=== PATIENT | female | born 2005 | race Caucasian/White ===

== ENCOUNTER 2024-01-25 00:44 | Emergency (ER) | payer SELFPAY ==
[2024-01-25 00:45] VITALS: BP 106/61; PULSE 71; TEMP 36.4; O2SAT 100; BMI 19.5
--- NOTE | 2024-01-25 01:20 | ED.GENADUL1 ---
HPI HPI - General Adult General Chief complaint: Dizziness Stated complaint: nauseous Time Seen by Provider: 01/25/24 01:01 Source: patient Mode of arrival: ambulance Limitations: no limitations History of Present Illness HPI narrative: This otherwise healthy 18-year-old female is brought to the emergency department by EMS from [facility] where she works for evaluation of an episode of dizziness/lightheadedness and nausea earlier in the evening. The patient states she was doing her routine at work and suddenly felt lightheaded and nauseated. She did not pass out. 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 She states that 2 days ago she had an episode where she had perioral numbness and tingling in her fingers were tingling and cramping. This was during sexual intercourse when she admits that she was breathing heavily. She doubts the possibility of . She denies any chest pain or shortness of breath. She denies any abdominal pain or back pain. She states that she has been working nights for approximately 4 months. She does have trouble sleeping during the day. She states she got approximately 4 hours of sleep yesterday between her night shifts. She did eat earlier in her shift. Upon arrival her symptoms have completely resolved and she has no complaints. Related Data Home Medications ?Medication ?Instructions ?Recorded ?Confirmed No Known Home Medications 01/25/24 01/25/24 Allergies Allergy/AdvReac Type Severity Reaction Status Date / Time No Known Drug Allergies Allergy Verified 01/25/24 00:48 Opioid HPI Opioid Management Most Recent Opioid Data: No Data to Display Review of Systems ROS Status of ROS 10 or more systems reviewed and unremarkable except as noted in history and below PFSH PFSH Social History Little interest or pleasure in doing things: not at all Feeling down, depressed, or hopeless: not at all Exam Narrative Exam Narrative: Vital signs and Nursing Notes reviewed: Patient is afebrile with a normal pulse, normal respiratory rate, normal blood pressure, she is not hypoxic with pulse ox of 100% on room air General: Awake, alert, oriented, thin adult female, no acute distress, lying comfortably on the stretcher HEENT: Normocephalic atraumatic, mucous membranes are moist and pink, eyes are clear, normal conjunctiva, vision is grossly intact, posterior pharynx is normal in appearance. Chest: Lungs are clear to auscultation with good air entry, there is no wheezing rhonchi or rales appreciated no accessory muscle use, patient is speaking in complete sentences-no chest wall tenderness to palpation CVS: Regular rate and rhythm S1-S2, no murmurs rubs or gallops, pulses are brisk and equal bilaterally ABD: Soft, nondistended, nontender, no rebound guarding or rigidity, bowel sounds are normal, no pulsatile masses appreciated Extremities: Moving all extremities, no lower extremity tenderness or swelling noted, negative Homans' sign, pulses are brisk and equal bilaterally Skin: Normal in appearance without rash,pallor, petechiae or purpura Neuro: No focal deficits Constitutional Vital Signs, click to edit/add: Last Vital Signs Temp 97.5 F L 01/25/24 00:45 Pulse 71 01/25/24 00:45 Resp 18 01/25/24 00:45 BP 106/61 01/25/24 00:45 Pulse Ox 100 01/25/24 00:45 O2 Del Method Room Air 01/25/24 00:45 Course Vital Signs Vital signs: Vital Signs Temperature 97.5 F L 01/25/24 00:45 Pulse Rate 71 01/25/24 00:45 Respiratory Rate 18 01/25/24 00:45 Blood Pressure 106/61 01/25/24 00:45 Pulse Oximetry 100 01/25/24 00:45 Oxygen Delivery Method Room Air 01/25/24 00:45 Temperature 97.5 F L 01/25/24 00:45 Pulse Rate 71 01/25/24 00:45 Respiratory Rate 18 01/25/24 00:45 Blood Pressure 106/61 01/25/24 00:45 Pulse Oximetry 100 01/25/24 00:45 Oxygen Delivery Method Room Air 01/25/24 00:45 Medical Decision Making MDM Narrative Medical decision making narrative: This 18-year-old female who is otherwise healthy is brought to the emergency department by EMS from home after she had an episode of dizziness and nausea while at work. Her symptoms had completely resolved prior to arrival. She denies any chest pain shortness of breath. She denied any dizziness. She was not syncopal at the time of her dizziness. She does admit that 2 days ago while having sex she had perioral numbness and spasming of her hands likely related to hyperventilation. She is not having any of those symptoms upon arrival. Her vital signs and physical exam were benign. Routine labs were ordered. She has a normal white count and hemoglobin. She has normal electrolytes. Her urine test is negative but she does have a urinary tract infection with nitrites and 10-20 white blood cells per high-power field. She was given a dose of Keflex in the emergency department pending culture results and discharged home with a prescription for Keflex for the next 5 days. She was encouraged to drink plenty of fluids, rest between her night shifts and eat a well-balanced diet. Lab Data Labs: Lab Results 01/25/24 01/25/24 Range/Units 01:16 01:56 WBC 7.7 (4.0-11.0) 10^3/uL RBC 4.29 (4.20-5.40) 10^6/uL Hgb 12.6 (12.0-16.0) g/dL Hct 39.6 (36.0-48.0) % MCV 92.3 (81.0-99.0) fL MCH 29.4 (26.7-34.0) pg MCHC 31.8 (29.9-35.2) g/dL RDW 12.5 (11.0-15.0) % Plt Count 247 (150-450) 10^3/uL MPV 10.8 (9.5-13.5) fL Neut % (Auto) 58.4 (43.0-75.0) % Lymph % (Auto) 32.6 (20.5-60.0) % Harford % (Auto) 6.8 (1.7-12.0) % Eos % (Auto) 1.3 (0.9-7.0) % Baso % (Auto) 0.5 (0.2-2.0) % Neut # (Auto) 4.5 (1.4-6.5) 10^3/uL Lymph # (Auto) 2.5 (1.2-3.8) 10^3/uL Harford # (Auto) 0.5 (0.3-0.8) 10^3/uL Eos # (Auto) 0.1 (0.0-0.7) 10^3/uL Baso # (Auto) 0.0 (0.0-0.1) 10^3/uL Abs Immat Gran (auto) 0.03 (0.00-0.03) 10^3/uL Imm/Tot Granulo (auto) 0.4 (0.0-0.5) % Sodium 139 (136-145) mmol/L Potassium 3.6 (3.5-5.1) mmol/L Chloride 102 (98-107) mmol/L Carbon Dioxide 27.0 (21.0-32.0) mmol/L Anion Gap 13.6 BUN 12.0 (7.0-18.0) mg/dL Creatinine 0.90 (0.55-1.02) mg/dL Est GFR ( Amer) >60 (>=60 mL/min/1.73m^2) Est GFR (Non-Af Amer) >60 (>=60 mL/min/1.73m^2) BUN/Creatinine Ratio 13.3 Glucose 98 (74-106) mg/dL Calcium 9.0 (8.5-10.1) mg/dL Total Bilirubin 0.5 (0.2-1.0) mg/dL AST 12 L (15-37) U/L ALT 10 L (14-59) U/L Alkaline Phosphatase 66 (46-116) U/L Total Protein 6.9 (6.4-8.2) g/dL Albumin 3.7 (3.4-5.0) g/dL Globulin 3.2 g/dL Albumin/Globulin Ratio 1.2 Urine Color Yellow (YELLOW) Urine Clarity Sl cloudy (CLEAR) Urine pH 6.0 (5.0-9.0) Ur Specific Yarnell >=1.030 A (1.005-1.025) Urine Protein 30 A (NEG/TRACE) mg/dL Urine Glucose (UA) Negative (NEGATIVE) mg/dL Urine Ketones Negative (NEGATIVE) mg/dL Urine Occult Blood Negative (NEGATIVE) Urine Nitrite Positive A (NEGATIVE) Urine Bilirubin Negative (NEGATIVE) Urine Urobilinogen 0.2 (0.2-1.0) EU/dL Ur Leukocyte Esterase Negative (NEGATIVE) Urine RBC 0-2 (0-2) #/HPF Urine WBC 10-20 A (NONE SEEN) #/HPF Ur Squamous Epith Cells Moderate A (NONE/RARE) #/LPF Urine Crystals None seen (None Seen) #/HPF Urine Bacteria Large A (NONE SEEN) #/HPF Urine Casts None seen (NONE SEEN) #/LPF Urine Mucus Large A (NONE SEEN) Ur Culture Indicated? Yes Urine HCG, Qual Negative (NEGATIVE) Discharge Plan Discharge Chief Complaint: Dizziness Clinical Impression: UTI (urinary tract infection) Patient Disposition: Home, Self-Care Time of Disposition Decision: 02:21 Condition: Good Prescriptions / Home Meds: No Action No Known Home Medications Print Language: Maltese Instructions: Urinary Tract Infection in Women (ED) Referrals: Physician,Non-Staff, [Primary Care Provider] - 1 week
[2024-01-25 01:47] LABS: Basophils Percent Auto 0.5 % (0.2-2.0); Eosinophils Absolute Auto 0.1 10^3/uL (0.0-0.7); Eosinophils Percent Auto 1.3 % (0.9-7.0); Hematocrit 39.6 % (36.0-48.0); Hemoglobin 12.6 g/dL (12.0-16.0); Immature Granulocytes Abs Auto 0.03 10^3/uL (0.00-0.03); Immature Granulocytes Pct Auto 0.4 % (0.0-0.5); Lymphocytes Absolute Auto 2.5 10^3/uL (1.2-3.8); Lymphocytes Percent Auto 32.6 % (20.5-60.0); Mean Corpuscular HGB Conc 31.8 g/dL (29.9-35.2); Mean Corpuscular Hemoglobin 29.4 pg (26.7-34.0); Mean Corpuscular Volume 92.3 fL (81.0-99.0); Mean Platelet Volume 10.8 fL (9.5-13.5); Monocytes Absolute Auto 0.5 10^3/uL (0.3-0.8); Monocytes Percent Auto 6.8 % (1.7-12.0); Neutrophils Absolute Auto 4.5 10^3/uL (1.4-6.5); Neutrophils Percent Auto 58.4 % (43.0-75.0); Platelet Count 247 10^3/uL (150-450); Red Blood Count 4.29 10^6/uL (4.20-5.40); Red Cell Distribution Width 12.5 % (11.0-15.0); White Blood Count 7.7 10^3/uL (4.0-11.0)
[2024-01-25 01:50] LABS: Alanine Aminotransferase 10 U/L (14-59); Albumin Globulin Ratio 1.2; Albumin Level 3.7 g/dL (3.4-5.0); Alkaline Phosphatase 66 U/L (46-116); Anion Gap 13.6; Aspartate Amino Transferase 12 U/L (15-37); BUN Creatinine Ratio 13.3; Bilirubin Total 0.5 mg/dL (0.2-1.0); Chloride 102 mmol/L (98-107); Estimated GFR (African America >60 (>=60 mL/min/1.73m^2); Estimated GFR (Non-African Ame >60 (>=60 mL/min/1.73m^2); Globulin 3.2 g/dL; Glucose 98 mg/dL (74-106); Potassium 3.6 mmol/L (3.5-5.1); Sodium 139 mmol/L (136-145); Total Protein 6.9 g/dL (6.4-8.2)
[2024-01-25 02:01] LABS: Bilirubin Urine NEGATIVE (NEGATIVE); Blood Urine NEGATIVE (NEGATIVE); Clarity Urine SL CLOUDY (CLEAR); Color Urine YELLOW (YELLOW); Glucose Urine UA NEGATIVE (NEGATIVE); Ketones Urine NEGATIVE (NEGATIVE); Leukocyte Esterase Urine NEGATIVE (NEGATIVE); Nitrite Urine POSITIVE (NEGATIVE); Protein Urine 30 mg/dL (NEG/TRACE); Specific Gravity Urine >=1.030 (1.005-1.025); Urobilinogen Urine 0.2 EU/dL (0.2-1.0)
[2024-01-25 02:05] LABS: HCG Qualitative Urine* NEGATIVE (NEGATIVE); Internal Control Within Normal Limits
[2024-01-25 02:10] LABS: Bacteria Urine LARGE #/HPF (NONE SEEN); Mucus Urine LARGE (NONE SEEN); RBC Urine 0-2 #/HPF (0-2); Squamous Epithelial Cell Urine MODERATE #/LPF (NONE/RARE)
[2024-01-25 02:11] LABS: Crystals Seen? None Seen #/HPF (None Seen)
[2024-01-25 02:12] LABS: Cast Seen? NONE SEEN #/LPF (NONE SEEN); Urine Culture Indicated YES
[2024-01-25 02:30] VITALS: BP 108/69; PULSE 63; TEMP 36.7; O2SAT 100
[2024-01-25] MEDS: CEPHALEXIN 500 MG CAPSULE PO (02:31)
== END 2024-01-25 02:40 | disposition home or self-care (01) ==
PROVIDERS: Emergency Provider Emergency Medicine
DX: N39.0 Urinary tract infection, site not specified (principal)
CPT/HCPCS: 36415; 80053; 81001; 84703; 85025; 87086; 99283

== ENCOUNTER 2024-11-14 12:30 | Outpatient (OUT) | payer BC, MEDICAID, SELFPAY ==
--- OUTSIDE RECORDS SUMMARY | 2024-11-14 09:50 | XMS_ITS | Encounter Summary ---
Author Organization [facility] Address [address] [place] [address] Care Team Providers Care Atomic Process Engineer Name Role Phone João Pham MD Primary Care Provider [phone] Reason for Visit * Reason Comments Routine Visit Encounter Details Date Type Department Care Team (Late st Contact Info) Description 11/14/2024 9:50 AM EDT Routine [facility] [address] [place] [address] Syed Meza DO [address] [place] [address] First trimester ([facility]); 11 weeks gestation of ([facility]) Social History Tobacco Use Types Packs/Day Years [...] this encounter Progress Notes * Deena Williamson, GAS BRAZER - 11/14/2024 9:50 AM EDT Reason for Appointment: Patient ID: Nathaniel Lanza is a 19 y.o. female who presents for Routine Visit Patient presents today for Return OB appointment. MEDICATIONS Current Outpatient Medications Medication Instructions Prenat w/o S-EgEbe-Rywu-FA-DHA (TriStart DHA) 31-0.6-0.4-200 MG capsule 1 capsule, [...] nursing note reviewed. Exam conducted with a finance manager present. Vitals: Estimated body mass index is 19.53 kg/m?? as calculated from the following: Height as of 10/28/22: 5' 6 . Weight as of this encounter: 121 lb. BP: 122/76 Patient's last menstrual period was 08/13/2024. ASSESSMENT & PLAN ICD-10-CM 1. First trimester ([facility]) Z34.91 POCT urinalysis dipstick manually resulted 2. 11 weeks gestation of ([facility]) Z3A.11 New OB: Patient presents today for [...] or undercooked meat, and stay away from [facility]. Patient has been consulted regarding any further [...] AM EDT Routine [facility] [address] [place] [place] [address] Kassandra Gipson PA [address] [place] [address] documented as of this encounter Procedures Procedure Name Priority Date/Time Associated Diagnosis Comments POCT URINALYSIS DIPSTICK Routine 11/14/2024 10:50 AM EDT First trimester ([facility]) documented in this encounter Results * (ABNORMAL) [...] this encounter Visit Diagnoses Diagnosis First trimester ([facility]) state, incidental 11 weeks gestation of ([facility]) documented in this encounter Care Teams Atomic Process Engineer Relationship Specialty Start Date End Date João Pham MD [address] [place] [address], [address] [place] [address] PCP - General Family Medicine 10/28/22 documented as of this encounter
--- OUTSIDE RECORDS SUMMARY | 2024-11-14 12:36 | XMS_ITS | Clinical Summary ---
Author Organization [facility] Address [address] [place] [address] Care Team Providers Care Station Detective Name Role Phone João Pham MD Primary Care Provider [phone] Allergies No known active allergies Medications Prenat w/o O-AbWte-Iadn-FA-DH A (TriStart DHA) 31-0.6-0.4-200 MG capsule Take 1 capsule by mouth in the morning. 5 Active ondansetron ODT (Zofran-ODT) 4 MG disintegrating tabletIndications: Nausea and vomiting in ([facility]) Take 1 tablet (4 mg) by mouth every 6 (six) hours if needed for nausea or vomiting 30 tablet 2 5 11/13/19 25 Encounters Date Type Department Care Team Description 11/14/2024 9:50 AM ED[place] [address] Syed Meza DO First trimester ([facility]); 11 weeks gestation of ([facility]) 11/14/2024 [place] [address] Syed Meza DO 10/13/2024 10:00 AM EDT [place] [address] [place]: 6w3d 10/13/2024 9:30 AM EDT Ancillary Procedure [facility] [address] [place] [address] Missed menses 10/12/2024 Travel 10/10/2024 Travel from Last 3 Months Family History Relation Name Status Comments Brother 1 Alive Father Alive Mother Alive Sister 2 Alive Social History Tobacco Use Types Packs/Day Years Used Date Smoking Tobacco: Never Smokeless Tobacco: Never Tobacco Cessation:Counseling Given: Not Answered Alcohol Use Standard Drinks/Week Comments Never 0 (1 standard drink = 0.6 oz pur e alcohol) Estimated Date of Delivery Comme nts Yes 06/05/2025 Based on Ultraso und Sex and Gender Information Value Date Recorded Sex Assigned at Not on file Legal Sex Female 6:50 PM EDT Gender Identity Not on file Sexual Orientation Not on file Last Filed Vital Signs Vital Sign Reading Time Taken Comments Blood Pressure 122/76 11/14/2024 10:46 AM EDT Pulse 81 10/28/2022 3:57 PM EDT Temperature 36.6 C (97.8 F) 10/28/2022 3:57 PM EDT Respiratory Rate - - Oxygen Saturation 99% 10/28/2022 3:57 PM EDT Inhaled Oxygen Concentration - - Weight 54.9 kg (121 lb) 11/14/2024 10:46 AM EDT Height 167.6 cm (5' 6 ) 10/28/2022 3:57 PM EDT Body Mass Index 19.53 10/28/2022 3:57 PM EDT Plan of Treatment Upcoming Encounters Date Type Department Care Team (Late st Contact Info) Description 12/12/2024 8:50 AM EDT Routine [facility] [address] [place] [address] Kassandra Gipson PA [address] [address] Procedures Procedure Name Priority Date/Time Associated Diagnosis Comments POCT URINALYSIS DIPSTICK Routine 11/14/2024 10:50 AM EDT First trimester ([facility]) POCT , URINE Routine 10/13/2024 10:42 AM EDT Missed menses POCT URINALYSIS DIPSTICK Routine 10/13/2024 10:36 AM EDT Missed menses US OB TRANSVAGINAL Routine 10/13/2024 9: 56 AM EDT Missed menses from Last 3 Months Results * (ABNORMAL) POCT urinalysis dipstick manually resulted (11/14/2024 10:50 AM EDT) Only the most recent of2 resultswithin the time period is included. Color, UA Yellow Clarity, UA Clear Glucose, UA Negative Negative - 2000(110) ++++ mg/dL Bilirubin, UA Negative Negative - 4(70) +++ mg/dL Ketones, UA Negative Negative - 160(16) ++++ mg/dL Spec Grav, UA 1.025 1 - 1.03 Blood, UA Negative Negative - 50 Rishabh/mcL pH, UA 6.0 5 - 9 Protein, UA Negative Negative - 2000(20) ++++ mg/dL Urobilinogen, UA 0.2 0.2 - 12 mg/dL Leukocytes, UA Negative Negative - 500+++ Ronald/mcL Nitrite, UA Negative Negative - Positive Urine 11/14/2024 10:5 0 AM EDT Syed Susana DO POINT OF CARE TEST ENTER/EDIT OR DERABLES Final Result * (ABNORMAL) POCT , urine manually resulted (10/13/2024 10:42 AM EDT) Preg Test, Ur Positive Negative Urine 10/13/2024 10:4 2 AM EDT us Syed Susana DO POINT OF CARE TEST ENTER/EDIT OR DERABLES Final Result * US OB transvaginal (10/13/2024 9:56 AM EDT) Anatomical Region Laterality Modality Body Ultrasound 10/15/2024 10:0 6 PM EDT Narrative 10/15/2024 10:06 PM EDT EXAM: US OB TRANSVAGINAL HISTORY: Dating. COMPARISON: None available. TECHNIQUE: Two-dimensional transvaginal grayscale ultrasound imaging of the pelvis was performed. Color Doppler evaluation of the ovaries was also performed. FINDINGS: The uterus demonstrates a normal homogeneous echotexture. The cervix measures 3.8 cm in length and the cervical os is closed. The right ovary measures 3.4 x 2.2 x 2.8 cm and demonstrates a normal echotexture. There is normal color Doppler flow. There is a collapsing presumed corpus luteal cyst. The left ovary measures 2.6 x 1.4 x 2.4 cm and demonstrates a normal echotexture. There is normal color Doppler flow. No fluid is present within the cul-de-sac. There is a single, live intrauterine gestation identified with a heart rate of 127 beats per minute and a crown-rump length measurement of 0.6 cm, correlating to a gestational age of 6 weeks 3 days (+/- 4 days). There is no subchorionic hemorrhage visualized. A yolk sac is visualized. IMPRESSION: 1. Single, live intrauterine gestation 8 weeks, 5 days by LMP. Today's ultrasound measurements correlate with a gestational age of 6 weeks 3 days (+/- 4 days). STEPHANIE by today's ultrasound is 06/05/2025. 2. Normal color Doppler evaluation of the bilateral ovaries. Interpreted by: Electronically signed by TANYA PIERCE II, MD, PHD at 15-Oct-2024 10:04:20 PM [facility] Procedure Note Tanya Pierce MD - 10/15/2024 EXAM: US OB TRANSVAGINAL HISTORY: Dating. COMPARISON: None available. TECHNIQUE: Two-dimensional transvaginal grayscale ultrasound imaging ofthe pelvis was performed. Color Doppler evaluation of the ovaries was alsoperformed. FINDINGS: The uterus demonstrates a normal homogeneous echotexture. The cervixmeasures 3.8 cm in length and the cervical os is closed. The right ovary measures 3.4 x 2.2 x 2.8 cm and demonstrates a normalechotexture. There is normal color Doppler flow. There is a collapsingpresumed corpus luteal cyst. The left ovary measures 2.6 x 1.4 x 2.4 cm and demonstrates a normalechotexture. There is normal color Doppler flow. No fluid is present within the cul-de-sac. There is a single, live intrauterine gestation identified with a fetalheart rate of 127 beats per minute and a crown-rump length measurement of0.6 cm, correlating to a gestational age of 6 weeks 3 days (+/- 4 days).There is no subchorionic hemorrhage visualized. A yolk sac isvisualized. IMPRESSION: 1. Single, live intrauterine gestation 8 weeks, 5 days by LMP. Today'sultrasound measurements correlate with a gestational age of 6 weeks 3 days(+/- 4 days). STEPHANIE by today's ultrasound is 06/05/2025. 2. Normal color Doppler evaluation of the bilateral ovaries. Interpreted by: Electronically signed by TANYA PIERCE II, MD, PHD [id number] 10:04:20 PM [facility] us Syed Meza DO IMG OB US PROCEDURES Final Resul t from Last 3 Months Insurance MEDICAID [place] Care Teams Station Detective Relationship Specialty Start Date End Date João Pham MD [address] [place] [address], [address] [place] [address] PCP - General Family Medicine 10/28/22
--- OUTSIDE RECORDS SUMMARY | 2024-11-14 12:36 | XMS_ITS | Encounter Summary ---
Author Organization [facility] tem Address [id number] [address] [place] [address] Care Team Providers Care Iron Assorter Name Role Phone João Pham MD Primary Care Provider Encounter Details Date Type Department Care Team (Late st Contact Info) Description 10/23/2020 Orders Only [facility] Internal Medicine/Pediatrics [address] [facility] [place] [address] Doherty, Bonnie, RMA Febrile illness Social History Tobacco Use Types Packs/Day Years Used Date Smoking Tobacco: Never Smokeless Tobacco: Never Alcohol Use Standard Drinks/Week Comments No 0 (1 standard drink = 0.6 oz pur e alcohol) AUDIT-C Answer Date Recorded Frequency of Alcohol Consumption Never 01/12/2018 Average Number of Drinks Not on file 018 Frequency of Binge Drinking Not on file 12/19 PHQ-2 Answer Date Recorded Total Score 0 08/02/2020 Childcare Answer Date Recorded Childcare Unknown 09/28/2018 Employment Answer Date Recorded Employment Unknown 09/28/2018 Purpose - Life Answer Date Recorded Purpose and direction in life Unknown Comments No Sex and Gender Information Value Date Recorded Sex Assigned at Not on file Legal Sex Female 10:38 PM EDT Gender Identity Not on file Sexual Orientation Not on file COVID-19 Exposure Response Date Recorded In the last month, have you been in contact with someone who was confirmed or suspected to have Coronavirus / COVID-19? No / Unsure 10/24/2020 11:11 AM EDT documented as of this encounter Plan of Treatment Not on file documented as of this encounter Procedures Procedure Name Priority Date/Time Associated Diagnosis Comments SARS COV 2 (COVID-19) STAT 10/22/2020 Febrile illness documented in this encounter Results * SARS COV 2 (COVID-19)[Lab Collect] (10/22/2020) EXTERNAL SARS COV 2 Negative Negative [facility] NASOPHARYNGEAL 10/22/2020 us João Pham MD MICROBIOLOGY - GENERAL ORDERA BLES Final Result [facility] documented in this encounter Visit Diagnoses Diagnosis Febrile illness documented in this encounter Additional Health Concerns Assessment Noted Time PHQ-9 Depression Total Score: 0 08/03/19 21 12:32 PM EDT documented as of this encounter Care Teams Iron Assorter Relationship Specialty Start Date End Date João Pham MD [address] [place] [address], [address] [place] [address] PCP - General Pediatrics 01/05/18 documented as of this encounter
--- OUTSIDE RECORDS SUMMARY | 2024-11-14 12:36 | XMS_ITS | Encounter Summary ---
Author Organization [facility] Address [address] [place] [address] Care Team Providers Care Certified Scrub Tech Name Role Phone João Pham MD Primary Care Provider [phone] Encounter Details Date Type Department Care Team (Late Contact Info) Description 11/14/2024 Bamboo flowsheet [facility] [address] [place] [address] Syed Meza DO [address] [facility] [address] Mj Jar[place], [place] [address] Social History Tobacco Use Types Packs/Day Years [...] on file documented as of this encounter Plan of Treatment Upcoming Encounters Date Type Department Care Team (Late st Contact Info) Description 12/12/2024 8:50 AM EDT Routine [facility] [address] [place] [address] Kassandra Gipson PA [address] [place], [place] [address] documented as of this encounter Visit Diagnoses Not on filedocumented in this encounter Care Teams Certified Scrub Tech Relationship Specialty Start Date End Date João Pham MD [address] [place] [address], [address] [place] [address] PCP - General Family Medicine 10/28/22 documented as of this encounter
--- OUTSIDE RECORDS SUMMARY | 2024-11-14 12:36 | XMS_ITS | Clinical Summary ---
Author Organization [facility] tem Address [id number] [address] [place] [address] Care Team Providers Care Packager Name Role Phone João Pham MD Primary Care Provider [phone] Allergies No known active allergies Medications 96-cotu-vbqexq 9-dha 31 mg iron- 1 mg-200 mg capsuleIndications :Patient desires Take 1 capsule by mouth in the morning. 90 capsule 3 5 Active ondansetron ODT (ZOFRAN ODT) 4 mg disintegrating tablet Dissolve 1 tablet (4 mg total) on tongue every 8 (eight) hours as needed for nausea for up to 10 doses. 10 tablet 5 Active cefaDROXil (DURICEF) 500 mg capsule Take 2 capsules (1,000 mg total) by mouth in the morning and 2 capsules (1,000 mg total) before bedtime. Do all this for 7 days. 28 capsule 5 10/22/19 25 Active Problems Problem Noted Date Diagnosed Date S/P tonsillectomy and adenoidectomy 09/13/2018 Peritonsillar abscess 08/28/2018 Left upper quadrant pain 01/17/2018 Other constipation 01/17/2018 Non-intractable vomiting with nausea 01/17/2018 Abnormal weight loss 01/17/2018 Abdominal pain 01/12/2018 Comments Yes Encounters Date Type Department Care Team Description 10/14/2024 9:35 PM EDT - 10/14/2024 10:21 PM EDT Emergency [facility] - Emergency [address] [place] [id number] Melony Bowen DO Acute cystitis without hematuria (Primary Dx) Discharge Disposition: Home 10/14/2024 Travel 09/27/2024 10:15 AM EDT Clinical Support [facility] Obstetrics/Gynecolog y [address] [place] [address] Bonnie Barrett, ARE[employer] Missed menses (Primary Dx) 09/27/2024 Travel 09/26/2024 Telephone [facility] Obstetrics/Gynecolog y [address] [place] [address] Bonnie Barrett, [employer] from Last 3 Months Immunizations Immunization Administration Dates Next Due DTaP 09/04/2008, 5,2003,2003,07/31/19 04 HPV Quadrivalent 12/01/2016,03/19/2016, 6 Hepatitis A 12/01/2016,03/19/2016 Hepatitis B 2003,2003,2003 ,2003 HiB 06/04/2004,2003,2003 ,2003 IPV 09/04/2008,2003,2003 ,2003 Influenza, Unspecified 04/03/2009,02/04/2009 MMR 09/04/2008,06/04/2004 Meningococcal Conjugate 12/12/2019,01/14/2016 Pneumococcal Conjugate 09/03/2004,06/04/2004,03/2005,2003 TST - PPD Kaity Test 12/04/2019,11/27/2019 Tdap 05/20/2022,01/04/2016 Varicella 11/06/2008,09/03/2004 Family History Medical History Relation Name Comments Cancer Paternal Aunt Cancer Paternal Grandfather Relation Name Status Comments Father Alive Mother Alive Paternal Aunt breast cancer Paternal Grandfather great g randfather, prostate cancer Social History Tobacco Use Types Packs/Day Years Used Date Smoking Tobacco: Never Smokeless Tobacco: Never Tobacco Cessation:Counseling Given: Not Answered Alcohol Use Standard Drinks/Week Comments Not Currently 0 (1 standard drink = 0.6 oz pur e alcohol) occasionally AUDIT-C Answer Date Recorded Frequency of Alcohol Consumption Never 01/12/2018 Average Number of Drinks Not on file 018 Frequency of Binge Drinking Not on file 12/19 PHQ-2 Answer Date Recorded Total Score 0 08/02/2020 Childcare Answer Date Recorded Childcare Unknown 09/28/2018 Employment Answer Date Recorded Employment Unknown 09/28/2018 Hunger Screening Answer Date Recorded Within the past 12 months we worried whether our food would run out before we got money to buy more. Never True 06/11/2024 Within the past 12 months th e food we bought just didn't last and we didn't have money to get more. Never True 06/11/2024 Purpose - Life Answer Date Recorded Purpose and direction in life Unknown Comments Yes Sex and Gender Information Value Date Recorded Sex Assigned at Not on file Legal Sex Female 10:38 PM EDT Gender Identity Not on file Sexual Orientation Not on file Last Filed Vital Signs Vital Sign Reading Time Taken Comments Blood Pressure 124/72 10/14/2024 9:43 PM EDT Pulse 72 10/14/2024 9:43 PM EDT Temperature 37.2 C (98.9 F) 10/14/2024 9:43 PM EDT Respiratory Rate 16 10/14/2024 9:43 PM EDT Oxygen Saturation 99% 10/14/2024 9:43 PM EDT Inhaled Oxygen Concentration - - Weight 54.4 kg (120 lb) 10/14/2024 9:43 PM EDT Height 167.6 cm (5' 6 ) 10/14/2024 9:43 PM EDT Body Mass Index 19.37 10/14/2024 9:43 PM EDT Plan of Treatment Health Maintenance Due Date Last Done Comments Chlamydia Screening 2003 Depression Screening 2015 Pap Smear 2024 Influenza Vaccine 12/18/2024 04/03/2009, 02/04/2009 Tobacco Screening 06/11/2025 06/11/2024 Adult BMI Screening 10/14/2025 10/14/2024 DTaP,Tdap and Td Vaccines (8 - Td or Tdap) 05/20/2032 05/20/2022, 01/04/2016, 09/04/2008, Additional history exists Medical Devices Not on file Procedures Procedure Name Priority Date/Time Associated Diagnosis Comments POCT NURSING URINE MACROSCOPIC UA Routine 10/14/2024 9:59 PM EDT ER EXTRA URINE MARBLE STAT 10/14/2024 9:44 PM EDT ER EXTRA URINE CULTURE STAT 10/14/2024 9:44 PM EDT ER EXTRA URINE STAT 10/14/2024 9:44 PM EDT PM AMB POCT , URINE (NUCG) Routine 09/27/2024 10:14 AM EDT Missed menses from Last 3 Months Results * (ABNORMAL) POCT Nursing Urine Macroscopic UA (10/14/2024 9:59 PM EDT) POC Urine Specific [place] >=1.030(A) 1.010, 1.015, 1.020, 1.025 10/14/2024 9:52 PM EDT [facility] POC Urine Leukocyte Esterase Negative Negative 10/14/2024 9:52 PM EDT [facility] POC Urine Nitrite Positive(A) Negative 10/14/2024 9:52 PM EDT [facility] POC Urine pH 6.5 5.0, 6.0, 6.5, 7.0, 7.5, 8.0, 8.5, 5.5 10/14/2024 9:52 PM EDT [facility] POC Urine Protein Negative Negative 10/14/2024 9:52 PM EDT [facility] POC Urine Glucose Negative Negative 10/14/2024 9:52 PM EDT [facility] POC Urine Ketones Negative Negative 10/14/2024 9:52 PM EDT [facility] POC Urine Urobilinogen 0.2 E.U./dL 10/14/2024 9:52 PM EDT [facility] POC Urine Bilirubin Negative Negative 10/14/2024 9:52 PM EDT [facility] POC Urine Blood/HGB Negative Negative 10/14/2024 9:52 PM EDT [facility] Urine 10/14/2024 9:59 PM EDT 10/14/2024 9:52 PM EDT us Khalid Jessi DO POINT OF CARE TEST ORDERABLES Fi nal Result [address] [place] [address], [place] * Extra Urine [place] (10/14/2024 9:44 PM EDT) Extra Tube Auto Resulted 10/14/2024 11:02 PM EDT [facility] Urine Urine specimen collection, clean catch / Unknown 10/14/2024 9:44 PM EDT 10/14/2024 9:52 PM EDT us Khalid Jessi DO URINE ORDERABLES Final Result Performing Organization Address City/[facility]/ZIP Co de Phone Number [address] [place] [address], [place] * Extra Urine Culture (10/14/2024 9:44 PM EDT) Extra Tube Auto Resulted 10/14/2024 11:02 PM EDT [facility] Urine Urine specimen collection, clean catch / Unknown 10/14/2024 9:44 PM EDT 10/14/2024 9:55 PM EDT us Khalid Jessi DO URINE ORDERABLES Final Result Performing Organization Address City/[facility]/ZIP Co de Phone Number [address] [place] [address], [place] * Extra Urine (10/14/2024 9:44 PM EDT) Extra Tube Auto Resulted 10/14/2024 11:02 PM EDT [facility] Urine Urine specimen collection, clean catch / Unknown 10/14/2024 9:44 PM EDT 10/14/2024 9:52 PM EDT us Melony Mackayi DO URINE ORDERABLES Final Result [facility] [address] [place] [address], * POCT , urine (09/27/2024 10:14 AM EDT) External Poct Urine Negative MANUALLY TRANSCRIBED RESULTS Urine 09/27/2024 10:1 4 AM EDT Bonnie Barrett ARE[employer] POINT OF CARE TEST ORDER [place] Final Result Performing Organization Address City/[facility]/ZIP Co de Phone Number MANUALLY TRANSCRIBED RESULTS from Last 3 Months Insurance [facility] [place] Advance Directives * Full Code (Latest Code Status on File) Date Activated Date Inactivated Comments 01/12/2018 1:32 PM 01/13/2018 8:22 PM Care Teams Packager Relationship Specialty Start Date End Date João Pham MD [address] [place] [address], [address] [place] [address] PCP - General Pediatrics 01/05/18
[2024-11-14 13:21] LABS: Hematocrit 40.1 % (36.0-48.0); Hemoglobin 13.5 g/dL (12.0-16.0); Immature Granulocytes Abs Auto 0.04 10^3/uL (0.00-0.03); Immature Granulocytes Pct Auto 0.4 % (0.0-0.5); Lymphocytes Absolute Auto 1.5 10^3/uL (1.2-3.8); Mean Corpuscular HGB Conc 33.7 g/dL (29.9-35.2); Mean Corpuscular Hemoglobin 30.1 pg (26.7-34.0); Mean Corpuscular Volume 89.5 fL (81.0-99.0); Platelet Count 193 10^3/uL (150-450); Red Blood Count 4.48 10^6/uL (4.20-5.40); White Blood Count 9.4 10^3/uL (4.0-11.0)
[2024-11-14 13:30] LABS: Cannabinoid Screen Urine NEGATIVE (NEGATIVE); Methamphetamines Screen Urine NEGATIVE (NEGATIVE); Tricyclic Antidepressant Urine NEGATIVE (NEGATIVE)
[2024-11-15 08:09] LABS: Rubella Antibodies, IgG 8.56 index (Immune >0.99)
[2024-11-15 12:08] LABS: Rapid Plasma Reagin, Quant Non Reactive titer (NonRea<1:1)
== END 2024-11-14 12:31 | disposition home or self-care (01) ==
LOC: LAB 12:34
PROVIDERS: Visit Provider Obstetrics & Gynecology
DX: Z34.01 Encounter for supervision of normal first pregnancy, first trimester (principal); N92.6 Irregular menstruation, unspecified
CPT/HCPCS: 36415; 80307; 83036; 85025; 86592; 86762; 86803; 86850; 86900; 86901; 87086; 87340; 87389

== ENCOUNTER 2024-11-17 14:19 | Outpatient (OUT) | payer BC, MEDICAID, SELFPAY ==
--- OUTSIDE RECORDS SUMMARY | 2024-11-14 09:50 | XMS_ITS | Encounter Summary ---
Author Organization [facility] Address [address] [place] [address] Care Team Providers Care Dragline Operator Name Role Phone João Pham MD Primary Care Provider [phone] Reason for Visit * Reason Comments Routine Visit Encounter Details Date Type Department Care Team (Late st Contact Info) Description 11/14/2024 9:50 AM EDT Routine [facility] [address] [place] [address] Syed Meza DO [address] [place] [address] First trimester ([facility]); 11 weeks gestation of ([facility]) Social History Tobacco Use Types Packs/Day Years Used Date Smoking Tobacco: Never Smokeless Tobacco: Never Alcohol Use Standard Drinks/Week Comments Never 0 (1 standard drink = 0.6 oz pur e alcohol) Estimated Date of Delivery Comme nts Yes 06/05/2025 Based on Ultraso und Sex and Gender Information Value Date Recorded Sex Assigned at Not on file Legal Sex Female 6:50 PM EDT Gender Identity Not on file Sexual Orientation Not on file documented as of this encounter Last Filed Vital Signs Vital Sign Reading Time Taken Comments Blood Pressure 122/76 11/14/2024 10:46 AM EDT Pulse - - Temperature - - Respiratory Rate - - Oxygen Saturation - - Inhaled Oxygen Concentration - - Weight 54.9 kg (121 lb) 11/14/2024 10:46 AM EDT Height - - Body Mass Index 19.53 10/28/2022 3:57 PM EDT documented in this encounter Progress Notes * Deena Williamson, COMPENSATION SUPERVISOR - 11/14/2024 9:50 AM EDT Reason for Appointment: Patient ID: Nathaniel Lanaz is a 19 y.o. female who presents for Routine Visit Patient presents today for Return OB appointment. MEDICATIONS Current Outpatient Medications Medication Instructions Prenat w/o L-AaWvt-Arra-FA-DHA (TriStart DHA) 31-0.6-0.4-200 MG capsule 1 capsule, Daily RT ALLERGIES No Known Allergies PROBLEMS Active Ambulatory Problems Diagnosis Date Noted No Active Ambulatory Problems Resolved Ambulatory Problems Diagnosis Date Noted No Resolved Ambulatory Problems Past Medical History: Diagnosis Date Anxiety HISTORY PAST MEDICAL HISTORY SOCIAL HISTORY Past Medical History: Diagnosis Date Anxiety Social History Tobacco Use Smoking status: Never Smokeless tobacco: Never Vaping Use Vaping status: Not on file Substance Use Topics Alcohol use: Never Drug use: Not on file FAMILY HISTORY No family history on file. SURGICAL HISTORY No past surgical history on file. REVIEW OF SYSTEMS Review of Systems: Review of Systems Constitutional: Negative. HENT: Negative. Eyes: Negative. Respiratory: Negative. Cardiovascular: Negative. Gastrointestinal: Negative. Genitourinary: Negative. Musculoskeletal: Negative. Skin: Negative. Neurological: Negative. All other systems reviewed and are negative. Hematological: Negative. Endocrine: Negative. Allergic/Immunologic: Negative. OBJECTIVE Objective: Physical Exam Constitutional: Appearance: Normal appearance. She is well-developed. Cardiovascular: Rate and Rhythm: Normal rate and regular rhythm. Pulmonary: Effort: Pulmonary effort is normal. Breath sounds: Normal breath sounds. Abdominal: General: Bowel sounds are normal. There is no distension. Palpations: Abdomen is soft. Tenderness: There is no abdominal tenderness. There is no guarding or rebound. Musculoskeletal: General: No swelling. Normal range of motion. Right lower leg: No edema. Left lower leg: No edema. Neurological: Mental Status: She is alert and oriented to person, place, and time. Skin: General: Skin is warm and dry. Psychiatric: Mood and Affect: Mood normal. Behavior: Behavior normal. Vitals and nursing note reviewed. Exam conducted with a industrial photographer present. Vitals: Estimated body mass index is 19.53 kg/m?? as calculated from the following: Height as of 10/28/22: 5' 6 . Weight as of this encounter: 121 lb. BP: 122/76 Patient's last menstrual period was 08/13/2024. ASSESSMENT & PLAN ICD-10-CM 1. First trimester ([facility]) Z34.91 POCT urinalysis dipstick manually resulted 2. 11 weeks gestation of ([facility]) Z3A.11 New OB: Patient presents today for 1st time obstetrics appointment with provider. Patient is currently 11w0d . Patients history has been reviewed in great detail including any potential risks. Patient stated she currently has no complaints. Expectations throughout regarding labs, ultrasounds, and appointments have been discussed with the patient in detail. It was reiterated that the patient is to drink 6-8 glasses of water a day, eat 6 small meals a day, do not consume raw or undercooked meat, and stay away from [facility]. Patient has been consulted regarding any further do's and don'tsof . Patient voiced understanding and all questions and concerns were answered. Orders Placed This Encounter Procedures POCT urinalysis dipstick manually resulted Follow Up: Patient is to return in 4 weeks for routine OB appointment. Documented by Deena Williamson LPN on behalf of: Syed Meza DO documented in this encounter Plan of Treatment Upcoming Encounters Date Type Department Care Team (Late st Contact Info) Description 12/12/2024 8:50 AM EDT Routine [facility] [address] [place] [address] Kassandra Gipson PA [address] [place] [address] documented as of this encounter Procedures Procedure Name Priority Date/Time Associated Diagnosis Comments POCT URINALYSIS DIPSTICK Routine 11/14/2024 10:50 AM EDT First trimester ([facility]) documented in this encounter Results * (ABNORMAL) POCT urinalysis dipstick manually resulted (11/14/2024 10:50 AM EDT) Color, UA Yellow Clarity, UA Clear Glucose, UA Negative Negative - 1999(110) ++++ mg/dL Bilirubin, UA Negative Negative - 4(70) +++ mg/dL Ketones, UA Negative Negative - 160(16) ++++ mg/dL Spec Grav, UA 1.025 1 - 1.03 Blood, UA Negative Negative - 50 Rishabh/mcL pH, UA 6.0 5 - 9 Protein, UA Negative Negative - 1999(20) ++++ mg/dL Urobilinogen, UA 0.2 0.2 - 12 mg/dL Leukocytes, UA Negative Negative - 500+++ Ronald/mcL Nitrite, UA Negative Negative - Positive Urine 11/14/2024 10:5 0 AM EDT Syed Meza DO POINT OF CARE TEST ENTER/EDIT OR DERABLES Final Result documented in this encounter Visit Diagnoses Diagnosis First trimester ([facility]) state, incidental 11 weeks gestation of ([facility]) documented in this encounter Care Teams Dragline Operator Relationship Specialty Start Date End Date João Pham MD [address] [place] [address], [address] [place] [address] PCP - General Family Medicine 10/28/22 documented as of this encounter
--- OUTSIDE RECORDS SUMMARY | 2024-11-17 14:24 | XMS_ITS | Clinical Summary ---
Author Organization [facility] Address [address] [place] [address] Care Team Providers Care Casting Chipper Name Role Phone João Pham MD Primary Care Provider [phone] Allergies No known active allergies Medications Prenat w/o B-PcHej-Pryg-FA-DH A (TriStart DHA) 31-0.6-0.4-200 MG capsule Take 1 capsule by mouth in the morning. 5 Active ondansetron ODT (Zofran-ODT) 4 MG disintegrating tabletIndications: Nausea and vomiting in ([facility]) Take 1 tablet (4 mg) by mouth every 6 (six) hours if needed for nausea or vomiting 30 tablet 2 5 11/13/19 25 Encounters Date Type Department Care Team Description 11/16/2024 [place] [address] Cece Noonan LPN 11/14/2024 9:50 AM ED[place] [address] Syed Meza DO First trimester ([facility]); 11 weeks gestation of ([facility]) 11/14/2024 Clinisync Result Encounter [facility] External Department Unsolicited Syed Meza DO 11/14/2024 Bamboo flowsheet [facility] [address] [place] [address] SusanaSyed marshallDO 10/13/2024 10:00 AM EDT Initial [facility] [address] [place] [address] [place]: 6w3d 10/13/2024 9:30 AM EDT Ancillary Procedure [facility] [address] [place] [address] [place] [address] Missed menses 10/12/2024 Travel 10/10/2024 Travel from [...] 8:50 AM EDT Routine [facility] [address] [place] [phone] Kassandra Gipson PA [address] [place], [place] [id number] Procedures Procedure Name Priority Date/Time Associated Diagnosis Comments HBSAG SCREEN Routine 11/14/2024 1:05 PM EDT RAPID PLASMA REAGIN, QUANT Routine 11/14/2024 1:05 PM EDT HCV ANTIBODY RFX TO QUANT PCR Routine 11/14/2024 1:05 PM EDT ALL RUBELLA IGG AB Routine 11/14/2024 1: 05 PM EDT HIV AB/P24 AG WITH REFLEX Routine 11/14/2024 1:05 PM EDT BOX TEST Routine 11/14/2024 1:05 PM EDT MLR HEMOGLOBIN A1C Routine 11/14/2024 1: 05 PM EDT ALL CBC WITH AUTO DIFF Routine 11/14/2024 1:05 PM EDT [facility] DRUG SCREEN RAPID (URINE) Routine 11/14/2024 12:54 PM EDT POCT URINALYSIS DIPSTICK Routine 11/14/2024 10:50 AM EDT First trimester ([facility]) POCT , URINE Routine 10/13/2024 10:42 AM EDT Missed menses POCT URINALYSIS DIPSTICK Routine 10/13/2024 10:36 AM EDT Missed menses US OB TRANSVAGINAL Routine 10/13/2024 9: 56 AM EDT Missed menses from Last 3 Months Results * BOX TEST (11/14/2024 1:05 PM EDT) BOX TEST SENT OUT UNITY BOX [facility] BOX1 [facility]ITY [facility] BOX2 11/14/24 [facility] 11/14/2024 1:05 PM EDT 11/14/2024 1:09 PM EDT Narrative [facility] - 11/14/2024 2:19 PM EDT Syed Susana LAB BLOOD ORDERABLES Final Resul t Performing Organization Address [facility]/ZIP Co de Phone Number [facility] * HBSAG SCREEN (11/14/2024 1:05 PM EDT) Pathologist [facility] HBSAG SCREEN Negative Negative [facility] Comment: Performed at: [address] [id number] Assistant District Attorney: Moshe Mcgarry PhD, Phone: [phone] 11/14/2024 1:05 PM EDT 11/14/2024 1:09 PM EDT Narrative [facility] - 11/15/2024 12:08 PM EDT Syed Susana LAB BLOOD ORDERABLES Final Resul t Performing Organization Address [facility] Co de Phone Number [facility] * RAPID PLASMA REAGIN, QUANT (11/14/2024 1:05 PM EDT) [facility] RAPID PLASMA REAGIN, QUANT Non Reactive NonRea<1: 1 titer [facility] Comment: Please Note: This test does not meet current guidelines for screening and diagnosis of syphilis. This test is intended for following treatment response in patients being treated for syphilis infection. To screen for syphilis infection, a reflex cascade that includes both RPR and a treponema-specific assay should be utilized, such as Treponema pallidum (Syphilis) Screening [facility] (615719) or Rapid Plasma Reagin (RPR) Test With Reflex to Quantitative RPR and Confirmatory Treponema pallidum Antibodies (088054). Performed at: [address] [id number] Assistant District Attorney: Moshe Mcgarry PhD, Phone: [phone] 11/14/2024 1:05 PM EDT 11/14/2024 1:09 PM EDT [facility] 11/15/2024 12:08 PM EDT us Syed Susana DO LAB BLOOD ORDERABLES Final Resul t Performing Organization Address [facility] Co de Phone Number [facility] * HIV AB/P24 AG WITH REFLEX (11/14/2024 1:05 PM EDT) Pathologist [facility] HIV AB/P24 AG SCREEN Non Reactive Non Reactive [facility] Comment: HIV-1/HIV-2 antibodies and HIV-1 p24 antigen were NOT detected. There is no laboratory evidence of HIV infection. HIV Negative Performed at: [address] [id number] Assistant District Attorney: Moshe Mcgarry PhD, Phone: [phone] 11/14/2024 1:05 PM EDT 11/14/2024 1:09 PM EDT Narrative [facility] - 11/15/2024 5:07 AM EDT us Syed Susana DO LAB BLOOD ORDERABLES Final Resul t Performing Organization Address [facility] de Phone Number [facility] * HCV ANTIBODY RFX TO QUANT PCR (11/14/2024 1:05 PM EDT) [facility] HCV AB Non Reactive Non Reactive [facility] INTERPRETATION: Comment . [facility] Comment: Not infected with HCV unless early or acute infection is suspected (which may be delayed in an immunocompromised individual), or other evidence exists to indicate HCV infection. Performed at: [address] [id number] Assistant District Attorney: Moshe Mcgarry PhD, Phone: [phone] 11/14/2024 1:05 PM EDT 11/14/2024 1:09 PM EDT Narrative [facility] - 11/15/2024 8:09 AM EDT us Syed Susana DO LAB BLOOD ORDERABLES Final Resul t Performing Organization Address [facility] Co de Phone Number [facility] * MLR HEMOGLOBIN A1C (11/14/2024 1:05 PM EDT) [facility] GLYCOHEMOGLOBIN A1C 4.8 4.5 - 6.2 % [facility] Comment: ADA RECOMMENDED LIMIT 4.0 - 6.0 ADA THERAPEUTIC TARGET < 7.0 ACTION SUGGESTED > 7.0 ESTIMATED AVERAGE GLUCOSE 91 mg/dL TB 11/14/2024 1:05 PM EDT 11/14/2024 1:09 PM EDT Narrative [facility] - 11/14/2024 1:43 PM EDT Syed Susana DO CLINISYNC Final Result [facility] * ALL RUBELLA IGG AB (11/14/2024 1:05 PM EDT) [facility] RUBELLA ANTIBODIES, IGG 8.56 Immune >0.99 index [facility] Comment: Non-immune <0.90 Equivocal 0.90 - 0.99 Immune >0.99 Performed at: [facility] [id number] Assistant District Attorney: Moshe Mcgarry PhD, Phone: [phone] 11/14/2024 1:05 PM EDT 11/14/2024 1:09 PM EDT Narrative [facility] - 11/15/2024 8:09 AM EDT Syed Susana DO CLINISYNC Final Result Performing Organization Address City/[facility]/ZIP Co de Phone Number [facility] * (ABNORMAL) ALL CBC WITH AUTO DIFF (11/14/2024 1:05 PM EDT) [facility] TB WBC 9.4 4.0 - 11.0 10 3/uL [facility] TB[facility] RBC 4.48 4.20 - 5.40 10 6/uL [facility] HGB 13.5 12.0 - 16.0 g/dL [facility] TB[facility] HCT 40.1 36.0 - 48.0 % [facility] MCV 89.5 81.0 - 99.0 fL [facility]H MCH 30.1 26.7 - 34.0 pg TBH TB[facility] MCHC 33.7 29.9 - 35.2 g/dL [facility] TBH RDW 12.6 11.0 - 15.0 % [facility] TBH PLT 193 150 - 450 10 3/uL [facility] TBH MPV 11.3 9.5 - 13.5 fL [facility] NEUTROPHILS PERCENT AUTO 78.6(H) 43.0 - 75.0 % [facility] LYMPHOCYTES PERCENT AUTO 16.1(L) 20.5 - 60.0 % [facility] MONOCYTES PERCENT AUTO 3.6 1.7 - 12.0 % [facility] EO % 1.0 0.9 - 7.0 % [facility] BASOPHILS PERCENT AUTO 0.3 0.2 - 2.0 % [facility] IMMATURE GRANULOCYTES PCT AUTO 0.4 0.0 - 0.5 % [facility] NEUTROPHILS ABSOLUTE AUTO 7.4(H) 1.4 - 6.5 10 3/uL [facility] LYMPHOCYTES ABSOLUTE AUTO 1.5 1.2 - 3.8 10 3/uL [facility] MONOCYTES ABSOLUTE AUTO 0.3 0.3 - 0.8 10 3/uL [facility] TBH EO # 0.1 0.0 - 0.7 10 3/uL [facility] BASOPHILS ABSOLUTE AUTO 0.0 0.0 - 0.1 10 3/uL [facility] IMMATURE GRANULOCYTES ABS AUTO 0.04(H) 0.00 - 0.03 10 3/uL [facility] 11/14/2024 1:05 PM EDT 11/14/2024 1:09 PM EDT Narrative [facility] - 11/14/2024 1:32 PM EDT us Syed Susana DO CLINISYNC Final Result [facility] TB * [facility] DRUG SCREEN RAPID (URINE) (11/14/2024 12:54 PM EDT) Pathologist [facility] CANNABINOID SCREEN URINE NEGATIVE NEGATIVE [facility] PHENCYCLIDINE SCREEN URINE NEGATIVE NEGATIVE [facility] COCAINE SCREEN URINE NEGATIVE NEGATIVE TB[facility] METHAMPHETAMINES SCREEN URINE NEGATIVE NEGATIVE TBH OPIATE SCREEN URINE NEGATIVE NEGATIVE TBH AMPHETAMINE SCREEN URINE NEGATIVE NEGATIVE TBH BENZODIAZEPINES SCREEN URINE NEGATIVE NEGATIVE TBH TRICYCLIC ANTIDEPRESSANT URINE NEGATIVE NEGATIVE TBH METHADONE SCREEN URINE NEGATIVE NEGATIVE TBH BARBITURATES SCREEN URINE NEGATIVE NEGATIVE TBH OXYCODONE SCREEN URINE NEGATIVE NEGATIVE TBH BUPRENORPHINE SCREEN URINE NEGATIVE NEGATIVE [facility] Comment: DRUG CLASS TEST SYSTEM CUT-OFF CONCENTRATIONS ARE FOLLOWS: AMP (Amphetamine): 500 ng/mL BAR (Barbiturates): 200 ng/mL BZO (Benzodiazepines): 150 ng/mL BUP (Buprenorphine): 10 ng/mL DOMINGA (Cocaine): 150 ng/mL mAMP (Methamphetamine): 500 ng/mL MTD (Methadone): 200 ng/mL OPI (Opiates): 100 ng/mL OXY (Oxycodone): 100 ng/mL PCP (Phencyclidine): 25 ng/mL THC (Cannabinoids): 50 ng/mL TCA (Trycyclic Antidepressants): 300 ng/mL 11/14/2024 12:5 4 PM EDT 11/14/2024 1:10 PM EDT Narrative [facility] - 11/14/2024 1:30 PM EDT Syed Carro DO CLINISYNC Final Result [facility] * (ABNORMAL) POCT urinalysis dipstick manually resulted [...] Urine 10/13/2024 10:4 2 AM EDT us Syedsonia Meza DO POINT OF CARE TEST ENTER/EDIT [...] II, MD, PHD at 15-Oct-2024 10:04:20 PM [facility] Procedure Note Tanya Pierce MD - [...] signed by TANYA PIERCE II, MD, PHD [id number] 10:04:20 PM [facility] us Syed Meza DO IMG OB US PROCEDURES Final Resul t from Last 3 Months Insurance [place] Care Teams Casting Chipper Relationship Specialty Start Date End Date João Pham MD [address] [place] [address], [address] [place] [address] PCP - General Family Medicine 10/28/22
--- OUTSIDE RECORDS SUMMARY | 2024-11-17 14:24 | XMS_ITS | Encounter Summary ---
Author Organization [facility] Address [address] [place] [address] Care Team Providers Care Adolescent Counselor Name Role Phone João Pham MD Primary Care Provider [phone] Encounter Details Date Type Department Care Team (Late Contact Info) Description 11/14/2024 Bamboo flowsheet [facility] [address] [facility] [place] [address] Syed Meza DO [address] [place], [place] [address] Social History Tobacco Use Types Packs/Day Years [...] 8:50 AM EDT Routine [facility] [address] [facility] [facility] [place] [address] Kassandra Gipson PA [address] [place], [place] [address] documented as of this encounter Visit Diagnoses Not on filedocumented in this encounter Care Teams Adolescent Counselor Relationship Specialty Start Date End Date João Pham MD [address] [place] [address], [address] [place] [address] PCP - General Family Medicine 10/28/22 documented as of this encounter
--- OUTSIDE RECORDS SUMMARY | 2024-11-17 14:24 | XMS_ITS | Encounter Summary ---
Author Organization [facility] Address [address] [place] [address] Care Team Providers Care Energy And Conservation Technician Name Role Phone João Pham MD Primary Care Provider [phone] Encounter Details Date Type Department Care Team (Late st Contact Info) Description 11/14/2024 Clinisync Result Encounter [facility] External Department Unsolicited Syed Meza DO [address] Kathleen Jarrett, [place] [address] Social History Tobacco Use Types Packs/Day Years [...] 12/12/2024 8:50 AM EDT Routine [facility] OBG[facility] [address] [place] [id number] Kassandra Gipson PA [address] [facility] [address] [place], [place] [id number] documented as of this encounter Procedures Procedure Name Priority Date/Time Associated Diagnosis Comments BOX TEST Routine 11/14/2024 1:05 PM EDT HBSAG SCREEN Routine 11/14/2024 1:05 PM EDT RAPID PLASMA REAGIN, QUANT Routine 11/14/2024 1:05 PM EDT HIV AB/P24 AG WITH REFLEX Routine 11/14/2024 1:05 PM EDT HCV ANTIBODY RFX TO QUANT PCR Routine 11/14/2024 1:05 PM EDT MLR HEMOGLOBIN A1C Routine 11/14/2024 1: 05 PM EDT ALL RUBELLA IGG AB Routine 11/14/2024 1: 05 PM EDT ALL CBC WITH AUTO DIFF Routine 11/14/2024 1:05 PM EDT [facility] DRUG SCREEN RAPID (URINE) Routine 11/14/2024 12:54 PM EDT documented in this encounter Results * HBSAG SCREEN (11/14/2024 1:05 PM EDT) HBSAG SCREEN Negative Negative [facility] Comment: Performed at: [facility] Lab[address] [id number] Cover Operator: Moshe Mcgarry PhD, Phone: [phone] 11/14/2024 1:05 PM EDT 11/14/2024 1:09 PM EDT Narrative ANNALEEISYNC - 11/15/2024 12:08 PM EDT us Syed Susana DO LAB BLOOD ORDERABLES Final Resul t [facility] * RAPID PLASMA REAGIN, QUANT (11/14/2024 1:05 PM EDT) RAPID PLASMA REAGIN, QUANT Non Reactive NonRea<1: 1 titer [facility] Comment: Please Note: This test does not meet current guidelines for screening and diagnosis of syphilis. This test is intended for following treatment response in patients being treated for syphilis infection. To screen for syphilis infection, a reflex cascade that includes both RPR and a treponema-specific assay should be utilized, such as Treponema pallidum (Syphilis) Screening [place] (285052) or Rapid Plasma Reagin (RPR) Test With Reflex to Quantitative RPR and Confirmatory Treponema pallidum Antibodies (513299). Performed at: [address] [id number] Cover Operator: Moshe Mcgarry PhD, Phone: [phone] 11/14/2024 1:05 PM EDT 11/14/2024 1:09 PM EDT Narrative CLINISYKS - 11/15/2024 12:08 PM EDT Clariento LAB BLOOD ORDERABLES Final Resul t Performing Organization Address [facility] Co de Phone Number [facility] * HCV ANTIBODY RFX TO QUANT PCR (11/14/2024 1:05 PM EDT) Pathologist [facility] HCV AB Non Reactive Non Reactive TB INTERPRETATION: Comment . TB Comment: Not infected with HCV unless early or acute infection is suspected (which may be delayed in an immunocompromised individual), or other evidence exists to indicate HCV infection. Performed at: [address] [id number] Cover Operator: Moshe Mcgarry PhD, Phone: [phone] 11/14/2024 1:05 PM EDT 11/14/2024 1:09 PM EDT Narrative CLINISYKS - 11/15/2024 8:09 AM EDT Clariento DO LAB BLOOD ORDERABLES Final Resul t Performing Organization Address City/[facility] Co de Phone Number [facility] * ALL RUBELLA IGG AB (11/14/2024 1:05 PM EDT) Pathologist [facility] RUBELLA ANTIBODIES, IGG 8.56 Immune >0.99 index TB Comment: Non-immune <0.90 Equivocal 0.90 - 0.99 Immune >0.99 Performed at: [address] [id number] Cover Operator: Moshe Mcgarry PhD, Phone: [phone] 11/14/2024 1:05 PM EDT 11/14/2024 1:09 PM EDT Narrative CLINISYNC - 11/15/2024 8:09 AM EDT us Syed Susana DO CLINISYNC Final Result Performing Organization Address [facility] Co de Phone Number [facility] * HIV AB/P24 AG WITH REFLEX (11/14/2024 1:05 PM EDT) HIV AB/P24 AG SCREEN Non Reactive Non Reactive [facility] Comment: HIV-1/HIV-2 antibodies and HIV-1 p24 antigen were NOT detected. There is no laboratory evidence of HIV infection. HIV Negative Performed at: [address] [id number] Cover Operator: Moshe Mcgarry PhD, Phone: [phone] 11/14/2024 1:05 PM EDT 11/14/2024 1:09 PM EDT Narrative CLINISYNC - 11/15/2024 5:07 AM EDT us Syed Susana DO LAB BLOOD ORDERABLES Final Resul t Performing Organization Address [facility] Co de Phone Number [facility] * BOX TEST (11/14/2024 1:05 PM EDT) BOX TEST SENT OUT UNITY BOX [facility] BOX1 UNITY TB BOX2 11/14/24 [facility] 11/14/2024 1:05 PM EDT 11/14/2024 1:09 PM EDT Narrative CLINISYNC - 11/14/2024 2:19 PM EDT us Syed Susana DO LAB BLOOD ORDERABLES Final Resul t Performing Organization Address City/[facility]/ZIP Co de Phone Number [facility] * MLR HEMOGLOBIN A1C (11/14/2024 1:05 PM EDT) [facility] GLYCOHEMOGLOBIN A1C 4.8 4.5 - 6.2 % [facility] Comment: ADA RECOMMENDED LIMIT 4.0 - 6.0 ADA THERAPEUTIC TARGET < 7.0 ACTION SUGGESTED > 7.0 ESTIMATED AVERAGE GLUCOSE 91 mg/dL TB 11/14/2024 1:05 PM EDT 11/14/2024 1:09 PM EDT Narrative CLINISYNC - 11/14/2024 1:43 PM EDT us Syed Susana DO CLINISYNC Final Result [facility] * (ABNORMAL) ALL CBC WITH AUTO DIFF (11/14/2024 1:05 PM EDT) [facility] TB WBC 9.4 4.0 - 11.0 10 3/uL [facility] TB RBC 4.48 4.20 - 5.40 10 6/uL [facility] TB HGB 13.5 12.0 - 16.0 g/dL TB TB HCT 40.1 36.0 - 48.0 % TB TB MCV 89.5 81.0 - 99.0 fL TB TB MCH 30.1 26.7 - 34.0 pg TBH TB MCHC 33.7 29.9 - 35.2 g/dL TB TB RDW 12.6 11.0 - 15.0 % [facility] TB PLT 193 150 - 450 10 3/uL TB TB MPV 11.3 9.5 - 13.5 fL TB NEUTROPHILS PERCENT AUTO 78.6(H) 43.0 - 75.0 [...] Narrative CLINISYNC - 11/14/2024 1:32 PM EDT Syed Susana DO CLINISYNC Final Result [facility] * TB DRUG SCREEN RAPID (URINE) (11/14/2024 12:54 PM EDT) CANNABINOID SCREEN URINE NEGATIVE NEGATIVE [facility] PHENCYCLIDINE [...] Narrative CLINISYNC - 11/14/2024 1:30 PM EDT us Syed Meza DO CLINISYNC Final Result [facility] TB documented in this encounter Visit Diagnoses Not on filedocumented in this encounter Care Teams Energy And Conservation Technician Relationship Specialty Start Date End Date João Pham MD [address] [place] [address], [address] [place] [address] PCP - General Family Medicine 10/28/22 documented as of this encounter
--- OUTSIDE RECORDS SUMMARY | 2024-11-17 14:24 | XMS_ITS | Encounter Summary ---
Author Organization [facility] Address [address] [place] [address] Care Team Providers Care Case Picker Name Role Phone João Pham MD Primary Care Provider [phone] Encounter Details Date Type Department Care Team (Late st Contact Info) Description 11/16/2024 Telephone [facility] [address] [place] [address] [place] [address] Cece Noonan LPN Social History Tobacco Use Types Packs/Day Years [...] on file documented as of this encounter Miscellaneous Notes * Telephone Encounter - Cece Noonan LPN - 11/16/2024 2:55 PM EDT Tiny from [facility] lab called and voiced that they have been trying to contact patient in regards to possibly needing another lab draw. Called patient with no success and called patients mother (alternatecontact # in chart) NO information is able to be shared with anyone as patient is the only one on her consents. Left message on pts mothers voicemail requesting that she have patient reach out to ouroffice. When patient calls she will need to be notified to contact [facility] Lab @ [phone] ext. [phone]. Also, sent patient a MyChart Message notifying her of this information. Cece Buckner LPN documented in this encounter Plan of Treatment Upcoming Encounters Date Type Department Care Team (Late st Contact Info) Description 12/12/2024 8:50 AM EDT Routine [facility] [address] [facility] [place] [phone] Kassandra Gipson PA [address] [facility] [place] [address] documented as of this encounter Visit Diagnoses Not on filedocumented in this encounter Care Teams Case Picker Relationship Specialty Start Date End Date João Pham MD [address] [place] [address], 1 [place], [place] [id number] PCP - General Family Medicine 10/28/22 documented as of this encounter
--- OUTSIDE RECORDS SUMMARY | 2024-11-17 14:24 | XMS_ITS | Clinical Summary ---
Author Organization [facility] tem Address [id number] [address] [place] [address] Care Team Providers Care Technical Sales Consultant Name Role Phone João Pham MD Primary Care Provider [phone] Allergies No known active allergies Medications [id number] 9-dha 31 mg iron- 1 mg-200 mg [...] EDT - 10/14/2024 10:21 PM EDT Emergency [facility] [address] [place] [id number] Melony Bowen DO Acute cystitis without hematuria (Primary Dx) Discharge Disposition: Home 10/14/2024 Travel 09/27/2024 10:15 AM EDT Clinical Support [facility] [address] [place] [address] Bonnie Barrett, FLOUR DISTRIBUTOR-PROPERTY ASSISTANT Missed menses (Primary Dx) 09/27/2024 Travel 09/26/2024 Telephone [facility] [address] [place] [address] Bonnie Barrett, FLOUR DISTRIBUTOR-PROPERTY ASSISTANT from Last 3 Months Immunizations Immunization Administration [...] (10/14/2024 9:59 PM EDT) POC Urine Specific [place] >=1.030(A) 1.010, 1.015, 1.020, 1.025 10/14/2024 9:52 PM EDT [facility] POC Urine Leukocyte Esterase Negative Negative 10/14/2024 9:52 PM EDT [facility] POC Urine Nitrite Positive(A) Negative 10/14/2024 9:52 PM EDT [facility] POC Urine pH 6.5 5.0, 6.0, 6.5, 7.0, 7.5, 8.0, 8.5, 5.5 10/14/2024 9:52 PM EDT [facility] POC Urine Protein Negative Negative 10/14/2024 9:52 PM EDT [facility] POC Urine Glucose Negative Negative 10/14/2024 9:52 PM EDT [facility] POC Urine Ketones Negative Negative 10/14/2024 9:52 PM EDT [facility] POC Urine Urobilinogen 0.2 E.U./dL 10/14/2024 9:52 PM EDT [facility] POC Urine Bilirubin Negative Negative 10/14/2024 9:52 PM EDT [facility] POC Urine Blood/HGB Negative Negative 10/14/2024 9:52 PM EDT [facility] Urine 10/14/2024 9:59 PM EDT 10/14/2024 9:52 PM EDT us Khalid Jessi DO POINT OF CARE TEST ORDERABLES Fi nal Result [address] [place] [address], [place] * Extra Urine [place] (10/14/2024 9:44 PM EDT) Extra Tube Auto Resulted 10/14/2024 11:02 PM EDT [facility] Urine Urine specimen collection, clean catch / Unknown 10/14/2024 9:44 PM EDT 10/14/2024 9:52 PM EDT us Khalid Jessi DO URINE ORDERABLES Final Result Performing Organization Address City/[facility]/ZIP Co de Phone Number [address] [place] [address], [place] * Extra Urine Culture (10/14/2024 9:44 PM EDT) Extra Tube Auto Resulted 10/14/2024 11:02 PM EDT [facility] Urine Urine specimen collection, clean catch / Unknown 10/14/2024 9:44 PM EDT 10/14/2024 9:55 PM EDT us Khalid Jessi DO URINE ORDERABLES Final Result Performing Organization Address City/[facility]/ZIP Co de Phone Number [address] [place] [address], [place] * Extra Urine (10/14/2024 9:44 PM EDT) Extra Tube Auto Resulted 10/14/2024 11:02 PM EDT [facility] Urine Urine specimen collection, clean catch / Unknown 10/14/2024 9:44 PM EDT 10/14/2024 9:52 PM EDT us Melony Mackayi DO URINE ORDERABLES Final Result [facility] [address] [place] [address], * POCT , urine (09/27/2024 10:14 AM EDT) External Poct Urine Negative MANUALLY TRANSCRIBED RESULTS Urine 09/27/2024 10:1 4 AM EDT Bonnie Barrett FLOUR DISTRIBUTOR-PROPERTY ASSISTANT POINT OF CARE TEST ORDER [place] Final Result Performing Organization Address City/[facility]/ZIP Co de Phone Number MANUALLY TRANSCRIBED RESULTS from Last 3 Months Insurance [facility] [place] Advance Directives * Full Code (Latest Code Status on File) Date Activated Date Inactivated Comments 01/12/2018 1:32 PM 01/13/2018 8:22 PM Care Teams Technical Sales Consultant Relationship Specialty Start Date End Date João Pham MD [address] [place] [address], 1 [place] [address] PCP - General Pediatrics 01/05/18
--- OUTSIDE RECORDS SUMMARY | 2024-11-17 14:24 | XMS_ITS | Encounter Summary ---
Author Organization [facility] tem Address [id number] [address] [place] [address] Care Team Providers Care Litigation Specialist Name Role Phone João Pham MD Primary Care Provider [phone] Encounter Details Date Type Department Care Team (Late st Contact Info) Description 10/23/2020 Orders Only [facility] Internal Medicine/Pediatrics [address] [facility] [address] [place] [address] Doherty, Bonnie, RMA Febrile illness [...] documented as of this encounter Care Teams Litigation Specialist Relationship Specialty Start Date End Date João Pham MD [address] [place] [address], 1 [place] [address] PCP - General Pediatrics 01/05/18 documented as of this encounter
== END 2024-11-17 14:20 | disposition home or self-care (01) ==
LOC: LAB 14:20
PROVIDERS: Visit Provider Obstetrics & Gynecology
DX: Z34.01 Encounter for supervision of normal first pregnancy, first trimester (principal); N92.6 Irregular menstruation, unspecified
CPT/HCPCS: 36415; 86850; 86900; 86901

== ENCOUNTER 2024-12-12 14:31 | Outpatient (REF) | payer BC, MEDICAID, SELFPAY ==
--- OUTSIDE RECORDS SUMMARY | 2024-12-12 14:52 | XMS_ITS | CCD ---
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 above: Order Comment: Name Collection Type:: Voided Performed By: #### A DDONUAPLUS, CUU #### [place] [address] [place] Nitrite,Urine Negative Normal Negative [facility] Comment on above: Order Comment: Name Collection Type:: Voided Performed By: #### A DDONUAPLUS, CUU #### [address] Occult Blood,Urine Negative Normal Negative [facility] Comment on above: Order Comment: Name Collection Type:: Voided Result Comment: PERF ORMED BY: [place] [address] PATHOLOGIST REHABILITATION LIAISON VALENTINE SARABIA M.D. Performed By: #### A DDONUAPLUS, CUU #### [place] [address] [place] pH (U) 5.5 [pH] Normal 5.0-9.0 [facility] Comment on above: Order Comment: Name Collection Type:: Voided Performed By: #### A DDONUAPLUS, CUU #### [place] [address] [place] Protein,Urine Negative Normal Negative [facility] Comment on above: Order Comment: Name Collection Type:: Voided Performed By: #### A DDONUAPLUS, CUU #### [place] [address] [place] RBC,Urine 3-4 Normal 0-4 [facility] Comment on above: Order Comment: Name Collection Type:: Voided Performed By: #### A DDONUAPLUS, CUU #### [place] [address] [place] Specificy Henning,Urine 1.018 Normal 1.001-1.030 [facility] Comment on above: Order Comment: Name Collection Type:: Voided Performed By: #### A DDONUAPLUS, CUU #### [address] Squamous Epithelial Cell,Urine 3-4 High 0-2 [facility] Comment on above: Order Comment: Name Collection Type:: Voided Performed By: #### A DDONUAPLUS, CUU #### [address] Urobilinogen,Urine Normal Normal Normal [facility] Comment on above: Order Comment: Name Collection Type:: Voided Performed By: #### A DDONUAPLUS, CUU #### [address] WBC,Urine 10-19 High 0-4 [facility] Comment on above: Order Comment: Name Collection Type:: Voided Performed By: #### A DDONUAPLUS, CUU #### [address] Lipid Panelon 10-23-2022 Cholesterol [Mass/Vol] 101 mg/dL Low 140-200 [facility] Comment on above: Result Comment: Chol less than 200 mg/dl low risk Chol 201-239 mg/dl borderline risk Chol 240 mg/dl and greater high risk Performed By: #### T SH3 wRFLX, LIPID, [id number] #### [facility] [address] [place] [address] Cholesterol in HDL [Mass/Vol] 35 mg/dL Normal 23-92 [facility] Comment on above: Result Comment: HDL CHOL ATP-III CLASSIFICATION Cardiovascular Risk HDL > or equal to 60 mg/dL LOW HDL < 40 mg/dL HIGH Performed By: #### T SH3 wRFLX, LIPID, [id number] #### [address] Cholesterol.total/Ch olesterol in HDL [Mass ratio] 2.9 {ratio} Normal <5.0 [facility] Comment on above: Performed By: #### T SH3 wRFLX, LIPID, [id number] #### [address] LDL Cholesterol,Calculat ed 53 mg/dL Normal 0-100 [facility] Comment on above: Result Comment: LDL ATP III CLASSIFICATION LDL less than 100 mg/dL Optimal LDL 100-129 mg/dL Near or above optimal LDL 130-159 mg/dL Borderline high LDL 160-189 mg/dL High LDL greater than 189 mg/dL Very high Performed By: #### T SH3 wRFLX, LIPID, [id number] #### [address] Triglyceride w/Reflex 67 mg/dL Normal 0-149 [facility] Comment on above: Result Comment: TRIG ATP III CLASSIFICATION TRIG less than 150 mg/dL Normal TRIG 150-199 mg/dL Borderline high TRIG 200-500 mg/dL High TRIG greater than 500 mg/dL Very high Standard traceable to the Center for Disease Conrtrol and Prevention (CDC) test method. Performed By: #### T SH3 wRFLX, LIPID, [id number] #### [address] VLDL CHOLESTEROL 13 mg/dL Normal [facility] Comment on above: Performed By: #### T SH3 wRFLX, LIPID, [id number] #### [address] Thyroid Stim Hormone w/Rflxo n 10-23-2022 Thyroid Stim Hormone w/Rflx 1.50 u[iU]/mL Normal 0.45-5.33 [facility] Comment on above: Performed By: #### T SH3 wRFLX, LIPID, [id number] #### [address] Urine Cultureon 10-23-2022 Bacteria identified Cx Nom (U) No Growth 2 Days PERFORMED BY: [place] [address] PATHOLOGIST REHABILITATION LIAISON VALENTINE SARABIA M.D. [facility] Comment on above: Performed By: #### A DDARI GOODMANU #### [address] [place] [address] [facility] Vitamin D 25 Hydroxy Totalon 10-23-2022 Vitamin D 25 Hydroxy Total 33.7 ng/mL Normal 30-100 [facility] Comment on above: Result Comment: MARIBETH MIN D STATUS 25(OH)VITAMIN D RANGE (ng/mL) Deficient <20 Insufficient 20 to <30 Sufficient 30 to 100 Reference: Chelsy MF,Lamont NC, [place] ARCHER, et al. Evaluation,treatment, and prevention of vitamin D deficiency; an Endocrine Society clinical practice guideline. JCEM. 2010; 96(7):1911-30. PERFORMED BY: [facility] [address] [facility]. [place] [id number] PATHOLOGIST REHABILITATION LIAISON VALENTINE SARABIA M.D. Performed By: #### T SH3 wRFLX, LIPID, [id number] #### [facility] [address] [place] [address] [facility] Covid-19 PCR (CVDTB)on SARS-CoV-2 (COVID-19) RNA JOHN PAUL+probe Ql (Unsp spec) Not detected Normal NOT DETECTED [facility] Comment on above: Result Comment: This test is not yet approved or cleared by the [place] FDA. When there are no FDA-approved or cleared tests available, and other criteria are met, FDA can make tests available under an emergency access mechanism called an Emergency Use Authorization (EUA). The EUA for this test is supported by the [place] of Health and Human Service's (HHS's) declaration that circumstances exist to justify the emergency use of in vitro diagnostics for the detection and/or diagnosis of the virus that causes COVID-19. This EUA will remain in effect (meaning this test can be used) for the duration of the COVID-19 declaration justifying emergency of IVDs, unless it is terminated or revoked by FDA (after which the test may no longer be used). When diagnostic testing is negative, the possibility of a false negative should be considered in the context of a patient's recent exposures and the presence of clinical signs and symptoms consistent with SARS-CoV-2. Performed By: #### C VDAGS, CVDTBH #### [facility] [address] [place] [address] Judith Shaffer SYMPTOMATIC COVID-19 ANTIGEN on 10-22-2020 EUA Statement SEE BELOW Normal [facility] Comment on above: Result Comment: This test has not been FDA cleared or approved, but has been authorized by the FDA under an Emergency Use Authorization (EUA) for use by authorized laboratories certified under CLIA that meet the requirements to perform moderate or high complexity testing. This test has been authorized only for the detection of proteins from SARS-CoV-2, not for any other viruses or pathogens. The emergency use of this test is authorized for the duration of the declaration that circumstances exist justifying the authorization of emergency use of in vitro diagnostic tests for detection and/or diagnosis of Covid-19 under section 564(b)(1) of the Act, 21 U.S.C. 360bbb-3(b)(1), unless the declaration is terminated or authorization is revoked sooner. Performed By: #### C DEBORAH SR #### [facility] [address] [place] [id number] Judith Shaffer SARS-CoV-2 (COVID-19) RNA JOHN PAUL+probe Ql (Unsp spec) Negative Normal NEGATIVE [facility] Comment on above: Performed By: #### C REMBERTO CVDTB #### [facility] [address] [place], [place] [address] Judith Shaffer Vital Signs Date Time Vital Sign Value Performing Clinician Handy garcia 12-12-2024 09:25-0400 Body mass index (BMI) [Ratio] 20.01 kg/m2 Kassandra VENCES Work Phone: [facility] 12-12-2024 09:25-0400 Body weight 56.25 kg Kassandra VENCES Work Phone: [facility] 12-12-2024 09:25-0400 Diastolic blood pressure 68 mm[Hg] Kassandra VENCES Work Phone: [facility] 12-12-2024 09:25-0400 Systolic blood pressure 106 mm[Hg] Kassandra VENCES Work Phone: [facility] 12-05-2024 11:07-0400 Body mass index (BMI) [Ratio] 20.3 kg/m2 Cristin Susana DO Work Phone: [facility] 12-05-2024 11:07-0400 Body weight 57.06 kg Cristin Susana DO Work Phone: [facility] 12-05-2024 11:07-0400 Diastolic blood pressure 60 mm[Hg] Cristin Susana DO Work Phone: [facility] 12-05-2024 11:07-0400 Systolic blood pressure 104 mm[Hg] Cristin Susana DO Work Phone: [facility] 11-14-2024 10:46-0400 Body mass index (BMI) [Ratio] 19.53 kg/m2 Cristin Susana DO Work Phone: [facility] 11-14-2024 10:46-0400 Body weight 54.88 kg Cristin Susana DO Work Phone: [facility] 11-14-2024 10:46-0400 Diastolic blood pressure 76 mm[Hg] Cristin Susana DO Work Phone: [facility] 11-14-2024 10:46-0400 Systolic blood pressure 122 mm[Hg] Cristin Susana DO Work Phone: [facility] 10-13-2024 10:35-0400 Body mass index (BMI) [Ratio] 19.39 kg/m2 Susana Ob [facility] 10-13-2024 10:35-0400 Body weight 54.49 kg Susana Ob [facility] 06-08-2024 15:33-0500 Body height 167.6 cm Bonnie Fabianazer [employer] Work Phone: [facility] 06-08-2024 15:33-0500 Body mass index (BMI) [Ratio] 19.59 kg/m2 Bonnie Krotzer [employer] Work Phone: [facility] 06-08-2024 15:33-0500 Body weight 55.07 kg Bonnie Chandraotzer [employer] [facility] [place] [facility] 06-08-2024 15:33-0500 Diastolic blood pressure 72 mm[Hg] Bonnie Barba [employer] [facility] [place] [facility] 06-08-2024 15:33-0500 Systolic blood pressure 106 mm[Hg] Bonnie Barba [employer] [facility] 02-09-2024 11:34-0400 Body mass index (BMI) [Ratio] 19.21 kg/m2 Aspen Drew MD [facility] [place] [facility] 02-09-2024 11:34-0400 Body weight 53.98 kg Asp[facility] Drew [facility] 02-09-2024 11:34-0400 Diastolic blood pressure 68 mm[Hg] [facility] [place] [facility] 02-09-2024 11:34-0400 Heart rate 81 /min [facility] [place] [facility] 02-09-2024 11:34-0400 Systolic blood pressure 116 mm[Hg] Aspen Drew MD Work Phone: [facility] Tutor Assignment [facility] Encounters Encounter Date Encounter Type Care Provider Facility Start: 12-12-2024 End: 12-12-2024 Bamboo flowsheet Kassandra VENCES Work Phone: [facility] Start: 12-12-2024 End: 12-12-2024 Bamboo flowsheet Kassandra VENCES Work Phone: [facility] Start: 12-12-2024 End: 12-12-2024 Patient encounter procedure Kassandra VENCES Work Phone: [facility] Start: 12-12-2024 End: 12-12-2024 Periodic preventive med est patient 18-39 yrs Kassandra VENCES Work Phone: [facility] Comment on above: Second trimester pre gnancy ([facility]); 15 weeks gestation of ([facility]); Well woman exam with routine gynecological exam; Vaginal discharge; STD exposure; Screening, , for anatomic survey ([facility]) Start: 12-05-2024 End: 12-05-2024 Bamboo flowsheet Cristin Susana DO Work Phone: [facility] Start: 12-05-2024 End: 12-05-2024 Bamboo flowsheet Cristin Susana DO Work Phone: [facility] Start: 12-05-2024 End: 12-05-2024 ambulatory CRISTIN SUSANA Not Available Start: 12-05-2024 End: 12-05-2024 flow sheet Cristin Susana DO Work Phone: [facility] Comment on above: 14 weeks gestation o f ([facility]); First trimester ([facility]) Start: 12-01-2024 End: 12-01-2024 Emergency department patient visit [facility] Start: 11-17-2024 End: 11-20-2024 Clinisync Result Encounter Cristin Susana DO Work Phone: [facility] Unsolicited Start: 11-17-2024 End: 11-20-2024 Clinisync Result Encounter Cristin Susana DO Work Phone: [facility] Unsolicited Start: 11-14-2024 End: 11-14-2024 Bamboo flowsheet Cristin Susana DO Work Phone: [facility] Start: 11-14-2024 End: 11-14-2024 Bamboo flowsheet Cristin Susana DO Work Phone: [facility] Start: 11-14-2024 End: 11-14-2024 Clinisync Result Encounter Cristin Susana DO Work Phone: [facility] Unsolicited Start: 11-14-2024 End: 11-14-2024 ambulatory CRISTIN SUSANA Not Available Start: 11-14-2024 End: 11-14-2024 flow sheet Cristin Susana DO Work Phone: [facility] Comment on above: First trimester preg nery ([facility]); 11 weeks gestation of ([facility]) Start: 10-14-2024 End: 10-14-2024 Emergency department patient visit ASPEN Peralta [facility] Start: 10-13-2024 End: 10-13-2024 Office outpatient visit 5 minutes Susana Nurse [facility] Comment on above: GA: 6w3d Start: 10-13-2024 End: 10-13-2024 ambulatory CRISTIN SUSANA Not Available Start: 09-27-2024 End: 09-27-2024 Office outpatient visit 5 minutes Bonnie Barba [employer] Work Phone: [facility] Comment on above: Missed menses (Prima ry Dx) Start: 09-27-2024 End: 09-27-2024 ambulatory [facility] Start: 09-26-2024 End: 09-26-2024 Telephone encounter Bonnie Barba [employer] Work Phone: [facility] Start: 06-12-2024 End: 06-12-2024 Telephone encounter Aspen Drew MD Work Phone: [facility] Start: 06-11-2024 End: 06-11-2024 Emergency department patient visit ASPEN Peralta [facility] Start: 06-08-2024 End: 06-08-2024 Office outpatient new 30 minutes Bonnie Barba [employer] Work Phone: [facility] Comment on above: Secondary amenorrhea (Primary Dx); Patient desires Start: 06-08-2024 End: 06-08-2024 ambulatory [facility] Start: 05-14-2024 End: 05-14-2024 Emergency department patient visit GARCIAKathryn DREW [facility] Start: 02-09-2024 End: 02-09-2024 [facility] Start: 02-09-2024 End: 02-09-2024 Office outpatient visit 15 minutes Aspen Drew MD Work Phone: [facility] Comment on above: Urinary frequency (P rimary Dx) Start: 08-05-2023 End: 08-05-2023 Telephone encounter Samira Orlando CMA [facility] Comment on above: Appointment Due Start: 01-21-2023 ambulatory [place] Start: 10-28-2022 ambulatory Rober Marte acility:[facility] Start: 10-22-2022 End: 10-27-2022 Evaluation and management of inpatient Aspen Peralta Rajendra Facility:[facility] Start: 10-22-2020 End: 10-23-[address] ASPEN DREW Facility: Procedures Date Procedure Procedure Detail Performing Clinician Start: 12-12-2024 Urnls dip stick/tablet rgnt non-auto w/o micrscp Kassandra VENCES Work Phone: Start: 12-05-2024 Urnls dip stick/tablet rgnt non-auto w/o micrscp Cristin Susana DO Work Phone: Start: 11-17-2024 ALL MISCELLANEOUS TEST Cristin Susana DO Work Phone: Start: 11-14-2024 [facility] DRUG SCREEN RAPID (URINE) Cristin Susana DO Work Phone: Start: 11-14-2024 Urnls dip stick/tablet rgnt non-auto w/o micrscp Cristin Susana DO Work Phone: Start: 10-13-2024 End: 10-13-2024 Urnls dip stick/tablet rgnt non-auto w/o micrscp Cristin Susana DO Work Phone: Start: 09-27-2024 Urine test visual color cmprsn meths Bonnie Jungzer [employer] Work Phone: Start: 06-08-2024 Urine test visual color cmprsn precious Ramos Nena [employer] Work Phone: Start: 02-09-2024 Urnls dip stick/tablet rgnt non-auto w/o micrscp Aspen Drew MD Work Phone: Start: 09-13-2018 H/O: surgery S/P tonsillectomy and adenoidectomy Samira Orlando CMA Plan of Treatment Date Care Activity Detail Author Start: 05-20-2032 DTaP,Tdap and Td Vaccines (8 - Td or Tdap) DTaP,Tdap and Td Vaccines (8 - Td or Tdap) [facility] Start: 06-11-2025 Adult BMI Screening Adult BMI Screen ing [facility] Start: 06-11-2025 Tobacco Screening Tobacco Screening [facility] Start: 06-08-2025 Adult BMI Screening Adult BMI Screen ing [facility] Start: 06-08-2025 Tobacco Screening Tobacco Screening [facility] Start: 01-16-2025 End: 01-16-2025 Professional / ancillary services management 01/16/2025 9:30 AM EDT Ancillary Procedure [facility] [address] [place] [id number] [facility] Start: 01-09-2025 End: 01-09-2025 Patient encounter procedure 01/09/2025 11:20 AM EDT Routine [facility] [address] [place] [phone] Cristin Meza DO [address] [place] [address] [facility] [place] [facility] Start: 12-18-2024 Influenza vaccination Influenza Vacc ine [facility] Start: 12-12-2024 End: 06-14-2025 Alpha fetoprotein, maternal Alpha fetoprotein, maternal Lab Routine Second trimester ([facility]) 15 weeks gestation of ([facility]) Expected: 12/12/2024 (Approximate), Expires: 06/14/2025 [facility] Comment on above: Expected: 12/12/2024 (Approximate), Expires: 06/14/2025 Start: 12-12-2024 End: 03-14-2025 US for US OB 14+ weeks anatomy scan Imaging Routine Screening, , for anatomic survey ([facility]) Expected: 12/12/2024, Expires: 03/14/2025 [facility] Comment on above: Expected: 12/12/2024 , Expires: 03/14/2025 Start: 12-12-2024 End: 12-12-2024 Patient encounter procedure 12/12/2024 8:50 AM EDT Routine [facility] [address] [place] [phone] Kassandra Gipson PA [address] [place] [address] [facility] Start: 10-16-2024 Adult BMI Screening Adult BMI Screen [facility] Start: 10-13-2024 End: 10-13-2025 ABO/Rh ABO/Rh Lab Routine Missed menses , unspecified gestational age ([facility]) Expected: 10/13/2024 (Approximate), Expires: 10/13/2025 [facility] Comment on above: Expected: 10/13/2024 (Approximate), Expires: 10/13/2025 Start: 10-13-2024 End: 10-13-2025 Blood type and Indirect antibody screen panel - Blood Type and screen Lab Routine Missed menses , unspecified gestational age ([facility]) Expected: 10/13/2024 (Approximate), Expires: 10/13/2025 [facility] Comment on above: Expected: 10/13/2024 (Approximate), Expires: 10/13/2025 Start: 10-13-2024 End: 10-13-2025 Drugs of abuse panel - Urine by Screen method Rapid drug screen, urine Lab Routine , unspecified gestational age ([facility]) Encounter for supervision of normal first in first trimester ([facility]) Expected: 10/13/2024 (Approximate), Expires: 10/13/2025 [facility] Comment on above: Expected: 10/13/2024 (Approximate), Expires: 10/13/2025 Start: 10-10-2024 End: 10-10-2024 Telemedicine consultation with patient 10/10/2024 1:00 PM EDT Telemedicine [facility] [address] [place] [phone] Bonnie Barba, [employer] [address] [place], [place] [id number] [facility] Start: 10-05-2024 End: 01-05-2025 [place] Pelvis transvaginal US OB transvaginal Imaging Routine Missed menses Expected: 10/05/2024, Expires: 01/05/2025 [facility] Work Phone: Comment on above: Expected: 10/05/2024 , Expires: 01/05/2025 Start: 09-27-2024 End: 09-27-2024 Clinical Support 09/27/2024 10:15 AM EDT Clinical Support [facility] [address] [place] [phone] Bonnie Barba, [employer] [address] [place] [address] [facility] Start: 06-29-2024 End: 06-29-2024 Patient encounter procedure 06/29/2024 2:45 PM EDT Office Visit [facility] [place] [phone] Bonnie Barba, [employer] [address] [place], [place] [id number] [facility] Start: 06-08-2024 End: 06-08-2025 US Pelvis transabdominal and transvaginal Ultrasound pelvic with transvaginal Imaging Routine Secondary amenorrhea Expected: 06/08/2024, Expires: 06/08/2025 [facility] Work Phone: Comment on above: Expected: 06/08/2024 , Expires: 06/08/2025 Start: 2024 Screening for malign ant neoplasm of cervix Pap Smear [facility] Tutor Assignment [facility] Start: 12-25-2023 Tobacco Screening Tobacco Screening [facility] Tutor Assignment [facility] Start: 12-19-2023 Influenza vaccination Influenza Vacc ine [facility] Start: 10-22-2023 Adult BMI Screening Adult BMI Screen ing [facility] Start: 2015 Depression Screening Depression Scre ening [facility] Start: 2003 Screening for Chlamy paco trachomatis Chlamydia Screening [facility] End: 02-08-2025 Bacteria identified in Urine by Culture Urine culture (clean catch) Microbiology Routine Urinary frequency 1 Occurrences starting 02/09/2024 until 02/08/2025 [facility] Work Phone: Comment on above: 1 Occurrences starti ng 02/09/2024 until 02/08/2025 Bacteria identified in Urine by Culture Urine culture Microbiology Routine Missed menses Ordered: 10/13/2024 [facility] Comment on above: Ordered: 10/13/2024 CBC W Auto Different ial panel - Blood CBC and differential Lab Routine Missed menses , unspecified gestational age ([facility]) Ordered: 10/13/2024 [facility] Comment on above: Ordered: 10/13/2024 CHLAMYDIA TRACHOMATI S (GENITO/STI) CHLAMYDIA TRACHOMATIS (GENITO/STI) Lab Routine STD exposure Ordered: 12/12/2024 [facility] Comment on above: Ordered: 12/12/2024 Choriogonadotropin.b eta subunit [Units/volume] in Serum or Plasma HCG, Quantitative, Lab Routine Secondary amenorrhea 06/08/2024 4:[address] [facility] Cytology Cervical or vaginal smear or scraping study Pap Smear Pathology and Cytology Routine Well woman exam with routine gynecological exam STD exposure Ordered: 12/12/2024 [facility] Comment on above: Ordered: 12/12/2024 End: 06-08-2025 Estradiol Estradiol Lab Routine Secondary amenorrhea 1 Occurrences starting 06/08/2024 until 06/08/2025 [facility] Tutor Assignment [facility] Comment on above: 1 Occurrences starti ng 06/08/2024 until 06/08/2025 Estradiol (E2) [Mass/volume] in Serum or Plasma Estradiol Lab Routine Secondary amenorrhea 06/08/2024 4[facility] End: 06-08-2025 Follicle stimulating hormone Follicle stimulating hormone Lab Routine Secondary amenorrhea 1 Occurrences starting 06/08/2024 until 06/08/2025 [facility] Tutor Assignment [facility] Comment on above: 1 Occurrences starti ng 06/08/2024 until 06/08/2025 Follitropin [Units/volume] in Serum or Plasma Follicle stimulating hormone Lab Routine Secondary amenorrhea 06/08/2024 4:05 PM EST [email or web address] End: 06-08-2025 hCG, quantitative, hCG, quantitative, Lab Routine Secondary amenorrhea 1 Occurrences starting 06/08/2024 until 06/08/2025 [facility] Tutor Assignment [facility] Comment on above: 1 Occurrences starti ng 06/08/2024 until 06/08/2025 Hemoglobin A1c/Hemoglobin.total in Blood Hemoglobin A1c Lab Routine Missed menses , unspecified gestational age ([facility]) Ordered: 10/13/2024 [facility] Comment on above: Ordered: 10/13/2024 Hepatitis B virus surface Ag [Presence] in Serum or Plasma by Immunoassay Hepatitis B surface antigen Lab Routine Missed menses , unspecified gestational age ([facility]) Ordered: 10/13/2024 [facility] Comment on above: Ordered: 10/13/2024 Hepatitis C virus Ab [Presence] in Serum or Plasma by Immunoassay Hepatitis C antibody Lab Routine Missed menses , unspecified gestational age ([facility]) Ordered: 10/13/2024 [facility] Comment on above: Ordered: 10/13/2024 HIV-1/HIV-2 antigen/antibody combination immunoassay HIV-1 and HIV-2 antibodies Lab Routine Missed menses , unspecified gestational age ([facility]) Ordered: 10/13/2024 [facility] Comment on above: Ordered: 10/13/2024 Neisseria gonorrhoea e DNA [Presence] in Unspecified specimen by JOHN PAUL with probe detection Neisseria gonorrhea DNA probe, direct Lab Routine STD exposure Ordered: 12/12/2024 [facility] Comment on above: Ordered: 12/12/2024 End: 06-08-2025 Prolactin Prolactin Lab Routine Secondary amenorrhea 1 Occurrences starting 06/08/2024 until 06/08/[address] [facility] Comment on above: 1 Occurrences starti ng 06/08/2024 until 06/08/2025 Prolactin [Mass/volu me] in Serum or Plasma Prolactin Lab Routine Secondary amenorrhea 06/08/2024 4:05 PM [facility] Reagin Ab [Presence] in Serum by RPR RPR Lab Routine Missed menses , unspecified gestational age ([facility]) Ordered: 10/13/2024 [facility] Comment on above: Ordered: 10/13/2024 Rubella antibody, IgG Rubella an tibody, IgG Lab Routine Missed menses , unspecified gestational age ([facility]) Ordered: 10/13/2024 [facility] Comment on above: Ordered: 10/13/2024 SURESWAB(R) ADVANCED VAGINITIS PLUS, TMA SURESWAB(R) ADVANCED VAGINITIS PLUS, TMA Pathology and Cytology Routine Vaginal discharge Ordered: 12/12/2024 [facility] Work Phone: Comment on above: Ordered: 12/12/2024 End: 06-08-2025 Thyroid profile includes TSH FT4 Thyroid profile includes TSH FT4 Lab Routine Secondary amenorrhea 1 Occurrences starting 06/08/2024 until 06/08/[address] [facility] Comment on above: 1 Occurrences starti ng 06/08/2024 until 06/08/2025 Thyroid profile incl udes TSH FT4 Thyroid profile includes TSH FT4 Lab Routine Secondary amenorrhea 06/08/2024 4:05 PM [facility] US Pelvis transvaginal US OB tra nsvaginal Imaging Routine Missed menses 10/13/2024 9:56 AM EDT [facility] Immunizations Immunization Date Immunization Notes Care Provider Alicia alex 05-20-2022 tetanus toxoid, redu anyi diphtheria toxoid, and acellular pertussis vaccine, adsorbed Samira [facility] 12-12-2019 meningococcal oligosaccharide (groups A, C, Y and W-135) diphtheria toxoid conjugate vaccine (MCV4O) [facility] 12-04-2019 tuberculin skin test ; purified protein derivative, multipuncture device [facility] 11-27-2019 tuberculin skin test ; purified protein derivative, multipuncture device [facility] 12-01-2016 hepatitis A vaccine, adult dosage [facility] 12-01-2016 human papilloma viru s vaccine, quadrivalent [facility] 03-19-2016 hepatitis A vaccine, adult dosage [facility] 03-19-2016 human papilloma viru s vaccine, quadrivalent [facility] 01-14-2016 human papilloma viru s vaccine, quadrivalent [facility] 01-14-2016 meningococcal oligosaccharide (groups A, C, Y and W-135) diphtheria toxoid conjugate vaccine (MCV4O) [facility] 01-04-2016 tetanus toxoid, redu anyi diphtheria toxoid, and acellular pertussis vaccine, adsorbed [facility] 04-03-2009 influenza virus vacc ine, unspecified formulation [facility] 02-04-2009 influenza virus vacc ine, unspecified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 Date Aspen Drew MD [address] [place] [address], [address] [place] [address] PCP - General Family Medicine 10/28/22 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 Start Date End Date Aspen Drew MD [address] [place] [address], [address] [place] [address] PCP - General Family Medicine 10/28/22 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 Start Date End Date Aspne Drew MD [address] [place] [address], [address] [place] [address] PCP - General Family Medicine 10/28/22 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 This clinical summary was aggregated from multiple sources. Caution should be exercised in using it in the provision of clinical care. This summary normalizes information from multiple sources, and as a consequence, information in this document may materially change the coding, format and clinical context of patient data. In addition, data may be omitted in some cases. CLINICAL DECISIONS SHOULD BE BASED ON THE PRIMARY CLINICAL RECORDS. [facility] [employer] [facility]. provides no warranty or guarantee of the accuracy or completeness of information in this document.
[2024-12-19 20:08] LABS: Age Gdln ACOG Testing Note (.); IGP, rfx Aptima HPV ASCU Note (.)
== END 2024-12-12 14:32 | disposition home or self-care (01) ==
LOC: LAB 14:31
PROVIDERS: Visit Provider Physician Assistant
DX: Z01.419 Encounter for gynecological examination (general) (routine) without abnormal findings (principal); Z20.2 Contact with and (suspected) exposure to infections with a predominantly sexual mode of transmission
CPT/HCPCS: 88175

== ENCOUNTER 2025-02-18 15:02 | Observation (INO) | payer BC, SELFPAY ==
--- OUTSIDE RECORDS SUMMARY | 2025-02-07 10:20 | XMS_ITS | Encounter Summary ---
Author Organization [facility] Address [address] [place] [address] Care Team Providers [facility] Assistant Name Role Phone João Pham MD Primary Care Provider [phone] Reason for Visit * ReasonCommentsRoutine Visit Encounter Details DateTypeDepartmentCare Team (Latest Contact Info)Ymskdujpepy73/22/2025 11:20 AM EDTRoutine [facility] [address] [place] [id number] Kassandra Gipson PA [address] [place], [facility]11 Second trimester ([facility]); 23 weeks gestation of ([facility]); Diabetes mellitus screening Social History Tobacco UseTypesPacks/DayYears UsedDateSmoking Tobacco: NeverSmokeless Tobacco: NeverAlcohol UseStandard Drinks/WeekCommentsNever0 (1 standard drink = 0.6 oz pure alcohol)Estimated Date of GqklgdjbCubuezymXvu99/17/2026ased on UltrasoundSex and Gender InformationValueDate RecordedSex Assigned at BirthNot on fileLegal FguAhgoei83/15/2023 6:50 PM EDTGender IdentityNot on fileSexual OrientationNot on filedocumented as of this encounter Last Filed Vital Signs Vital SignReadingTime TakenCommentsBlood Kuvyvrah366/6402/07/2025 11:39 AM EDT Pulse--Temperature--Respiratory Rate--Oxygen Saturation--Inhaled Oxygen Concentration--Yuewag68.8 kg (134 lb)02/07/2025 11:39 AM EDTHeight--Body Mass Index21.6307 3:57 PM EDTdocumented in this encounter Progress Notes * VANGIE Resendiz - 02/07/2025 11:20 AM EDT Reason for Appointment: Patient ID: Nathaniel Lanza is a 19 y.o. female who presents for Routine Visit Patient presents today for Return OB appointment. MEDICATIONS Current Outpatient Medications Medication Instructions Prenat w/o P-NwKyf-Egms-FA-DHA (TriStart DHA) 31-0.6-0.4-200 MG capsule 1 capsule, [...] nursing note reviewed. Exam conducted with a instrument maker and repairer present. Vitals: Estimated body mass index is 20.34 kg/m?? as calculated from the following: Height as of 10/28/22: 5' 6 . Weight as of 01/09/25: 126 lb. BP: Patient's last menstrual period was 08/13/2024. Assessment/Plan ICD-10-CM 1. Second trimester ([facility]) Z34.92 CANCELED: POCT urinalysis dipstick manually resulted 2. 23 weeks gestation of ([facility]) Z3A.23 3. Diabetes mellitus screening Z13.1 CBC Glucose tolerance, 1 hour CBC Glucose tolerance, 1 hour Return OB: Patient presents today for a routine obstetrics appointment. Patient is currently 23w1d . Patient states she is doing well but has complaints of being tired due to current . Patient has verbalizes frequent movement. labor precautions was discussed/given. Pt given glucola order with instructions. Orders Placed This Encounter Procedures CBC Glucose tolerance, 1 hour Follow Up: Patient is to return to office in 3 weeks for routine OB appointment. Documented by Miya Madrigal MA on behalf of: VANGIE Resendiz documented in this encounter Plan of Treatment DateTypeDepartmentCare Team (Latest Contact Info)Wuzmdczoobb88/24/2025 10:50 AM ESTRoutine [facility] [address] [place] [phone] Syed Meza DO [address] [place] [address] NameTypePriorityAssociated DiagnosesOrder ScheduleCBCLabRoutine Diabetes mellitus screening Expected: 02/07/2025 (Approximate), Expires: 02/07/2026Glucose tolerance, 1 hour LabRoutine Diabetes mellitus screening Expected: 02/07/2025 (Approximate), Expires: 02/07/2026documented as of this encounter Procedures Procedure NamePriorityDate/TimeAssociated DiagnosisCommentsPOCT URINALYSIS RCVUHIGCPcrbxwk71/22/2025 12:01 PM EDT Second trimester ([facility]) 23 weeks gestation of ([facility]) PAP TEST, ULOCUCDVUnkpusp68/26/2025 12:00 AM EDTdocumented in this encounter Results * (ABNORMAL) POCT urinalysis dipstick manually resulted (02/07/2025 12:01 PM EDT)ComponentValueRef RangeTest MethodAnalysis TimePerformed AtPathologist SignatureColor, UAYellowClarity, UAClearGlucose, UANegativeNegative - 2000(110) ++++ mg/dLBilirubin, UANegativeNegative - 4(70) +++ mg/dLKetones, UA NegativeNegative - 160(16) ++++ mg/dLSpec Grav, UA1.0151 - 1.03Blood, UA NegativeNegative - 50 Rishabh/mcLpH, UA6.05 - 9Protein, UANegativeNegative - 2000(20) ++++ mg/dLUrobilinogen, UA1.00.2 - 12 mg/dLLeukocytes, UAPositive Negative - 500+++ Ronald/mcLNitrite, UANegativeNegative - PositiveSpecimen (Source)Anatomical Location / LateralityCollection Method / VolumeCollection TimeReceived BokcNcfuc49/22/2025 12:01 PM EDT Narrative Authorizing ProviderResult TypeResult StatusKassandra Gipson PAPOINT OF CARE TEST ENTER/EDIT ORDERABLESFinal Result * (ABNORMAL) PAP TEST, EXTERNAL (12/12/2024 12:00 AM EDT) Narrative Authorizing ProviderResult TypeResult StatusAmy Brandan PALAB CYTOLOGY ORDERABLES Final ResultPerforming OrganizationAddressCity/State/ZIP CodePhone Number EXTERNAL LAB documented in this encounter Visit Diagnoses Diagnosis Second trimester ([facility]) state, incidental 23 weeks gestation of ([facility]) Diabetes mellitus screening Screening for diabetes mellitus documented in this encounter Care Teams Team MemberRelationshipSpecialtyStart DateEnd Date João Pham MD [address] [place] [address], [address] [place] [address] PCP - GeneralFamily Medicine10/28/22documented as of this encounter
--- OUTSIDE RECORDS SUMMARY | 2025-02-18 15:08 | XMS_ITS | Clinical Summary ---
Author Organization [facility] Address [address] [place] [address] Care Team Providers Care Mining Speculator Name Role Phone João Pham MD Primary Care Provider [phone] Allergies No known active allergies Medications MedicationSigDispense QuantityRefillsLast FilledStart DateEnd DateStatus Prenat w/o V-HpVgx-Idbu-FA-DHA (TriStart DHA) 31-0.6-0.4-200 MG capsule Take 1 capsule by mouth in the morning.5Active azithromycin (Zithromax Z-Jose) 250 MG tablet Indications:Upper respiratory tract infection, unspecified typeAs directed 6 tablet Discontinued(Therapy completed) Encounters DateTypeDepartmentCare PlsuUxcqwlsvvfj01/22/2025 11:20 AM EDTRoutine [facility] [address] [place] [address] Kassandra Gipson PA Second trimester ([facility]); 23 weeks gestation of ([facility]); Diabetes mellitus qyfioukog49/22/2025amboo flowsheet [facility] [address] [place] [address] Kassandra Gipson PA 02/06/20258512Aokwgt83/15/2025bstract [facility] [address] [facility] [place] [address] Cristin Meza, DO 01/31/2025Telephone [facility] [address] [place] [address] Cristin Meza, DO 01/22/2025Telephone [facility] [place] [facility] [address] [place] [address] Miya Madrigal MA 01/18/2025bstract [facility] [address] [place] [address] Janelle Trejo MA 01/17/2025External Result Encounter [facility] [place] [facility] [address] [place] [address] Cristin Meza, DO 01/16/2025 9:30 AM EDTAncillary Procedure [facility] [address] [place] [address] 01/09/2025 11:20 AM EDTRoutine [facility] [address] [place] [address] Cristin Meza, Second trimester ([facility]); 19 weeks gestation of ([facility])01/09/20258460Gjfkcu18/16/2025Travel 12/13/2024Telephone [facility] [address] [place] [address] Kassandra Gipson PA 12/12/2024 8:50 AM EDTRoutine [facility] [address] [place] [address] Kassandra Gipson PA Second trimester ([facility]); 15 weeks gestation of ([facility]); Well woman exam with routine gynecological exam; Vaginal discharge; STD exposure; Screening, , for anatomic survey ([facility])12/12/2024linisync Result Encounter [facility] External Department Unsolicited Kassandra Gipson PA 12/12/2024External Result Encounter [facility] External Department Unsolicited Kassandra Gipson PA 12/12/2024amboo flowsheet [facility] [place] [address] Kassandra Gipson PA 12/05/2024 10:40 AM EDTOffice Visit [facility] [place] [address] Cristin Meza, 14 weeks gestation of ([facility]); First trimester ([facility])12/05/2024amboo flowsheet [facility] [place] [address] Cristin Meza, 12/05/20246127Clblta52/13/2025Results Follow-Up [facility] [place] [address] Gemma Link, JUAN ALL MISCELLANEOUS TEST, ALL MISCELLANEOUS TEST, ALL TYPE AND SCREEN, HMHP ANTIBODY ID11/24/2024bstract [facility] [place] [address] Janelle Trejo MA from Last 3 Months Family History DiwzwmnhSdfrUbruqlYyqdkgyaEurqfat4RaixmHutqihEgiowYnspjqXwouaIqemst2Yvbcz Social History Tobacco UseTypesPacks/DayYears UsedDateSmoking Tobacco: NeverSmokeless Tobacco: Never Tobacco Cessation:Counseling Given: Not Answered Alcohol UseStandard Drinks/WeekCommentsNever0 (1 standard drink = 0.6 oz pure alcohol)Estimated Date of KoqdktjmLiyusveoTli84/17/2026ased on UltrasoundSex and Gender InformationValueDate RecordedSex Assigned at BirthNot on fileLegal FilBakabu26/15/2023 6:50 PM EDTGender IdentityNot on fileSexual OrientationNot on file Last Filed Vital Signs Vital SignReadingTime TakenCommentsBlood Cuapkste908/6410/ 11:39 AM EDT Wekoe492610/28/2022 3:57 PM VFSOvrypwjdxal86.6 ??C (97.8 ??F)10/28/2022 3:57 PM EDTRespiratory Rate--Oxygen Zflhyadoby66%10/28/2022 3:57 PM EDTInhaled Oxygen Concentration--Tvuxgx26.8 kg (134 lb)02/07/2025 11:39 AM ARPWosqpq768.6 cm (5' 6 )10/28/2022 3:57 PM EDTBody Mass Index21.63010/28/2022 3:57 PM EDT Plan of Treatment DateTypeDepartmentCare Team (Latest Contact Info)Ayaetbnubga52/24/2025 10:50 AM ESTRoutine [facility] [address] [place] [address] Cristin Meza DO [address] [place], [place] [id number] Procedures Procedure NamePriorityDate/TimeAssociated DiagnosisCommentsPOCT URINALYSIS AHDTEHAABpvcihu79/22/2025 12:01 PM EDT Second trimester ([facility]) 23 weeks gestation of ([facility]) US OB 14+ WEEKS ANATOMY SCAN01/17/2025 12:19 PM EDT US OB 14+ WEEKS ANATOMY GYCWCuvfqzj15/30/2025 10:30 AM EDT Screening, , for anatomic survey ([facility]) RECURRENT VAGINITIS (HTRX)Hwlrmma6212/12/2024 11:46 AM EDT POCT URINALYSIS CWQEQITUMfgjtzv57/26/2025 10:34 AM EDT Second trimester ([facility]) 15 weeks gestation of ([facility]) IGP,APTIMA HPV,AGE XQUSVkabqsd56/26/2025 9:27 AM EDT PAP TEST, AJDHLMYREpimiuu35/26/2025 12:00 AM EDTPOCT URINALYSIS DIPSTICKRoutine 12/05/2024 11:13 AM EDT 14 weeks gestation of ([facility]) First trimester ([facility]) from Last 3 Months Results * (ABNORMAL) POCT urinalysis dipstick manually resulted (02/07/2025 12:01 PM EDT) Only the most recent of3 resultswithin the time period is included. ComponentValueRef RangeTest MethodAnalysis TimePerformed AtPathologist Signature Color, UAYellowClarity, UAClearGlucose, UANegativeNegative - 2000(110) ++++ mg/dLBilirubin, UANegativeNegative - 4(70) +++ mg/dLKetones, UANegativeNegative - 160(16) ++++ mg/dLSpec Grav, UA1.0151 - 1.03Blood, UANegativeNegative - 50 Rishabh/mcLpH, UA6.05 - 9Protein, UANegativeNegative - 2000(20) ++++ mg/dL Urobilinogen, UA1.00.2 - 12 mg/dLLeukocytes, UAPositiveNegative - 500+++ Ronald/mcL Nitrite, UANegativeNegative - PositiveSpecimen (Source)Anatomical Location / LateralityCollection Method / VolumeCollection TimeReceived MivqTphlc11/22/2025 12:01 PM EDT Narrative Authorizing ProviderResult TypeResult StatusHomberg Memorial Infirmary OF CARE TEST ENTER/EDIT ORDERABLESFinal Result * US OB 14+ weeks anatomy scan (01/17/2025 12:19 PM EDT) Only the most recent of2 resultswithin the time period is included. Anatomical RegionLateralityModalityBodyUltrasoundSpecimen (Source)Anatomical Location / LateralityCollection Method / VolumeCollection TimeReceived Time 01/17/2025 12:19 PM EDT Narrative 01/17/2025 12:19 PM EDT [facility]PATRICIA CASEY : 2005 SEX: F Accession Number: [id number] ORDERING PHYSICIAN: OSIEL LAWRENCE REFERRING PHYSICIAN: CRISTIN MEZA Coding Procedures ? 03976: Ultrasound, uterus, real time with image documentation, and maternal evaluation ? plus detailed anatomic examination, transabdominal approach;single or first gestation ? 09232: Ultrasound, uterus, real time with image documentation, transvaginal Indication Screening for Anatomic Survey, Supervision of high risk - Anti M. History OB History ? 1. Para 0 ? [id number] Current Cell free DNA ?Low Risk analysis Maternal Assessment Physical Exam ??Height 165 cm, 5 ft 5 in. Weight 59 kg, 130 lb. Initial weight 54 kg, 120 lb. BMI 21.63 kg/m???. Initial ? BMI 19.97 kg/m???. Weight gain 5 kg, 10 lb Method Transabdominal ultrasound examination. *Patient declined transvaginal ultrasound to determine cervical length. Aggarwal . Number of fetuses: 1 Dating LMP on: ?08/13/2024 GA by LMP ?22 w + 3 d STEPHANIE by LMP: ?05/20/2025 Previous Ultrasound on: ?10/13/2024 Type of prior assessment: ?GA GA at prior assessment date ?6 w + 3 d GA by previous U/S ? 20 w + 1 d STEPHANIE by previous Ultrasound: ?06/05/2025 Ultrasound examination on: ? 01/17/2025 GA by U/S based upon: ??AC, BPD, Femur, HC GA by U/S ?20 w + 3 d STEPHNAIE by U/S: ?06/03/2025 Assigned: ?based on ultrasound (GA), selected on 01/17/2025 Assigned GA (weeks days) ? 20 w + 1 d Assigned STEPHANIE: ??06/05/2025 General Evaluation Cardiac activity Present. FHR 134 bpm. Presentation: cephalic Placenta: Placental site: posterior, left, away from cervical os Umbilical cord: Cord vessels: 3 vessel cord. Insertion site: marginal insertion Amniotic fluid: Amount of AF: normal amount. MVP 3.5 cm Biometry Standard BPD ?48.8 mm 20w 5d 75% Hadlock OFD ?62.7 mm 21w 3d 89% Jm HC ? 179.8 mm ?20w 3d 55% Hadlock Cerebellum tr ??20.1 mm 19w 2d 45% Hill Nuchal fold ?3.2 mm AC ? 154.0 mm ?20w 4d 59% Hadlock Femur ??32.7 mm 20w 1d 44% Hadlock Humerus ?33.3 mm 21w 2d 88% Jm HC / AC ?1.17 ? 55% Hadlock EFW ?353 g ?61% Hadlock EFW (lb) ? 0 lb EFW (oz) ? 12 oz EFW by: ?Hadlock (TBY-WD-QN-FL) Extended Tibia ??30.1 mm 21w 0d 82% Jm Hot Metal Mixer Operator ? 4.8 mm CM ? 4.4 mm ?? 29% Nicolaides Inner IOD ?14.2 mm Outer IOD ?33.4 mm Nasal bone ? 5.8 mm ?? 16% [place] Head / Face / Neck Cephalic index 0.78 ? 39% Nicolaides Nasal bone: ?present Extremities / Bony Struc FL / BPD ? 0.67 ? 20% Hadlock FL / HC ?0.18 ? 24% Hadlock FL / AC ?0.21 ? 32% Hadlock Other Structures FHR ?134 bpm Anatomy The following structures appear normal: Head/Neck: Cranium. Lateral ventricles. Choroid plexus. Midline falx. Cavum septi pellucidi. Cerebellum. Cisterna ? magna. Parenchyma. Vermis. ? Neck. Nuchal fold. Face: Lips. Profile. Nose. Nasal bone. Maxilla. Mandible. Orbits. Heart/Thorax: 4-chamber view. RVOT view. LVOT view. 3-vessel view. 1-qptqgy-wgqsitm view. Situs. Aortic arch view. ? Bicaval view. Ductal arch view. Interventricular septum. Great vessels. Cardiac position. Cardiac axis. ? Cardiac size. Cardiac rhythm. ? Right lung. Left lung. Diaphragm. Abdomen: Abdom. wall. Cord insertion. Stomach. Kidneys. Bladder. Small bowel. Large bowel. Right renal artery. ? Left renal artery. Genitals. Spine: Cervical spine. Thoracic spine. Lumbar spine. Sacral spine. Extremities/Skeleton: Right upper arm. Right forearm. Right hand. Left upper arm. Left forearm. Left hand. Right upper leg. ? Right lower leg. Right foot. Left upper leg. Left lower leg. Left foot. Maternal Structures Uterus Visualized Cervix Visualized ? Approach - Transabdominal Right Ovary ?Visualized ? Size 2.0 cm x 2.5 cm x 2.0 cm. Vol 5.5 cm? Corpus luteum: cystic with fine diffuse internal echoes Left Ovary ? Visualized ? Size 3.5 cm x 2.6 cm x 1.5 cm. Vol 7.3 cm??? Cul de Sac ? Visualized. No free fluid visualized Impression Single live intrauterine consistent with 20w 1d with an STEPHANIE of 06/05/2025. Normal growth. EFW measures at the 61%, AC measures at the 59%. anatomic survey did not reveal sonographic evidence of any gross structural abnormalities. Marginal placental cord insertion noted on today's exam. Probable right ovarian corpus luteal cyst visualized. Amniotic fluid MVP measures 3.5 cm. Recommendations Please see [facility] documentation from today. Subsequent follow up or other follow up as clinically determined by primary OB provider unless otherwise specified by [facility]. Results forwarded to ordering provider so they can follow up with the patient as necessary. The copy-to physician of this order is CRISTIN Romero The ordering physician of this order is OSIEL Dye Procedure Note Radiology, Radiologist, MD - 01/17/2025 [facility] PATRICIA POE : 2005 SEX: F Accession Number: [id number] ORDERING PHYSICIAN: OSIEL LAWRENCE REFERRING PHYSICIAN: CRISTIN MEZA Coding Procedures 10801: Ultrasound, uterus, real time with image documentation, and maternal evaluation plus detailed anatomic examination, transabdominalapproach;single or first gestation 28672: Ultrasound, uterus, real time with imagedocumentation, transvaginal Indication Screening for Anatomic Survey, Supervision of high risk - AntiM. History OB History 1. Para 0 X4H6O3O6 Current Cell free DNA Low Risk analysis Maternal Assessment Physical Exam Height 165 cm, 5 ft 5 in. Weight 59 kg, 130 lb. Initialweight 54 kg, 120 lb. BMI 21.63 kg/m???. Initial BMI 19.97 kg/m???. Weight gain 5 kg, 10 lb Method Transabdominal ultrasound examination. *Patient declined transvaginalultrasound to determine cervical length. Aggarwal . Number of fetuses: 1 Dating LMP on: 08/13/2024 GA by LMP 22 w + 3 d STEPHANIE by LMP: 05/20/2025 Previous Ultrasound on: 10/13/2024 Type of prior assessment: GA GA at prior assessment date 6 w + 3 d GA by previous U/S 20 w + 1 d STEPHANIE by previous Ultrasound: 06/05/2025 Ultrasound examination on: 01/17/2025 GA by U/S based upon: AC, BPD, Femur, HC GA by U/S 20 w + 3 d STEPHANIE by U/S: 06/03/2025 Assigned: based on ultrasound (GA), selected on 01/17/2025 Assigned GA (weeks days) 20 w + 1 d Assigned STEPHANIE: 06/05/2025 General Evaluation Cardiac activity Present. FHR 134 bpm. Presentation: cephalic Placenta: Placental site: posterior, left, away from cervical os Umbilical cord: Cord vessels: 3 vessel cord. Insertion site: marginalinsertion Amniotic fluid: Amount of AF: normal amount. MVP 3.5 cm Biometry Standard BPD 48.8 mm 20w 5d 75% Hadlock OFD 62.7 mm 21w 3d 89% Jm HC 179.8 mm 20w 3d 55% Hadlock Cerebellum tr 20.1 mm 19w 2d 45% Hill Nuchal fold 3.2 mm AC 154.0 mm 20w 4d 59% Hadlock Femur 32.7 mm 20w 1d 44% Hadlock Humerus 33.3 mm 21w 2d 88% Jm HC / AC 1.17 55% Hadlock EFW 353 g 61% Hadlock EFW (lb) 0 lb EFW (oz) 12 oz EFW by: Hadlock (PPZ-HG-ZV-FL) Extended Tibia 30.1 mm 21w 0d 82% Jm Hot Metal Mixer Operator 4.8 mm CM 4.4 mm 29% Nicolaides Inner IOD 14.2 mm Outer IOD 33.4 mm Nasal bone 5.8 mm 16% [place]onek Head / Face / Neck Cephalic index 0.78 39% Nicolaides Nasal bone: present Extremities / Bony Struc FL / BPD 0.67 20% Hadlock FL / HC 0.18 24% Hadlock FL / AC 0.21 32% Hadlock Other Structures FHR 134 bpm Anatomy The following structures appear normal: Head/Neck: Cranium. Lateral ventricles. Choroid plexus. Midline falx.Cavum septi pellucidi. Cerebellum. Cisterna magna. Parenchyma. Vermis. Neck. Nuchal fold. Face: Lips. Profile. Nose. Nasal bone. Maxilla. Mandible. Orbits. Heart/Thorax: 4-chamber view. RVOT view. LVOT view. 3-vessel view. 8-bdpgmh-tiocoex view. Situs. Aortic arch view. Bicaval view. Ductal arch view. Interventricular septum. Greatvessels. Cardiac position. Cardiac axis. Cardiac size. Cardiac rhythm. Right lung. Left lung. Diaphragm. Abdomen: Abdom. wall. Cord insertion. Stomach. Kidneys. Bladder. Smallbowel. Large bowel. Right renal artery. Left renal artery. Genitals. Spine: Cervical spine. Thoracic spine. Lumbar spine. Sacral spine. Extremities/Skeleton: Right upper arm. Right forearm. Right hand. Leftupper arm. Left forearm. Left hand. Right upper leg. Right lower leg. Right foot. Left upper leg. Left lower leg. Leftfoot. Maternal Structures Uterus Visualized Cervix Visualized Approach - Transabdominal Right Ovary Visualized Size 2.0 cm x 2.5 cm x 2.0 cm. Vol 5.5 cm??? Corpus luteum: cystic with fine diffuse internal echoes Left Ovary Visualized Size 3.5 cm x 2.6 cm x 1.5 cm. Vol 7.3 cm??? Cul de Sac Visualized. No free fluid visualized Impression Single live intrauterine consistent with 20w 1d with an STEPHANIE of 06/05/2025. Normal growth. EFW measures at the 61%, AC measures at the 59%. anatomic survey did not reveal sonographic evidence of any grossstructural abnormalities. Marginal placental cord insertion noted on today's exam. Probable right ovarian corpus luteal cyst visualized. Amniotic fluid MVP measures 3.5 cm. Recommendations Please see [facility] documentation from today. Subsequent follow up or other follow up as clinically determined byprimary OB provider unless otherwise specified by [facility]. Results forwarded to ordering provider so they can follow up with thepatient as necessary. The copy-to physician of this order is CRISTIN Romero The ordering physician of this order is OSIEL Dye Authorizing ProviderResult TypeResult StatusCorey Susana DOIMG OB US PROCEDURES Final Result * (ABNORMAL) RECURRENT VAGINITIS (HTRX) (12/12/2024 11:46 AM EDT)ComponentValue Ref RangeTest MethodAnalysis TimePerformed AtPathologist SignatureATOPOBIUM RKBDGDR31.234(A)19.961 - 24.689 ppm12/13/2024 6:10 AM EDTHealthTrackRx at LabPortATOPOBIUM VAGINAEDetected(A)19.961 - 24.689 ppm12/13/2024 6:10 AM EDT [facility] at LabPortBVAB 2,3 (BACTERIAL VAGINOSIS ASSOCIATED BACTERIA 2, 3); MOBILUNCUS MMA585.961 - 24.689 ppm12/13/2024 6:10 AM EDTHealthTrackRx at LabPortBVAB 2,3 (BACTERIAL VAGINOSIS ASSOCIATED BACTERIA 2, 3); MOBILUNCUS SPP Not Shihyjtt89.961 - 24.689 ppm12/13/2024 6:10 AM EDTHealthTrackRx at LabPort MARIO ALBICANS, PARAPSILOSIS, WDJHHQIVCP516.000 - 30.347 ppm12/13/2024 6:10 AM EDTHealthTrackRx at LabPortCANDIDA ALBICANS, PARAPSILOSIS, TROPICALISNot Pvkgrqso62.000 - 30.347 ppm12/13/2024 6:10 AM EDTHealthTrackRx at LabPort MARIO BPJDMEDZ631.000 - 31.618 ppm12/13/2024 6:10 AM EDTHealthTrackRx at LabPortCANDIDA GLABRATANot Reiwtfnw34.000 - 31.618 ppm12/13/2024 6:10 AM EDT [facility] LabPortCANDIDA DZULAM818.000 - 30.873 ppm12/13/2024 6:10 AM EDTHealthTrackRx at [facility]AND[facility] KRUSEINot Fzduvtdv18.000 - 30.873 ppm 12/13/2024 6:10 AM EDTHealthTrackRx at LabPortCHLAMYDIA DKUFDDOCWHF356.000 - 31.586 ppm12/13/2024 6:10 AM EDTHealthTrackRx at LabPortCHLAMYDIA TRACHOMATIS Not Ggdqezgz68.000 - 31.586 ppm12/13/2024 6:10 AM EDTHealthTrackRx at [facility] GARDNERELLA XJTHQRJJB44.998(A)19.961 - 24.689 ppm12/13/2024 6:10 AM EDT [facility] CenterGARDNERELLA VAGINALISDetected(A)19.961 - 24.689 ppm 12/13/2024 6:10 AM EDTHealthTrackRx at LabSt. [facility] Rehabilitation CenterMEGASPHAERA (TYPES 1, 2)019.961 - 24.689 ppm12/13/2024 6:10 AM EDTHealthTrackRx at LabSt. [facility] Rehabilitation CenterMEGASPHAERA (TYPES 1, 2)Not Jpthxxfn93.961 - 24.689 ppm12/13/2024 6:10 AM EDTHealthTrackRx at [facility] CenterNEISSERIA LJEYWSASHZM429.000 - 32.587 ppm12/13/2024 6:10 AM EDT [facility] CenterNEISSERIA GONORRHOEAENot Wvqyzkve89.000 - 32.587 ppm 12/13/2024 6:10 AM EDTHealthTrackRx at LabPortTRICHOMONAS OBCEGWFJD437.000 - 31.995 ppm12/13/2024 6:10 AM EDTHealthTrackRx at LabPortTRICHOMONAS VAGINALIS Not Uswqviig10.000 - 31.995 ppm12/13/2024 6:10 AM EDTHealthTrackRx at [facility] MYCOPLASMA TSMJSRGBQW129.961 - 24.689 ppm12/13/2024 6:10 AM EDTHealthTrackRx at [facility] CenterMYCOPLASMA GENITALIUMNot Klvdayaq63.961 - 24.689 ppm12/13/2024 6:10 AM EDTHealthTrackRx at LabPortERMB, C; MEFA17.788(A)23.000 - 27.500 ppm 12/13/2024 6:10 AM EDTHealthTrackRx at [facility], C; MEFADetected(A)23.000 - 27.500 ppm12/13/2024 6:10 AM EDTHealthTrackRx at [facility] B, TET M22.839(A) 23.000 - 27.500 ppm12/13/2024 6:10 AM EDTHealthTrackRx at [facility] B, TET M Detected(A)23.000 - 27.500 ppm12/13/2024 6:10 AM EDTHealthTrackRx at [facility] Specimen (Source)Anatomical Location / LateralityCollection Method / Volume Collection TimeReceived QqmlNxaviv71/26/2025 11:46 AM EDT12/13/2024 1:30 AM EDT Narrative Authorizing ProviderResult TypeResult StatusAmy [facility] BLOOD ORDERABLES Final ResultPerforming OrganizationAddressCity/State/ZIP CodePhone Number [facility] [address] [address] * (ABNORMAL) IGP,APTIMA HPV,AGE GDLN (12/12/2024 9:27 AM EDT)ComponentValueRef RangeTest MethodAnalysis TimePerformed AtPathologist SignatureAGE GDLN ACOG TESTINGNote.TBHComment: ?? TESTS ? RESULT ??FLAG ??UNITS ?REF RANGE ??LAB ?? Clinician Provided Cytology Information ?? Source.............Endoc[employer] ?? Other.............. ?? No. of containers..01 ThinPrep Vial Age Algo ACOG Anabella... ??21-29 ? 01 ?FLAG LEGEND: ?L-Low Normal,H-High Normal,LL-Alert Low,HH-Alert High <-Panic Low,>-Panic High,A-Abnormal,AA-Critical Abnormal Performed at: 01 =G ?[facility] ?? [address] [place] ??[address] ?? Nimisha Winn MD, IGP, RFX APTIMA HPV ASCUNote(A).TBHComment: ?? TESTS ? RESULT ??FLAG ??UNITS ?REF RANGE ??LAB DIAGNOSIS: ? [A] ?02 ?? EPITHELIAL CELL ABNORMALITY. ?? ATYPICAL SQUAMOUS CELLS OF UNDETERMINED SIGNIFICANCE (ASC-US). Recommendation: ?[A] ?02 ?? Suggest follow up as clinically appropriate. Specimen adequacy: ?02 ?? Satisfactory for evaluation. No endocervical component is identified. Performed by: ? 02 ?? Gianna Joseph Pipe Roller (ASCP) Electronically si... ?02 ?? Johana Alvarez MD, Pathologist . ? 02 Pathologist ICD10: ?02 ?? R87.610 Note: ? Note ?02 ?? The Pap smear is a screening test designed to aid in the ?? detection of premalignant and malignant conditions of the ?? uterine cervix. ??It is not a diagnostic procedure and ?? should not be used as the sole means of detecting cervical ?? cancer. ??Both false-positive and false-negative reports do ?? occur. Test Methodology: ? Note ?02 ?? This liquid based ThinPrep(R) pap test was screened with ?? the use of an image guided system. . ? 02 ?? See below for HPV testing results. ?FLAG LEGEND: ?L-Low Normal,H-High Normal,LL-Alert Low,HH-Alert High <-Panic Low,>-Panic High,A-Abnormal,AA-Critical Abnormal Performed at: 02 WB ?[facility] ?? [address] [place], [place] ??[address] ?? Nimisha Winn MD, HPV APTIMANegativeNegativeTBHComment: This nucleic acid amplification test detects fourteen high- risk HPV types (16,18,31,33,35,39,45,51,52,56,58,59,66,68) without differentiation. Performed at: ??=G - [facility] ??[id number] Franchise Specialist: Nimisha Winn MD, Phone: ??[phone] Performed at: ?? - [facility] ??[id number] Franchise Specialist: Nimisha Winn MD, Phone: ??[phone] Specimen (Source)Anatomical Location / LateralityCollection Method / Volume Collection TimeReceived Time12/12/2024 9:27 AM EDT12/12/2024 3:17 PM EDT Narrative [facility] - 12/19/2024 8:08 PM EDT SPATULA-ALONE ENDOCERVIX Authorizing ProviderResult TypeResult StatusM[facility] BLOOD ORDERABLES Final ResultPerforming OrganizationAddressCity/State/ZIP CodePhone Number [facility] * (ABNORMAL) PAP TEST, EXTERNAL (12/12/2024 12:00 AM EDT) Narrative Authorizing ProviderResult TypeResult StatusAmy Brandan BONDS CYTOLOGY ORDERABLES Final ResultPerforming OrganizationAddressCity/State/ZIP CodePhone Number EXTERNAL LAB from Last 3 Months Insurance Care Teams Team MemberRelationshipSpecialtyStart DateEnd Date João Pham MD [address] [place] [address], [address] [place] [phone] PCP - GeneralFamily Medicine10/28/22
--- OUTSIDE RECORDS SUMMARY | 2025-02-18 15:08 | XMS_ITS | Encounter Summary ---
Author Organization [facility] Address [address] [place] [address] Care Team Providers Care Computer Programming Professor Name Role Phone João Pham MD Primary Care Provider [phone] Encounter Details DateTypeDepartmentCare Team (Latest Contact Info)Yplhetfjwqf29/22/2025amboo flowsheet [facility] [address] [place] [address] Kassandra Gipson PA [address] [place], [facility]11 Social History Tobacco UseTypesPacks/DayYears UsedDateSmoking Tobacco: NeverSmokeless Tobacco: NeverAlcohol UseStandard Drinks/WeekCommentsNever0 (1 standard drink = 0.6 oz pure alcohol)Estimated Date of IawanunrQgfytlffQih67/17/2026Based on UltrasoundSex and Gender InformationValueDate RecordedSex Assigned at BirthNot on fileLegal FosZhovnl98/15/2023 6:50 PM EDTGender IdentityNot on fileSexual OrientationNot on filedocumented as of this encounter Plan of Treatment DateTypeDepartmentCare Team (Latest Contact Info)Kemdubafcxz99/24/2025 10:50 AM ESTRoutine [facility] [address] [place] [address] Syed Meza DO [address] [place], [facility]11 documented as of this encounter Visit Diagnoses Not on filedocumented in this encounter Care Teams Team MemberRelationshipSpecialtyStart DateEnd Date João Pham MD [address] [place] [address], [address] [place] [address] PCP - GeneralFamily Medicine10/28/22documented as of this encounter
--- OUTSIDE RECORDS SUMMARY | 2025-02-18 15:08 | XMS_ITS | Encounter Summary ---
Author Organization [facility] Address [address] [place] [address] Care Team Providers Care Director Dance Name Role Phone João Pham MD Primary Care Provider [phone] Encounter Details DateTypeDepartmentCare Team (Latest Contact Info)Odndpsyuvwo70/21/2025Travel Social History Tobacco UseTypesPacks/DayYears UsedDateSmoking Tobacco: NeverSmokeless Tobacco: NeverAlcohol UseStandard Drinks/WeekCommentsNever0 (1 standard drink = 0.6 oz pure alcohol)Estimated Date of IisfcnogSmxklfmnVpm33/17/2026ased on UltrasoundSex and Gender InformationValueDate RecordedSex Assigned at BirthNot on fileLegal QvcPaoyml91/15/2023 6:50 PM EDTGender IdentityNot on fileSexual OrientationNot on filedocumented as of this encounter Plan of Treatment DateTypeDepartmentCare Team (Latest Contact Info)Ontpumihfdi60/24/2025 10:50 AM ESTRoutine [facility] [address] [place] [id number] Syed Meza DO [address] [place], [place] [id number] documented as of this encounter Visit Diagnoses Not on filedocumented in this encounter Care Teams Team MemberRelationshipSpecialtyStart DateEnd Date João Pham MD [address] [place] [address], [address] [place] [address] PCP - GeneralFamily Medicine10/28/22documented as of this encounter
--- OUTSIDE RECORDS SUMMARY | 2025-02-18 15:08 | XMS_ITS | CCD ---
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 [address], [place] [address]ADYMTWL RPS308 mg/dLAbnormalNEGRegency Hospital Company Comment on above:Performed By: #### NUM #### [facility] ([id number]) [address] [place] [address], [place] [address]VOYBNAAO GRAVITY NUR1.349Lipdad9.003-1.035Regency Hospital CompanyComment on above:Performed By: #### NUM #### [facility] ([id number]) [address] [place] [address] 76116JUXBIMMEHRVD NUR0.2 eu/dLNormal<1.1PMarietta Memorial Hospital Comment on above:Performed By: #### NUM #### [facility] ([id number]) [address] [place] [address], [place] [address]J5 [Mass/Vol]on 58-50-7037KQSVZBKGZ608.6 pg/mLNormalRegency Hospital CompanyComment on above:Result Comment: NON- FEMALES Mid follicular: 25-115 pg/mL [...] impact on estradiol recovery when using this assay.Performed By: #### 38071-8, THYR, 2842- 3, 39158-8, 2243-4 #### [facility] ([id number]) [address], [address] [place], [place] [address]Rxypubitzwy Qnon 06-36-9143MKOPYWMA STIM HORMONE6.5 mIU/mLNormal [facility] BakersfieldComment on above:Result Comment: NORMAL FEMALE Luteal 1.8-5.1 mIU/mL Follicular 3.8-8.8 mIU/mL Mid Cycle 4.5-22.5 mIU/mL Post Anju 16.7-113.6 mIU/mL Performed By: #### 11341-9, THYR, 2842-3, 63711-1, 2243-4 #### [facility] ([id number]) [address] [place], [place] [address]GAX.beta subunit IA 3rd IS Qnon 76-08-9446DEXRW B HCG,3RD I.S.<5 NormalProMedica Mercy Hospital BakersfieldComment on above:Result Comment: NEW REFERENCE RANGE WEEKS (SINCE LMP) [...] trophoblastic or nontrophoblastic neoplasms. Performed By: #### 23264-6, THYR, 2842-3, 21833-2, 2243-4 #### [facility] ([id number]) [address], [address] [place], [place] [address]ZLUG , urineon 55-63-4062Kbrw HCG ( test) Ql (U)NegativeAkron Children's HospitalInterpretation and review of laboratory resultsNormalProChildren'S Hospital Of ColumbusProChildren'S Hospital Of ColumbusProlactin [Mass/Vol] on 33-97-8301HZAEYCXMD82.8 ng/mLNormal3.3-26.7Regency Hospital CompanyComment on above:Performed By: #### 49108-6, THYR, 2842-3, 34878-3, 2243-4 #### [facility] ([id number]) [address], [address] [place], [place] [address]OVKHFBK PROFILEon 67-01-1765Plkk T4 [Mass/Vol]1.02 ng/dLNormal 0.61-1.60Regency Hospital CompanyComment on above:Performed By: #### 19677-4, THYR, 2842-3, 07968-4, 2243-4 #### [facility] ([id number]) [address], [address] [place], [place] [address]EGH0.37 uIU/mLNormal0.49-4.67Regency Hospital CompanyComment on above:Performed By: #### 80821-0, THYR, 2842-3, 03201-0, 2243-4 #### [facility] ([id number]) [address], [address] [place], [place] [address]ESM ( test) Ql (U)on 50-64-7617Yyfl HCG ( test) Ql (U)NegativeNormalNEGProThe [facility] Health [facility] CampusComment on above: Performed By: #### 2106-3 #### [facility] ([id number]) [address] [place] [address], [place], [place] [address]IDKAD CULTUREon 13-48-6880Ffnyfyfx identified Cx Nom (U)CULTURE RESULTS >100,000 ORGANISMS/mL ESCHERICHIA COLI 10,000 to [...] S <=4 F TOBRAMYCIN S <=1 F TRIMETH/SULFAMETHOXAZOLE R >=16/304 Veterans Health AdministrationComment on above:Performed By: #### 630-4 #### [facility] ([id number]) [address] [place] [address], [address] [place], [place] [address]LTT MACROSCOPIC NURon 91-76-0722VWKLCIGPV NURNegativeNormalNEG ProMSonoma Developmental CenterComment on above:Performed By: #### NUM #### [facility] ([id number]) [address] [place] [address]YTZTQ/HGB NURNegativeNormalNEGProThe [facility] Health [facility] CampusComment on above:Performed By: #### NUM #### [facility] ([id number]) [address] [place] [address]ARVLJHG NURNegativeNormalNEGProThe [facility] Health [facility] CampusComment on above:Performed By: #### NUM #### [facility] ([id number]) [address] [place] [place] [address] 35231FKNEXZV NUR15 mg/dLAbnormalNEGProThe [facility] Health [facility] CampusComment on above:Performed By: #### NUM #### [facility] ([id number]) [address] [place] [address]HWIWOYKAT ESTERASE NURNegativeNormalNEGRegency Hospital CompanyComment on above:Performed By: #### NUM #### [facility] ([id number]) [address] [place] [address]BAZNCOM NURPositiveAbnormalNEGRegency Hospital CompanyComment on above:Performed By: #### NUM #### [facility] ([id number]) [address] [place] [place] [address]DP NUR6.6Wapoyq8.0-8.5PMarietta Memorial HospitalComment on above:Performed By: #### NUM #### [facility] ([id number]) [address] [place] [address] 28373UTBYONJ NURTraceAbnormalNEGRegency Hospital CompanyComment on above:Performed By: #### NUM #### [facility] ([id number]) [address] [place] [address] 13823NFUWRFQB GRAVITY IVAN>=1.462Smrbff3.003-1.035ProThe University Of [facility] Health [facility] CampusComment on above:Performed By: #### NUM #### [facility] ([id number]) [address] [place] [address] 45684MDUUGAMFSZOT NUR0.2 eu/dLNormal<1.1PMarietta Memorial Hospital Comment on above:Performed By: #### NUM #### [facility] ([id number]) [address] [place] [address]MHZH urinalysis dipstick onlyon 44-50-1819Tfbdieye Poct Urine BilirubinNegativeProMedica Health SystemExternal Poct Urine BloodNegative [facility] Health SystemExternal Poct Urine GlucoseNegativeProMedica Health SystemExternal Poct Urine KetonesNegativeProMedica Health SystemExternal Poct Urine Leukocyte EsteraseNegativeProMedica Health SystemExternal Poct Urine NitriteNegativeProMedica Health SystemExternal Poct Urine Tr3RqvGpnrlr Health SystemExternal Poct Urine ProteinTracePOhioHealth Mansfield Hospital SystemExternal Poct Urine Specific Gravity1.025Akron Children's HospitalExternal Poct Urine Urobilinogen0.2 [facility] SystemInterpretation and review of laboratory resultsNormal SCI-[facility] Forensic Treatment CenterURINE CULTUREon 80-55-3198Feeckgxh identified Cx Nom (U)CULTURE RESULTS 10-50,000 ORGANISMS/mL NORMAL UROGENITAL FLORATrinity Health System West Campus Comment on above:Performed By: #### 630-4 #### [facility] ([id number]) [address] [place], [place] [address]Ahnkxgnf and Microscopicon 19-26-4823Jdftiuyftg (U)Cloudy Critically abnormalCleGrand Lake Joint Township District Memorial HospitalComment on above:Order Comment: Name Collection Type:: VoidedPerformed By: #### ADDONUAPLUS, CUU #### [facility] [address] [place], [place] [address] USABacteria,UrineNone SeenNormalNone SeenMetrohealth Cleveland Heights Medical CenterComment on above:Order Comment: Name Collection Type:: Voided Performed By: #### ADDONUAPLUS, CUU #### [facility] [address] [place], [place] [address] USABilirubin,UrineNegativeNormalNegativeMetrohealth Cleveland Heights Medical CenterComment on above:Order Comment: Name Collection Type:: Voided Performed By: #### ADDONUAPLUS, CUU #### [facility] [address] [place] [address] USAColor (U)YellowNormalYellowMetrohealth Cleveland Heights Medical CenterComment on above:Order Comment: Name Collection Type:: VoidedPerformed By: #### ADDONUAPLUS, CUU #### [facility] [address] [place], [place] [address] USAGlucose Ql (U)NormalNormalNormOhioHealth Doctors HospitalComment on above:Order Comment: Name Collection Type:: VoidedPerformed By: #### ADDONUAPLUS, CUU #### [address] [address] USAHyaline Casts,Qgzss9-9Qjmkfd2-0GbphpzypvMetrohealth Cleveland Heights Medical CenterComment on above:Order Comment: Name Collection Type:: VoidedResult Comment: PERFORMED BY: [place] [address] PATHOLOGIST WINDOW TREATMENT INSTALLER VALENTINE SARABIA M.D.Performed By: #### JOSSIE, CUU #### [place] [address] USAKetones Ql (U)TraceHighNegKettering Health MiamisburgComment on above:Order Comment: Name Collection Type:: VoidedPerformed By: #### JOSSIE, CUU #### [place] [address] USALeukocyte esterase Test strip Ql (U)2+HighNegative [facility] Heights Medical CenterComment on above:Order Comment: Name Collection Type:: VoidedPerformed By: #### JOSSIE, CUU #### [place] [address] USANitrite,UrineNegativeNormalNegKettering Health MiamisburgComment on above:Order Comment: Name Collection Type:: Voided Performed By: #### JOSSIE, CUU #### [place] [address] USAOccult Blood,UrineNegativeNormalNegKettering Health MiamisburgComment on above:Order Comment: Name Collection Type:: Voided Result Comment: PERFORMED BY: [place] [address] PATHOLOGIST WINDOW TREATMENT INSTALLER VALENTINE SARABIA M.D.Performed By: #### JOSSIE, CUU #### [place] [address] USApH (U)5.5 [pH]Normal5.0-9.0[facility] Heights Medical CenterComment on above:Order Comment: Name Collection Type:: VoidedPerformed By: #### ADDCHRISTYPLUS, CUU #### [address] [place] [address] USAProtein,UrineNegativeNormalNegativeMetrohealth Cleveland Heights Medical CenterComment on above:Order Comment: Name Collection Type:: Voided Performed By: #### ADDONUAPLUS, CUU #### [place] [id number] USARBC,Hznzj0-7Jzyxav7-8FcivfvnjpChildren's Hospital of Columbus Comment on above:Order Comment: Name Collection Type:: VoidedPerformed By: #### ADDONUAPLUS, CUU #### [place] [address] USASpecificy [place],Urine1.644Lwsiwp8.001-1.030Met[facility] Heights Medical CenterComment on above:Order Comment: Name Collection Type:: VoidedPerformed By: #### ADDONUAPLUS, CUU #### [place] [address] USASquamous Epithelial Cell,Bpguk2-9Oryn8-9UwmwyptqoChildren's Hospital of ColumbusComment on above:Order Comment: Name Collection Type:: Voided Performed By: #### ADDONUAPLUS, CUU #### [place] [address] USAUrobilinogen,UrineNormalNormalNormalMetrohealth Cleveland Heights Medical CenterComment on above:Order Comment: Name Collection Type:: Voided Performed By: #### ADDONUAPLUS, CUU #### [place] [address] USAWBC,Exdfz95-02Gcxe2-8Qcbvcpvfa[address] [place] [address] Comment on above:Order Comment: Name Collection Type:: VoidedPerformed By: #### ADDONUAPLUS, CUU #### [facility] [address] [place] [address] USALipid Panelon 63-16-3278Tzfdgvleljj [Mass/Vol]101 mg/dLLow 140-200Met[facility] Heights Medical CenterComment on above:Result Comment: Chol less than 200 mg/dl low risk Chol 201-239 mg/dl borderline risk Chol 240 mg/dl and greater high riskPerformed By: #### TSH3 wRFLX, LIPID, [id number] #### [facility] [address] [place] [address] USACholesterol in HDL [Mass/Vol]35 mg/bXWzatbv30-50QmhgwinyaMetrohealth Cleveland Heights Medical CenterComment on above:Result Comment: HDL CHOL ATP-III CLASSIFICATION Cardiovascular Risk HDL > or equal to 60 mg/dL LOW HDL < 40 mg/dL HIGHPerformed By: #### TSH3 wRFLX, LIPID, [id number] #### [facility] [address] [place] [address] USACholesterol.total/Cholesterol in HDL [Mass ratio]2.9 {ratio}Normal<5.0Met[facility] Heights Medical CenterComment on above:Performed By: #### TSH3 wRFLX, LIPID, [id number] #### [facility] [address] [place] [address] USALDL Cholesterol,Oerksxdjiv63 mg/dLNormal0-100[facility] Medical CenterComment on above:Result Comment: LDL ATP III CLASSIFICATION LDL less than 100 mg/dL Optimal LDL 100-129 mg/dL Near or above optimal LDL 130-159 mg/dL Borderline high LDL 160-189 mg/dL High LDL greater than 189 mg/dL Very highPerformed By: #### TSH3 wRFLX, LIPID, [id number] #### [facility] [address] [place] [address] USATriglyceride w/Lstrcu71 mg/dLNormal0-149[facility] Medical CenterComment on above:Result Comment: TRIG ATP III CLASSIFICATION TRIG less than 150 mg/dL Normal TRIG 150-199 mg/dL Borderline high TRIG 200-500 mg/dL High TRIG greater than 500 mg/dL Very high Standard traceable to the Center for Disease Conrtrol and Prevention (CDC) test method.Performed By: #### TSH3 wRFLX, LIPID, [id number] #### [facility] [address] [place] [address] USAVLDL JUABTSMKHVD23 mg/dLNormOhioHealth Doctors HospitalComment on above:Performed By: #### TSH3 wRFLX, LIPID, [id number] #### [facility] [address] [place] [id number] USAThyroid Stim Hormone w/Rflxon 23-42-2293Yusvhww Stim Hormone w/Rflx1.50 u[iU]/mLNormal0.45-5.33[facility] Comment on above:Performed By: #### TSH3 wRFLX, LIPID, [id number] #### [place] [address] USAUrine Cultureon 31-36-0987Pwcpxben identified Cx Nom (U)No Growth 2 Days PERFORMED BY: [place] [address] PATHOLOGIST WINDOW TREATMENT INSTALLER VLAENTINE SARABIA M.D.[facility] HospitalComment on above: Performed By: #### ADDONUAPLUS, CUU #### [place] [address] USAVitamin D 25 Hydroxy Totalon 69-13-6191Rmbaypy D 25 Hydroxy Total33.7 ng/dPDgyxfr06-148TytvtjglvMetrohealth Cleveland Heights Medical CenterComment on above:Result Comment: VITAMIN D STATUS 25(OH)VITAMIN D RANGE (ng/mL) Deficient <20 Insufficient 20 to <30 Sufficient 30 to 100 Reference: Chelsy MF,Lamont NC, Alton ARCHER, et al. Evaluation,treatment, and prevention of vitamin D deficiency; an Endocrine Society clinical practice guideline. JCEM. 2010; 96(7):1911-30. PERFORMED BY: [place] [address] PATHOLOGIST WINDOW TREATMENT INSTALLER VALENTINE SARABIA M.D.Performed By: #### TSH3 wRFLX, LIPID, [id number] #### [facility] [address] [place], [place] [address] USACovid-19 PCR (CVDTBH)on 14-06-5328HPYT-CoV-2 (COVID-19) RNA JOHN PAUL+probe Ql (Unsp spec)Not detectedNormalNOT DETECTEDThe [facility] Comment on above:Result Comment: This test is not yet approved or cleared by the [place] FDA. When there are no FDA-approved or cleared tests available, and other criteria are met, FDA can make tests available under an emergency access mechanism called an Emergency Use Authorization (EUA). The EUA for this test is supported by the [employer] of Health and Human Service's (HHS's) declaration that circumstances exist to justify the emergency use of in vitro diagnostics for the detection and/or diagnosis of the virus that causes COVID- 19. This EUA will remain in effect (meaning [...] of clinical signs and symptoms consistent with SARS-CoV-2.Performed By: #### DEBORAH MOULTON #### [place] [address] Judith KarenSYMPTOMATIC COVID-19 ANTIGENon 35-17-3483QAL StatementSEE BELOW NormalThe [facility] Special[facility] Hospital - CantonComment on above:Result Comment: This test has not been FDA [...] declaration is terminated or authorization is revoked sooner.Performed By: #### PAULA MOULTONTB #### [facility] [address] [place] [address] Judith RosenthalUstlbQYIS-HjG-0 (COVID-19) RNA JOHN PAUL+probe Ql (Unsp spec)NegativeNormal NEGATIVEThe [facility] Hospital - CantonComment on above:Performed By: #### PAULAAGApolinar CVDTBH #### [facility] [address] [place] [address] Judith Shaffer Vital Signs Date TimeVital SignValuePerforming DderhbvjjLxyjtbig05-22-2407 11:39-0400Body mass index (BMI) [Ratio]21.63 kg/m2Kassandra VENCES Work Phone: [facility] CenterYapkldmikl30-16-0486 11:39-0400Body cetxun77.78 kgKassandra VENCES Work Phone: [facility] CenterPlkukqawgz21-54-6250 11:39-0400Diastolic blood mqolbiqa87 mm[Hg]Kassandra VENCES Work Phone: [facility] CenterWruwpivmzc28-79-7233 11:39-0400Systolic blood mm[Hg]Kassandra VENCES Work Phone: [facility] CenterRtllutkjlo95-98-3086 09:47-0400Body gbetjl301.6 cmAbbie Lawrence MD Work Phone: [phone] [place], [place] 0760410-01-2025 09:47-0400Body mass index (BMI) [Ratio]20.99 kg/s3XbnrebAbbie Lawrence MD Work Phone: [phone] [place], [place] 0760410-01-2025 09:47-0400Body lnyxwk77.97 kgAbbie Lawrence MD Work Phone: [phone] [place], [place] 0760410-01-2025 09:47-0400Diastolic blood itgwxcje60 mm[Hg]Abbie Lawrence MD Work Phone: [phone] [place], [place] 0760410-01-2025 09:47-0400Heart rate 73 /minAbbie Lawrence MD Work Phone: [phone] [place], [place] 0760410-01-2025 09:47-0400Systolic blood myjxtbyx168 mm[Hg]Abbie Lawrence MD Work Phone: [phone] [place], [place] 0760409-23-2025 11:50-0400Body mass index (BMI) [Ratio]20.34 kg/z4OxhkqSyed Meza DO Work Phone: [phone] [place], [place] [address]Lmbftucrfm22-06-4401 11:50-0400Body .15 kgCorey Susana DO Work Phone: [phone] [place], [place] [address]Hcveorydqx52-36-7279 11:50-0400Diastolic blood wxqmdxba95 mm[Hg]Syed Susana DO Work Phone: [phone] [place], [place] [address]Bletxbthcc30-14-9385 11:50-0400Systolic blood qzvojney644 mm[Hg]Syed Susana DO Work Phone: [phone] [place], [place] [address]Fukktmhimv60-80-9726 09:25-0400Body mass index (BMI) [Ratio]20.01 kg/m2Kassandra VENCES Work Phone: [phone] [place], [place] [address]Xshmyjbqwp72-97-3332 09:25-0400Body mmbust31.25 kgAmy Brandan VENCES Work Phone: [phone] [place], [place] [address]Wjqoesopvx16-30-3903 09:25-0400Diastolic blood yczcyjxw48 mm[Hg]Kassandra VENCES Work Phone: [phone] [place], [place] [address]Holswhakbv76-58-9289 09:25-0400Systolic blood rhihzlye827 mm[Hg]Kassandra VENCES Work Phone: [phone] [place], [place] [address]Rypkngdehm67-47-4663 11:07-0400Body mass index (BMI) [Ratio]20.3 kg/u1Stbro Susana DO Work Phone: [phone] [place], [place] [address]Jvvfifzltl53-08-4642 11:07-0400Body .06 kgCorey Susana DO Work Phone: [phone] [place], [place] [address]Lniiumkirx75-45-9206 11:07-0400Diastolic blood yiocdrpe65 mm[Hg]Syed Susana DO Work Phone: [phone] [place] [address]-19-2025 11:07-0400Systolic blood hbijbocc331 mm[Hg]Syed Susana DO Work Phone: [phone] [place], [place] [address]Wnjteruoxj54-34-4161 10:46-0400Body mass index (BMI) [Ratio]19.53 kg/v5Repzp Susana DO Work Phone: [phone] [place], [place] [address]Iwjnrasjsr61-99-1932 10:46-0400Body .88 kgCorey Susana DO Work Phone: [facility] CenterYzyzwxrbks08-70-1130 10:46-0400Diastolic blood dkqcoybi00 mm[Hg]Syed Carro DO Work Phone: [facility] CenterNscedseggm22-69-3922 10:46-0400Systolic blood dctohdsg155 mm[Hg]Seyd Meza DO Work Phone: [facility] CenterEvwdzlixpy66-63-8172 10:35-0400Body mass index (BMI) [Ratio]19.39 kg/y1WkuheNewYork-[facility]byterian [place] [facility]06-27-2025 10:35-0400Body weight 54.49 kgNewYork-Presbyterian [place] [facility]02-20-2025 15:33-0500Body aoauwx328.6 cmLisa Krotzer OFFICE TECHNOLOGY INSTRUCTOR-SUEDING MACHINE TENDER Work Phone: [facility]02-20-2025 15:33-0500Body mass index (BMI) [Ratio]19.59 kg/m2Lisa Krotzer OFFICE TECHNOLOGY INSTRUCTOR-SUEDING MACHINE TENDER Work Phone: [facility]02-20-2025 15:33-0500Body ugsnjs37.07 kgLisa Krotzer OFFICE TECHNOLOGY INSTRUCTOR-SUEDING MACHINE TENDER Work Phone: [facility]02-20-2025 15:33-0500Diastolic blood cylggfpr80 mm[Hg]Bonnie Krotzer OFFICE TECHNOLOGY INSTRUCTOR-SUEDING MACHINE TENDER Work Phone: [facility]02-20-2025 15:33-0500Systolic blood pahsjxzf377 mm[Hg]Bonnie Krotzer OFFICE TECHNOLOGY INSTRUCTOR-SUEDING MACHINE TENDER Work Phone: [facility]10-23-2024 11:34-0400Body mass index (BMI) [Ratio]19.21 kg/m2Aspen Drew MD Work Phone: p[facility]10-23-2024 11:34-0400Body odggja42.98 kgAspen Drew MD Work Phone: p[facility] [place]10-23-2024 11:34-0400Diastolic blood mm[Hg]Aspen Drew MD Work Phone: p[facility] [place]10-23-2024 11:34-0400Heart rate 81 /Latisha Drew MD Work Phone: p[facility] [place]10-23-2024 11:34-0400Systolic blood fbdorwtn531 mm[Hg]Aspen Drew MD Work Phone: [phone] [place] [address] Encounters Encounter DateEncounter TypeCare ProviderFacilityStart: 02-07-2025 End: 53-37-7301Vkjhrk Kandice VENCES Work Phone: [facility] OBGYNStart: 02-07-2025 End: 24-29-6905Vvwavq Kandice VENCES Work Phone: [facility] OBGYNStart: 02-07-2025 End: 24-06-7972lkcgkutujrRUG CHERELLEEYNot AvailableStart: 02-07-2025 End: 20-35-9885Ntszsinu flow Venkata VENCES Work Phone: [facility] OBGYNComment on above:Second trimester ([facility]); 23 weeks gestation of ([facility]); Diabetes mellitus screeningStart: 01-17-2025 End: 96-00-1250Bgytze consultation new/estab patient 58 Beto Lawrence MD Work Phone: [phone]-Kpesn [facility] at [facility] Comment on above: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)Start: 01-17-2025 End: 99-34-9750fvxyfetftyWBLUN R FAZIOProMedica Towson HospitalStart: 01-16-2025 End: 12-83-8847fofabrstjqZVD RAMEYNot AvailableStart: 01-09-2025 End: 39-75-9998mesnwcmrobSCEKR FAZIONot AvailableStart: 01-09-2025 End: 90-29-8970Nevwaafq flow sheetCorey Susana DO Work Phone: [facility] OBGYNComment on above:Second trimester ([facility]); 19 weeks gestation of ([facility])Start: 12-13-2024 End: 27-31-1995Fmmfb Brittany Lawrence MD Work Phone: [phone]-Ffyqz [facility] Start: 12-12-2024 End: 21-78-7152Icsrua flowsheetKassandra VENCES Work Phone: [facility] OBGYNStart: 12-12-2024 End: 71-90-8114Ownktu flowsheetKassandra VENCES Work Phone: [facility] OBGYNStart: 12-12-2024 End: 49-78-5900Qmkasvddo Result EncounterKassandra VENCES Work Phone: noms External Department UnsolicitedStart: 12-12-2024 End: 32-96-1232Ykjaqqjo Result EncounterKassandra VENCES Work Phone: noms External Department UnsolicitedStart: 12-12-2024 End: 71-22-3162fmnnczvnkpZBI RAMEYNot AvailableStart: 12-12-2024 End: 96-64-6295Qysqadn encounter procedureKassandra VENCES Work Phone: NOKC HealthcareStart: 12-12-2024 End: 38-87-8550Umrnfenk preventive med est patient 18-39 yrsKassandra VENCES Work Phone: [facility] OBGYNComment on above:Second trimester ([facility]); 15 weeks gestation of ([facility]); Well woman exam with routine gynecological exam; Vaginal discharge; STD exposure; Screening, , for anatomic survey ([facility])Start: 12-05-2024 End: 64-70-2786Ubqxku flowsheetCorey Susana DO Work Phone: [facility] OBGYNStart: 12-05-2024 End: 58-51-3038Ylpbbc flowsheetCorey Susana DO Work Phone: [facility] OBGYNStart: 12-05-2024 End: 61-50-2055shcjqcwdmaWCITH FAZIONot AvailableStart: 12-05-2024 End: 28-37-5455Hcqskqvr flow sheetCorey Susana DO Work Phone: noms [facility] OBGYNComment on above:14 weeks gestation of ([facility]); First trimester ([facility])Start: 12-01-2024 End: 25-73-9753Xnwcabwgj department patient visitASPEN [facility] HospitalStart: 11-17-2024 End: 07-48-3368Nbamxbxdz Result EncounterCorey Susana DO Work Phone: noms External Department UnsolicitedStart: 11-17-2024 End: 48-68-3551Eizvgfkzz Result EncounterCorey Susana DO Work Phone: noms External Department UnsolicitedStart: 11-14-2024 End: 15-50-9746Ezvebh flowsheetCorey Susana DO Work Phone: noms [facility]BGYNStart: 11-14-2024 End: 53-94-5126Mquoly flowsheetCorey Susana DO Work Phone: NOPU [facility] OBGYNStart: 11-14-2024 End: 31-34-3073Nfurkcpfc Result EncounterCorey Susana DO Work Phone: noms External Department UnsolicitedStart: 11-14-2024 End: 22-30-8240oyfbskcvudOXKFZ FAZIONot AvailableStart: 11-14-2024 End: 76-24-5895Fcmqsbal flow sheetCorey Susana DO Work Phone: NOFI Mccormick OBGYNComment on above:First trimester ([facility]); 11 weeks gestation of ([facility])Start: 10-14-2024 End: 92-97-0522Pghjxwitq department patient visitJOCATE Peralta [facility] HospitalStart: 10-13-2024 End: 73-91-2105Eksgii outpatient visit 5 minutesFazio Nurse Noms Bcp ObNOMS BCP OBComment on above:GA: 0q9vYuktd: 10-13-2024 End: 62-68-9752ymotgueyrnBVJYK FAZIONot AvailableStart: 09-27-2024 End: 49-18-1834Ymkiza outpatient visit 5 minutesLisa Richard Barba OFFICE TECHNOLOGY INSTRUCTOR-SUEDING MACHINE TENDER Work Phone: Pro[facility] Centerca Physicians Obstetrics/GynecologyComment on above:Missed menses (Primary Dx)Start: 09-27-2024 End: 25-45-1027sxulenhgpcUQQP Richard [facility] Ambulatory PPGStart: 09-26-2024 End: 77-27-1119Uasjmmjwx encounterBonnie Barba OFFICE TECHNOLOGY INSTRUCTOR-SUEDING MACHINE TENDER Work Phone: [facility] Obstetrics/GynecologyStart: 06-12-2024 End: 55-79-9450Czxszqlnz encounterAspen Drew MD Work Phone: [facility] Start: 06-11-2024 End: 55-28-9231Nlxpqvlhv department patient visitJOCATE Kathryn [facility]ENTERNATALYPike [facility] HospitalStart: 06-08-2024 End: 95-20-4034Uznizn outpatient new 30 minutesLisa Richard Barba OFFICE TECHNOLOGY INSTRUCTOR-SUEDING MACHINE TENDER Work Phone: [facility] Obstetrics/GynecologyComment on above:Secondary amenorrhea (Primary Dx); Patient desires pregnancyStart: 06-08-2024 End: 60-09-7327qnhvlidbcfGLKN [facility] Ambulatory PPGStart: 05-14-2024 End: 67-34-9753Sdhywejof department patient visitASPEN Kathryn [facility] HospitalStart: 02-09-2024 End: 68-07-4865nqoivldvyeBCGF J HIW[facility] HospitalStart: 02-09-2024 End: 38-66-6990ekhfzobrrmKVYZ J [facility] Ambulatory PPGStart: 02-09-2024 End: 56-60-5833Juyqvc outpatient visit 15 minutesAspen Drew MD Work Phone: [facility] Internal Medicine/Pediatrics Comment on above:Urinary frequency (Primary Dx)Start: 08-05-2023 End: 24-55-6786Ytlqtetfo encounterChandrahouston Shuklasweta [facility]ELPHIAProMedica Physicians Internal Medicine/PediatricsComment on above:Appointment DueStart: 01-21-2023 ambulatoryHarborStart: 34-77-5783belrkktqysWfxyddclkbm Abdelaziz [facility]: 10-22-2022 End: 92-03-0165Dnvqaelkrz and management of inpatientAspen Drew Facility:[facility]otart: 10-22-2020 End: 71-87-6444evnwgqhknlTT ASPEN DREWFacility:H1 Procedures DateProcedureProcedure DetailPerforming ClinicianStart: 71-96-1998Plivi dip stick/tablet rgnt non-auto w/o micrscpAmy Brandan VENCES Work Phone: Start: 18-28-2616AKSKTZRRS VAGINITIS (HTRX)Kassandra VENCES Work Phone: Start: 06-11-8720Dxuau dip stick/tablet rgnt non-auto w/o micrscpAmy Brandan VENCES Work Phone: Start: 88-42-7059XBW,APTIMA HPV,AGE GDLNKassandra VENCES Work Phone: Start: 44-94-9838DNO TEST, EXTERNALAmy Brandan VENCES Work Phone: Start: 23-95-3520Zfcqy dip stick/tablet rgnt non-auto w/o micrscpCorey Susana DO Work Phone: Start: 91-33-3570OUV MISCELLANEOUS TESTCorey Susana DO Work Phone: Start: 57-02-1360DZMHQ FREE CELL DNA (NON-[facility] SEND OUT)Not In System Ref ProvStart: 60-96-2596HHEDPTAA LAB TESTNot In System Ref ProvStart: 84-31-1544GCM DRUG SCREEN RAPID (URINE)Syed Susana DO Work Phone: Start: 42-91-7499Jemzx dip stick/tablet rgnt non-auto w/o micrscpCorey Susana DO Work Phone: Start: 10-13-2024 End: 65-87-1478Ujzxn dip stick/tablet rgnt non-auto w/o micrscpCorey Susana DO Work Phone: Start: 95-05-3995Zodqb test visual color cmprsn methsLisa M Krotzer OFFICE TECHNOLOGY INSTRUCTOR-SUEDING MACHINE TENDER Work Phone: Start: 33-08-1439Cblqn test visual color cmprsn methsLisa M Krotzer OFFICE TECHNOLOGY INSTRUCTOR-SUEDING MACHINE TENDER Work Phone: Start: 78-72-7702Ijbcc dip stick/tablet rgnt non-auto w/o micrscpSusiehn Kathryn Drew MD Work Phone: start: 09-13-2018H/O: surgeryS/P tonsillectomy and adenoidectomySamira Orlando CMA Plan of Treatment DateCare ActivityDetailAuthorStart: 38-02-8343QVwY,Tdap and Td Vaccines (8 - Td or Tdap)DTaP,Tdap and Td Vaccines (8 - Td or Tdap)[facility] SystemStart: 12-89-1390Mnbcl BMI ScreeningAdult BMI ScreeningCrystal Clinic Orthopedic Center SystemStart: 57-75-9827Ybyangd ScreeningTobacco ScreeningCrystal Clinic Orthopedic Center SystemStart: 80-52-5952Vnmlm BMI ScreeningAdult BMI ScreeningCrystal Clinic Orthopedic Center SystemStart: 97-04-9437Ygokp BMI ScreeningAdult BMI ScreeningCrystal Clinic Orthopedic Center SystemStart: 62-47-2104Bqmtgwe ScreeningTobacco ScreeningProPromedica [facility] SystemStart: 96-64-2185Fqyln BMI ScreeningAdult BMI ScreeningCrystal Clinic Orthopedic Center SystemStart: 68-11-6015Uwzmiix ScreeningTobacco ScreeningProPromedica [facility]ostoria [facility] SystemStart: 03-12-2025 End: 44-45-5378Pepmdsy encounter cxeewcaab42/24/2025 10:50 AM EST Routine [facility] [address] [phone] Syed Meza DO [address] [place] [address] N[facility]S [facility] OBGYNStart: 02-12-2025 End: 39-25-3906Opcareztojmg / ancillary services lcngccyrsb72/27/2025 11:00 AM EDT Ancillary Procedure [facility] [address] [place] [address] NOMS [facility] OBGYNStart: 02-07-2025 End: 97-04-5495QRG panel - Blood by Automated countCBC Lab Routine Diabetes mellitus screening Expected: 02/07/2025 (Approximate), Expires: 02/07/2026[facility] Work Phone: comment on above:Expected: 02/07/2025 (Approximate), Expires: 02/07/2026Start: 02-07-2025 End: 71-47-4274Vyyimpniilp of glucose 1 hour after glucose challenge for glucose tolerance testGlucose tolerance, 1 hour Lab Routine Diabetes mellitus screening Expected: 02/07/2025 (Approximate), Expires: 02/07/2026[facility] HealthcareComment on above:Expected: 02/07/2025 (Approximate), Expires: 02/07/2026Start: 02-07-2025 End: 18-43-9577Trnjnxi encounter kzihtvmyo66/22/2025 11:20 AM EDT Routine [facility] [address] [place] [phone] Kassandra Turpin PA [address] [place], [place] [id number] N[facility] OBGYNStart: 01-17-2025 End: 01-96-9997Txzqcyl encounter procedureOhioHealth Pickerington [facility] US ImagingStart: 01-16-2025 End: 03-43-9770Liwfizzihwpl / ancillary services ybtzmdysdk33/30/2025 9:30 AM EDT Ancillary Procedure [facility] [address] [place] [phone] NOMS [facility] OBGYNStart: 01-09-2025 End: 83-14-6297Zdefkww encounter pgkiotzno24/23/2025 11:20 AM EDT Routine [facility] [address] [place] [phone] Syed Meza, [address] [place] [address] N[facility] OBGYNStart: 12-18-2024 Influenza vaccinationInfluenza VaccineCrystal Clinic Orthopedic Center SystemStart: 12-12-2024 End: 24-36-2419Epbnt fetoprotein, maternalAlpha fetoprotein, maternal Lab Routine Second trimester ([facility]) 15 weeks gestation of ([facility]) Expected: 12/12/2024 (Approximate), Expires: 06/14/2025[facility] Comment on above:Expected: 12/12/2024 (Approximate), Expires: 06/14/2025Start: 12-12-2024 End: 33-11-2981QM for pregnancyUS OB 14+ weeks anatomy scan Imaging Routine Screening, , for anatomic survey ([facility]) Expected: 12/12/2024, Expires: 03/14/2025[facility] CenterComment on above:Expected: 12/12/2024, Expires: 03/14/2025Start: 12-12-2024 End: 42-83-2134Kvpiicx encounter uiofnkmjv93/26/2025 8:50 AM EDT Routine [facility] [address] [place], [id number] Kassandra Turpin PA [address] [place] [address] [place] [address] NOMS [facility] OBGYNStart: 68-07-3421Gutct BMI ScreeningAdult BMI ScreeningCrystal Clinic Orthopedic Center SystemStart: 10-13-2024 End: 05-05-3386LDD/RhABO/Rh Lab Routine Missed menses , unspecified gestational age ([facility]) Expected: 10/13/2024 (Approximate), Expires: 10/13/2025[facility] HealthcareComment on above:Expected: 10/13/2024 (Approximate), Expires: 10/13/2025Start: 10-13-2024 End: 42-65-0378Qzyqu type and Indirect antibody screen panel - BloodType and screen Lab Routine Missed menses , unspecified gestational age ([facility]) Expected: 10/13/2024 (Approximate), Expires: 10/13/2025[facility] Healthcare Comment on above:Expected: 10/13/2024 (Approximate), Expires: 10/13/2025Start: 10-13-2024 End: 86-72-7202Amcjt of abuse panel - Urine by Screen methodRapid drug screen, urine Lab Routine , unspecified gestational age ([facility]) Encounter for supervision of normal first in first trimester ([facility]) Expected: 10/13/2024 (Approximate), Expires: 10/13/2025[facility] HealthcareComment on above: Expected: 10/13/2024 (Approximate), Expires: 10/13/2025Start: 10-10-2024 End: 79-44-0641Outnikhpcmvx consultation with yvzmuzd5610/10/2024 1:00 PM EDT Telemedicine [facility] [address] [place] [address] Bonnie Barba, OFFICE TECHNOLOGY INSTRUCTOR-SUEDING MACHINE TENDER [address] [place] [place] [address] [facility] Obstetrics/GynecologyStart: 10-05-2024 End: 02-25-0236KM Pelvis transvaginalUS OB transvaginal Imaging Routine Missed menses Expected: 10/05/2024, Expires: 01/05/2025[facility] Work Phone: comment on above:Expected: 10/05/2024, Expires: 01/05/2025Start: 09-27-2024 End: 28-20-1389Pbdiodcl Sjubuuw1309/27/2024 10:15 AM EDT Clinical Support [facility] [address] [phone] Bonnie Barba, OFFICE TECHNOLOGY INSTRUCTOR-SUEDING MACHINE TENDER [address] [place] [address] [facility] Obstetrics/GynecologyStart: 06-29-2024 End: 88-84-9555Ygxpjnz encounter tgejdliom52/13/2025 2:45 PM EDT Office Visit [facility] [address] [place] [phone] Bonnie Barba, OFFICE TECHNOLOGY INSTRUCTOR-SUEDING MACHINE TENDER [address] [place] [address] [facility] Obstetrics/GynecologyStart: 06-08-2024 End: 50-93-9304ET Pelvis transabdominal and transvaginalUltrasound pelvic with transvaginal Imaging Routine Secondary amenorrhea Expected: 06/08/2024, Expires: 06/08/2025[facility] Work Phone: Comment on above:Expected: 06/08/2024, Expires: 06/08/2025Start: 81-10-5457Ksdsocuhv for malignant neoplasm of cervixPap Smear [facility] SystemStart: 86-64-7368Bfcgfne ScreeningTobacco Screening [facility] SystemStart: 08-48-7979Qhlpyuwab vaccinationInfluenza Vaccine [facility] SystemStart: 29-65-3802Tbwak BMI ScreeningAdult BMI Screening [facility] Centertart: 66-56-2008Rztvmkrfzv ScreeningDepression Screening [facility] Regionaltart: 70-82-7782Vqrgwwzeq for Chlamydia trachomatis Chlamydia ScreeningAk[facility]'s [facility] End: 90-67-6575Lqzxhxte identified in Urine by CultureUrine culture (clean catch) Microbiology Routine Urinary frequency 1 Occurrences starting 02/09/2024 until 02/08/2025[facility] Work Phone: comment on above:1 Occurrences starting 02/09/2024 until 5Bacteria identified in Urine by CultureUrine culture Microbiology Routine Missed menses Ordered: 10/13/2024[facility] HealthcareComment on above:Ordered: 10/13/2024BC W Auto Differential panel - BloodCBC and differential Lab Routine Missed menses , unspecified gestational age ([facility]) Ordered: 10/13/2024[facility] HealthcareComment on above:Ordered: 10/13/2024 CHLAMYDIA TRACHOMATIS (GENITO/STI)CHLAMYDIA TRACHOMATIS (GENITO/STI) Lab Routine STD exposure Ordered: 12/12/2024[facility] HealthcareComment on above:Ordered: 12/12/2024horiogonadotropin.beta subunit [Units/volume] in Serum or PlasmaHCG, Quantitative, Lab Routine Secondary amenorrhea 06/08/2024 4:05 PM EST [facility] HospitalThermoAura [facility] HospitalCytology Cervical or vaginal smear or scraping studyPap Smear Pathology and Cytology Routine Well woman exam with routine gynecological exam STD exposure Ordered: 12/12/2024[facility] HealthcareComment on above:Ordered: 12/12/2024 End: 16-32-5886TkpwrhibmIkajcgknq Lab Routine Secondary amenorrhea 1 Occurrences starting 06/08/2024 until 06/08/2025[facility] HospitalComment on above:1 Occurrences starting 06/08/2024 until 06/08/2025Estradiol (E2) [Mass/volume] in Serum or PlasmaEstradiol Lab Routine Secondary amenorrhea 06/08/2024 4:05 PM EST [facility] End: 22-84-0586Vftsbwtg stimulating hormoneFollicle stimulating hormone Lab Routine Secondary amenorrhea 1 Occurrences starting 06/08/2024 until 06/08/2025 [facility] SystemComment on above:1 Occurrences starting 06/08/2024 until 06/08/2025Follitropin [Units/volume] in Serum or PlasmaFollicle stimulating hormone Lab Routine Secondary amenorrhea 06/08/2024 4:05 PM [facility] End: 91-44-7095eCY, quantitative, pregnancyhCG, quantitative, Lab Routine Secondary amenorrhea 1 Occurrences starting 06/08/2024 until 06/08/2025 [facility] HospitalComment on above:1 Occurrences starting 06/08/2024 until 06/08/2025Hemoglobin A1c/Hemoglobin.total in BloodHemoglobin A1c Lab Routine Missed menses , unspecified gestational age ([facility]) Ordered: 0 10/13/2024[facility] HealthcareComment on above:Ordered: 10/13/2024Hepatitis B virus surface Ag [Presence] in Serum or Plasma by ImmunoassayHepatitis B surface antigen Lab Routine Missed menses , unspecified gestational age [facility] Ordered: 10/13/2024[facility] HealthcareComment on above:Ordered: 10/13/2024 Hepatitis C virus Ab [Presence] in Serum or Plasma by ImmunoassayHepatitis C antibody Lab Routine Missed menses , unspecified gestational age ([facility]) Ordered: 10/13/2024[facility] HealthcareComment on above:Ordered: 10/13/2024 HIV-1/HIV-2 antigen/antibody combination immunoassayHIV-1 and HIV-2 antibodies Lab Routine Missed menses , unspecified gestational age ([facility]) Ordered: 10/13/2024[facility] HealthcareComment on above:Ordered: 10/13/2024Neisseria gonorrhoeae DNA [Presence] in Unspecified specimen by JOHN PAUL with probe detection Neisseria gonorrhea DNA probe, direct Lab Routine STD exposure Ordered: 12/12/2024[facility] HealthcareComment on above:Ordered: 12/12/2024 End: 33-04-2385CscleteeoIgluyaicl Lab Routine Secondary amenorrhea 1 Occurrences starting 06/08/2024 until 06/08/2025[facility] HospitalComment on above:1 Occurrences starting 06/08/2024 until 06/08/2025Prolactin [Mass/volume] in Serum or PlasmaProlactin Lab Routine Secondary amenorrhea 06/08/2024 4:05 PM [facility] HospitalReagin Ab [Presence] in Serum by RPRRPR Lab Routine Missed menses , unspecified gestational age ([facility]) Ordered: 10/13/2024[facility]:Ordered: 10/13/2024Rubella antibody, IgGRubella antibody, IgG Lab Routine Missed menses , unspecified gestational age ([facility]) Ordered: 10/13/2024[facility] HealthcareComment on above: Ordered: 10/13/2024SURESWAB(R) ADVANCED VAGINITIS PLUS, TMASURESWAB(R) ADVANCED VAGINITIS PLUS, TMA Pathology and Cytology Routine Vaginal discharge Ordered: 0 12/12/2024[facility] Work Phone: comment on above:Ordered: 12/12/2024 End: 71-49-1818Glpjrxv profile includes TSH VO5Kwlimju profile includes TSH FT4 Lab Routine Secondary amenorrhea 1 Occurrences starting 06/08/2024until 06/08/2025[facility] HospitalComment on above:1 Occurrences starting 06/08/2024 until 06/08/2025Thyroid profile includes TSH XA5Xrjsjhr profile includes TSH FT4 Lab Routine Secondary amenorrhea 06/08/2024 4:05 PM EST [facility] HospitalAplicor [facility] HospitalUS Pelvis transvaginalUS OB transvaginal Imaging Routine Missed menses 10/13/2024 9:56 [facility] Immunizations Immunization DateImmunizationNotesCare RtugvpwwDszlirry10-95-7965dveviux toxoid, reduced diphtheria toxoid, and acellular pertussis vaccine, adsorbedNorth Shore Medical Center08-25-2020meningococcal oligosaccharide (groups A, C, Y and W-135) diphtheria toxoid conjugate vaccine (MCV4O)[facility]08-17-2020tuberculin skin test; purified protein derivative, multipuncture deviceNorth Shore Medical Center 63-59-3242bvjzniusif skin test; purified protein derivative, multipuncture deviceNorth Shore Medical Center08-15-2017hepatitis A vaccine, adult dosageNorth Shore Medical Center08-15-2017human papilloma virus vaccine, quadrivalentSamira [facility]12-01-2016 hepatitis A vaccine, adult dosageSamira [facility] 21-29-8710oaznu papilloma virus vaccine, quadrivalentChandradelaware hospital for the chronically illjennifer [facility]09-27-2016human papilloma virus vaccine, quadrivalentNorth Shore Medical Center09-27-2016meningococcal oligosaccharide (groups A, C, Y and W-135) diphtheria toxoid conjugate vaccine (MCV4O)[facility]09-17-2016tetanus toxoid, reduced diphtheria toxoid, and acellular pertussis vaccine, adsorbedChandraEast Mountain Hospital 71-56-3224uvkbuvkky virus vaccine, unspecified formulationChandraJersey City Medical Center10-19-2009influenza virus vaccine, unspecified formulationChandraEast Mountain Hospital07-21-2009varicella virus vaccineChandraEast Mountain Hospital05-19-2009diphtheria, tetanus toxoids and acellular pertussis vaccineNorth Shore Medical Center 05-87-4890lfatjmx, mumps and rubella virus vaccineNorth Shore Medical Center05-19-2009poliovirus vaccine, inactivatedMaryAtlantiCare [facility]05-18-2005diphtheria, tetanus toxoids and acellular pertussis vaccineChandraEast Mountain Hospital05-18-2005pneumococcal conjugate vaccine, 7 valentChandradelaware hospital for the chronically illjennifer [facility]05-18-2005 varicella virus vaccineChandraEast Mountain Hospital02-16-2005 haemophilus influenzae type b vaccine, conjugate unspecified formulationNorth Shore Medical Center02-16-2005measles, mumps and rubella virus vaccineKrEast Mountain Hospital02-16-2005pneumococcal conjugate vaccine, 7 valentNorth Shore Medical Center01-12-2005 pneumococcal conjugate vaccine, 7 valentNorth Shore Medical Center08-16-2004diphtheria, tetanus toxoids and acellular pertussis vaccine Samira [facility]08-16-2004haemophilus influenzae type b vaccine, conjugate unspecified formulationSamira [facility]08-16-2004hepatitis B vaccine, adult dosageSamira [facility]08-16-2004pneumococcal conjugate vaccine, 7 valentKrhouston [facility]08-16-2004poliovirus vaccine, inactivatedSamira [facility]06-14-2004diphtheria, tetanus toxoids and acellular pertussis vaccineSamira [facility]06-14-2004 haemophilus influenzae type b vaccine, conjugate unspecified formulationSamira [facility]06-14-2004hepatitis B vaccine, adult dosage Samira [facility]06-14-2004poliovirus vaccine, inactivatedSamira [facility]04-13-2004diphtheria, tetanus toxoids and acellular pertussis vaccineSamira [facility]04-13-2004haemophilus influenzae type b vaccine, conjugate unspecified formulationSamira [facility]04-13-2004 hepatitis B vaccine, adult dosageSamira [facility] 88-62-2862beugecpaow vaccine, inactivatedSamira [facility]02-13-2004hepatitis B vaccine, adult dosageSamira [facility] Payers DatePayer CategoryPayerPolicy [id number] Cross Blue ShieldBCBS Member Subscriber Plan / Payer (Effective 2023-Present) Name: Nathaniel Lanza Relation to Subscriber: Child Name: Irina Lanza of : 1982 Address: [address] [place] [address] Payer ID: Not on file GroupID: [id number] Type: Not on file Address: [address] [place] [id number] Hospital [facility] - OtherANTH [id number] 88-56-2083Fkmy-wom57-21-8994Hlcauyz47693[id number] 2..1.190323.3.57[id number] 2.1.777593.3.57[id number] 2..1.881529.3.57[id number] 2.1.877713.3.57[id number] 2..1.808032.3.57[id number] 2..1.739720.3.57[id number] 2.16.840.1.350712.3.57[id number] 2.16.840.1.818753.3.57[id number] 2.16.840.1.452272.3.57[id number] 2.16.840.1.138652.3.57[id number] 2.840.1.182978.3.57[id number] 2.16840.1.346691.3.57[id number] 2.840.1.572981.3.57[id number] 2.840.1.703004.3.57[id number] 2.840.1.039856.3.57[id number] 2.840.1.386722.3.57[id number] 2.840.1.677409.3.57[id number] 2.840.1.998609.3.57[id number] 2.840.1.572546.3.57[id number] 2.16840.1.930698.3.579.2.1259 2003Medicaid 1.2.840.338923.1.13.4[id number] [id number] 2.16.840.1.2[id number] 2.16.840.1.781508.3.579.2.531 Social History DateTypeDetailFacilityStart: 05-19-2022 End: 85-06-0682Elglqsk smoking status NHISNever smoked tobaccoCrystal Clinic Orthopedic Center SystemStart: 05-19-2022 End: 99-35-6242Ehwkvsx use and exposureSmokeless tobacco non-userCrystal Clinic Orthopedic Center SystemStart: 12-24-2022 End: 06-84-9717Aokitydyp beverage intakeEx-drinker (finding)[facility] SystemStart: 01-12-2018 End: 28-01-2489Ekskawy of Social functionCrystal Clinic Orthopedic Center SystemStart: 01-12-2018 End: 34-49-8903Ejytjcd Use Disorder Identification Test - Consumption [AUDIT-C] [facility]art: 51-56-4333Zjjmhzkux of Alcohol ConsumptionNever [facility] Regionaltart: 61-37-5012Iqxplus CommentoccasionallyCone Health Alamance Regionaltart: 90-58-1984Ksi assigned at birthNot on fileCrystal Clinic Orthopedic Center SystemStart: 20-19-1504ErzIwlawr (finding)[facility] Regionaltart: 10-13-2024 End: 23-77-7774Bemvtarba beverage intakeLifetime non-drinker (finding)[facility] CenterStart: 54-04-3941GzbyftkmbEBMB Healthcare Clinical Notes 08-05-2023 to 02-07-2025 Note Date & QewqBlasYtjkjqng80-56-8392 History of Present illness Narrative* VANGIE Resendiz - 02/07/2025 11:20 AM EDT Reason for Appointment: Patient ID: Nathaniel Lanza is a 19 y.o. female who presents for Routine Visit Patient presents today for Return OB appointment. MEDICATIONS Current Outpatient Medications Medication Instructions Prenat w/o A-QcMwd-Fojo-FA-DHA (TriStart DHA) 31-0.6-0.4-200 MG capsule 1 capsule, [...] nursing note reviewed. Exam conducted with a contract assistant present. Vitals: Estimated body mass index is 20.34 kg/m as calculated from the following: Height as of 10/28/22: 5' 6 . Weight as of 01/09/25: 126 lb. BP: Patient's last menstrual period was 08/13/2024. Assessment/Plan ICD-10-CM 1. Second trimester ([facility]) Z34.92 CANCELED: POCT urinalysis dipstick manually resulted 2. 23 weeks gestation of ([facility]) Z3A.23 3. Diabetes mellitus screening Z13.1 [...] behalf of: VANGIE Resendiz documented in this encounterRusk Rehabilitation [id number] History of Present illness Narrative* Marce Valladares RN - 01/17/2025 11:00 AM EDT Headache/epigastric pain/blurry vision/swelling? No Cramping/contractions? No Spotting/vaginal bleeding? No Loss or gush of fluid like your water may have broken? No Do you have cats at home? Yes, outdoor Do you change the litter box (reason: risk of toxoplasmosis)? No Genetic testing done this here or other office? Yes Have you been seen here at [facility] in a previous ? No Recent ER visits or hospitalizations? No Bring blood sugar log or meter with you today? (Please bring them with you for every visit at [facility]) N/A Flu vaccine (Feb-June)? N/A Any concerns that you would like me to mention to the provider today? No * Abbie Lawrence MD - 01/17/2025 11:00 AM EDT REASON FOR CONSULTATION: Anti M isoimmunization. HISTORY OF PRESENT ILLNESS: Nathaniel Lanza is a pleasant 19 y.o. G 1 P0. at 20w1d due on Estimated Date of Delivery: 06/05/25 . Patient was seen today due to the following 1. Anti M isoimmunization. Currently the patient has no complaints. The patient denies nausea, vomiting, abdominal pain, vaginal bleeding, SOB or chest pain. Patient's PMH/PSH,SH,PSYCH Hx, MEDs, ALLERGIES, and ROS were all reviewed and updated in the appropriate sections. 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 Past Medical History: Diagnosis Date Anxiety PAST OBSTETRICAL HISTORY: OB History 1 Para 0 Term 0 0 AB 0 Living 0 SAB 0 IAB 0 Ectopic 0 Multiple 0 Live Births 0 SURGICAL HISTORY: Past Surgical History: Procedure Laterality Date INCISION AND DRAINAGE ABSCESS TONSILLAR PERITONSILLAR Left 08/29/2018 Performed by Tanya Mac MD at [facility] TONSILLECTOMY Bilateral 08/29/2018 Performed by Tanya Mac MD at [facility] TONSILLECTOMY ADENOIDECTOMY ALLERGIES: No Known Allergies CURRENT MEDICATIONS: Current Outpatient Medications: 47-ogls-splgvm 9-dha 31 mg iron- 1 mg-200 mg capsule, Take 1 capsule by mouth in the morning., Disp: 90 capsule, Rfl: 3 ondansetron ODT (ZOFRAN ODT) 4 mg disintegrating tablet, Dissolve 1 tablet (4 mg total) on tongue every 8 (eight) hours as needed for nausea for up to 10 doses. (Patient not taking: Reported on 01/17/2025), Disp: 10 tablet, Rfl: 0 FAMILY/GENETIC HISTORY: No family history of VTE, cardiac defects and mental retardation . RECENT HOSPITALIZATION: none I did review all the labs results available in addition to labs which were ordered by the primary care physician, and the other consultants, we search on [employer] and all the available care everywhere epic I did review all the imaging studies of the patient available on EMR, ordered by the primary care physician and the other customer service and sales consultant HABITS: Patient activity no restrictions, diet no restrictions REVIEW OF SYSTEM: Head and Neck: Negative for any dizziness and headaches. Cardiovascular and Respiratory System: Denies any chest pain, shortness of breath, and coughing. Abdominal and System: Denies any abdominal pain, nausea, vomiting, vaginal bleeding, and vaginal discharge PHYSICAL EXAMINATION: BP 119/77 Pulse 73 Ht 167.6 cm (5' 5.98 ) Wt 59 kg (130 lb) LMP 08/13/2024 BMI 20.99 kg/m . Gravid abdomen, Respirations not labored. Well oriented time place person, normal gait RECOMMENDATION: 1. Anti M isoimmunization with titers less than 1. 2. Anti M isoimmunization is rarely associated with anemia 3. Serial monthly anti M titers at her OB office. If titer is above 16 please refer back to MFM 4. If the titers remain below 16 routine care at OB provider 5. Patient is low risk and a term spontaneous vaginal delivery at local hospital is anticipated with C section reserve for routine obstetrical indications. DISPOSITION: At this point the patient is in complete care of her breakfast server. Patient does not have any future appointment scheduled with us Thank you for allowing me to participate in Nathaniel Lanza . If there any questions please do not hesitate to contact us. Sincerely, ABBIE LAWRENCE MD documented in this encounterAkron Children's Hospital09-23-2025 History of Present illness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
--- OUTSIDE RECORDS SUMMARY | 2025-02-18 15:09 | XMS_ITS ---
Author Organization [facility] Source Produ ction (ClinicalSummary Clone) Address Unknown Care Team Providers Care Conservation Policy Analyst Name Role Phone Unavailable Primary Care Physician Unavailab le Results * [UNITY] ANEUPLOIDY NIPT Performed by: Shoefitr Component Value Range Date Fraction 13.9% 11/24/2024 04:08 am UTCRh(D) NIPTRhD GXCKYAGS76/08/2025 04:08 am UTCSex Chromosome AneuploidyNOT GHQPQROF89/08/2025 04:08 am UTCMonosomy XLOW RISK <1 in 10, 04:08 am UTCTrisomy 13LOW RISK <1 in , 04:08 am UTCTrisomy 18LOW RISK <1 in 10, 04:08 am UTCTrisomy 21LOW RISK <1 in 10, 04:08 am UTCFetal CnoUEZG8611/24/2024 04:08 am UTCPregnancy BkdnvkbktGAIXNXCZB12/08/2025 04:08 am UTCFor detailed report, see PDFSee PDF 11/24/2024 04:08 am UTC11/24/2024 04:08 am UTC Social History Observation Value Start Date End Date
--- OUTSIDE RECORDS SUMMARY | 2025-02-18 15:09 | XMS_ITS ---
Author Organization [facility] Source Produ ction (ClinicalSummary Clone) Address Unknown Care Team Providers Care Pediatrics Hospitalist Name Role Phone Unavailable Primary Care Physician Unavailab le Results * [UNITY] CARRIER SCREEN Performed by: Limbo Component Value Range Date Fraction 14.7% 11/29/2024 08:38 pm UTCSpinal Muscular Atrophy NIPT resultLOW RISK 1 in 4000 11/29/2024 08:38 pm UTCSickle Cell Disease/Beta-Thalassemia/Hemoglobinopathies carrier qlrjkcHHVLUXFA73/13/2025 08:38 pm UTCAlpha-Thalassemia carrier screen SNMUYSYX10/13/2025 08:38 pm UTCCystic Fibrosis carrier sezladOYVNDKAA30/13/2025 08:38 pm UTCSpinal Muscular Atrophy carrier screenPOSITIVE 1 SMN1 copy11/29/2024 08:38 pm UTCFor detailed report, see PDFSee PDF11/29/2024 08:38 pm UTC 11/29/2024 08:38 pm UTC Social History Observation Value Start Date End Date
[2025-02-18 15:23] VITALS: BP 129/80; PULSE 81; TEMP 36.6
[2025-02-18 15:37] LABS: Glucose Urine UA NEGATIVE (NEGATIVE)
== END 2025-02-18 16:28 | disposition home or self-care (01) ==
PROVIDERS: Admitting Provider Obstetrics & Gynecology; PCP Internal Medicine; Visit Provider Obstetrics & Gynecology
DX: O99.891 Other specified diseases and conditions complicating pregnancy (principal); M54.9 Dorsalgia, unspecified; Z3A.24 24 weeks gestation of pregnancy
CPT/HCPCS: 81003; G0378; G0379

== ENCOUNTER 2025-03-30 07:58 | Outpatient (OUT) | payer BC, SELFPAY ==
--- OUTSIDE RECORDS SUMMARY | 2025-03-29 10:30 | XMS_ITS | Encounter Summary ---
Author Organization [facility] Address [address] [place] [address] Care Team Providers Care Merchandising Specialist Name Role Phone João Pham MD Primary Care Provider [phone] Encounter Details DateTypeDepartmentCare Team (Latest Contact Info)Mtamkdidbwz50/11/2025 10:30 AM ESTAncillary Procedure [facility] [address] [place] [address] [place] [address] size inconsistent with dates ([facility]) Social History Tobacco UseTypesPacks/DayYears UsedDateSmoking Tobacco: NeverSmokeless Tobacco: NeverAlcohol UseStandard Drinks/WeekCommentsNever0 (1 standard drink = 0.6 oz pure alcohol)Estimated Date of PukfydwwDagiwnilVef32/17/2026Based on UltrasoundSex and Gender InformationValueDate RecordedSex Assigned at BirthNot on fileLegal MalVfqwjp47/15/2023 6:50 PM EDTGender IdentityNot on fileSexual OrientationNot on filedocumented as of this encounter Plan of Treatment DateTypeDepartmentCare Team (Latest Contact Info)Eprlcizfjfd12/29/2025 9:50 AM ESTRoutine [facility] [address] [place] [address] Kassandra Gipson PA [address] [facility] [address] [place], [place] [id number] NameTypePriorityAssociated DiagnosesDate/TimeUS OB follow up transabdominal approachImagingRoutine size inconsistent with dates ([facility]) 03/29/2025 11:01 AM ESTdocumented as of this encounter Visit Diagnoses Diagnosis size inconsistent with dates ([facility]) documented in this encounter Care Teams Team MemberRelationshipSpecialtyStart DateEnd Date João Pham MD [address] [place] [address], [address] [place] [address] PCP - GeneralFamily Medicine10/28/22documented as of this encounter
--- OUTSIDE RECORDS SUMMARY | 2025-03-29 11:20 | XMS_ITS | Encounter Summary ---
Author Organization [facility] Address [address] [place] [address] Care Team Providers Care College Instructor Name Role Phone João Pham MD Primary Care Provider [phone] Encounter Details DateTypeDepartmentCare Team (Latest Contact Info)Xtajevdweka11/11/2025 11:20 AM ESTRoutine [facility] [address] [facility] [place] [address] Kassandra Gipson PA [address] [facility] [address] [place], [place] [id number] Third trimester ([facility]); 30 weeks gestation of ([facility]); Heartburn during in third trimester ([facility]) Social History Tobacco UseTypesPacks/DayYears UsedDateSmoking Tobacco: NeverSmokeless Tobacco: NeverAlcohol UseStandard Drinks/WeekCommentsNever0 (1 standard drink = 0.6 oz pure alcohol)Estimated Date of CtrglxltAoilxtixJpo07/17/2026ased on UltrasoundSex and Gender InformationValueDate RecordedSex Assigned at BirthNot on fileLegal ZhzLruell04/15/2023 6:50 PM EDTGender IdentityNot on fileSexual OrientationNot on filedocumented as of this encounter Last Filed Vital Signs Vital SignReadingTime TakenCommentsBlood Hsbbcfxv561/6003/29/2025 11:20 AM EST Pulse--Temperature--Respiratory Rate--Oxygen Saturation--Inhaled Oxygen Concentration--Nqrbxa10.3 kg (144 lb)03/29/2025 11:20 AM ESTHeight--Body Mass Index23.24010/28/2022 3:57 PM EDTdocumented in this encounter Plan of Treatment DateTypeDepartmentCare Team (Latest Contact Info)Vfddnsnriuc21/29/2025 9:50 AM ESTRoutine [facility] [address] [facility] [place] [address] Kassandra Gipson PA [address] [facility] [place] [address] NameTypePriorityAssociated DiagnosesOrder SchedulePOCT urinalysis dipstick manually resultedPoint of Care TestingRoutine 30 weeks gestation of ([facility]) Ordered: 03/29/2025documented as of this encounter Visit Diagnoses Diagnosis Third trimester ([facility]) state, incidental 30 weeks gestation of ([facility]) Heartburn during in third trimester ([facility]) documented in this encounter Care Teams Team MemberRelationshipSpecialtyStart DateEnd Date João Pham MD [address] [place] [address], [address] [place] [address] PCP - GeneralFamily Medicine10/28/22documented as of this encounter
--- OUTSIDE RECORDS SUMMARY | 2025-03-30 08:01 | XMS_ITS | CCD ---
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 ([id number]) [address] [place], [place] [address]Rrdsxzup and Microscopicon 69-98-5060Vpshhjcenx (U)Cloudy Critically abnormalCleOhioHealth Pickerington Methodist HospitalComment on above:Order Comment: Name Collection Type:: VoidedPerformed By: #### ADDONUAPLUS, CUU #### [facility] [address] [place], [place] [address] USABacteria,UrineNone SeenNormalNone SeenChildren'S Hospital For RehabilitationComment on above:Order Comment: Name Collection Type:: Voided Performed By: #### ADDONUAPLUS, CUU #### [facility] [address] [place], [place] [address] USABilirubin,UrineNegativeNormalNegativeChildren'S Hospital For RehabilitationComment on above:Order Comment: Name Collection Type:: Voided Performed By: #### ADDONUAPLUS, CUU #### [facility] [address] [place] [address] USAColor (U)YellowNormalYellowChildren'S Hospital For RehabilitationComment on above:Order Comment: Name Collection Type:: VoidedPerformed By: #### ADDONUAPLUS, CUU #### [facility] [address] [place], [place] [address] USAGlucose Ql (U)NormalNormalNormOhio State East HospitalComment on above:Order Comment: Name Collection Type:: VoidedPerformed By: #### ADDONUAPLUS, CUU #### [address] [address] USAHyaline Casts,Schci4-5Xmcchr8-9MamgpnpdgChildren'S Hospital For RehabilitationComment on above:Order Comment: Name Collection Type:: VoidedResult Comment: PERFORMED BY: [place] [address] PATHOLOGIST BUSINESS MANAGEMENT PROFESSOR VALENTINE SARABIA M.D.Performed By: #### JOSSIE, CUU #### [place] [address] USAKetones Ql (U)TraceHighNegGreene Memorial HospitalComment on above:Order Comment: Name Collection Type:: VoidedPerformed By: #### JOSSIE, CUU #### [place] [address] USALeukocyte esterase Test strip Ql (U)2+HighNegative Children'S Hospital For RehabilitationComment on above:Order Comment: Name Collection Type:: VoidedPerformed By: #### JOSSIE, CUU #### [place] [address] USANitrite,UrineNegativeNormalNegGreene Memorial HospitalComment on above:Order Comment: Name Collection Type:: Voided Performed By: #### JOSSIE, CUU #### [place] [address] USAOccult Blood,UrineNegativeNormalNegGreene Memorial HospitalComment on above:Order Comment: Name Collection Type:: Voided Result Comment: PERFORMED BY: [place] [address] PATHOLOGIST BUSINESS MANAGEMENT PROFESSOR VALENTINE SARABIA M.D.Performed By: #### JOSSIE, CUU #### [place] [address] USApH (U)5.5 [pH]Normal5.0-9.0Children'S Hospital For RehabilitationComment on above:Order Comment: Name Collection Type:: VoidedPerformed By: #### ADDCHRISTYPLUS, CUU #### [address] [place] [address] USAProtein,UrineNegativeNormalNegativeChildren'S Hospital For RehabilitationComment on above:Order Comment: Name Collection Type:: Voided Performed By: #### ADDONUAPLUS, CUU #### [place] [address] USARBC,Gtcjw2-5Jigzsy2-6IgudkjsimOhio Valley Hospital Comment on above:Order Comment: Name Collection Type:: VoidedPerformed By: #### ADDONUAPLUS, CUU #### [place] [address] USASpecificy [place],Urine1.308Voazbi1.001-1.030Children'S Hospital For RehabilitationComment on above:Order Comment: Name Collection Type:: VoidedPerformed By: #### ADDONUAPLUS, CUU #### [place] [address] USASquamous Epithelial Cell,Eblik4-8Flat1-2HyhfqvypsOhio Valley HospitalComment on above:Order Comment: Name Collection Type:: Voided Performed By: #### ADDONUAPLUS, CUU #### [place] [address] USAUrobilinogen,UrineNormalNormalNormalChildren'S Hospital For RehabilitationComment on above:Order Comment: Name Collection Type:: Voided Performed By: #### ADDONUAPLUS, CUU #### [place] [address] USAWBC,Nccss29-75Ylck2-0[address]zt[address] [place] [address] Comment on above:Order Comment: Name Collection Type:: VoidedPerformed By: #### ADDONUAPLUS, CUU #### [facility] [address] [place] [address] USALipid Panelon 99-42-2279Ujrfscdyttg [Mass/Vol]101 mg/dLLow 140-200Children'S Hospital For RehabilitationComment on above:Result Comment: Chol less than 200 mg/dl low risk Chol 201-239 mg/dl borderline risk Chol 240 mg/dl and greater high riskPerformed By: #### TSH3 wRFLX, LIPID, [id number] #### [facility] [address] [place] [address] USACholesterol in HDL [Mass/Vol]35 mg/rGQqmfmr31-29NavdstpcdChildren'S Hospital For RehabilitationComment on above:Result Comment: HDL CHOL ATP-III CLASSIFICATION Cardiovascular Risk HDL > or equal to 60 mg/dL LOW HDL < 40 mg/dL HIGHPerformed By: #### TSH3 wRFLX, LIPID, [id number] #### [facility] [address] [place] [address] USACholesterol.total/Cholesterol in HDL [Mass ratio]2.9 {ratio}Normal<5.0Children'S Hospital For RehabilitationComment on above:Performed By: #### TSH3 wRFLX, LIPID, [id number] #### [facility] [address] [place] [address] USALDL Cholesterol,Dadatnlzxu11 mg/dLNormal0-100Children'S Hospital For RehabilitationComment on above:Result Comment: LDL ATP III CLASSIFICATION LDL less than 100 mg/dL Optimal LDL 100-129 mg/dL Near or above optimal LDL 130-159 mg/dL Borderline high LDL 160-189 mg/dL High LDL greater than 189 mg/dL Very highPerformed By: #### TSH3 wRFLX, LIPID, [id number] #### [facility] [address] [place] [address] USATriglyceride w/Fofadk25 mg/dLNormal0-149Children'S Hospital For RehabilitationComment on above:Result Comment: TRIG ATP III CLASSIFICATION TRIG less than 150 mg/dL Normal TRIG 150-199 mg/dL Borderline high TRIG 200-500 mg/dL High TRIG greater than 500 mg/dL Very high Standard traceable to the Center for Disease Conrtrol and Prevention (CDC) test method.Performed By: #### TSH3 wRFLX, LIPID, [id number] #### [facility] [address] [place] [address] USAVLDL HNXHCGYLGWX54 mg/dLNormOhio State East HospitalComment on above:Performed By: #### TSH3 wRFLX, LIPID, [id number] #### [facility] [address] [place] [id number] USAThyroid Stim Hormone w/Rflxon 47-68-0514Ybnfsfa Stim Hormone w/Rflx1.50 u[iU]/mLNormal0.45-5.33[facility] Comment on above:Performed By: #### TSH3 wRFLX, LIPID, [id number] #### [place] [address] USAUrine Cultureon 75-49-0484Skirbfqi identified Cx Nom (U)No Growth 2 Days PERFORMED BY: [place] [address] PATHOLOGIST BUSINESS MANAGEMENT PROFESSOR VALENTINE SARABIA M.D.[facility] Rita's Medical CenterComment on above: Performed By: #### ADDONUAPLUS, CUU #### [place] [address] USAVitamin D 25 Hydroxy Totalon 09-46-3975Woqdclv D 25 Hydroxy Total33.7 ng/tITlxljb97-741OgtubaxnqChildren'S Hospital For RehabilitationComment on above:Result Comment: VITAMIN D STATUS 25(OH)VITAMIN D RANGE (ng/mL) Deficient <20 Insufficient 20 to <30 Sufficient 30 to 100 Reference: Chelsy MF,Lamont NC, Alton ARCHER, et al. Evaluation,treatment, and prevention of vitamin D deficiency; an Endocrine Society clinical practice guideline. JCEM. 2010; 96(7):1911-30. PERFORMED BY: [place] [address] PATHOLOGIST BUSINESS MANAGEMENT PROFESSOR VALENTINE SARABIA M.D.Performed By: #### TSH3 wRFLX, LIPID, [id number] #### [facility] [address] [place], [place] [address] USACovid-19 PCR (CVDTBH)on 34-02-9350TGSN-CoV-2 (COVID-19) RNA JOHN PAUL+probe Ql (Unsp spec)Not detectedNormalNOT DETECTEDThe [facility] Comment on above:Result Comment: This test is not yet approved or cleared by the [place] FDA. When there are no FDA-approved or cleared tests available, and other criteria are met, FDA can make tests available under an emergency access mechanism called an Emergency Use Authorization (EUA). The EUA for this test is supported by the Gift Shop Assistant of Health and Human Service's (HHS's) declaration [...] with SARS-CoV-2.Performed By: #### DEBORAH MOULTON #### [place] [address] Judith KarenSYMPTOMATIC COVID-19 ANTIGENon 23-42-0308AMY StatementSEE BELOW NormalThe [facility] Memorial HospitalComment on above:Result Comment: This test has not [...] revoked sooner.Performed By: #### PAULA MOULTONTB #### [facility] [address] [place] [address] Judith RosenthalVwqiyZKAH-NgL-5 (COVID-19) RNA JOHN PAUL+probe Ql (Unsp spec)NegativeNormal NEGATIVEThe [facility] Memorial HospitalComment on above:Performed By: #### PAULAAGApolinar CVDTBH #### [facility] [address] [place] [address] Judith Shaffer Vital Signs Date TimeVital SignValuePerforming PcduzweqgSmzoqdeo60-71-2532 11:39-0400Body mass index (BMI) [Ratio]21.63 kg/m2Kassandra VENCES Work Phone: [facility] HospitalYgmgyivoxz33-33-6129 11:39-0400Body .78 kgKassandra VENCES Work Phone: [facility] HospitalJabetcplbo08-57-4047 11:39-0400Diastolic blood jengdsys94 mm[Hg]Kassandra VENCES Work Phone: [facility] HospitalRobhpzvoug01-47-8113 11:39-0400Systolic blood xxamlawn012 mm[Hg]Kassandra VENCES Work Phone: [facility] HospitalHtoyxzkqba06-01-1299 09:47-0400Body mzzxle994.6 cmAbbie Lawrence MD Work Phone: [phone] [place], [place] 4343310-01-2025 09:47-0400Body mass index (BMI) [Ratio]20.99 kg/q4ZwahauAbbie Lawrence MD Work Phone: [phone] [place], [place] 4343310-01-2025 09:47-0400Body urihiy55.97 kgAbbie Lawrence MD Work Phone: [phone] [place], [place] 4343310-01-2025 09:47-0400Diastolic blood mqxekajb42 mm[Hg]Abbie Lawrence MD Work Phone: [phone] [place], [place] 4343310-01-2025 09:47-0400Heart rate 73 /minAbbie Lawrence MD Work Phone: [phone] [place], [place] 4343310-01-2025 09:47-0400Systolic blood mtfmibiy703 mm[Hg]Abbie Lawrence MD Work Phone: [phone] [place], [place] 4343309-23-2025 11:50-0400Body mass index (BMI) [Ratio]20.34 kg/a8WssgxSyed Meza DO Work Phone: [phone] [place], [place] [address]Kxuqzpokoy79-66-0350 11:50-0400Body njoeja91.15 kgCorey Susana DO Work Phone: [phone] [place], [place] [address]Qtwpyxdnon53-07-4867 11:50-0400Diastolic blood omhfrlnj05 mm[Hg]Syed Susana DO Work Phone: [phone] [place], [place] [address]Vokuauicbc36-12-5265 11:50-0400Systolic blood yxjlqpdf656 mm[Hg]Syed Susana DO Work Phone: [phone] [place], [place] [address]Ylmjsuzhno44-49-8854 09:25-0400Body mass index (BMI) [Ratio]20.01 kg/m2Kassandra VENCES Work Phone: [phone] [place], [place] [address]Jhuoqllmqi50-54-9206 09:25-0400Body tignph18.25 kgAmy Brandan VENCES Work Phone: [phone] [place], [place] [address]Vznjyqbehl29-34-7414 09:25-0400Diastolic blood mm[Hg]Kassandra VENCES Work Phone: [phone] [place], [place] [address]Vycwzhyyom76-41-8081 09:25-0400Systolic blood cejvfsnz676 mm[Hg]Kassandra VENCES Work Phone: [phone] [place], [place] [address]Ctemyhrqsd81-75-2067 11:07-0400Body mass index (BMI) [Ratio]20.3 kg/g2Bopag Susana DO Work Phone: [phone] [place], [place] [address]Mzsdvgepfi03-99-7938 11:07-0400Body utaxah81.06 kgCorey Susana DO Work Phone: [phone] [place], [place] [address]Djgotcsgqg04-07-2240 11:07-0400Diastolic blood abfdjocz69 mm[Hg]Syed Susana DO Work Phone: [phone] [place] [address]-19-2025 11:07-0400Systolic blood kjoammfu342 mm[Hg]Syed Susana DO Work Phone: [phone] [place], [place] [address]Nxxfqfmpwe15-18-7255 10:46-0400Body mass index (BMI) [Ratio]19.53 kg/w4Kfvmo Susana DO Work Phone: [phone] [place], [place] [address]Zjhwncnqyp41-18-3858 10:46-0400Body kvskeq95.88 kgCorey Susana DO Work Phone: [facility] HospitalAlrnwywocn92-15-6305 10:46-0400Diastolic blood ofagokiy02 mm[Hg]Syed Carro DO Work Phone: [facility] HospitalSrsxxqwcwk62-84-0570 10:46-0400Systolic blood kyiczglj943 mm[Hg]Syed Meza DO Work Phone: [facility] HospitalEnarztzrnr01-00-9852 10:35-0400Body mass index (BMI) [Ratio]19.39 kg/i9WrrbjCentral Park Hospital06-27-2025 10:35-0400Body weight 54.49 kgCentral Park Hospital02-20-2025 15:33-0500Body lxuxmg147.6 cmLisa Krotzer OPERATOR AUTOMATED PROCESS-MEASUREMENT AND VERIFICATION ENGINEER Work Phone: [facility]02-20-2025 15:33-0500Body mass index (BMI) [Ratio]19.59 kg/m2Lisa Krotzer OPERATOR AUTOMATED PROCESS-MEASUREMENT AND VERIFICATION ENGINEER Work Phone: [facility]02-20-2025 15:33-0500Body ispyrl91.07 kgLisa Krotzer OPERATOR AUTOMATED PROCESS-MEASUREMENT AND VERIFICATION ENGINEER Work Phone: [facility]02-20-2025 15:33-0500Diastolic blood pobqdmva88 mm[Hg]Bonnie Krotzer OPERATOR AUTOMATED PROCESS-MEASUREMENT AND VERIFICATION ENGINEER Work Phone: [facility]02-20-2025 15:33-0500Systolic blood bfrtfkid021 mm[Hg]Bonnie Krotzer OPERATOR AUTOMATED PROCESS-MEASUREMENT AND VERIFICATION ENGINEER Work Phone: [facility]10-23-2024 11:34-0400Body mass index (BMI) [Ratio]19.21 kg/m2Aspen Drew MD Work Phone: [facility]10-23-2024 11:34-0400Body tocfdu78.98 kgAspen Drew MD Work Phone: [facility]10-23-2024 11:34-0400Diastolic blood hieghjat56 mm[Hg]Aspen Drew MD Work Phone: [facility]10-23-2024 11:34-0400Heart rate 81 /Latisha Drew MD Work Phone: [facility]10-23-2024 11:34-0400Systolic blood mm[Hg]Aspen Drew MD Work Phone: [phone] [place] [address] Encounters Encounter DateEncounter TypeCare ProviderFacilityStart: 02-07-2025 End: 79-64-3753Yvnotk Kandice VENCES Work Phone: [facility] [place] [facility]YNStart: 02-07-2025 End: 81-07-6219Atsvhr Kandice VENCES Work Phone: [facility] [place] [facility]YNStart: 02-07-2025 End: 71-12-2209ghxtgzvyjjOQA CHERELLEEYNot AvailableStart: 02-07-2025 End: 00-13-5020Bhewlsax flow Venkata VENCES Work Phone: [facility] [place] OBGYNComment on above:Second trimester ([facility] 23 weeks gestation of ([facility]); Diabetes mellitus screeningStart: 01-17-2025 End: 17-86-7728Zlxzxt consultation new/estab patient 58 Beto Lawrence MD Work Phone: [phone]-Rgcsl Medicine at [facility] Comment on above: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)Start: 01-17-2025 End: 08-39-3840glwpkfvkttVSKPC R FAZIOProMedica River Pines HospitalStart: 01-16-2025 End: 30-27-0798kyqlhngetaDSM RAMEYNot AvailableStart: 01-09-2025 End: 63-68-2537goeenbprjoELQZC FAZIONot AvailableStart: 01-09-2025 End: 35-17-6173Ieyheuah flow sheetCorey Susana DO Work Phone: [facility]BGYNComment on above:Second trimester ([facility]); 19 weeks gestation of ([facility])Start: 12-13-2024 End: 33-87-0608Kxuwt Brittany Lawrence MD Work Phone: [phone]-Bzbpd Medicine at [facility] Start: 12-12-2024 End: 68-27-6215Cvutva flowsheetKassandra VENCES Work Phone: [facility] [place] [facility]BGYNStart: 12-12-2024 End: 55-46-3994Hljvzx flowsheetKassandra VENCES Work Phone: [facility]BGYNStart: 12-12-2024 End: 79-58-0065Vgoflqnnf Result EncounterKassandra VENCES Work Phone: noms External Department UnsolicitedStart: 12-12-2024 End: 68-83-8622Tusnsyov Result EncounterKassandra VENCES Work Phone: noms External Department UnsolicitedStart: 12-12-2024 End: 97-03-5098kynfytynmbAOO RAMEYNot AvailableStart: 12-12-2024 End: 69-15-3643Vfjeekj encounter procedureKassandra VENCES Work Phone: NOEM HealthcareStart: 12-12-2024 End: 59-19-6307Qbjtvwmb preventive med est patient 18-39 yrsKassandra VENCES Work Phone: [facility] [place] OBGYNComment on above:Second trimester ([facility]); 15 weeks gestation of ([facility]); Well woman exam with routine gynecological exam; Vaginal discharge; STD exposure; Screening, , for anatomic survey ([facility])Start: 12-05-2024 End: 59-13-0433Zyysrv flowsheetCorey Susana DO Work Phone: [facility] [place] [facility]BGYNStart: 12-05-2024 End: 87-25-1187Nhiubg flowsheetCorey Susana DO Work Phone: [facility] [place] [facility]BGYNStart: 12-05-2024 End: 41-28-0063ljihitnpqpCSTXA FAZIONot AvailableStart: 12-05-2024 End: 97-30-6975Pxzsxqhq flow sheetCorey Susana DO Work Phone: [facility] [place] OBGYNComment on above:14 weeks gestation of ([facility]); First trimester ([facility])Start: 12-01-2024 End: 73-35-4361Mnxvbvwnm department patient visitASPEN Peralta [facility] HospitalStart: 11-17-2024 End: 41-63-7744Ejakocxxe Result EncounterCorey Susana DO Work Phone: noms External Department UnsolicitedStart: 11-17-2024 End: 81-87-3820Xsktixaud Result EncounterCorey Susana DO Work Phone: noms External Department UnsolicitedStart: 11-14-2024 End: 43-88-6174Kponvn flowsheetCorey Susana DO Work Phone: [facility] [place] [facility]BGYNStart: 11-14-2024 End: 54-72-7942Ispnzn flowsheetCorey Susana DO Work Phone: NOYK [place] [facility]BGYNStart: 11-14-2024 End: 52-76-0392Qxsyzxzcn Result EncounterCorey Susana DO Work Phone: noms External Department UnsolicitedStart: 11-14-2024 End: 73-63-7592mnbctxzaspEDWLM FAZIONot AvailableStart: 11-14-2024 End: 70-12-1146Scuhxctc flow sheetCorey Susana DO Work Phone: NOAW [facility] OBGYNComment on above:First trimester ([facility]); 11 weeks gestation of ([facility])Start: 10-14-2024 End: 29-62-8617Idiyrzsfv department patient visitJOCATE Peralta [facility] HospitalStart: 10-13-2024 End: 24-73-8136Qzlppd outpatient visit 5 minutesFazio Nurse [facility] Bcp ObNOMS BCP OBComment on above:GA: 4i6iLfkvo: 10-13-2024 End: 33-44-5327akgrehldoyVYAUP FAZIONot AvailableStart: 09-27-2024 End: 86-64-0692Uctfhl outpatient visit 5 minutesLisa Richard Barba OPERATOR AUTOMATED PROCESS-MEASUREMENT AND VERIFICATION ENGINEER Work Phone: [facility]Del[facility] Hospitalca [facility] Obstetrics/GynecologyComment on above:Missed menses (Primary Dx)Start: 09-27-2024 End: 08-32-6791xasvicyuciIWPP Richard [facility] PPGStart: 09-26-2024 End: 96-38-7485Xwzqztiwe encounterBonnie Barba OPERATOR AUTOMATED PROCESS-MEASUREMENT AND VERIFICATION ENGINEER Work Phone: [facility] Obstetrics/GynecologyStart: 06-12-2024 End: 73-83-0320Cqbjjlytw encounterAspen Drew MD Work Phone: [facility] Start: 06-11-2024 End: 35-92-6193Rjuofgnig department patient visitJOCATE Kathryn SWETASANTA FE INDIAN HOSPITALNATALYBarnesville Hospital HospitalStart: 06-08-2024 End: 67-69-8452Trcvvq outpatient new 30 minutesLisa Richard Barba OPERATOR AUTOMATED PROCESS-MEASUREMENT AND VERIFICATION ENGINEER Work Phone: [facility] Obstetrics/GynecologyComment on above:Secondary amenorrhea (Primary Dx); Patient desires pregnancyStart: 06-08-2024 End: 63-18-7280uybjvdmdqqLGFS [facility] Ambulatory PPGStart: 05-14-2024 End: 51-06-9255Idosjwzvh department patient visitASPEN Kathryn [facility] HospitalStart: 02-09-2024 End: 14-68-4780mbrdfswnqwVFSI J HIThe [facility] HospitalStart: 02-09-2024 End: 99-95-2621hwpnxfgkkiRDIC J [facility]INac[facility]doc[facility] Ambulatory PPGStart: 02-09-2024 End: 03-90-2320Aatnve outpatient visit 15 minutesAspen Drew MD Work Phone: [facility] Internal Medicine/Pediatrics Comment on above:Urinary frequency (Primary Dx)Start: 08-05-2023 End: 70-68-1179Gyqkotprn encounterChandrahouston Shuklasweta [facility]AR[facility]ILLEProMedica Physicians Internal Medicine/PediatricsComment on above:Appointment DueStart: 01-21-2023 ambulatoryHarborStart: 18-19-8118ppfkgudineDzrmapjycdh Abdelaziz [facility] Hospitaltart: 10-22-2022 End: 72-79-0815Orcnyhgpdu and management of inpatientAspen Drew Facility:[facility] Hospitaltart: 10-22-2020 End: 46-59-6258gecbmsbamjHT ASPEN DREWFacility:H1 Procedures DateProcedureProcedure DetailPerforming ClinicianStart: 96-55-0945Xjlur dip stick/tablet rgnt non-auto w/o micrscpAmy Brandan VENCES Work Phone: Start: 62-20-6715GNNIPGURY VAGINITIS (HTRX)Kassandra VENCES Work Phone: Start: 02-15-1503Vpnvb dip stick/tablet rgnt non-auto w/o micrscpAmy Brandan VENCES Work Phone: Start: 24-24-8349ZWN,APTIMA HPV,AGE GDLNKassandra VENCES Work Phone: Start: 91-39-1774SLR TEST, EXTERNALAmy Brandan VENCES Work Phone: Start: 87-38-5402Ugyrw dip stick/tablet rgnt non-auto w/o micrscpCorey Susana DO Work Phone: Start: 68-00-9560LMR MISCELLANEOUS TESTCorey Susana DO Work Phone: Start: 50-48-6236MHRDQ FREE CELL DNA (NON-[facility] SEND OUT)Not In System Ref ProvStart: 13-07-1288KJRVQAOB LAB TESTNot In System Ref ProvStart: 27-20-1642KBF DRUG SCREEN RAPID (URINE)Syed Susana DO Work Phone: Start: 13-67-0491Cfxyn dip stick/tablet rgnt non-auto w/o micrscpCorey Susana DO Work Phone: Start: 10-13-2024 End: 46-40-9675Xjqcu dip stick/tablet rgnt non-auto w/o micrscpCorey Susana DO Work Phone: Start: 22-44-0726Wogmb test visual color cmprsn methsLisa M Krotzer OPERATOR AUTOMATED PROCESS-MEASUREMENT AND VERIFICATION ENGINEER Work Phone: Start: 56-28-8912Dnhdg test visual color cmprsn methsLisa M Krotzer OPERATOR AUTOMATED PROCESS-MEASUREMENT AND VERIFICATION ENGINEER Work Phone: Start: 79-18-7773Cbwqo dip stick/tablet rgnt non-auto w/o micrscpSusiehn Kathryn Drew MD Work Phone: start: 09-13-2018H/O: surgeryS/P tonsillectomy and adenoidectomySamira Orlando CMA Plan of Treatment DateCare ActivityDetailAuthorStart: 27-48-5368RPpY,Tdap and Td Vaccines (8 - Td or Tdap)DTaP,Tdap and Td Vaccines (8 - Td or Tdap)[facility] SystemStart: 22-43-5121Ximxz BMI ScreeningAdult BMI ScreeningGerman Hospital SystemStart: 04-77-2316Kdiyinh ScreeningTobacco ScreeningGerman Hospital SystemStart: 84-00-8174Qehvn BMI ScreeningAdult BMI ScreeningGerman Hospital SystemStart: 42-79-3267Wtpzq BMI ScreeningAdult BMI ScreeningGerman Hospital SystemStart: 94-13-8490Zqfedll ScreeningTobacco ScreeningProKettering Memorial Hospital SystemStart: 06-99-4507Zrjab BMI ScreeningAdult BMI ScreeningGerman Hospital SystemStart: 68-70-3305Rjhsdin ScreeningTobacco ScreeningProKettering Memorial Hospital SystemStart: 03-12-2025 End: 38-91-2381Oxivife encounter mwjurojua70/24/2025 10:50 AM EST Routine [facility] [address] [place] [place] [id number] Syed Meza DO [address] [place] [address] [facility]BGYNStart: 02-12-2025 End: 72-70-0911Xaddyfivbzzl / ancillary services hkewqodyfb83/27/2025 11:00 AM EDT Ancillary Procedure [facility] [address] [place] [place] [address] [facility]BGYNStart: 02-07-2025 End: 97-87-2383OCQ panel - Blood by Automated countCBC Lab Routine Diabetes mellitus screening Expected: 02/07/2025 (Approximate), Expires: 02/07/2026[facility] Work Phone: comment on above:Expected: 02/07/2025 (Approximate), Expires: 02/07/2026Start: 02-07-2025 End: 60-29-9486Zvixmbvlwoo of glucose 1 hour after glucose challenge for glucose tolerance testGlucose tolerance, 1 hour Lab Routine Diabetes mellitus screening Expected: 02/07/2025 (Approximate), Expires: 02/07/2026[facility] HealthcareComment on above:Expected: 02/07/2025 (Approximate), Expires: 02/07/2026Start: 02-07-2025 End: 94-60-3374Jwvsbag encounter /22/2025 11:20 AM EDT Routine [facility] [address] [place] [place] [phone] Kassandra Turpin PA [address] [place], [place] [id number] [facility]BGYNStart: 01-17-2025 End: 66-86-9501Edybkes encounter procedureParkview Health [facility] US ImagingStart: 01-16-2025 End: 62-47-9539Ittnjbsumhti / ancillary services cptderuncl87/30/2025 9:30 AM EDT Ancillary Procedure [facility] [address] [place] [phone] [facility]BGYNStart: 01-09-2025 End: 27-59-9286Jbqugwz encounter fzwydavzh45/23/2025 11:20 AM EDT Routine [facility] [address] [place] [phone] Syed Meza, [address] [place] [address] [facility]YNStart: 12-18-2024 Influenza vaccinationInfluenza VaccineGerman Hospital SystemStart: 12-12-2024 End: 64-65-1159Gcjgv fetoprotein, maternalAlpha fetoprotein, maternal Lab Routine Second trimester ([facility]) 15 weeks gestation of ([facility]) Expected: 12/12/2024 (Approximate), Expires: 06/14/2025[facility] Comment on above:Expected: 12/12/2024 (Approximate), Expires: 06/14/2025Start: 12-12-2024 End: 07-14-2584OJ for pregnancyUS OB 14+ weeks anatomy scan Imaging Routine Screening, , for anatomic survey ([facility]) Expected: 12/12/2024, Expires: 03/14/2025[facility] HospitalComment on above:Expected: 12/12/2024, Expires: 03/14/2025Start: 12-12-2024 End: 96-74-6025Ujjkkzr encounter ioepceezx16/26/2025 8:50 AM EDT Routine [facility] [address] [place], [id number] Kassandra Turpin PA [address] [place] [address] [place] [address] [facility]BGYNStart: 76-37-3660Gbacs BMI ScreeningAdult BMI ScreeningGerman Hospital SystemStart: 10-13-2024 End: 47-61-9268DST/RhABO/Rh Lab Routine Missed menses , unspecified gestational age ([facility]) Expected: 10/13/2024 (Approximate), Expires: 10/13/2025[facility] HealthcareComment on above:Expected: 10/13/2024 (Approximate), Expires: 10/13/2025Start: 10-13-2024 End: 07-10-4325Bcbiu type and Indirect antibody screen panel - BloodType and screen Lab Routine Missed menses , unspecified gestational age ([facility]) Expected: 10/13/2024 (Approximate), Expires: 10/13/2025[facility] Healthcare Comment on above:Expected: 10/13/2024 (Approximate), Expires: 10/13/2025Start: 10-13-2024 End: 21-22-3293Stziv of abuse panel - Urine by Screen methodRapid drug screen, urine Lab Routine , unspecified gestational age ([facility]) Encounter for supervision of normal first in first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 polyuria. A couple of weeks ago she was at [place] [facility] with what sounds like anxiety/hyperventilation and [...] culture (clean catch); Future documented in this encounterDoctors Hospital04-18-2024 Miscellaneous Notes* Telephone Encounter - Samira Orlando CMA - 08/05/2023 10:59 AM EDT Care Coordination Outreach performed to coordinate overdue appointments, testing, and/or follow-up care: Yes Audit/Outreach Date: August 05, 2023 Reason: Well Person Method: Telephone and Letter Outreach Attempt: First Outcome: Invalid Number Next PCP Appointment: N/A Tests/Referrals Pended: N/A Resources/Education Provided: Additional Comments: documented [place] encounterCarol [place] [address]-18-2024 Telephone encounter Note* Telephone Encounter - Samira Orlando CMA - 08/05/2023 10:59 AM EDT Care Coordination Outreach performed to coordinate overdue appointments, testing, and/or follow-up care: Yes Audit/Outreach Date: August 05, 2023 Reason: Well Person Method: Telephone and Letter Outreach Attempt: First Outcome: Invalid Number Next PCP Appointment: N/A Tests/Referrals Pended: N/A Resources/Education Provided: Additional Comments: [facility] Diagnosis Urinary frequency- Primary [facility]* Diagnosis Secondary amenorrhea- Primary Absence of menstruation Patient desires [facility] encounter [facility]* Diagnosis Missed menses- Primary [facility]* Diagnosis Missed menses , unspecified gestational age ([facility]) Encounter for supervision of normal first in first trimester ([facility]) documented in this encounter [facility] [...] STD exposure Screening, , for anatomic survey ([facility]) Encounter for anatomic survey documented in this encounter [facility]* Diagnosis Second trimester ([facility]) state, incidental 19 weeks gestation of ([facility]) documented in this encounter [facility]* Diagnosis 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 * How to plan and prepare for a healthy ([place]) * Absent or irregular periods ([place]) documented in this encounterProNorth [facility] Center Health SystemInstructionsNot on file documented in this encounterProNorth [facility] Health SystemInstructionsNot on file documented in this encounterProKettering [facility] SystemInstructionsNot on file documented in this encounterProKettering Memorial Hospital SystemInstructionsNot on file documented in this encounterGerman Hospital System Summary Purpose Family History No Family History Records FoundNo Family History Records FoundNo Family History Records FoundNo Family History Records FoundNo Family History Records FoundNo Family History Records FoundNo Family History Records Found Advance Directives No Advanced Directives Records Found Date ActivatedDate InactivatedComments01/12/2018 1:32 PM01/13/2018 8:22 PM Additional Source Comments INFORMATION SOURCE (unrecogn ized section and content) DATE CREATED AUTHOR 10/31/2020 [facility] DATE CREATED AUTHOR AUTHOR'S ORGANIZ ATION 01/25/2023 [facility] DATE CREATED AUTHOR AUTHOR'S ORGANIZ ATION 04/18/2023 [facility] DATE CREATED AUTHOR AUTHOR'S ORGANIZ ATION 09/29/2024 [facility] DATE CREATED AUTHOR AUTHOR'S ORGANIZ ATION 12/03/2024 [facility] DATE CREATED AUTHOR AUTHOR'S ORGANIZ ATION 01/22/2025 [facility] DATE CREATED AUTHOR AUTHOR'S ORGANIZ ATION 02/13/2025 [facility] EPIC Reason for Visit (unrecogniz ed section and content) ReasonOnset DateCommentsAppointment Due08/05/2023easonCommentsUrinary Tract InfectionFrequency and odor, previous kidney stoneReasonCommentsLate Period ReasonCommentsPregnancy TestReasonCommentsAmenorrheaReasonCommentsRoutine VisitReasonCommentsRoutine VisitWell Women VisitSTI Screening ReasonCommentsAnti M Care Teams (unrecognized sec tion and content) Team MemberRelationshipSpecialtyStart DateEnd Date Aspen Drew MD [address] [place] [address], [address] [place] [address] PCP - GeneralPediatrics01/05/18Team MemberRelationshipSpecialtyStart DateEnd [facility] Aspen Drew MD [address] [place] [address], [address] [place] [address] PCP - GeneralPediatrics01/05/18Team MemberRelationshipSpecialtyStart DateEnd Date Aspen Drew MD [address] [place] [address], [address] [place] [address] PCP - GeneralPediatrics01/05/18Team MemberRelationshipSpecialtyStart DateEnd Date Aspen Drew MD [address] [place] [address], [address] [place] [address] PCP - GeneralPediatrics01/05/18Team MemberRelationshipSpecialtyStart DateEnd Date Aspen Drew MD [address] [place] [address], [address] [place] [address] PCP - GeneralFamily Medicine10/28/22Team MemberRelationshipSpecialtyStart DateEnd [facility] Aspen Drew MD [address] [place] [address], [address] [place] [address] PCP - GeneralFamily Medicine10/28/22Team MemberRelationshipSpecialtyStart DateEnd Date Aspen Drew MD [address] [place] [address], [address] [place] [address] PCP - GeneralFamily Medicine10/28/22Team MemberRelationshipSpecialtyStart DateEnd Date Aspen Drew MD [address] [place] [address], [address] [place] [address] PCP - GeneralFamily Medicine10/28/22Team MemberRelationshipSpecialtyStart DateEnd Date Aspen Drew MD [address] [place] [address], [address] [place] [address] PCP - GeneralFamily Medicine10/28/22Team MemberRelationshipSpecialtyStart DateEnd Date Aspen Drew MD [address] [place] [address], [address] [place] [address] PCP - GeneralFamily Medicine10/28/22Team MemberRelationshipSpecialtyStart DateEnd Date Aspen Drew MD [address] [place] [address], [address] [place] [address] PCP - GeneralFamily Medicine10/28/22Team MemberRelationshipSpecialtyStart DateEnd Date Aspen Drew MD [address] [place] [address], [address] [place] [address] PCP - GeneralPediatrics01/05/18Team MemberRelationshipSpecialtyStart DateEnd Date Aspen Drew MD [address] [place] [address], [address] [place] [address] PCP - GeneralPediatrics01/05/18Team MemberRelationshipSpecialtyStart DateEnd Date Aspen Drew MD [address] [place] [address], [address] [place] [address] PCP - GeneralFamily Medicine10/28/22 FOR RECORDS PERTAINING [...] BE BASED ON THE PRIMARY CLINICAL RECORDS. [facility] [employer] [facility]. provides no warranty or guarantee of the accuracy or completeness of information in this document.
--- OUTSIDE RECORDS SUMMARY | 2025-03-30 08:05 | XMS_ITS | Encounter Summary ---
Author Organization [facility] Address [address] [place] [address] Care Team Providers Care Acupressure Therapist Name Role Phone João Pham MD Primary Care Provider [phone] Reason for Visit * ReasonOnset DateCommentsError (VOID this visit)03/26/2025 Encounter Details DateTypeDepartmentCare Team (Latest Contact Info)Lcofavntyza17/08/2025Telephone [facility] [address] [place] [address] Syed Meza DO [address] [place], [place] [id number] Error (VOID this visit) Social History Tobacco UseTypesPacks/DayYears UsedDateSmoking Tobacco: NeverSmokeless Tobacco: NeverAlcohol UseStandard Drinks/WeekCommentsNever0 (1 standard drink = 0.6 oz pure alcohol)Estimated Date of QxkzgyejLzemksdjKof15/17/2026Based on UltrasoundSex and Gender InformationValueDate RecordedSex Assigned at BirthNot on fileLegal OcuQkdxse96/15/2023 6:50 PM EDTGender IdentityNot on fileSexual OrientationNot on filedocumented as of this encounter Plan of Treatment DateTypeDepartmentCare Team (Latest Contact Info)Tppppvblcgo58/29/2025 9:50 AM ESTRoutine [facility] [address] [place] [address] Kassandra Gipson PA [address] [place] [address] [place] [address] documented as of this encounter Visit Diagnoses Diagnosis 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 ([facility]) documented in this encounter Care Teams Team MemberRelationshipSpecialtyStart DateEnd Date João Pham MD [address] [place] [address], [address] [place] [address] PCP - GeneralFamily Medicine10/28/22documented as of this encounter
--- OUTSIDE RECORDS SUMMARY | 2025-03-30 08:05 | XMS_ITS | Clinical Summary ---
Author Organization [employer] [facility] linic Address [address] [place] [address] Care Team Providers Care Engineering Design Supervisor Name Role Phone João Pham MD Primary Care Provider + Social History Tobacco UseTypesPacks/DayYears UsedDateSmoking Tobacco: Never Assessed CommentsUnknownSex and Gender InformationValueDate RecordedSex Assigned at Not on fileLegal QfbWhvdnt06/23/2020 9:05 AM EDTGender IdentityNot on fileSexual OrientationNot on file Plan of Treatment Not on file Medical Devices Not on file Care Teams Team MemberRelationshipSpecialtyStart DateEnd Date João Pham MD [address] [address] PCP - GeneralInternal Kxcpoxyl49/24/20
--- OUTSIDE RECORDS SUMMARY | 2025-03-30 08:05 | XMS_ITS | Clinical Summary ---
Author Organization [facility] Address [address] [place] [address] Care Team Providers Care Tube Knitter Name Role Phone João Pham MD Primary Care Provider [phone] Allergies No known active allergies Medications MedicationSigDispense QuantityRefillsLast FilledStart DateEnd DateStatus Prenat w/o R-EfBbe-Hjfc-FA-DHA (TriStart DHA) 31-0.6-0.4-200 MG capsule Take 1 capsule by mouth in the morning.5Active omeprazole (PriLOSEC) [address] capsule Indications:Gastroesophageal Reflux Disease,HeartburnTake 1 capsule (20 mg) by mouth in the morning. Take before meals. Do not crush or chew. 30 capsule 6Active Encounters DateTypeDepartmentCare JeitHhkwrbfbect04/11/2025 11:20 [place] [address] Kassandra Gipson PA Third trimester ([facility]); 30 weeks gestation of ([facility]); Heartburn during in third trimester ([facility])03/29/2025 10:30 AM EST [place] [address] size inconsistent with dates ([facility])03/26/2025Telephone [place] [phone] Cristin Meza DO Error (VOID this visit)03/12/2025 10:50 AM ESTRoutine [facility] [address] [place] [phone] Cristin Meza DO size inconsistent with dates ([facility]) (Primary Dx); Second trimester ([facility]); 27 weeks gestation of ([facility]); 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 ([facility]) 03/12/2025amboo flowsheet [facility] [address] [place] [address] Cristin Meza, 02/07/2025 11:20 AM EDTRoutine [facility] [place] [facility] [address] [place] [address] Kassandra Gipson PA Second trimester ([facility]); 23 weeks gestation of ([facility]); Diabetes mellitus gszqkvezx15/22/2025amboo flowsheet [facility] [place] [facility] [address] [place] [address] Kassandra Gipson PA 02/06/20255428Qsmggd88/15/2025bstract [facility] [place] [facility] [address] [place] [address] Cristin Meza, 01/31/2025Telephone [facility] [address] [place] [address] Cristin Meza, 01/22/2025Telephone [facility] [place] [facility] [address] [place] [address] Miya Madrigal MA 01/18/2025bstract [facility] [place] [facility] [address] [place] [address] Janelle Trejo MA 01/17/2025External Result Encounter [facility] [place] [facility] [address] [place] [address] [place] [address] Cristin Meza DO 01/16/2025 9:30 AM EDTAncillary Procedure [facility] [place] [facility] [address] [place] [address] 01/09/2025 11:20 AM EDTRoutine [facility] [place] [address] [place] [address] Cristin Meza DO Second trimester ([facility]); 19 weeks gestation of ([facility])01/09/20259231Wkgjtx15/16/2025Travelfrom Last 3 Months Family History RfqyhzkqRddfOpcbhrWddntxpgVtovoxe2HngghEhlnamLegvoJaflxtRkfrxNlqncy8Jbuxp Social History Tobacco UseTypesPacks/DayYears UsedDateSmoking Tobacco: NeverSmokeless Tobacco: Never Tobacco Cessation:Counseling Given: Not Answered Alcohol UseStandard Drinks/WeekCommentsNever0 (1 standard drink = 0.6 oz pure alcohol)Estimated Date of ImyblmwkWkaohpbfRgh59/17/2026ased on UltrasoundSex and Gender InformationValueDate RecordedSex Assigned at BirthNot on fileLegal BnzXkcyng25/15/2023 6:50 PM EDTGender IdentityNot on fileSexual OrientationNot on file Last Filed Vital Signs Vital SignReadingTime TakenCommentsBlood Cfdgepjh076/6003/29/2025 11:20 AM EST Xqtnc000010/28/2022 3:57 PM AYQYritcxxlxdr65.6 ??C (97.8 ??F)10/28/2022 3:57 PM EDTRespiratory Rate--Oxygen Cfviagcmcr90%10/28/2022 3:57 PM EDTInhaled Oxygen Concentration--Tahcxb80.3 kg (144 lb)03/29/2025 11:20 AM MBLGgprhn762.6 cm (5' 6 )10/28/2022 3:57 PM EDTBody Mass Index23.24010/28/2022 3:57 PM EDT Plan of Treatment DateTypeDepartmentCare Team (Latest Contact Info)Bagoftxkfnl46/29/2025 9:50 AM ESTRoutine [facility] [place] [facility] [address] [place] [phone] Kassandra Gipson PA [address] [place] [address] Procedures Procedure NamePriorityDate/TimeAssociated DiagnosisCommentsPOCT URINALYSIS PPROVLVZLopuhdy86/24/2025 11:27 AM EST Second trimester ([facility]) POCT URINALYSIS OBYIXFQDUulgmlh87/22/2025 12:01 PM EDT Second trimester ([facility]) 23 weeks gestation of ([facility]) US OB 14+ WEEKS ANATOMY SCAN01/17/2025 12:19 PM EDT US OB 14+ WEEKS ANATOMY FVBPZkfyfro05/30/2025 10:30 AM EDT Screening, , for anatomic survey ([facility]) from Last 3 Months Results * POCT urinalysis dipstick manually resulted (03/12/2025 11:27 AM EST) Only the most recent of2 resultswithin the time period is included. ComponentValueRef RangeTest MethodAnalysis TimePerformed AtPathologist Signature Color, UALight YellowClarity, UACloudyGlucose, UANegativeNegative - 1999(110) ++++ mg/dLBilirubin, UANegativeNegative - 4(70) +++ mg/dLKetones, UANegative Negative - 160(16) ++++ mg/dLSpec Grav, UA1.0051 - 1.03Blood, UANegativeNegative - 50 Rishabh/mcLpH, UA7.05 - 9Protein, UANegativeNegative - 1999(20) ++++ mg/dL Urobilinogen, UA1.00.2 - 12 mg/dLLeukocytes, UANegativeNegative - 500+++ Ronald/mcL Nitrite, UANegativeNegative - PositiveSpecimen (Source)Anatomical Location / LateralityCollection Method / VolumeCollection TimeReceived WkbkEhfuf67/24/2025 11:27 AM EST Narrative Authorizing ProviderResult TypeResult StatusCoresonia Meza DOPOINT OF CARE TEST ENTER/EDIT ORDERABLESFinal Result * US OB 14+ weeks anatomy scan (01/17/2025 12:19 PM EDT) Only the most recent of2 resultswithin the time period is included. Anatomical RegionLateralityModalityBodyUltrasoundSpecimen (Source)Anatomical Location / LateralityCollection Method / VolumeCollection TimeReceived Time 01/17/2025 12:19 PM EDT Narrative 01/17/2025 12:19 PM EDT THIS EXAM WAS PERFORMED AT [facility] NAME: ??PATRICIA POE : 2005 SEX: F Accession Number: [id number] ORDERING PHYSICIAN: OSIEL LAWRENCE REFERRING PHYSICIAN: CRISTIN MEZA Coding Procedures ? 34689: Ultrasound, uterus, real time with image documentation, and maternal evaluation ? plus detailed anatomic examination, transabdominal approach;single or first gestation ? 43662: Ultrasound, uterus, real time with image documentation, transvaginal Indication Screening for Anatomic Survey, Supervision of high risk - Anti M. History OB History ? 1. Para 0 ? [id number] Current Cell free DNA ?Low Risk analysis [...] by U/S ?20 w + 3 d STEPHANIE by U/S: ?06/03/2025 Assigned: ?based on ultrasound [...] (oz) ? 12 oz EFW by: ?Hadlock (EYP-PN-HD-FL) Extended Tibia ??30.1 mm 21w 0d 82% Jm Shoe Designer ? 4.8 mm CM ? 4.4 mm [...] view. RVOT view. LVOT view. 3-vessel view. 2-okgyhe-bekdlah view. Situs. Aortic arch view. ? Bicaval [...] MVP measures 3.5 cm. Recommendations Please see [facility] documentation from today. Subsequent follow up or other follow up as clinically determined by primary OB provider unless otherwise specified by MFM. Results forwarded to ordering provider so they can follow up with the patient as necessary. The copy-to physician of this order is CRISTIN Romero The ordering physician of this order is OSIEL Dye Procedure Note Radiology, Radiologist, MD - 01/17/2025 THIS EXAM WAS PERFORMED AT [facility] NAME: PATRICIA POE : 2005 SEX: F Accession Number: [id number] ORDERING PHYSICIAN: OSIEL LAWRENCE REFERRING PHYSICIAN: CRISTIN MEZA Coding Procedures 10565: Ultrasound, uterus, real time with image documentation, and maternal evaluation plus detailed anatomic examination, transabdominalapproach;single or first gestation 56038: Ultrasound, uterus, real time with imagedocumentation, transvaginal Indication Screening for Anatomic Survey, Supervision of high risk - AntiM. History OB History 1. Para 0 [id number] Current Cell free DNA Low Risk analysis [...] EFW (oz) 12 oz EFW by: Hadlock (LJM-VF-IG-FL) Extended Tibia 30.1 mm 21w 0d 82% Jm Shoe Designer 4.8 mm CM 4.4 mm 29% Nicolaides [...] view. RVOT view. LVOT view. 3-vessel view. 4-uomjtw-cuhymaa view. Situs. Aortic arch view. Bicaval view. [...] MVP measures 3.5 cm. Recommendations Please see [facility] documentation from today. Subsequent follow up or other follow up as clinically determined byprimary OB provider unless otherwise specified by MFM. Results forwarded to ordering provider so they can follow up with thepatient as necessary. The copy-to physician of this order is CRISTIN Romero The ordering physician of this order is OSIEL Dye Authorizing ProviderResult TypeResult StatusCorey Susana JOHNSON OB US PROCEDURES Final Result from Last 3 Months Insurance Care Teams Team MemberRelationshipSpecialtyStart DateEnd Date João Pham MD [address] [place] [address], [address] [place] [address] [facility] - [facility]10/28/22
== END 2025-03-30 07:59 | disposition home or self-care (01) ==
LOC: LAB 07:58
PROVIDERS: PCP Internal Medicine; Visit Provider Obstetrics & Gynecology
DX: O36.1930 Maternal care for other isoimmunization, third trimester, not applicable or unspecified (principal)
CPT/HCPCS: 36415

== ENCOUNTER 2025-03-30 08:04 | Outpatient (OUT) | payer BC, SELFPAY ==
--- OUTSIDE RECORDS SUMMARY | 2025-03-30 08:08 | XMS_ITS | CCD ---
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 Name Collection Type:: VoidedPerformed By: #### ADDONUAPLUS, CUU #### [facility] [address] [place], [place] [address] USABacteria,UrineNone SeenNormalNone SeenNorwalk Memorial HospitalComment on above:Order Comment: Name Collection Type:: Voided Performed By: #### ADDONUAPLUS, CUU #### [facility] [address] [place], [place] [address] USABilirubin,UrineNegativeNormalNegativeNorwalk Memorial HospitalComment on above:Order Comment: Name Collection Type:: Voided Performed By: #### ADDONUAPLUS, CUU #### [facility] [address] [place] [address] USAColor (U)YellowNormalYellowNorwalk Memorial HospitalComment on above:Order Comment: Name Collection Type:: VoidedPerformed By: #### ADDONUAPLUS, CUU #### [facility] [address] [place], [place] [address] USAGlucose Ql (U)NormalNormalNormPike Community HospitalComment on above:Order Comment: Name Collection Type:: VoidedPerformed By: #### ADDONUAPLUS, CUU #### [address] [address] USAHyaline Casts,Tibcn0-5Fshyjb3-2PkrlpwhosNorwalk Memorial HospitalComment on above:Order Comment: Name Collection Type:: VoidedResult Comment: PERFORMED BY: [place] [address] PATHOLOGIST POISING INSPECTOR VALENTINE SARABIA M.D.Performed By: #### JOSSIE, CUU #### [place] [address] USAKetones Ql (U)TraceHighNegTrumbull Regional Medical CenterComment on above:Order Comment: Name Collection Type:: VoidedPerformed By: #### JOSSIE, CUU #### [place] [address] USALeukocyte esterase Test strip Ql (U)2+HighNegative Norwalk Memorial HospitalComment on above:Order Comment: Name Collection Type:: VoidedPerformed By: #### JOSSIE, CUU #### [place] [address] USANitrite,UrineNegativeNormalNegTrumbull Regional Medical CenterComment on above:Order Comment: Name Collection Type:: Voided Performed By: #### JOSSIE, CUU #### [place] [address] USAOccult Blood,UrineNegativeNormalNegTrumbull Regional Medical CenterComment on above:Order Comment: Name Collection Type:: Voided Result Comment: PERFORMED BY: [place] [address] PATHOLOGIST POISING INSPECTOR VALENTINE SARABIA M.D.Performed By: #### JOSSIE, CUU #### [place] [address] USApH (U)5.5 [pH]Normal5.0-9.0Norwalk Memorial HospitalComment on above:Order Comment: Name Collection Type:: VoidedPerformed By: #### ADDCHRISTYPLUS, CUU #### [address] [place] [address] USAProtein,UrineNegativeNormalNegativeNorwalk Memorial HospitalComment on above:Order Comment: Name Collection Type:: Voided Performed By: #### ADDONUAPLUS, CUU #### [place] [id number] USARBC,Anbgl4-4Tgrswy5-0LljfafinhWilson [address] Hospital Comment on above:Order Comment: Name Collection Type:: VoidedPerformed By: #### ADDONUAPLUS, CUU #### [place] [address] USASpecificy Gibson,Urine1.821Nnswns8.001-1.030Norwalk Memorial HospitalComment on above:Order Comment: Name Collection Type:: VoidedPerformed By: #### ADDONUAPLUS, CUU #### [place] [address] USASquamous Epithelial Cell,Jyxan2-3Vzbh3-0NjqovugjrWilson Street HospitalComment on above:Order Comment: Name Collection Type:: Voided Performed By: #### ADDONUAPLUS, CUU #### [place] [address] USAUrobilinogen,UrineNormalNormalNormalNorwalk Memorial HospitalComment on above:Order Comment: Name Collection Type:: Voided Performed By: #### ADDONUAPLUS, CUU #### [place] [address] USAWBC,Xprrq16-85Ptml7-3Gxjrqqkmo[address] [place] [address] Comment on above:Order Comment: Name Collection Type:: VoidedPerformed By: #### ADDONUAPLUS, CUU #### [facility] [address] [place] [address] USALipid Panelon 10-57-3125Kvhwilicllw [Mass/Vol]101 mg/dLLow 140-200Norwalk Memorial HospitalComment on above:Result Comment: Chol less than 200 mg/dl low risk Chol 201-239 mg/dl borderline risk Chol 240 mg/dl and greater high riskPerformed By: #### TSH3 wRFLX, LIPID, [id number] #### [facility] [address] [place] [address] USACholesterol in HDL [Mass/Vol]35 mg/pJBnmcia09-32LkgrehloyNorwalk Memorial HospitalComment on above:Result Comment: HDL CHOL ATP-III CLASSIFICATION Cardiovascular Risk HDL > or equal to 60 mg/dL LOW HDL < 40 mg/dL HIGHPerformed By: #### TSH3 wRFLX, LIPID, [id number] #### [facility] [address] [place] [address] USACholesterol.total/Cholesterol in HDL [Mass ratio]2.9 {ratio}Normal<5.0Norwalk Memorial HospitalComment on above:Performed By: #### TSH3 wRFLX, LIPID, [id number] #### [facility] [address] [place] [address] USALDL Cholesterol,Zkwbyyypwv12 mg/dLNormal0-100Norwalk Memorial HospitalComment on above:Result Comment: LDL ATP III CLASSIFICATION LDL less than 100 mg/dL Optimal LDL 100-129 mg/dL Near or above optimal LDL 130-159 mg/dL Borderline high LDL 160-189 mg/dL High LDL greater than 189 mg/dL Very highPerformed By: #### TSH3 wRFLX, LIPID, [id number] #### [facility] [address] [place] [address] USATriglyceride w/Teehgv12 mg/dLNormal0-149Norwalk Memorial HospitalComment on above:Result Comment: TRIG ATP III CLASSIFICATION TRIG less than 150 mg/dL Normal TRIG 150-199 mg/dL Borderline high TRIG 200-500 mg/dL High TRIG greater than 500 mg/dL Very high Standard traceable to the Center for Disease Conrtrol and Prevention (CDC) test method.Performed By: #### TSH3 wRFLX, LIPID, [id number] #### [facility] [address] [place] [address] USAVLDL LLDWOUEXVOQ00 mg/dLNormPike Community HospitalComment on above:Performed By: #### TSH3 wRFLX, LIPID, [id number] #### [facility] [address] [place] [address] USAThyroid Stim Hormone w/Rflxon 75-35-3095Oaehzju Stim Hormone w/Rflx1.50 u[iU]/mLNormal0.45-5.33[facility] Comment on above:Performed By: #### TSH3 wRFLX, LIPID, [id number] #### [place] [address] USAUrine Cultureon 20-73-0044Mmjfwvmj identified Cx Nom (U)No Growth 2 Days PERFORMED BY: [place] [address] PATHOLOGIST POISING INSPECTOR VALENTINE SARABIA M.D.[facility] HospitalComment on above: Performed By: #### ADDONUAPLUS, CUU #### [place] [address] USAVitamin D 25 Hydroxy Totalon 94-17-4388Ltsvglr D 25 Hydroxy Total33.7 ng/eJYxzpcs79-868DhotljsloNorwalk Memorial HospitalComment on above:Result Comment: VITAMIN D STATUS 25(OH)VITAMIN D RANGE (ng/mL) Deficient <20 Insufficient 20 to <30 Sufficient 30 to 100 Reference: Chelsy MF,Lamont NC, Alton ARCHER, et al. Evaluation,treatment, and prevention of vitamin D deficiency; an Endocrine Society clinical practice guideline. JCEM. 2010; 96(7):1911-30. PERFORMED BY: [place] [address] PATHOLOGIST POISING INSPECTOR VALENTINE SARABIA M.D.Performed By: #### TSH3 wRFLX, LIPID, [id number] #### [facility] [address] [place], [place] [address] USACovid-19 PCR (CVDTBH)on 31-61-6769OJGL-CoV-2 (COVID-19) RNA JOHN PAUL+probe Ql (Unsp spec)Not detectedNormalNOT DETECTEDThe [facility] Comment on above:Result Comment: This test is not yet approved or cleared by the [place] FDA. When there are no FDA-approved or cleared tests available, and other criteria are met, FDA can make tests available under an emergency access mechanism called an Emergency Use Authorization (EUA). The EUA for this test is supported by the Power Shovel Operator Helper of Health and Human Service's (HHS's) declaration [...] with SARS-CoV-2.Performed By: #### DEBORAH MOULTON #### [place] [address] Judith KarenSYMPTOMATIC COVID-19 ANTIGENon 65-77-3624ORD StatementSEE BELOW NormalThe [facility] Children'S HospitalComment on above:Result Comment: This test has [...] revoked sooner.Performed By: #### PAULA MOULTONTB #### [facility] [address] [place] [address] Judith RosenthalCymdxZGGC-DdX-2 (COVID-19) RNA JOHN PAUL+probe Ql (Unsp spec)NegativeNormal NEGATIVEThe [facility] Children'S HospitalComment on above:Performed By: #### PAULAAGApolinar CVDTBH #### [facility] [address] [place] [address] Judith Shaffer Vital Signs Date TimeVital SignValuePerforming CvlmhxaccBahkfgxb62-34-0525 11:39-0400Body mass index (BMI) [Ratio]21.63 kg/m2Kassandra VENCES Work Phone: [facility] CenterGjcuoioeun71-88-1443 11:39-0400Body kccojx82.78 kgKassandra VENCES Work Phone: [facility] CenterOprmpvtlwf99-48-8913 11:39-0400Diastolic blood ttabxajk54 mm[Hg]Kassandra VENCES Work Phone: [facility] CenterQmccuivpvo70-78-5805 11:39-0400Systolic blood ctszsjia034 mm[Hg]Kassandra VENCES Work Phone: [facility] CenterUqvyrgcfew88-29-2757 09:47-0400Body .6 cmAbbie Lawrence MD Work Phone: [phone] [place], [place] 6262910-01-2025 09:47-0400Body mass index (BMI) [Ratio]20.99 kg/r2ZzscgiAbbie Lawrence MD Work Phone: [phone] [place], [place] 6262910-01-2025 09:47-0400Body czdatr45.97 kgAbbie Lawrence MD Work Phone: [phone] [place], [place] 626[address]10-01-2025 09:47-0400Diastolic blood fxlpgwag70 mm[Hg]Abbie Lawrence MD Work Phone: [phone] [place], [place] 6262910-01-2025 09:47-0400Heart rate 73 /minAbbie Lawrence MD Work Phone: [phone] [place], [place] 626[address]10-01-2025 09:47-0400Systolic blood pmegzktz060 mm[Hg]Abbie Lawrence MD Work Phone: [phone] [place], [place] 626[address]09-23-2025 11:50-0400Body mass index (BMI) [Ratio]20.34 kg/l2LcwmfSyed Meza DO Work Phone: [phone] [place], [place] [address]Peuainpspn69-51-3606 11:50-0400Body daucop43.15 kgCorey Susana DO Work Phone: [phone] [place], [place] [address]Kkhcdqdccd67-02-3376 11:50-0400Diastolic blood bvncvlyt52 mm[Hg]Syed Susana DO Work Phone: [phone] [place], [place] [address]Srfwaxlnqj47-49-5452 11:50-0400Systolic blood efcyoejh326 mm[Hg]Syed Susana DO Work Phone: [phone] [place], [place] [address]Zichqetqht53-28-3389 09:25-0400Body mass index (BMI) [Ratio]20.01 kg/m2Kassandra VENCES Work Phone: [phone] [place], [place] [address]Yfuwudiolt75-10-2427 09:25-0400Body .25 kgAmy Brandan VENCES Work Phone: [phone] [place], [place] [address]Uaskontqgr89-12-6326 09:25-0400Diastolic blood tveueobk25 mm[Hg]Kassandra VENCES Work Phone: [phone] [place], [place] [address]Dwzefasbvy90-34-6212 09:25-0400Systolic blood zguutubt277 mm[Hg]Kassandra VENCES Work Phone: [phone] [place], [place] [address]Lhevhekknt35-88-6733 11:07-0400Body mass index (BMI) [Ratio]20.3 kg/m9Djczq Susana DO Work Phone: [phone] [place], [place] [address]Jcqajdzypm61-13-8603 11:07-0400Body .06 kgCorey Susana DO Work Phone: [phone] [place], [place] [address]Ievcqjbgdk89-71-0668 11:07-0400Diastolic blood peevuxru66 mm[Hg]Syed Susana DO Work Phone: 1([phone] [place] [address]-19-2025 11:07-0400Systolic blood uywdnmlh645 mm[Hg]Syed Susana DO Work Phone: [phone] [place], [place] [address]Hcyyshvcov34-42-8344 10:46-0400Body mass index (BMI) [Ratio]19.53 kg/w0Ouvzo Susana DO Work Phone: [phone] [place], [place] [address]Rphykjbczo83-31-6189 10:46-0400Body riumph95.88 kgCorey Susana DO Work Phone: [facility] CenterKnnzpmriow23-65-5659 10:46-0400Diastolic blood ctdibrnr82 mm[Hg]Syed Carro DO Work Phone: [facility] CenterMdvmwmutxc96-31-0909 10:46-0400Systolic blood xhfegwca434 mm[Hg]Syed Meza DO Work Phone: [facility] CenterSqathosdys19-63-5676 10:35-0400Body mass index (BMI) [Ratio]19.39 kg/s8NwbdzTonsil Hospital06-27-2025 10:35-0400Body weight 54.49 kgTonsil Hospital02-20-2025 15:33-0500Body .6 cmLisa Krotzer [employer] Work Phone: [facility]02-20-2025 15:33-0500Body mass index (BMI) [Ratio]19.59 kg/m2Lisa Krotzer [employer] Work Phone: [facility]02-20-2025 15:33-0500Body getnmj26.07 kgLisa Krotzer [employer] Work Phone: [facility]02-20-2025 15:33-0500Diastolic blood dfzuiayo91 mm[Hg]Bonnie Krotzer [employer] Work Phone: [facility]02-20-2025 15:33-0500Systolic blood nvdorwxp831 mm[Hg]Bonnie Krotzer [employer] Work Phone: [facility]10-23-2024 11:34-0400Body mass index (BMI) [Ratio]19.21 kg/m2Aspen Drew MD Work Phone: [facility]10-23-2024 11:34-0400Body pomrtn34.98 kgAspen Drew MD Work Phone: [facility]10-23-2024 11:34-0400Diastolic blood lovbinew75 mm[Hg]Aspen Drew MD Work Phone: [facility]10-23-2024 11:34-0400Heart rate 81 /Latisha Drew MD Work Phone: [facility]10-23-2024 11:34-0400Systolic blood lmpanmsc070 mm[Hg]Aspen Drew MD Work Phone: [phone] [place] [address] Encounters Encounter DateEncounter TypeCare ProviderFacilityStart: 02-07-2025 End: 30-12-9944Jxpixo Kandice VENCES Work Phone: [facility] [facility]YNStart: 02-07-2025 End: 76-86-9988Kccubu Kandice VENCES Work Phone: [facility] [place] [facility]YNStart: 02-07-2025 End: 22-90-2258zajnsjidkaHDL CEHRELLEEYNot AvailableStart: 02-07-2025 End: 99-55-1716Auvdxmbq flow Venkata VENCES Work Phone: [facility] [place] OBGYNComment on above:Second trimester ([facility]); 23 weeks gestation of ([facility]); Diabetes mellitus screeningStart: 01-17-2025 End: 10-65-6484Jbavde consultation new/estab patient 60 Beto Lawrence MD Work Phone: [phone]-Tlufs [facility] Comment on above: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)Start: 01-17-2025 End: 13-79-4917uiqclworztYRRMW R FAZIOProMedica High Point HospitalStart: 01-16-2025 End: 36-44-6586ihmgnefsghLLK RAMEYNot AvailableStart: 01-09-2025 End: 47-47-5840rcxbepivhfIBTAQ FAZIONot AvailableStart: 01-09-2025 End: 77-80-1416Bbpcfekb flow sheetCorey Susana DO Work Phone: [facility]BGYNComment on above:Second trimester ([facility]); 19 weeks gestation of ([facility])Start: 12-13-2024 End: 92-71-9697Jfyac Brittany Lawrence MD Work Phone: [phone]-Zgybt [facility] Start: 12-12-2024 End: 28-07-7245Bssjqs flowsheetKassandra VENCES Work Phone: [facility] [place] [facility]BGYNStart: 12-12-2024 End: 40-01-5342Qcojre flowsheetKassandra VENCES Work Phone: NOPF [place] OBGYNStart: 12-12-2024 End: 00-49-1311Ilbuyewcn Result EncounterKassandra VENCES Work Phone: noms External Department UnsolicitedStart: 12-12-2024 End: 02-80-8292Gqgejane Result EncounterKassandra VENCES Work Phone: n[facility] External Department UnsolicitedStart: 12-12-2024 End: 51-74-5832yheurrzqbuBHO RAMEYNot AvailableStart: 12-12-2024 End: 75-09-1398Zvpuqdw encounter procedureKassandra VENCES Work Phone: NOVW HealthcareStart: 12-12-2024 End: 01-62-6554Eeflfdjs preventive med est patient 18-39 yrsKassandra VENCES Work Phone: [facility] [place] OBGYNComment on above:Second trimester ([facility]); 15 weeks gestation of ([facility]); Well woman exam with routine gynecological exam; Vaginal discharge; STD exposure; Screening, , for anatomic survey ([facility])Start: 12-05-2024 End: 92-42-3418Sgjilq flowsheetCorey Susana DO Work Phone: [facility] [place] [facility]BGYNStart: 12-05-2024 End: 93-28-9425Qeezpk flowsheetCorey Susana DO Work Phone: [facility] [place] [facility]BGYNStart: 12-05-2024 End: 18-67-2688wkhwhmsujkFBOCB FAZIONot AvailableStart: 12-05-2024 End: 89-16-8534Rvwdhfou flow sheetCorey Susana DO Work Phone: [facility] [place] OBGYNComment on above:14 weeks gestation of ([facility]); First trimester ([facility])Start: 12-01-2024 End: 67-00-9835Egswyznbl department patient visitASPEN Peralta [facility] HospitalStart: 11-17-2024 End: 25-81-2991Gujnogdqq Result EncounterCorey Susana DO Work Phone: noms External Department UnsolicitedStart: 11-17-2024 End: 36-34-3223Ptwqeeumh Result EncounterCorey Susana DO Work Phone: noms External Department UnsolicitedStart: 11-14-2024 End: 25-21-3654Lsmdrn flowsheetCorey Susana DO Work Phone: [facility] [place] [facility]YNStart: 11-14-2024 End: 51-83-8254Gmelng flowsheetCorey Susana DO Work Phone: NOQT [facility]BGYNStart: 11-14-2024 End: 35-39-6173Evfxaiugt Result EncounterCorey Susana DO Work Phone: noms External Department UnsolicitedStart: 11-14-2024 End: 01-35-6181ezbcnwihdgHLNBA FAZIONot AvailableStart: 11-14-2024 End: 48-89-0598Xwsccero flow sheetCorey Susana DO Work Phone: NOPR [place] OBGYNComment on above:First trimester ([facility] 11 weeks gestation of ([facility])Start: 10-14-2024 End: 94-72-1281Swqtjkkbe department patient visitJOCATE Peralta [facility] HospitalStart: 10-13-2024 End: 38-56-9378Xsnfhr outpatient visit 5 minutesFazio Nurse [facility] Bcp ObNOMS BCP OBComment on above:GA: 7r5zEirzr: 10-13-2024 End: 64-61-3189fnlhvmxckcPNZXK FAZIONot AvailableStart: 09-27-2024 End: 07-19-6838Nplibr outpatient visit 5 minutesLisa Richard Barba [employer] Work Phone: ProSt[facility] Campusca [facility]icians Obstetrics/GynecologyComment on above:Missed menses (Primary Dx)Start: 09-27-2024 End: 43-50-9911nmewloshiqJXXX Richard [facility] Ambulatory PPGStart: 09-26-2024 End: 23-12-9764Eqnozknqu encounterBonnie Barba [employer] Work Phone: [facility] Obstetrics/GynecologyStart: 06-12-2024 End: 15-73-7335Hgwlpocmi encounterAspen Drew MD Work Phone: [facility] Start: 06-11-2024 End: 52-52-1893Elmtmyahd department patient visitJOCATE Kathryn SWETANORTHERN NAVAJO MEDICAL CENTERNATALYMercy Health St[facility] HospitalStart: 06-08-2024 End: 93-20-0142Btannl outpatient new 30 minutesLisa Richard Barba [employer] Work Phone: [facility] Obstetrics/GynecologyComment on above:Secondary amenorrhea (Primary Dx); Patient desires pregnancyStart: 06-08-2024 End: 92-88-0539eqhchdttwvDABI [facility] Ambulatory PPGStart: 05-14-2024 End: 94-39-3452Momkiqnhf department patient visitASPEN Kathryn [facility] HospitalStart: 02-09-2024 End: 93-86-0168qfkjknrdgmBLSN J [facility]IPaul[facility] HospitalStart: 02-09-2024 End: 05-44-2421tujlylrrrxPRSH J HIFa[facility] Ambulatory PPGStart: 02-09-2024 End: 15-41-1153Eoaucu outpatient visit 15 minutesAspen Drew MD Work Phone: proMedxtf Physicians Internal Medicine/Pediatrics Comment on above:Urinary frequency (Primary Dx)Start: 08-05-2023 End: 22-08-3445Xitbdhaoi encounterChandrahouston Shuklasweta [facility] CENTERProMedica Physicians Internal Medicine/PediatricsComment on above:Appointment DueStart: 01-21-2023 ambulatoryHarborStart: 45-91-9278zqopynnrawHimhlwqtsqx Abdelaziz [facility]: 10-22-2022 End: 87-54-1913Nseczrjxmz and management of inpatientAspen Drew Facility:[facility] Hospitaltart: 10-22-2020 End: 65-39-0955lalpfeypwqOO ASPEN DREWFacility:H1 Procedures DateProcedureProcedure DetailPerforming ClinicianStart: 49-14-3502Purzq dip stick/tablet rgnt non-auto w/o micrscpAmy Brandan VENCES Work Phone: Start: 74-18-0027LPRTVUAMP VAGINITIS (HTRX)Kassandra VENCES Work Phone: Start: 05-24-9458Trskd dip stick/tablet rgnt non-auto w/o micrscpAmy Brandan VENCES Work Phone: Start: 26-37-5035AXT,APTIMA HPV,AGE GDLNKassandra VENCES Work Phone: Start: 03-41-1164TSW TEST, EXTERNALAmy Brandan VENCES Work Phone: Start: 64-19-0334Spmtt dip stick/tablet rgnt non-auto w/o micrscpCorey Susana DO Work Phone: Start: 54-31-5269OPV MISCELLANEOUS TESTCorey Susana DO Work Phone: Start: 27-36-6774FHVPW FREE CELL DNA (NON-[facility] SEND OUT)Not In System Ref ProvStart: 38-07-1076MFXAWDWX LAB TESTNot In System Ref ProvStart: 53-59-1705LOK DRUG SCREEN RAPID (URINE)Syed Susana DO Work Phone: Start: 22-65-5296Fhbba dip stick/tablet rgnt non-auto w/o micrscpCorey Susana DO Work Phone: Start: 10-13-2024 End: 19-20-8954Tgzlj dip stick/tablet rgnt non-auto w/o micrscpCorey Susana DO Work Phone: Start: 57-58-9595Aulri test visual color cmprsn methsLisa M Krotzer [employer] Work Phone: Start: 77-66-0163Jlzxw test visual color cmprsn methsLisa M Krotzer [employer] Work Phone: Start: 05-47-5192Jfuzu dip stick/tablet rgnt non-auto w/o micrscpSusiehn Kathryn Drew MD Work Phone: start: 09-13-2018H/O: surgeryS/P tonsillectomy and adenoidectomySamira Orlando CMA Plan of Treatment DateCare ActivityDetailAuthorStart: 51-07-1813GKtR,Tdap and Td Vaccines (8 - Td or Tdap)DTaP,Tdap and Td Vaccines (8 - Td or Tdap)[facility] SystemStart: 39-57-8684Pxski BMI ScreeningAdult BMI ScreeningMemorial Health System SystemStart: 70-29-0684Tjyhcdc ScreeningTobacco ScreeningMemorial Health System SystemStart: 32-62-5079Cnkrs BMI ScreeningAdult BMI ScreeningMemorial Health System SystemStart: 36-13-6152Vprmp BMI ScreeningAdult BMI ScreeningMemorial Health System SystemStart: 43-20-4196Agxkhin ScreeningTobacco ScreeningProC[facility] Clinic [facility] SystemStart: 98-17-0335Krnsc BMI ScreeningAdult BMI ScreeningMemorial Health System SystemStart: 52-94-9969Jmcjozy ScreeningTobacco ScreeningProC[facility] Clinic [facility] SystemStart: 03-12-2025 End: 68-47-6981Esiwmts encounter mazswdbyi72/24/2025 10:50 AM EST Routine [facility] [address] [place] [phone] Syed Meza DO [address] [address] [facility]BGYNStart: 02-12-2025 End: 89-48-3988Nzwevgjhyqec / ancillary services okjklqmnho38/27/2025 11:00 AM EDT Ancillary Procedure [facility] [address] [place] [address] [facility]BGYNStart: 02-07-2025 End: 08-19-3740DNP panel - Blood by Automated countCBC Lab Routine Diabetes mellitus screening Expected: 02/07/2025 (Approximate), Expires: 02/07/2026[facility] Work Phone: comment on above:Expected: 02/07/2025 (Approximate), Expires: 02/07/2026Start: 02-07-2025 End: 98-30-8147Almgyeciiwm of glucose 1 hour after glucose challenge for glucose tolerance testGlucose tolerance, 1 hour Lab Routine Diabetes mellitus screening Expected: 02/07/2025 (Approximate), Expires: 02/07/2026[facility] HealthcareComment on above:Expected: 02/07/2025 (Approximate), Expires: 02/07/2026Start: 02-07-2025 End: 17-02-8586Bkdxujl encounter zbyymguye18/22/2025 11:20 AM EDT Routine [facility] [address] [place] [phone] Kassandra Turpin PA [address] [place], [place] [id number] [facility]BGYNStart: 01-17-2025 End: 72-57-6961Oltdsfj encounter procedureKing's D[facility] ImagingStart: 01-16-2025 End: 57-94-5503Qpenwsokobji / ancillary services vdzufyqwmw95/30/2025 9:30 AM EDT Ancillary Procedure [facility] [address] [place] [phone] [facility]BGYNStart: 01-09-2025 End: 22-80-1121Gysbrrj encounter /23/2025 11:20 AM EDT Routine [facility] [address] [address] [place] [id number] Syed Meza, [address] [place] [address] [facility] OBGYNStart: 12-18-2024 Influenza vaccinationInfluenza VaccineMemorial Health System SystemStart: 12-12-2024 End: 65-96-2424Znbqk fetoprotein, maternalAlpha fetoprotein, maternal Lab Routine Second trimester ([facility]) 15 weeks gestation of ([facility]) Expected: 12/12/2024 (Approximate), Expires: 06/14/2025[facility] Comment on above:Expected: 12/12/2024 (Approximate), Expires: 06/14/2025Start: 12-12-2024 End: 21-91-8909FH for pregnancyUS OB 14+ weeks anatomy scan Imaging Routine Screening, , for anatomic survey ([facility]) Expected: 12/12/2024, Expires: 03/14/2025[facility] CenterComment on above:Expected: 12/12/2024, Expires: 03/14/2025Start: 12-12-2024 End: 98-85-1664Hvfuwcw encounter omvbcfbpf23/26/2025 8:50 AM EDT Routine [facility] [address] [address], [id number] Kassandra Turpin PA [address] [place] [address] [place] [address] [facility] OBGYNStart: 30-30-6964Ydipx BMI ScreeningAdult BMI ScreeningMemorial Health System SystemStart: 10-13-2024 End: 16-67-2350RBA/RhABO/Rh Lab Routine Missed menses , unspecified gestational age ([facility]) Expected: 10/13/2024 (Approximate), Expires: 10/13/2025[facility] HealthcareComment on above:Expected: 10/13/2024 (Approximate), Expires: 10/13/2025Start: 10-13-2024 End: 57-58-7842Oxbrd type and Indirect antibody screen panel - BloodType and screen Lab Routine Missed menses , unspecified gestational age ([facility]) Expected: 10/13/2024 (Approximate), Expires: 10/13/2025[facility] Healthcare Comment on above:Expected: 10/13/2024 (Approximate), Expires: 10/13/2025Start: 10-13-2024 End: 31-92-1989Toepx of abuse panel - Urine by Screen methodRapid drug screen, urine Lab Routine , unspecified gestational age ([facility]) Encounter for supervision of normal first in first trimester ([facility]) Expected: 10/13/2024 (Approximate), Expires: 10/13/2025[facility] HealthcareComment on above: Expected: 10/13/2024 (Approximate), Expires: 10/13/2025Start: 10-10-2024 End: 40-61-9605Mjhiinfraxlh consultation with buzwoqw4810/10/2024 1:00 PM EDT Telemedicine [facility] Ob[facility]etrics/Gynecology [address] [place] [address] Bonnie Barba, [employer] DRILLER-[employer] MIXER [address] [facility] [place] [address] [facility] Obstetrics/GynecologyStart: 10-05-2024 End: 12-49-2848PC Pelvis transvaginalUS OB transvaginal Imaging Routine Missed menses Expected: 10/05/2024, Expires: 01/05/2025[facility] Work Phone: comment on above:Expected: 10/05/2024, Expires: 01/05/2025Start: 09-27-2024 End: 91-62-2109Glvvrdpj Nlmqeku0409/27/2024 10:15 AM EDT Clinical Support [facility] [address] [place] [phone] Bonnie Barba, DAYL[employer] DRILLER-[employer]UR MIXER [address] [place] [address] [facility] Obstetrics/GynecologyStart: 06-29-2024 End: 59-35-2570Wxzvbft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 Invalid Number Next PCP Appointment: N/A Tests/Referrals Pended: N/A Resources/Education Provided: Additional Comments: [facility]* Diagnosis Urinary frequency- Primary documented [facility] encounter [facility]* Diagnosis Secondary amenorrhea- Primary Absence of menstruation Patient desires documented in this encounter [facility]* Diagnosis Missed menses- Primary documented in [facility] encounter [facility]* Diagnosis Missed menses , unspecified gestational age ([facility]-HCC) Encounter for supervision of normal first in first trimester ([facility]) documented [facility]* [...] STD exposure Screening, , for anatomic survey ([facility]) Encounter for anatomic survey documented in this encounter [facility]* Diagnosis Second trimester ([facility]HS-HCC) state, incidental 19 weeks gestation of (HHS-HCC) documented in this encounter [facility]* Diagnosis 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 * How to plan and prepare for a healthy (Bangladeshi) * Absent or irregular periods (Bangladeshi) documented in this encounterProHill Hospital Of Sumter County Health SystemInstructionsNot on file documented in this encounterProHill Hospital Of Sum[facility] County Health SystemInstructionsNot on file documented in this encounterProCleveland [facility] SystemInstructionsNot on file documented in this encounterProCleveland Clinic [facility] Hospital SystemInstructionsNot on file documented in this encounterMemorial Health System System Summary Purpose Family History No Family History Records FoundNo Family History Records FoundNo Family History Records FoundNo Family History Records FoundNo Family History Records FoundNo Family History Records FoundNo Family History Records Found Advance Directives No Advanced Directives Records Found Date ActivatedDate InactivatedComments01/12/2018 1:32 PM01/13/2018 8:22 PM Additional Source Comments INFORMATION SOURCE (unrecogn ized section and content) DATE CREATED AUTHOR 10/31/2020 [facility] DATE CREATED AUTHOR AUTHOR'S ORGANIZ ATION 01/25/2023 [place] DATE CREATED AUTHOR AUTHOR'S ORGANIZ ATION 04/18/2023 [facility] DATE CREATED AUTHOR AUTHOR'S ORGANIZ ATION 09/29/2024 [facility] DATE CREATED AUTHOR AUTHOR'S ORGANIZ ATION 12/03/2024 [facility] DATE CREATED AUTHOR AUTHOR'S ORGANIZ ATION 01/22/2025 [facility] DATE CREATED AUTHOR AUTHOR'S ORGANIZ ATION 02/13/2025 [facility] EPIC Reason for Visit (unrecogniz ed section and content) ReasonOnset DateCommentsAppointment Due08/05/2023easonCommentsUrinary Tract InfectionFrequency and odor, previous kidney stoneReasonCommentsLate Period ReasonCommentsPregnancy TestReasonCommentsAmenorrheaReasonCommentsRoutine VisitReasonCommentsRoutine VisitWell Women VisitSTI Screening ReasonCommentsAnti M Care Teams (unrecognized sec tion and content) Team MemberRelationshipSpecialtyStart DateEnd Date Aspen Drew MD [address] [place] [address], [address] [place] [address] PCP - GeneralPediatrics01/05/18Team MemberRelationshipSpecialtyStart DateEnd [facility] Aspen Drew MD [address] [place] [address], [address] [place] [address] PCP - GeneralPediatrics01/05/18Team MemberRelationshipSpecialtyStart DateEnd Date Aspen Drew MD [address] [place] [address], [address] [place] [address] PCP - GeneralPediatrics01/05/18Team MemberRelationshipSpecialtyStart DateEnd Date Aspen Drew MD [address] [place] [address], [address] [place] [address] PCP - GeneralPediatrics01/05/18Team MemberRelationshipSpecialtyStart DateEnd Date Aspen Drew MD [address] [place] [address], [address] [place] [address] PCP - GeneralFamily Medicine10/28/22Team MemberRelationshipSpecialtyStart DateEnd [facility] Aspen Drew MD [address] [place] [address], [address] [place] [address] PCP - GeneralFamily Medicine10/28/22Team MemberRelationshipSpecialtyStart DateEnd Date Aspen Drew MD [address] [place] [address], [address] [place] [address] PCP - GeneralFamily Medicine10/28/22Team MemberRelationshipSpecialtyStart DateEnd Date Aspen Drew MD [address] [place] [address], [address] [place] [address] PCP - GeneralFamily Medicine10/28/22Team MemberRelationshipSpecialtyStart DateEnd Date Aspen Drew MD [address] [place] [address], [address] [place] [address] PCP - GeneralFamily Medicine10/28/22Team MemberRelationshipSpecialtyStart DateEnd Date Aspen Drew MD [address] [place] [address], [address] [place] [address] PCP - GeneralFamily Medicine10/28/22Team MemberRelationshipSpecialtyStart DateEnd Date Aspen Drew MD [address] [place] [address], [address] [place] [address] PCP - GeneralFamily Medicine10/28/22Team MemberRelationshipSpecialtyStart DateEnd Date Aspen Drew MD [address] [place] [address], [address] [place] [address] PCP - GeneralPediatrics01/05/18Team MemberRelationshipSpecialtyStart DateEnd Date Aspen Drew MD [address] [place] [address], [address] [place] [address] PCP - GeneralPediatrics01/05/18Team MemberRelationshipSpecialtyStart DateEnd Date Aspen Drew MD [address] [place] [address], [address] [place] [address] PCP - GeneralFamily Medicine10/28/22 FOR RECORDS PERTAINING [...] BE BASED ON THE PRIMARY CLINICAL RECORDS. [facility] [employer] [facility]. provides no warranty or guarantee of the accuracy or completeness of information in this document.
[2025-03-30 10:06] LABS: Hematocrit 32.8 % (36.0-48.0); Hemoglobin 10.5 g/dL (12.0-16.0); Immature Granulocytes Abs Auto 0.28 10^3/uL (0.00-0.03); Immature Granulocytes Pct Auto 2.1 % (0.0-0.5); Lymphocytes Absolute Auto 3.0 10^3/uL (1.2-3.8); Mean Corpuscular HGB Conc 32.0 g/dL (29.9-35.2); Mean Corpuscular Hemoglobin 28.7 pg (26.7-34.0); Mean Corpuscular Volume 89.6 fL (81.0-99.0); Platelet Count 161 10^3/uL (150-450); Red Blood Count 3.66 10^6/uL (4.20-5.40); White Blood Count 13.4 10^3/uL (4.0-11.0)
[2025-03-30 10:07] LABS: Glucose 1 Hour 110 mg/dL (<130)
== END 2025-03-30 08:05 | disposition home or self-care (01) ==
LOC: LAB 08:04
PROVIDERS: PCP Internal Medicine; Visit Provider Physician Assistant
DX: Z13.1 Encounter for screening for diabetes mellitus (principal)
CPT/HCPCS: 36415; 82950; 85025

== ENCOUNTER 2025-04-11 12:52 | Outpatient (OUT) | payer BC, SELFPAY ==
--- OUTSIDE RECORDS SUMMARY | 2025-03-29 10:30 | XMS_ITS | Encounter Summary ---
Author Organization [facility] Address [address] [place] [address] Care Team Providers Care Front End Architect Name Role Phone João Pham MD Primary Care Provider [phone] Encounter Details DateTypeDepartmentCare Team (Latest Contact Info)Ogtlrcdmgga01/11/2025 10:30 AM ESTAncillary Procedure [facility] [address] [place] [address] size inconsistent with dates ([facility]) Social History Tobacco UseTypesPacks/DayYears UsedDateSmoking Tobacco: NeverSmokeless Tobacco: NeverAlcohol UseStandard Drinks/WeekCommentsNever0 (1 standard drink = 0.6 oz pure alcohol)Estimated Date of FdsnfvecWsojctpmYis09/17/2026Based on UltrasoundSex and Gender InformationValueDate RecordedSex Assigned at BirthNot on fileLegal WgfZrutbr31/15/2023 6:50 PM EDTGender IdentityNot on fileSexual OrientationNot on filedocumented as of this encounter Plan of Treatment DateTypeDepartmentCare Team (Latest Contact Info)Bwrjfewqizt19/29/2025 9:50 AM ESTRoutine [facility] [address] [place] [address] Kassandra Gipson PA [address] [place], [place] [id number] documented as of this encounter Procedures Procedure NamePriorityDate/TimeAssociated DiagnosisCommentsUS OB FOLLOW UP TRANSABDOMINAL JADDLYECVlzuaki02/11/2025 11:01 AM EST size inconsistent with dates ([facility]) documented in this encounter Results * US OB follow up transabdominal approach (03/29/2025 11:01 AM EST)Anatomical RegionLateralityModalityBodyUltrasoundSpecimen (Source)Anatomical Location / LateralityCollection Method / VolumeCollection TimeReceived Time04/05/2025 11:05 AM EST Impressions 04/05/2025 11:20 AM EST SINGLE LIVE INTRAUTERINE CORRESPONDING TO APPROXIMATELY 30 WEEKS 5 DAYS WITH AN EXPECTED DUE DATE OF JUNE 02, 2025. NO GROSS ABNORMALITIES IDENTIFIED, WITHIN THE LIMITS OF THE STUDY. ELECTRONICALLY SIGNED BY: Angel Yanes DO Narrative 04/05/2025 11:20 AM EST ultrasoundUS OB FOLLOW UP TRANSABDOMINAL APPROACH: 03/29/2025 10:30 AM CLINICAL HISTORY: Inconsistent size, growth COMPARISON: January 16, 2025 Transabdominal ultrasound of the gravid uterus was performed. FINDINGS: A single live intrauterine is noted in cephalic position. cardiac activity measures approximately 122 beats per minute. The placenta is posterior. The cervical length was not measured. The amniotic fluid volume appears within normal limits for gestation. The amniotic fluid index measures 12.61 cm The following measurements were obtained: BPD 7.79 cm, HC 28.43 cm, AC 25.14 cm, FL 5.86 cm, which corresponds to an aggregate gestational age of 30 weeks 5 days. Estimated weight is 1530+/-229.5 g. This fetus is in a 34.3 percentile. Procedure Note Angel Yanes DO - 04/05/2025 ultrasoundUS OB FOLLOW UP TRANSABDOMINAL APPROACH: 03/29/2025 10:30 AM CLINICAL HISTORY: Inconsistent size, growth COMPARISON: January 16, 2025 Transabdominal ultrasound of the gravid uterus was performed. FINDINGS: A single live intrauterine is noted in cephalic position. cardiac activity measures approximately 122 beats per minute. The placenta is posterior. The cervical length was not measured. The amniotic fluid volume appears within normal limits for gestation. The amniotic fluid index measures 12.61 cm The following measurements were obtained: BPD 7.79 cm, HC 28.43 cm, AC25.14 cm, FL 5.86 cm, which corresponds to an aggregate gestational age of30 weeks 5 days. Estimated weight is 1530+/-229.5 g. This fetus is in a 34.3percentile. IMPRESSION: SINGLE LIVE INTRAUTERINE CORRESPONDING TO APPROXIMATELY 30 WEEKS5 DAYS WITH AN EXPECTED DUE DATE OF JUNE 02, 2025. NO GROSS ABNORMALITIES IDENTIFIED, WITHIN THE LIMITS OF THE STUDY. ELECTRONICALLY SIGNED BY: Angel Yanes DO Authorizing ProviderResult TypeResult StatusSamira Patel NPIMG OB US PROCEDURESFinal Result documented in this encounter Visit Diagnoses Diagnosis size inconsistent with dates ([facility]) documented in this encounter Care Teams Team MemberRelationshipSpecialtyStart DateEnd Date João Pham MD [address] [place] [address], [address] [place] [address] PCP - GeneralFamily Medicine10/28/22documented as of this encounter
--- OUTSIDE RECORDS SUMMARY | 2025-03-29 11:20 | XMS_ITS | Encounter Summary ---
Author Organization [facility] Address [address] [place] [address] Care Team Providers Care Stringer Up Soldering Machine Name Role Phone João Pham MD Primary Care Provider [phone] Encounter Details DateTypeDepartmentCare Team (Latest Contact Info)Kgroknznsnm18/11/2025 11:20 AM ESTRoutine [facility] [address] [place] [address] Kassandra Gipson PA [address] [facility] [address] [place] [id number] Third trimester ([facility]); 30 weeks gestation of ([facility]); Heartburn during in third trimester ([facility]) Social History Tobacco UseTypesPacks/DayYears UsedDateSmoking Tobacco: NeverSmokeless Tobacco: NeverAlcohol UseStandard Drinks/WeekCommentsNever0 (1 standard drink = 0.6 oz pure alcohol)Estimated Date of VecywdeqXwmdldfhHze47/17/2026ased on UltrasoundSex and Gender InformationValueDate RecordedSex Assigned at BirthNot on fileLegal UxmLassrc01/15/2023 6:50 PM EDTGender IdentityNot on fileSexual OrientationNot on filedocumented as of this encounter Last Filed Vital Signs Vital SignReadingTime TakenCommentsBlood Drodoqhn779/6003/29/2025 11:20 AM EST Pulse--Temperature--Respiratory Rate--Oxygen Saturation--Inhaled Oxygen Concentration--Pvxada91.3 kg (144 lb)03/29/2025 11:20 AM ESTHeight--Body Mass Index23.2407 3:57 PM EDTdocumented in this encounter Progress Notes * VANGIE Resendiz - 03/29/2025 11:20 AM EST Reason for Appointment: Patient ID: Nathaniel Lanza is a 19 y.o. female who presents for No chief complaint on file. Patient presents today for Return OB appointment. MEDICATIONS Current Outpatient Medications Medication Instructions Prenat w/o H-YeCpj-Wfdc-FA-DHA (TriStart DHA) 31-0.6-0.4-200 MG capsule 1 capsule, [...] Appearance: Normal appearance. She is normal weight. HENT: Head: Normocephalic. Cardiovascular: Rate and Rhythm: Normal rate. Pulses: Normal pulses. Pulmonary: Effort: Pulmonary effort is normal. Breath sounds: Normal breath sounds. Abdominal: Palpations: Abdomen is soft. Musculoskeletal: General: Normal range of motion. Neurological: General: No focal deficit present. Mental Status: She is alert and oriented to person, place, and time. Psychiatric: Mood and Affect: Mood normal. Behavior: Behavior normal. Thought Content: Thought content normal. Judgment: Judgment normal. Vitals and nursing note reviewed. Vitals: Estimated body mass index is 22.27 kg/m?? as calculated from the following: Height as of 10/28/22: 5' 6 . Weight as of 03/12/25: 138 lb. BP: Patient's last menstrual period was 08/13/2024. ASSESSMENT & PLAN ICD-10-CM 1. Third trimester ([facility]) Z34.93 2. 30 weeks gestation of ([facility]) Z3A.30 POCT urinalysis dipstick manually resulted Assessment/Plan Return OB: Patient presents today for a routine obstetrics appointment. Patient is currently 30w2d . Patient states she is doing well but has complaints of being tired due to current . Patient has verbalizes frequent movement. labor precautions was discussed/given and patient was instructed to perform kick counts three times a day. Orders Placed This Encounter Procedures POCT urinalysis dipstick manually resulted Follow Up: Patient is to return to office in 2 week for routine OB appointment. Documented by Mikayla Moran CST on behalf of: VANGIE Resendiz documented in this encounter Plan of Treatment DateTypeDepartmentCare Team (Latest Contact Info)Cvqawndexki14/29/2025 9:50 AM ESTRoutine [facility] [address] [place] [address] Kassandra Gipson PA [address] [facility] [address] [facility] [place] [address] documented as of this encounter Visit Diagnoses Diagnosis Third trimester ([facility]) state, incidental 30 weeks gestation of ([facility]) Heartburn during in third trimester ([facility]) documented in this encounter Care Teams Team MemberRelationshipSpecialtyStart DateEnd Date João Pham MD [address] [place] [address], [address] [place] [address] PCP - GeneralFamily Medicine10/28/22documented as of this encounter
--- OUTSIDE RECORDS SUMMARY | 2025-04-11 12:56 | XMS_ITS | Encounter Summary ---
Author Organization [facility] Address [address] [place] [address] Care Team Providers Care Desilverizer Name Role Phone João Pham MD Primary Care Provider [phone] Reason for Visit * ReasonOnset DateCommentsError (VOID this visit)03/26/2025 Encounter Details DateTypeDepartmentCare Team (Latest Contact Info)Vghlstcbfaz80/08/2025Telephone [facility] [address] [place] [address] Syed Meza DO [address] [facility] [address] [place], [place] [id number] Error (VOID this visit) Social History Tobacco UseTypesPacks/DayYears UsedDateSmoking Tobacco: NeverSmokeless Tobacco: NeverAlcohol UseStandard Drinks/WeekCommentsNever0 (1 standard drink = 0.6 oz pure alcohol)Estimated Date of EpuswqidGnuzblfrAci22/17/2026Based on UltrasoundSex and Gender InformationValueDate RecordedSex Assigned at BirthNot on fileLegal WcfWyyljj08/15/2023 6:50 PM EDTGender IdentityNot on fileSexual OrientationNot on filedocumented as of this encounter Plan of Treatment DateTypeDepartmentCare Team (Latest Contact Info)Abjmstbhznk79/29/2025 9:50 AM ESTRoutine [facility] [address] [place] [address] Kassandra Gipson PA [address] [place] [address] [place] [address] documented as of this encounter Visit Diagnoses Diagnosis 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 ([facility]) documented in this encounter Care Teams Team MemberRelationshipSpecialtyStart DateEnd Date João Pham MD [address] [place] [address], [address] [place] [address] PCP - GeneralFamily Medicine10/28/22documented as of this encounter
--- OUTSIDE RECORDS SUMMARY | 2025-04-11 12:56 | XMS_ITS | Clinical Summary ---
Author Organization [facility] Address [address] [place] [address] Care Team Providers Care Access Assoc Name Role Phone João Pham MD Primary Care Provider [phone] Allergies No known active allergies Medications MedicationSigDispense QuantityRefillsLast FilledStart DateEnd DateStatus Prenat w/o S-LvXjk-Tdlg-FA-DHA (TriStart DHA) 31-0.6-0.4-200 MG capsule Take 1 capsule by mouth in the morning.5Active omeprazole (PriLOSEC) [address] capsule Indications:Gastroesophageal Reflux Disease,HeartburnTake 1 capsule (20 mg) by mouth in the morning. Take before meals. Do not crush or chew. 30 capsule 6Active Encounters DateTypeDepartmentCare ZxlfWzconznwqfj96/22/2025Telephone [facility] [address] [place] [address] [place] [phone] Miya Madrigal MA 03/30/2025linisync Result Encounter [facility] External Department Unsolicited Kassandra Gipson PA 03/29/2025 11:20 AM ESTRoutine [facility] [address] [place] [address] [place] [address] Kassandra Gipson PA Third trimester ([facility]); 30 weeks gestation of ([facility]); Heartburn during in third trimester ([facility])03/29/2025 10:30 AM EST Ancillary Procedure [facility] [address] [place] [address] size inconsistent with dates ([facility])03/26/2025Telephone [facility] [address] [place] [phone] Cristin Meza DO Error (VOID this visit)03/12/2025 10:50 AM ESTRoutine [facility] [address] [place] [place] [address] Cristin Meza DO size inconsistent with dates ([facility]) (Primary Dx); Second trimester ([facility]); 27 weeks gestation of ([facility]); 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 ([facility]) 03/12/2025amboo flowsheet [facility] [address] [place] [place] [phone] Cristin Meza DO 02/07/2025 11:20 AM EDTRoutine [facility] [address] [place] [place] [address] Kassandra Gipson PA Second trimester ([facility]); 23 weeks gestation of ([facility]); Diabetes mellitus vbzsfyvuj31/22/2025amboo flowsheet [facility] [address] [place] [address] Kassandra Gipson PA 02/06/20259193Yptdnh68/15/2025bstract [facility] [address] [place] [place] [address] Cristin Meza, 01/31/2025Telephone [facility] [address] [place] [place] [address] Cristin Meza, 01/22/2025Telephone [facility] [address] [place] [place] [address] Miya Madrigal MA 01/18/2025bstract [facility] [address] [place] [place] [phone] Janelle Trejo MA 01/17/2025External Result Encounter [facility] [address] [place] [place] [address] Cristin Meza DO 01/16/2025 9:30 AM EDTAncillary Procedure [facility] [address] [place] [address] from Last 3 Months Family History YpwdxpwxXadiHnqetoVobcqgvwFtsxpbm3JtkttAdysalAhlavYdxkmmLcvwlEcdvvw8Xtgba Social History Tobacco UseTypesPacks/DayYears UsedDateSmoking Tobacco: NeverSmokeless Tobacco: Never Tobacco Cessation:Counseling Given: Not Answered Alcohol UseStandard Drinks/WeekCommentsNever0 (1 standard drink = 0.6 oz pure alcohol)Estimated Date of YksfinspVgilysxhFbi62/17/2026ased on UltrasoundSex and Gender InformationValueDate RecordedSex Assigned at BirthNot on fileLegal PjcSfxyhc09/15/2023 6:50 PM EDTGender IdentityNot on fileSexual OrientationNot on file Last Filed Vital Signs Vital SignReadingTime TakenCommentsBlood Nrrdvhkl549/6003/29/2025 11:20 AM EST Ckmxv342410/28/2022 3:57 PM FZKIxmbjzwmkvi37.6 ??C (97.8 ??F)10/28/2022 3:57 PM EDTRespiratory Rate--Oxygen Oogryndfxu20%10/28/2022 3:57 PM EDTInhaled Oxygen Concentration--Ctbqsd18.3 kg (144 lb)03/29/2025 11:20 AM MGUQepift113.6 cm (5' 6 )10/28/2022 3:57 PM EDTBody Mass Index23.24010/28/2022 3:57 PM EDT Plan of Treatment DateTypeDepartmentCare Team (Latest Contact Info)Wciauixlups40/29/2025 9:50 AM ESTRoutine [facility] [address] [place] [place] [address] Kassandra Gipson PA [address] [place] [address] Procedures Procedure NamePriorityDate/TimeAssociated DiagnosisCommentsALL MISCELLANEOUS RSQNXshzels30/12/2025 9:07 AM EST GLUCOSE 1 FYMLHebzmhl30/12/2025 9:07 AM EST ALL CBC WITH AUTO HNCOWkxeqwh63/12/2025 9:07 AM EST US OB FOLLOW UP TRANSABDOMINAL EZXAKDLWQsjjkyd95/11/2025 11:01 AM EST size inconsistent with dates ([facility]) POCT URINALYSIS IXBQEOSRClckogt37/24/2025 11:27 AM EST Second trimester ([facility]) POCT URINALYSIS ABWMAAVEWpkpdry44/22/2025 12:01 PM EDT Second trimester ([facility]) 23 weeks gestation of ([facility]) US OB 14+ WEEKS ANATOMY SCAN01/17/2025 12:19 PM EDT US OB 14+ WEEKS ANATOMY DXHNBshunnc34/30/2025 10:30 AM EDT Screening, , for anatomic survey ([facility]) from Last 3 Months Results * GLUCOSE 1 HOUR (03/30/2025 9:07 AM EST)ComponentValueRef RangeTest Method Analysis TimePerformed AtPathologist SignatureGLUCOSE 1 CUKF995<130 mg/dLTBH Specimen (Source)Anatomical Location / LateralityCollection Method / Volume Collection TimeReceived Time03/30/2025 9:07 AM EST03/30/2025 9:12 AM EST Narrative [facility] - 03/30/2025 10:25 AM EST Authorizing ProviderResult TypeResult StatusAmy Brandan BONDS BLOOD ORDERABLES Final ResultPerforming OrganizationAddressCity/State/ZIP CodePhone Number [facility] * ALL MISCELLANEOUS TEST (03/30/2025 9:07 AM EST)ComponentValueRef RangeTest MethodAnalysis TimePerformed AtPathologist SignatureMISCELLANEOUS TESTCOMMENT. TBHComment: Test Ordered: [id number] Antibody Screen Antibody Screen ?Note: ? CB ?? See Final Results ?? Reference Range: Negative Antibody Screen ?Positive ?[A ] ?CB ?? Reference Range: Negative Antibody Id. #1 ?Anti-M ?CB ?? Reference Range: . Efren Titer #1 ?Comment ? CB ?? Reference Range: . The antibody is too weak to titer at this time. If a numerical titer result has been reported, please note that this result is the reciprocal value of titer results formerly reported as 1:2,1:4, 1:8, etc. ??These results are now reported as 2, 4, 8, etc. The [employer] has recommended this change in titer reporting formats to simply reflect the reciprocal value of the titer. Antibody Id. #2 ?PONY ROLL FINISHER ?NOLAB ?? Reference Range: . Efren Titer #2 ?PONY ROLL FINISHER ?NOLAB ?? Reference Range: . Performed at: ??CB - [facility] [address] ??[id number] Automatic Shirring Machine Operator: Moshe Mcgarry PhD, Phone: ??[phone] Specimen (Source)Anatomical Location / LateralityCollection Method / Volume Collection TimeReceived Time03/30/2025 9:07 AM EST03/30/2025 9:12 AM EST Narrative [facility] - 04/02/2025 1:08 PM EST [id number] Antibody Screen Authorizing ProviderResult TypeResult StatusCorey Susana DOCLINISYNCFinal Result Performing OrganizationAddressCity/State/ZIP CodePhone Number [facility] * (ABNORMAL) ALL CBC WITH AUTO DIFF (03/30/2025 9:07 AM EST)ComponentValueRef RangeTest MethodAnalysis TimePerformed AtPathologist SignatureTBH WBC13.4(H) 4.0 - 11.0 10 3/uLTBHTBH RBC3.66(L)4.20 - 5.40 10 6/uLTBHTBH HGB10.5(L)12.0 - 16.0 g/dLTBHTBH HCT32.8(L)36.0 - 48.0 %TBHTBH MCV89.681.0 - 99.0 fLTBHTBH MCH 28.726.7 - 34.0 pgTBHTBH MCHC32.029.9 - 35.2 g/dLTBHTBH RDW12.511.0 - 15.0 % TBHTBH OVP521420 - 450 10 3/uLTBHTBH MPV12.09.5 - 13.5 fLTBHNEUTROPHILS PERCENT AUTO67.843.0 - 75.0 %TBHLYMPHOCYTES PERCENT AUTO22.620.5 - 60.0 %TBH MONOCYTES PERCENT AUTO6.11.7 - 12.0 %TBHTBH EO %1.00.9 - 7.0 %TBHBASOPHILS PERCENT AUTO0.40.2 - 2.0 %TBHIMMATURE GRANULOCYTES PCT AUTO2.1(H)0.0 - 0.5 % TBHNEUTROPHILS ABSOLUTE AUTO9.1(H)1.4 - 6.5 10 3/uLTBHLYMPHOCYTES ABSOLUTE AUTO3.01.2 - 3.8 10 3/uLTBHMONOCYTES ABSOLUTE AUTO0.80.3 - 0.8 10 3/uLTBHTBH EO #0.10.0 - 0.7 10 3/uLTBHBASOPHILS ABSOLUTE AUTO0.10.0 - 0.1 10 3/uLTBH IMMATURE GRANULOCYTES ABS AUTO0.28(H)0.00 - 0.03 10 3/uLTBHSpecimen (Source) Anatomical Location / LateralityCollection Method / VolumeCollection Time Received Time03/30/2025 9:07 AM EST03/30/2025 9:12 AM EST Narrative [facility] - 03/30/2025 10:18 AM EST Authorizing ProviderResult TypeResult StatusAmy Mentone PACLINISYNCFinal Result Performing OrganizationAddressCity/State/ZIP CodePhone Number [facility] * OB follow up transabdominal approach (03/29/2025 11:01 [...] BY: Angel Yanes DO Authorizing ProviderResult TypeResult Statushouston Patel NPIM OB US PROCEDURESFinal Result * POCT urinalysis dipstick manually resulted (03/12/2025 11:27 AM EST) Only the most recent of2 resultswithin the time period is included. ComponentValueRef RangeTest MethodAnalysis TimePerformed AtPathologist Signature Color, UALight YellowClarity, UACloudyGlucose, UANegativeNegative - 2000(110) ++++ mg/dLBilirubin, UANegativeNegative - 4(70) +++ mg/dLKetones, UANegative Negative - 160(16) ++++ mg/dLSpec Grav, UA1.0051 - 1.03Blood, UANegativeNegative - 50 Rishabh/mcLpH, UA7.05 - 9Protein, UANegativeNegative - 2000(20) ++++ mg/dL Urobilinogen, UA1.00.2 - 12 mg/dLLeukocytes, UANegativeNegative - 500+++ Ronald/mcL Nitrite, UANegativeNegative - PositiveSpecimen (Source)Anatomical Location / LateralityCollection Method / VolumeCollection TimeReceived CwmtJllqm85/24/2025 11:27 AM EST Narrative Authorizing ProviderResult TypeResult StatusCristin Meza [facility]ARE TEST ENTER/EDIT ORDERABLESFinal Result * US OB 14+ weeks anatomy scan (01/17/2025 12:19 PM EDT) Only the most recent of2 resultswithin the time period is included. Anatomical RegionLateralityModalityBodyUltrasoundSpecimen (Source)Anatomical Location / LateralityCollection Method / VolumeCollection TimeReceived Time 01/17/2025 12:19 PM EDT Narrative 01/17/2025 12:19 PM EDT THIS EXAM WAS PERFORMED AT [facility] NAME: ??PATRICIA POE : 2005 SEX: F Accession Number: [id number] ORDERING PHYSICIAN: OSIEL LAWRENCE REFERRING PHYSICIAN: CRISTIN MEZA Coding Procedures ? 62996: Ultrasound, uterus, real time with image documentation, and maternal evaluation ? plus detailed anatomic examination, transabdominal approach;single or first gestation ? 62773: Ultrasound, uterus, real time with image documentation, transvaginal Indication Screening for Anatomic Survey, Supervision of high risk - Anti M. History OB History ? 1. Para 0 ? [id number] Current Cell free DNA ?Low Risk analysis [...] Hadlock Humerus ?33.3 mm 21w 2d 88% Mj HC / AC ?1.17 ? 55% Hadlock EFW ?353 g ?61% Hadlock EFW (lb) ? 0 lb EFW (oz) ? 12 oz EFW by: ?Hadlock (KML-IX-FB-FL) Extended Tibia ??30.1 mm 21w 0d 82% Jm Post Doc Fellowship ? 4.8 mm CM ? 4.4 mm [...] view. RVOT view. LVOT view. 3-vessel view. 3-riyvcr-biassvt view. Situs. Aortic arch view. ? Bicaval [...] MVP measures 3.5 cm. Recommendations Please see [facility] documentation from today. Subsequent follow up or other follow up as clinically determined by primary OB provider unless otherwise specified by [facility]. Results forwarded to ordering provider so they can follow up with the patient as necessary. The copy-to physician of this order is CRISTIN Romero The ordering physician of this order is OSIEL Dye Procedure Note Radiology, Radiologist, MD - 01/17/2025 THIS EXAM WAS PERFORMED AT [facility] NAME: PATRICIA POE : 2005 SEX: F Accession Number: [id number] ORDERING PHYSICIAN: OSIEL LAWRENCE REFERRING PHYSICIAN: CRISTIN MEZA Coding Procedures 64402: Ultrasound, uterus, real time with image documentation, and maternal evaluation plus detailed anatomic examination, transabdominalapproach;single or first gestation 19741: Ultrasound, uterus, real time with imagedocumentation, transvaginal Indication Screening for Anatomic Survey, Supervision of high risk - AntiM. History OB History 1. Para 0 [id number] Current Cell free DNA Low Risk analysis [...] EFW (oz) 12 oz EFW by: Hadlock (ANU-EB-CV-FL) Extended Tibia 30.1 mm 21w 0d 82% Jm Post Doc Fellowship 4.8 mm CM 4.4 mm 29% Nicolaides [...] view. RVOT view. LVOT view. 3-vessel view. 9-qwmhrz-ugxupmc view. Situs. Aortic arch view. Bicaval view. [...] copy-to physician of this order is CRISTIN oRmero The ordering physician of this order is OSIEL Dye Authorizing ProviderResult TypeResult StatusCorey Susana JOHNSON OB US PROCEDURES Final Result from Last 3 Months Insurance Care Teams Team MemberRelationshipSpecialtyStart DateEnd Date João Pham MD [address] [place] [address], [address] [place] [address] [facility]10/28/22
--- OUTSIDE RECORDS SUMMARY | 2025-04-11 12:56 | XMS_ITS | Clinical Summary ---
Author Organization [facility] [employer] [facility] tem Address [id number] [address] [place] [address] Care Team Providers Care Audit Practice Intern Name Role Phone João Pham MD Primary Care Provider [phone] Allergies No known active allergies Medications MedicationSigDispense QuantityRefillsLast FilledStart DateEnd DateStatus 37-ulpa-emlqol 9-dha 31 mg iron- 1 mg-200 mg capsule Indications:Patient desires pregnancyTake 1 capsule by mouth in the morning. 90 capsule 5Active ondansetron ODT (ZOFRAN ODT) 4 mg disintegrating tablet Dissolve 1 tablet (4 mg total) on tongue every 8 (eight) hours as needed for nausea for up to 10 doses. 10 tablet 5Active Additional Information Patient not taking.Reported on 01/17/2025 Active Problems ProblemNoted DateDiagnosed DateAnti-M isoimmunization affecting in first pgypyrxiq33/01/2025S/P tonsillectomy and xllfnuzfhtlqc89/28/2019 Peritonsillar cntbrpp0008/28/2018Left upper quadrant pain01/17/2018Other jaiqvvchljul11/01/2018Non-intractable vomiting with rutghz4801/17/2018Abnormal weight loss01/17/2018Abdominal pain01/12/2018Estimated Date of Delivery PepshpkrJwx44/17/2026Based on Ultrasound Encounters DateTypeDepartmentCare ToyaOtkyqbqbdcz41/01/2025 11:00 AM EDTOffice Visit Maternal- Medicine at [facility] [address] [place] [phone] Osiel Lawrence MD 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) 01/17/2025 9:26 AM EDT - 01/17/2025 11:59 PM EDTHospital Encounter [facility] [address] [place] [phone] Screening, , for anatomic survey Discharge Disposition: Home01/15/2025Travelfrom Last 3 Months Immunizations ImmunizationAdministration DatesNext YifBOqQ9309/04/2008,09/03/2004,2003, 2003,2003HPV Piwjnfxdtdho70/15/2017,03/19/2016,01/14/2016Hepatitis A 12/01/2016,03/19/2016Hepatitis B012/03/2003,2003,2003,2003HiB 06/04/2004,2003,2003,2003IPV09/04/2008,2003,2003, 2003Influenza, Qgsomrimglu60/16/2009,02/04/2009MMR09/04/2008,06/04/2004 Meningococcal Sllhlmgcw29/25/2020,01/14/2016Pneumococcal Zhpqrykwr71/18/2005, 06/04/2004,04/30/2004,2003TST - PPD Kaity Test12/04/2019,11/27/2019Tdap 05/20/2022,01/04/20163539Ittzdyfly43/21/2009,09/03/2004 Family History Medical HistoryRelationNameCommentsCancerPaternal AuntCancerPaternal Grandfather RelationNameStatusCommentsFatherAliveMotherAlivePaternal Auntbreast cancer Paternal Grandfathergreat grandfather, prostate cancer Social History Tobacco UseTypesPacks/DayYears UsedDateSmoking Tobacco: NeverSmokeless Tobacco: Never Tobacco Cessation:Counseling Given: Not Answered Alcohol UseStandard Drinks/WeekCommentsNot Currently0 (1 standard drink = 0.6 oz pure alcohol)occasionallyAUDIT-CAnswerDate RecordedFrequency of Alcohol PbfehgrpucgIpzgj89/26/2018Average Number of DrinksNot on file01/12/2018Frequency of Binge DrinkingNot on file01/12/2018PHQ-2AnswerDate RecordedTotal Score0 1ChildcareAnswerDate MllslvgtVcleuigouQaumnsh89/12/2019EmploymentAnswer Date YcmrvfplWelcdggaykNuprzpk00/12/2019Hunger ScreeningAnswerDate Recorded Within the past 12 months we worried whether our food would run out before we got money to buy more.Never True01/17/2025Within the past 12 months the food we bought just didn't last and we didn't have money to get more.Never True 01/17/2025Purpose - LifeAnswerDate RecordedPurpose and direction in lifeUnknown 1Estimated Date of PwxqxtetLbwersrnDhy50/17/2026Based on UltrasoundSex and Gender InformationValueDate RecordedSex Assigned at BirthNot on fileLegal ZdtXqiiew25/01/2015 10:38 PM EDTGender IdentityNot on fileSexual OrientationNot on file Last Filed Vital Signs Vital SignReadingTime TakenCommentsBlood Oncomxwy276/7710 9:47 AM EDT Grnmf0063 9:47 AM MBQXvbndngsyvp83.9 ??C (98.4 ??F)12/01/2024 4:30 PM EDTRespiratory Iutj3634 4:30 PM EDTOxygen Ayhbpdpdgw93%12/01/2024 5:15 PM EDTInhaled Oxygen Concentration--Khgild08 kg (130 lb)01/17/2025 9:47 AM EDT Asbuzx672.6 cm (5' 5.98 )01/17/2025 9:47 AM EDTBody Mass Index20.9910 9:47 AM EDT Plan of Treatment Health MaintenanceDue DateLast DoneCommentsChlamydia Fqpnwjdpe85/12/2004 Depression Eeeukzeec13/12/2016Pap Smear02/12/2025Influenza Kepprpp3312/18/2024 04/03/2009, 02/04/2009RSV ( or age 60+ yrs) (1 - Risk 1-dose series)04/10/2025dult BMI Ricfzbquu51Tobacco Screening DTaP,Tdap and Td Vaccines (8 - Td or Tdap)05/20/2032 05/20/2022, 01/04/2016, 09/04/2008, Additional history exists Medical Devices Not on file Procedures Procedure NamePriorityDate/TimeAssociated DiagnosisCommentsUS [facility] COMPREHENSIVE ANATOMIC BEUTHKWiftaxz71/01/2025 11:46 AM EDT Screening, , for anatomic survey from Last 3 Months Results * [facility] COMPREHENSIVE ANATOMIC SURVEY (01/17/2025 11:46 AM EDT)Anatomical RegionLateralityModalityOB-GYNUltrasoundSpecimen (Source)Anatomical Location / LateralityCollection Method / VolumeCollection TimeReceived Time01/17/2025 9:58 AM EDT Narrative 01/17/2025 12:19 PM EDT NAME: ??MYLA POE : 2005 SEX: F Accession Number: [id number] ORDERING PHYSICIAN: OSIEL LAWRENCE REFERRING PHYSICIAN: CRISTIN SHUKLA Coding Procedures ? 52394: Ultrasound, uterus, real time with image documentation, and maternal evaluation ? plus detailed anatomic examination, transabdominal approach;single or first gestation ? 66245: Ultrasound, uterus, real time with image documentation, transvaginal Indication Screening for Anatomic Survey, Supervision of high risk - Anti M. History OB History ? 1. Para 0 ? [id number] Current Cell free DNA ?Low Risk analysis Maternal Assessment Physical Exam ??Height 165 cm, 5 ft 5 in. Weight 59 kg, 130 lb. Initial weight 54 kg, 120 lb. BMI 21.63 kg/m??. Initial ? BMI 19.97 kg/m??. Weight gain 5 kg, 10 lb Method [...] (oz) ? 12 oz EFW by: ?Hadlock (UNE-ED-WL-FL) Extended Tibia ??30.1 mm 21w 0d 82% Jm Trap Operator ? 4.8 mm CM ? 4.4 [...] view. RVOT view. LVOT view. 3-vessel view. 7-zkllma-ydvuain view. Situs. Aortic arch view. ? Bicaval [...] 2.6 cm x 1.5 cm. Vol 7.3 cm?? Cul de Sac ? Visualized. No free [...] primary OB provider unless otherwise specified by [facility]. Results forwarded to ordering provider so they can follow up with the patient as necessary. Procedure Note Osiel Lawrence MD - 01/17/2025 NAME: MYLA POE : 2005 SEX: F Accession Number: [id number] ORDERING PHYSICIAN: OSIEL LAWRENCE REFERRING PHYSICIAN: CRISTIN SHUKLA Coding Procedures 88705: Ultrasound, uterus, real time with image documentation, and maternal evaluation plus detailed anatomic examination, transabdominalapproach;single or first gestation 50173: Ultrasound, uterus, real time with imagedocumentation, transvaginal Indication Screening for Anatomic Survey, Supervision of high risk - AntiM. History OB History 1. Para 0 [id number] Current Cell free DNA Low Risk analysis Maternal Assessment Physical Exam Height 165 cm, 5 ft 5 in. Weight 59 kg, 130 lb. Initialweight 54 kg, 120 lb. BMI 21.63 kg/m??. Initial BMI 19.97 kg/m??. Weight gain 5 kg, 10 lb Method [...] EFW (oz) 12 oz EFW by: Hadlock (POW-YD-MF-FL) Extended Tibia 30.1 mm 21w 0d 82% Jm Trap Operator 4.8 mm CM 4.4 mm 29% [...] view. RVOT view. LVOT view. 3-vessel view. 6-nzihem-twajiim view. Situs. Aortic arch view. Bicaval view. [...] 2.5 cm x 2.0 cm. Vol 5.5 cm?? Corpus luteum: cystic with fine diffuse internal echoes Left Ovary Visualized Size 3.5 cm x 2.6 cm x 1.5 cm. Vol 7.3 cm?? Cul de Sac Visualized. No free fluid [...] MVP measures 3.5 cm. Recommendations Please see [facility] documentation from today. Subsequent follow up or other follow up as clinically determined byprimary OB provider unless otherwise specified by [facility]. Results forwarded to ordering provider so they can follow up with thepatient as necessary. Authorizing ProviderResult TypeResult StatusOsiel Lawrence MDIMG US ORDERABLES Final Result from Last 3 Months Insurance MemberSubscriberPlan / Payer (Effective 2023-Present)Name:Nathaniel Lanza Relation to Subscriber:ChildName:Irina Lanza Date of :1980 Address: [address] [place] [id number] Payer ID:[id number] (NAIC) Type:Not on file Address: [address] [place] [phone] Advance Directives * Full Code (Latest Code Status on File) Date ActivatedDate InactivatedComments01/12/2018 1:32 PM01/13/2018 8:22 PM Care Teams Team MemberRelationshipSpecialtyStart DateEnd Date João Pham MD [address] [place] [address], [address] [place] [id number] PCP - GeneralPediatrics01/05/18
--- OUTSIDE RECORDS SUMMARY | 2025-04-11 12:57 | XMS_ITS | Encounter Summary ---
Author Organization [facility] Address [address] [place] [address] Care Team Providers Care Anesthesiology Physician Assistant Name Role Phone João Pham MD Primary Care Provider [phone] Encounter Details DateTypeDepartmentCare Team (Latest Contact Info)Fciapcqmfsh87/22/2025Telephone [facility] [address] [place] [address] Miya Madrigal MA [address] [place] [address] Social History Tobacco UseTypesPacks/DayYears UsedDateSmoking Tobacco: NeverSmokeless Tobacco: NeverAlcohol UseStandard Drinks/WeekCommentsNever0 (1 standard drink = 0.6 oz pure alcohol)Estimated Date of AwbskwdnAvnzqirwXvp54/17/2026Based on UltrasoundSex and Gender InformationValueDate RecordedSex Assigned at BirthNot on fileLegal QtcTdhzhf30/15/2023 6:50 PM EDTGender IdentityNot on fileSexual OrientationNot on filedocumented as of this encounter Miscellaneous Notes * Telephone Encounter - Miya Madrigal MA - 04/09/2025 10:31 AM EST Pt called she has been having contractions every 2-5 minutes apart on and again on Wednesday. Pt did not go to the hospital. I advised pt if contractions are close every 2 minutes she is to head to the nearest hospital if possible. We do not want her to go into labor at home or have pretermlabor at home. PVU. I did advise pt that I will ask Dr. Meza what she should do. PVU. I asked Dr. Meza about the above conversation and he said to make sure pt is hydrating and to rest. Pt may be overdoing it and may need more fluids. However, if the contractions are very painful and close she isto go to the hospital and get seen. I called pt and relayed what Dr. Meza discussed w/me. PVU. documented in this encounter Plan of Treatment DateTypeDepartmentCare Team (Latest Contact Info)Vviqgkwpenp47/29/2025 9:50 AM ESTRoutine [facility] [address] [place] [address] Kassandra Gipson PA [address] [place] [address] documented as of this encounter Visit Diagnoses Not on filedocumented in this encounter Care Teams Team MemberRelationshipSpecialtyStart DateEnd Date João Pham MD [address] [place] [address], [address] [place] [address] PCP - GeneralFamily Medicine10/28/22documented as of this encounter
--- OUTSIDE RECORDS SUMMARY | 2025-04-11 12:57 | XMS_ITS | Clinical Summary ---
Author Organization [facility] Address [address] [place] [address] Care Team Providers Care Primary Care Physician Name Role Phone João Pham MD Primary Care Provider + Social History Tobacco UseTypesPacks/DayYears UsedDateSmoking Tobacco: Never Assessed CommentsUnknownSex and Gender InformationValueDate RecordedSex Assigned at Not on fileLegal KdeGpqsio29/23/2020 9:05 AM EDTGender IdentityNot on fileSexual OrientationNot on file Plan of Treatment Not on file Medical Devices Not on file Care Teams Team MemberRelationshipSpecialtyStart DateEnd Date oJão Pham MD [address] [address] PCP - GeneralInternal Xjlpppmn17/24/20
--- OUTSIDE RECORDS SUMMARY | 2025-04-11 12:57 | XMS_ITS | Encounter Summary ---
Author Organization [facility] Address [address] [place] [address] Care Team Providers Care Automobile Rental Clerk Name Role Phone João Pham MD Primary Care Provider [phone] Encounter Details DateTypeDepartmentCare Team (Latest Contact Info)Zgiukiikmuy44/12/2025linisync Result Encounter [facility] External Department Unsolicited Kassandra Gipson PA [address] [facility] [address] [place], [place] [id number] Social History Tobacco UseTypesPacks/DayYears UsedDateSmoking Tobacco: NeverSmokeless Tobacco: NeverAlcohol UseStandard Drinks/WeekCommentsNever0 (1 standard drink = 0.6 oz pure alcohol)Estimated Date of YjbfyhcwCmbvelerKyy92/17/2026ased on UltrasoundSex and Gender InformationValueDate RecordedSex Assigned at BirthNot on fileLegal QzqOzszmy54/15/2023 6:50 PM EDTGender IdentityNot on fileSexual OrientationNot on filedocumented as of this encounter Plan of Treatment DateTypeDepartmentCare Team (Latest Contact Info)Nqdfmvpuwbu03/29/2025 9:50 AM ESTRoutine [facility] [address] [place] [address] Kassandra Gipson PA [address] [facility] [address] [place] [id number] documented as of this encounter Procedures Procedure NamePriorityDate/TimeAssociated DiagnosisCommentsGLUCOSE 1 HOURRoutine 03/30/2025 9:07 AM EST ALL MISCELLANEOUS GWZILseqczd84/12/2025 9:07 AM EST ALL CBC WITH AUTO ZXEPSkroadn42/12/2025 9:07 AM EST documented in this encounter Results * ALL MISCELLANEOUS TEST (03/30/2025 9:07 AM EST)ComponentValueRef RangeTest MethodAnalysis TimePerformed AtPathologist SignatureMISCELLANEOUS TESTCOMMENT. TBHComment: Test Ordered: [id number] Antibody Screen Antibody Screen ?Note: ? CB [...] reported as 2, 4, 8, etc. The [employer] has recommended this change in titer reporting formats to simply reflect the reciprocal value of the titer. Antibody Id. #2 ?MAT REPAIRER ?NOLAB ?? Reference Range: . Efren Titer #2 ?MAT REPAIRER ?NOLAB ?? Reference Range: . Performed at: ??CB - [facility] [address] [place], [place] ??[id number] [employer] Cdl A Driver: Moshe Mcgarry PhD, Phone: ??[phone] Specimen (Source)Anatomical Location / LateralityCollection Method / Volume Collection TimeReceived Time03/30/2025 9:07 AM EST03/30/2025 9:12 AM EST Narrative [facility] - 04/02/2025 1:08 PM EST [id number] Antibody Screen Authorizing ProviderResult TypeResult StatusCorey Susana DOCLINISYNCFinal Result Performing OrganizationAddressCity/State/ZIP CodePhone Number [facility] * GLUCOSE 1 HOUR (03/30/2025 9:07 AM EST)ComponentValueRef RangeTest Method Analysis TimePerformed AtPathologist SignatureGLUCOSE 1 QRBU480<130 mg/dLTBH Specimen (Source)Anatomical Location / LateralityCollection Method / Volume Collection TimeReceived Time03/30/2025 9:07 AM EST03/30/2025 9:12 AM EST Narrative [facility] - 03/30/2025 10:25 AM EST Authorizing ProviderResult TypeResult StatusAmy [place] PALAB BLOOD ORDERABLES Final ResultPerforming OrganizationAddressCity/State/ZIP CodePhone Number [facility] * (ABNORMAL) ALL CBC WITH AUTO DIFF (03/30/2025 9:07 AM EST)ComponentValueRef RangeTest MethodAnalysis TimePerformed AtPathologist SignatureTBH WBC13.4(H) 4.0 - 11.0 10 3/uLTBHTBH RBC3.66(L)4.20 - 5.40 10 6/uLTBHTBH HGB10.5(L)12.0 - 16.0 g/dLTBHTBH HCT32.8(L)36.0 - 48.0 %TBHTBH MCV89.681.0 - 99.0 fLTBHTBH MCH 28.726.7 - 34.0 pgTBHTBH MCHC32.029.9 - 35.2 g/dLTBHTBH RDW12.511.0 - 15.0 % TBHTBH OQB173754 - 450 10 3/uLTBHTBH MPV12.09.5 - 13.5 [...] 10:18 AM EST Authorizing ProviderResult TypeResult StatusAmy [place] PACLINISYNCFinal Result Performing OrganizationAddressCity/State/ZIP CodePhone Number [facility] documented in this encounter Visit Diagnoses Not on filedocumented in this encounter Care Teams Team MemberRelationshipSpecialtyStart DateEnd Date João Pham MD [address] [place] [address], [address] [place] [address] PCP - GeneralFamily Medicine10/28/22documented as of this encounter
[2025-04-11 13:14] VITALS: BP 124/80; PULSE 81
[2025-04-11 13:24] LABS: Glucose Urine UA NEGATIVE (NEGATIVE)
[2025-04-11 13:33] LABS: Cast Seen? NONE SEEN #/LPF (NONE SEEN); Crystals Seen? Seen #/HPF (None Seen); Urine Culture Indicated YES-FRMC
== END 2025-04-11 14:00 | disposition home or self-care (01) ==
LOC: FBCO 12:54 → FBC 12:56
PROVIDERS: PCP Internal Medicine; Visit Provider Obstetrics & Gynecology
DX: O26.893 Other specified pregnancy related conditions, third trimester (principal); Z3A.32 32 weeks gestation of pregnancy
CPT/HCPCS: 81001; 87086

== ENCOUNTER 2025-04-17 12:59 | Outpatient (OUT) | payer BC, SELFPAY ==
--- OUTSIDE RECORDS SUMMARY | 2025-04-11 19:17 | XMS_ITS | Continuity of Care Document ---
Author Organization [facility] Address [address] [place] [address] Phone Care Team Providers Care Sr. Social Media & Mobile Manager Name Role Phone Syed Meza DO Attending Provider Care Teams Patient Care Team Team Status: Active Member Role/Relationship Status Dates João Pham MD Primary Care Provider Active Patient Care Team Team Status: Inactive Member Role/Relationship Status Dates Syed Meza DO Attending Provider Active Start : April 11, 2025 End: April 11, 2025 Allergies, Adverse Reactions, Alerts Allergen Type Severity Reaction Last Updated Verified Status No Known Allergies Allergy Unknown October 22, 2022 2:31pmYesActive Social History Smoking Status Status Start Date End Date Date of Observa tion Smokes tobacco daily (finding) October 23, 2022 5:23pm Observation Status Observation Response Date of Response Legal Sex Female (finding) [facility] 2005 Family History Relationship Condition Age at Onset Recorded Date/T francis father Sleep apnea Unknown Problems Inactive/Resolved Problems Problem Diagnosis/Recorded Date Onset Date Status C omments Major depressive disorder, recurrent, moderate October 23, 2022 8:16pm Unknown Resolved Problem Li st clean-up per request of Phys. EHR Cmte Medications Medication Status Dose Units Route Directions Qty Days Refills S tart Date Stop Date End Date Reason(s) Instructions Adherence Trazodone 50 mg Tablet Active 50 MG PO Daily at bedtime as needed for Insomnia 30 0July 2022 11:00pmUnknownNicotine (Polacrilex) 2 mg CyxMxntnr8SKZKBOYQX0M as needed for Nicotine Ptyzwxbd221Krmq 2022 11:00pmUnknownEscitalopram Oxalate 10 mg IgnpfjKjmrmz12NCWVGjmpy51839Ywuy 2022 11:00pmUnknown Procedures Procedure Date Performed Status Urine Culture April 11, 2025 active Advance Directives Advance Directive Response Recorded Date/ Time Advance Directives No October 22 5:22am Insurance Providers Guarantor Nathaniel Audrey Myla Address [address] [place], [place] [address] Info.Home Phone: Payer Group Member ID Coverage Type Subscriber Relationship to Subscriber Effective Date Expiration Date Fidencio REAL Id: [id number] A Floriana Id: [id number] [address] [facility] [address] Home Phone: [employer] [facility] Medicaid [id number] R Floriana Id: [id number] [address] [facility] [address] Home Phone: [facility] [place] [facility] [id number] R Floriana Id: [id number] [address] [facility] [address] Home Phone: Self Encounters Encounter Location(s) Arrival/Admit Date Discharge/Departure Date Discharge/Departure Disposition Provider(s) Departed Referred -[facility] April 11, 2025 1:15pm April 11, 2025 1:16pm Discharged to home care or self care (routine discharge) Syed Meza Plan of Treatment Future Tests Future scheduled test information is unavailable Pending Tests Test Name Ordered Date Scheduled Date Urine Culture April 11, 2025 1:15pm Future Visits Future appointment information is unavailable Future Procedures Procedure Name Ordered Date Scheduled Date Urine Culture April 11, 2025 8:59pm Decem 2024 1:15pm Future Medications Future medication information is unavailable Patient Instructions Patient instructions are unavailable
--- OUTSIDE RECORDS SUMMARY | 2025-04-16 09:50 | XMS_ITS | Encounter Summary ---
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 ([facility]); 32 weeks gestation of ([facility]) Social History Tobacco UseTypesPacks/DayYears UsedDateSmoking Tobacco: NeverSmokeless Tobacco: NeverAlcohol UseStandard Drinks/WeekCommentsNever0 (1 standard drink = 0.6 oz pure alcohol)Estimated Date of QpblhmbaSasvmqfiSor79/17/2026ased on UltrasoundSex and Gender InformationValueDate RecordedSex Assigned at BirthNot on fileLegal CnxLxfgew89/15/2023 6:50 PM EDTGender IdentityNot on fileSexual OrientationNot on filedocumented as of this encounter Last Filed Vital Signs Vital SignReadingTime TakenCommentsBlood Xkslxbyq918/7012/ 10:03 AM EST Pulse--Temperature--Respiratory Rate--Oxygen Saturation--Inhaled Oxygen Concentration--Avjzep04.9 kg (151 lb 12.8 oz)04/16/2025 10:03 AM ESTHeight--Body Mass Index24.507 3:57 PM EDTdocumented in this encounter Progress Notes * VANGIE Resendiz - 04/16/2025 9:50 AM EST Reason for Appointment: Patient ID: Nathaniel Lanza is a 19 y.o. female who presents for Routine Visit Patient presents today for Return OB appointment. MEDICATIONS Current Outpatient Medications Medication Instructions cephalexin (KEFLEX) 500 mg, 3 times daily omeprazole (PRILOSEC) 20 mg, Oral, Daily before breakfast, Do not crush or chew. Prenat w/o L-VlFzi-Bddc-FA-DHA (TriStart DHA) 31-0.6-0.4-200 MG capsule 1 capsule, [...] nursing note reviewed. Exam conducted with a veneer taping machine operator present. Vitals: Estimated body mass index is 24.5 kg/m?? as calculated from the following: Height as of 10/28/22: 5' 6 . Weight as of this encounter: 151 lb 12.8 oz. BP: 120/70 Patient's last menstrual period was 08/13/2024. Assessment/Plan ICD-10-CM 1. Third trimester ([facility]) Z34.93 POCT urinalysis dipstick manually resulted 2. 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 32 weeks gestation of ([facility]) Z3A.32 POCT urinalysis dipstick manually resulted Assessment/Plan Return OB: Patient presents today for a routine obstetrics appointment. Patient is currently 32w6d . Patient states she is doing well [...] week for routine OB appointment. 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 ([facility]) 32 weeks gestation of ([facility]) Expected: 04/16/2025 (Approximate), Expires: 10/15/2025documented as of this encounter Procedures Procedure NamePriorityDate/TimeAssociated DiagnosisCommentsPOCT URINALYSIS GVYNYFUHAtizavb40/29/2025 10:10 AM EST Third trimester ([facility]) 32 weeks gestation of ([facility]) documented in this encounter Results * (ABNORMAL) POCT urinalysis dipstick manually resulted (04/16/2025 10:10 AM EST)ComponentValueRef RangeTest MethodAnalysis TimePerformed AtPathologist SignatureColor, UAYellowClarity, UAClearGlucose, UANegativeNegative - 2000(110) ++++ mg/dLBilirubin, UANegativeNegative - 4(70) +++ mg/dLKetones, UA NegativeNegative - 160(16) ++++ mg/dLSpec Grav, UA1.0101 - 1.03Blood, UA PositiveNegative - 50 Rishabh/mcLpH, UA6.55 - 9Protein, UAPositiveNegative - 2000(20) ++++ mg/dLUrobilinogen, UA1.00.2 - 12 mg/dLLeukocytes, UA2+Negative - 500+++ Ronald/mcLNitrite, UANegativeNegative - PositiveSpecimen (Source) Anatomical Location / LateralityCollection Method / VolumeCollection Time Received SbwkMtpfk01/29/2025 10:10 AM EST Narrative Authorizing ProviderResult TypeResult StatusCumberland Hospital TEST ENTER/EDIT ORDERABLESFinal Result documented in this encounter Visit Diagnoses Diagnosis Third trimester ([facility]) state, incidental 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
--- NOTE | 2025-04-17 | US_ITS ---
[place] [address] Patient Name: DEEPIKA GOMEZ MRN: [id number] date: 2005 Sex: F Assigned Patient Location: [facility] Current Patient Location: Accession/Order Number: [id number] Exam Date: 04/17/2025 13:05 Report Date: 04/17/2025 15:59 At the request of: KARRIE TURPIN Procedure: US OB BPP w non-stress Ultrasound biophysical profile HISTORY: ANTI-M ISOIMMUNIZATION Adequate breathing movement, gross body movement, tone and amniotic fluid volume for total score of 8 out of 8. The amniotic fluid index is 15.1cm within normal limits. The heart rate 167 bpm. US/US OB BPP w non-stress IMPRESSION: Adequate ultrasound biophysical profile Impression dictated by: Teo Guzman M.D. 04/17/2025 3:59 PM Dictation Location: [place] [address] Electronically authenticated by: [id number] Y Date: 04/17/2025 15:59
--- OUTSIDE RECORDS SUMMARY | 2025-04-17 13:02 | XMS_ITS | Clinical Summary ---
Author Organization [facility] Address [facility] [place] [address] Care Team Providers Care Electronics Research Engineer Name Role Phone oJão Pham MD Primary Care Provider [phone] Allergies No known active allergies Medications MedicationSigDispense QuantityRefillsLast FilledStart DateEnd DateStatus 18-wrpz-rydnsc 9-dha 31 mg iron- 1 mg-200 mg [...] ProblemNoted DateDiagnosed DateAnti-M isoimmunization affecting in first zyovjxzbx59/01/2025S/P tonsillectomy and gugmkbkzhdsrg37/28/2019 Peritonsillar akmgpjl4208/28/2018Left upper quadrant pain01/17/2018Other suwyltuwvort93/01/2018Non-intractable vomiting with kchoak0201/17/2018Abnormal weight loss01/17/2018Abdominal pain01/12/2018Estimated Date of Delivery CxlkuiftIpo79/17/2026Based on Ultrasound Encounters DateTypeDepartmentCare HupuQvtunfwqeow24/01/2025 11:00 AM EDTOffice Visit Maternal- Medicine at [facility] [address] [place] [phone] Osiel Lawrence MD 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) 01/17/2025 9:26 AM EDT - 01/17/2025 11:59 PM EDTHospital Encounter [facility] [address] [place] [phone] Screening, , for anatomic survey Discharge Disposition: Homefrom Last 3 Months Immunizations ImmunizationAdministration DatesNext XdqDXmF5509/04/2008,09/03/2004,2003, 2003,2003HPV Lgntpczzlkcz98/15/2017,03/19/2016,01/14/2016Hepatitis A 12/01/2016,03/19/2016Hepatitis B012/03/2003,2003,2003,2003HiB 06/04/2004,2003,2003,2003IPV09/04/2008,2003,2003, 2003Influenza, Rtvslpqqhpx76/16/2009,02/04/2009MMR09/04/2008,06/04/2004 Meningococcal Depwptlch87/25/2020,01/14/2016Pneumococcal Fjducpujt06/18/2005, 06/04/2004,04/30/2004,2003TST - PPD Kaity Test12/04/2019,11/27/2019Tdap 05/20/2022,01/04/20162841Lcsllcnjz70/21/2009,09/03/2004 Family History Medical HistoryRelationNameCommentsCancerPaternal AuntCancerPaternal Grandfather RelationNameStatusCommentsFatherAliveMotherAlivePaternal Auntbreast cancer Paternal Grandfathergreat grandfather, prostate cancer Social History Tobacco UseTypesPacks/DayYears UsedDateSmoking Tobacco: NeverSmokeless Tobacco: Never Tobacco Cessation:Counseling Given: Not Answered Alcohol UseStandard Drinks/WeekCommentsNot Currently0 (1 standard drink = 0.6 oz pure alcohol)occasionallyAUDIT-CAnswerDate RecordedFrequency of Alcohol MxccehasoghTciyc36/26/2018Average Number of DrinksNot on file01/12/2018Frequency of Binge DrinkingNot on file01/12/2018PHQ-2AnswerDate RecordedTotal Score0 1ChildcareAnswerDate ZoqkbzepAeejlynhuFlxfdrj95/12/2019EmploymentAnswer Date IiidahroBwuwxmdwupJlyjvcj81/12/2019Hunger ScreeningAnswerDate Recorded Within the past 12 months we worried whether our food would run out before we got money to buy more.Never True01/17/2025Within the past 12 months the food we bought just didn't last and we didn't have money to get more.Never True 01/17/2025Purpose - LifeAnswerDate RecordedPurpose and direction in lifeUnknown 1Estimated Date of HsgqxircHvqhrhhuFeh72/17/2026Based on UltrasoundSex and Gender InformationValueDate RecordedSex Assigned at BirthNot on fileLegal DcnDlimxd57/01/2015 10:38 PM EDTGender IdentityNot on fileSexual OrientationNot on file Last Filed Vital Signs Vital SignReadingTime TakenCommentsBlood Pxtmisrn336/7710 9:47 AM EDT Hctnf804301/17/2025 9:47 AM KEHRwfipqzpwvn06.9 ??C (98.4 ??F)12/01/2024 4:30 PM EDTRespiratory Mryo9319 4:30 PM EDTOxygen Lrlaxayffz65%12/01/2024 5:15 PM EDTInhaled Oxygen Concentration--Rzkpmc83 kg (130 lb)01/17/2025 9:47 AM EDT Aholgo202.6 cm (5' 5.98 )01/17/2025 9:47 AM EDTBody Mass Index20.9901/17/2025 9:47 AM EDT Plan of Treatment Health MaintenanceDue DateLast DoneCommentsChlamydia Hinhozvtz07/12/2004 Depression Dstbpqpoo77/12/2016Pap Smear2024Influenza Nazvqgi1712/18/2024 04/03/2009, 02/04/2009RSV ( or age 60+ yrs) (1 - Risk 1-dose series)04/10/2025dult BMI Abnppfqob30Tobacco Screening DTaP,Tdap and Td Vaccines (8 - Td or Tdap)05/20/2032 05/20/2022, 01/04/2016, 09/04/2008, Additional history exists Medical Devices Not on file Procedures Procedure NamePriorityDate/TimeAssociated DiagnosisCommentsUS [facility] COMPREHENSIVE ANATOMIC TZOHVNFlmiayi98/01/2025 11:46 AM EDT Screening, , for anatomic survey from Last 3 Months Results * [facility] COMPREHENSIVE ANATOMIC SURVEY (01/17/2025 11:46 AM EDT)Anatomical RegionLateralityModalityOB-GYNUltrasoundSpecimen (Source)Anatomical Location / LateralityCollection Method / VolumeCollection TimeReceived Time01/17/2025 9:58 AM EDT Narrative 01/17/2025 12:19 PM EDT NAME: ??MYLA POE : 2005 SEX: F Accession Number: [id number] ORDERING PHYSICIAN: OSIEL LAWRENCE REFERRING PHYSICIAN: CRISTIN SHUKLA Coding Procedures ? 07949: Ultrasound, uterus, real time with image documentation, and maternal evaluation ? plus detailed anatomic examination, transabdominal approach;single or first gestation ? 81517: Ultrasound, uterus, real time with image documentation, transvaginal Indication Screening for Anatomic Survey, Supervision of high risk - Anti M. History OB History ? 1. Para 0 ? X4V4I4V9 Current Cell free DNA ?Low Risk analysis [...] (oz) ? 12 oz EFW by: ?Hadlock (PND-YN-OZ-FL) Extended Tibia ??30.1 mm 21w 0d 82% Jm Trekking Guide ? 4.8 mm CM ? 4.4 mm [...] view. RVOT view. LVOT view. 3-vessel view. 2-msusax-yyvuhty view. Situs. Aortic arch view. ? Bicaval [...] MVP measures 3.5 cm. Recommendations Please see [facility] documentation from today. Subsequent follow up or other follow up as clinically determined by primary OB provider unless otherwise specified by M. Results forwarded to ordering provider so they can follow up with the patient as necessary. Procedure Note Osiel Lawrence MD - 01/17/2025 NAME: MYLA POE : 2005 SEX: F Accession Number: [id number] ORDERING PHYSICIAN: OSIEL LAWRENCE REFERRING PHYSICIAN: CRISTIN SHUKLA Coding Procedures 65556: Ultrasound, uterus, real time with image documentation, and maternal evaluation plus detailed anatomic examination, transabdominalapproach;single or first gestation 05166: Ultrasound, uterus, real time with imagedocumentation, transvaginal Indication Screening for Anatomic Survey, Supervision of high risk - AntiM. History OB History 1. Para 0 O4I4M0J2 Current Cell free DNA Low Risk analysis [...] EFW (oz) 12 oz EFW by: Hadlock (CVQ-NN-JI-FL) Extended Tibia 30.1 mm 21w 0d 82% Jm Trekking Guide 4.8 mm CM 4.4 mm 29% Nicolaides [...] view. RVOT view. LVOT view. 3-vessel view. 4-xelpcj-qqjvyos view. Situs. Aortic arch view. Bicaval view. [...] Final Result from Last 3 Months Insurance Advance Directives * Full Code (Latest Code Status on File) Date ActivatedDate InactivatedComments01/12/2018 1:32 PM01/13/2018 8:22 PM Care Teams Team MemberRelationshipSpecialtyStart DateEnd Date João Pham MD [address] [place] [address], [address] [place], [place] [phone] PCP - GeneralPediatrics01/05/18
--- OUTSIDE RECORDS SUMMARY | 2025-04-17 13:02 | XMS_ITS | Encounter Summary ---
Author Organization [facility] Address [address] [place] [address] Care Team Providers Care Manager Merchandising Name Role Phone João Pham MD Primary Care Provider [phone] Encounter Details DateTypeDepartmentCare Team (Latest Contact Info)Asiidkjyjrv60/22/2025Telephone [facility]YY[facility] [address] [place] [address] Miya Madrigal MA [address] [place] [address] Social History Tobacco UseTypesPacks/DayYears UsedDateSmoking Tobacco: NeverSmokeless Tobacco: NeverAlcohol UseStandard Drinks/WeekCommentsNever0 (1 standard drink = 0.6 oz pure alcohol)Estimated Date of BtcjccwfYhzvxdxmGuh28/17/2026Based on UltrasoundSex and Gender InformationValueDate RecordedSex Assigned at BirthNot on fileLegal QskOkhodf65/15/2023 6:50 PM EDTGender IdentityNot on fileSexual OrientationNot [...] Plan of Treatment DateTypeDepartmentCare Team (Latest Contact Info)Hsroaipigay52/13/2026 2:10 PM ESTRoutine [facility] [address] [place] [address] Syed Meza DO [address] [place] [address] documented as of this encounter Visit Diagnoses Not on filedocumented in this encounter Care Teams Team MemberRelationshipSpecialtyStart DateEnd Date João Pham MD [address] [place] [address], [address] [place] [address] PCP - GeneralFamily Medicine10/28/22documented as of this encounter
--- OUTSIDE RECORDS SUMMARY | 2025-04-17 13:02 | XMS_ITS | Clinical Summary ---
Author Organization [facility] Address [address] [place] [address] Care Team Providers Care Production Boring Machine Operator Name Role Phone João Pham MD Primary Care Provider [phone] Allergies No known active allergies Medications MedicationSigDispense QuantityRefillsLast FilledStart DateEnd DateStatus Prenat w/o D-OpEuo-Crzf-FA-DHA (TriStart DHA) 31-0.6-0.4-200 MG capsule Take 1 capsule by mouth in the morning.5Active omeprazole (PriLOSEC) [address] capsule Indications:Gastroesophageal Reflux Disease,HeartburnTake 1 capsule (20 mg) by mouth in the morning. Take before meals. Do not crush or chew. 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 ([facility]); 32 weeks gestation of ([facility])5Abstract [facility] [place] [address] Cristin Meza, 04/11/2025External Result Encounter NOMS External Department Unsolicited Cristin Meza, 04/11/2025linisync Result Encounter NOMS External Department Unsolicited Cristin Meza, 04/09/2025Telephone [facility] [place] [address] Miya Madrigal MA 03/30/2025linisync Result Encounter NOMS External Department Unsolicited Kassandra Gipson PA 03/29/2025 11:20 AM ESTRoutine [facility] [place] [phone] Kassandra Gipson PA Third trimester ([facility]); 30 weeks gestation of ([facility]); Heartburn during in third trimester ([facility])03/29/2025 10:30 AM EST Ancillary Procedure [facility] [place] [address] size inconsistent with dates ([facility])03/26/2025Telephone [facility]ST [facility] [place] [address] Cristin Meza, Error (VOID this visit)03/12/2025 10:50 AM ESTRoutine [facility]ST [facility] [place] [phone] Cristin Meza DO size inconsistent with dates ([facility]) (Primary Dx); Second trimester ([facility]); 27 weeks gestation of ([facility]); 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 ([facility]) 03/12/2025[place] [address] Cristin Meza DO 02/07/2025 11:20 AM EDTRoutine [facility] [address] [place] [address] Kassandra Gipson PA Second trimester ([facility]); 23 weeks gestation of ([facility]); Diabetes mellitus xklkiozel09/22/2025amboo flowsheet [facility] [address] [place] [address] Kassandra Gipson PA 02/06/20250066Njepik07/15/2025bstract [facility] [place] [facility] [address] [place] [address] Cristin Meza, DO 01/31/2025Telephone [facility] [place] [facility] [address] [place] [phone] Cristin Meza, 01/22/2025Telephone [facility] [address] [place] [address] Miya Madrigal MA 01/18/2025bstract [facility] [address] [place] [address] Janelle Trejo [place] 01/17/2025External Result Encounter [facility] [address] [place] [address] Cristin Meza, 01/16/2025 9:30 AM EDTAncillary Procedure [facility] [address] [place] [address] from Last 3 Months Family History AlhmufgdPlowBvdkcjPclqbbrhRrdclfz2EfqytTtcedoZelcjFpnivlZotubZfsydx9Wuach Social History Tobacco UseTypesPacks/DayYears UsedDateSmoking Tobacco: NeverSmokeless Tobacco: Never Tobacco Cessation:Counseling Given: Not Answered Alcohol UseStandard Drinks/WeekCommentsNever0 (1 standard drink = 0.6 oz pure alcohol)Estimated Date of PskclotnFckvetskGof41/17/2026ased on UltrasoundSex and Gender InformationValueDate RecordedSex Assigned at BirthNot on fileLegal YjhXsaxzv11/15/2023 6:50 PM EDTGender IdentityNot on fileSexual OrientationNot on file Last Filed Vital Signs Vital SignReadingTime TakenCommentsBlood Kydwfxnw459/7004/16/2025 10:03 AM EST Aggoq779110/28/2022 3:57 PM SBCJbfqzqhrrik92.6 ??C (97.8 ??F)10/28/2022 3:57 PM EDTRespiratory Rate--Oxygen Hrjfrlxgfi06%10/28/2022 3:57 PM EDTInhaled Oxygen Concentration--Edjnhg45.9 kg (151 lb 12.8 oz)04/16/2025 10:03 AM VKVYgsjgo809.6 cm (5' 6 )10/28/2022 3:57 PM EDTBody Mass Index24.5010/28/2022 3:57 PM EDT Plan of Treatment DateTypeDepartmentCare Team (Latest Contact Info)Gaecyodgfob62/13/2026 2:10 PM ESTRoutine [facility] [address] [place] [address] Cristin Meza DO [address] [place], [place] [id number] Procedures Procedure NamePriorityDate/TimeAssociated DiagnosisCommentsPOCT URINALYSIS HOJCIBXAQrpighs01/29/2025 10:10 AM EST Third trimester ([facility]) 32 weeks gestation of ([facility]) URINE CULTURE - PYTDCngldcr39/24/2025 1:15 PM EST [facility] UA (CLEAN/CATCH) TRANSLATOR/INTERPRETER/MICRO IF IND.Ucidufg5204/11/2025 1:15 PM EST CULTURE, URINE, CEYSVWCCujzyvc24/24/2025 1:15 PM EST ALL MISCELLANEOUS RTRUBxjwdgb68/12/2025 9:07 AM EST GLUCOSE 1 UGFDGiaztvq76/12/2025 9:07 AM EST ALL CBC WITH AUTO XKEUCcchxjo68/12/2025 9:07 AM EST US OB FOLLOW UP TRANSABDOMINAL CWLGTHXLMvxvbqy30/11/2025 11:01 AM EST size inconsistent with dates ([facility]) POCT URINALYSIS JESOLFADMcdjsez17/24/2025 11:27 AM EST Second trimester ([facility]) POCT URINALYSIS VGAUOMDRWvjozeo48/22/2025 12:01 PM EDT Second trimester ([facility]) 23 weeks gestation of ([facility]) US OB 14+ WEEKS ANATOMY SCAN01/17/2025 12:19 PM EDT US OB 14+ WEEKS ANATOMY ZJSOVteebmv28/30/2025 10:30 AM EDT Screening, , for anatomic survey ([facility]) from Last 3 Months Results * (ABNORMAL) POCT urinalysis dipstick manually resulted (04/16/2025 10:10 AM EST) Only the most recent of3 resultswithin the time period is included. ComponentValueRef RangeTest MethodAnalysis TimePerformed AtPathologist Signature Color, UAYellowClarity, UAClearGlucose, UANegativeNegative - 2000(110) ++++ mg/dLBilirubin, UANegativeNegative - 4(70) +++ mg/dLKetones, UANegativeNegative - 160(16) ++++ mg/dLSpec Grav, UA1.0101 - 1.03Blood, UAPositiveNegative - 50 Rishabh/mcLpH, UA6.55 - 9Protein, UAPositiveNegative - 2000(20) ++++ mg/dL Urobilinogen, UA1.00.2 - 12 mg/dLLeukocytes, UA2+Negative - 500+++ Ronald/mcL Nitrite, UANegativeNegative - PositiveSpecimen (Source)Anatomical Location / LateralityCollection Method / VolumeCollection TimeReceived GjhrArsbd51/29/2025 10:10 AM EST Narrative Authorizing ProviderResult TypeResult StatusAmy [facility] TEST ENTER/EDIT ORDERABLESFinal Result * URINE CULTURE - FR (04/11/2025 1:15 PM EST)ComponentValueRef RangeTest MethodAnalysis TimePerformed AtPathologist SignatureURINE CULTURE - FR ??Urine Culture - [facility] SEE[facility] RESULT^[facility] RESULT TBHURINE CULTURE - FRMCSEEN SEE SCANNED REPORT, NORMAL^SEE SCANNED REPORT, NORMALTBHSpecimen (Source)Anatomical Location / LateralityCollection Method / VolumeCollection TimeReceived Time04/11/2025 1:15 PM EST04/11/2025 1:20 PM EST Narrative [facility] - 04/16/2025 2:54 PM EST Authorizing ProviderResult TypeResult StatusCorey Susana DOLAB BLOOD ORDERABLES Final ResultPerforming OrganizationAddressCity/State/ZIP CodePhone Number [facility] * (ABNORMAL) [facility] UA (CLEAN/CATCH) TRANSLATOR/INTERPRETER/MICRO IF IND. (04/11/2025 1:15 PM EST) ComponentValueRef RangeTest MethodAnalysis TimePerformed AtPathologist SignatureCOLOR URINELT. YELLOWYELLOWTBHCLARITY URINECLOUDY(A)CLEARTBHSPECIFIC GRAVITY URINE1.0201.005 - 1.025TBHPH URINE7.05.0 - 9.0TBHPROTEIN TAPHN129(A) NEG/TRACE mg/dLTBHGLUCOSE URINE UANEGATIVENEGATIVE mg/dLTBHBILIRUBIN URINE NEGATIVENEGATIVETBHKETONES URINENEGATIVENEGATIVE mg/dLTBHBLOOD URINELARGE(A) NEGATIVETBHNITRITE URINEPOSITIVE(A)NEGATIVETBHUROBILINOGEN URINE0.20.2 - 1.0 EU/dLTBHLEUKOCYTE ESTERASE URINESMALL(A)NEGATIVETBHURINE MICROSCOPIC INDICATED YESTBHSpecimen (Source)Anatomical Location / LateralityCollection Method / VolumeCollection TimeReceived Time04/11/2025 1:15 PM EST04/11/2025 1:20 PM EST Narrative [facility] - 04/11/2025 1:25 PM EST Authorizing ProviderResult TypeResult StatusCorey Susana DOCLINISYNCFinal Result Performing OrganizationAddressCity/State/ZIP CodePhone Number [facility]ANNC TB * Urine culture (04/11/2025 1:15 PM EST)ComponentValueRef RangeTest Method Analysis TimePerformed AtPathologist SignatureFRMC NOTENo Growth 2 Days 04/13/2025 11:[address] [facility] CtrSpecimen (Source) Anatomical Location / LateralityCollection Method / VolumeCollection Time Received TimeClean-Voided Midstream (Clean Void Midstream)04/11/2025 1:15 PM EST04/11/2025 8:58 PM EST Narrative [facility] - 04/13/2025 11:05 AM EST Diagnosis: AND ABDOMINAL PAIN Comment: Authorizing ProviderResult TypeResult StatusCorey Susana DOLAB MICROBIOLOGY - GENERAL ORDERABLESFinal ResultPerforming OrganizationAddressCity/State/ZIP Code Phone Number [facility] [address] [place] [address], [facility] [address] [place] [address] * GLUCOSE 1 HOUR (03/30/2025 9:07 AM EST)ComponentValueRef RangeTest Method Analysis TimePerformed AtPathologist SignatureGLUCOSE 1 MNKI175<130 mg/dLTBH Specimen (Source)Anatomical Location / LateralityCollection Method / Volume Collection TimeReceived Time03/30/2025 9:07 AM EST03/30/2025 9:12 AM EST Narrative [facility] - 03/30/2025 10:25 AM EST Authorizing ProviderResult TypeResult StatusAmy Brandan PALAB BLOOD ORDERABLES Final ResultPerforming OrganizationAddressCity/State/ZIP CodePhone Number [facility] * ALL MISCELLANEOUS TEST (03/30/2025 9:07 AM EST)ComponentValueRef RangeTest MethodAnalysis TimePerformed AtPathologist SignatureMISCELLANEOUS TESTCOMMENT. TBHComment: Test Ordered: [id number] Antibody Screen Antibody Screen ?Note: ? CB [...] reported as 2, 4, 8, etc. The [employer] [place] [employer] has recommended this change in titer reporting formats to simply reflect the reciprocal value of the titer. Antibody Id. #2 ?COMPUTER AIDED DESIGN TECHNICIAN ?NOLAB ?? Reference Range: . Efren Titer #2 ?COMPUTER AIDED DESIGN TECHNICIAN ?NOLAB ?? Reference Range: . Performed at: ??CB - [facility] [address] ??[id number] Screener And Blender Operator: Moshe Mcgarry PhD, Phone: ??[phone] Specimen (Source)Anatomical Location / LateralityCollection Method / Volume Collection TimeReceived Time03/30/2025 9:07 AM EST03/30/2025 9:12 AM EST Narrative [facility] - 04/02/2025 1:08 PM EST [id number] Antibody Screen Authorizing ProviderResult TypeResult StatusCorey Susana [...] 35.2 g/dLTBHTBH RDW12.511.0 - 15.0 % TBHTBH LXI504458 - 450 10 3/uLTBHTBH MPV12.09.5 - 13.5 [...] 10:18 AM EST Authorizing ProviderResult TypeResult StatusAmy Brandan PACLINISYNCFinal Result Performing OrganizationAddressCity/State/ZIP CodePhone Number [facility] * OB follow up transabdominal approach (03/29/2025 [...] Yanes DO Authorizing ProviderResult TypeResult StatusSamira Patel [facility] OB US PROCEDURESFinal Result * US OB 14+ weeks anatomy scan (01/17/2025 12:19 PM EDT) Only the most recent of2 resultswithin the time period is included. Anatomical RegionLateralityModalityBodyUltrasoundSpecimen (Source)Anatomical Location / LateralityCollection Method / VolumeCollection TimeReceived Time 01/17/2025 12:19 PM EDT Narrative 01/17/2025 12:19 PM EDT THIS EXAM WAS PERFORMED AT [facility] NAME: ??PATRICIA POE : 2005 SEX: F Accession Number: [id number] ORDERING PHYSICIAN: OSIEL LAWRENCE REFERRING PHYSICIAN: CRISTIN MEZA Coding Procedures ? 54682: Ultrasound, uterus, real time with image documentation, and maternal evaluation ? plus detailed anatomic examination, transabdominal approach;single or first gestation ? 27535: Ultrasound, uterus, real time with image documentation, transvaginal Indication Screening for Anatomic Survey, Supervision of high risk - Anti M. History OB History ? 1. Para 0 ? [id number] Current Cell free DNA ?Low Risk analysis [...] (oz) ? 12 oz EFW by: ?Hadlock (BHM-GX-RP-FL) Extended Tibia ??30.1 mm 21w 0d 82% Jm Sanitary Plumber ? 4.8 mm CM ? 4.4 mm [...] view. RVOT view. LVOT view. 3-vessel view. 7-lsazng-icptxpu view. Situs. Aortic arch view. ? Bicaval [...] MVP measures 3.5 cm. Recommendations Please see [facility] documentation from today. Subsequent follow up or other follow up as clinically determined by primary OB provider unless otherwise specified by [facility]. Results forwarded to ordering provider so they can follow up with the patient as necessary. The copy-to physician of this order is CRISTIN Romero The ordering physician of this order is OSIEL Dye Procedure Note Radiology, Radiologist, MD - 01/17/2025 THIS EXAM WAS PERFORMED AT [facility] NAME: PATRICIA POE : 2005 SEX: F Accession Number: [id number] ORDERING PHYSICIAN: OSIEL LAWRENCE REFERRING PHYSICIAN: CRISTIN MEZA Coding Procedures 06991: Ultrasound, uterus, real time with image documentation, and maternal evaluation plus detailed anatomic examination, transabdominalapproach;single or first gestation 86116: Ultrasound, uterus, real time with imagedocumentation, transvaginal Indication Screening for Anatomic Survey, Supervision of high risk - AntiM. History OB History 1. Para 0 C3T1B2V1 Current Cell free DNA Low Risk analysis [...] EFW (oz) 12 oz EFW by: Hadlock (WIJ-ZI-KE-FL) Extended Tibia 30.1 mm 21w 0d 82% Jm Sanitary Plumber 4.8 mm CM 4.4 mm 29% Nicolaides [...] view. RVOT view. LVOT view. 3-vessel view. 7-crpjif-humrmca view. Situs. Aortic arch view. Bicaval view. [...] Authorizing ProviderResult TypeResult StatusCorey Susana JOHNSON OB PROCEDURES Final Result from Last 3 Months Insurance Care Teams Team MemberRelationshipSpecialtyStart DateEnd Date João Pham MD [address] [place] [address], [address] [place], [place] [phone] [facility]10/28/22
--- OUTSIDE RECORDS SUMMARY | 2025-04-17 13:02 | XMS_ITS | Encounter Summary ---
Author Organization [facility] Address [address] [place] [address] Care Team Providers Care Mold Press Operator Name Role Phone João Pham MD Primary Care Provider [phone] Encounter Details DateTypeDepartmentCare Team (Latest Contact Info)Hajcnwaodxv88/24/2025linisync Result Encounter [facility] External Department Unsolicited Syed Meza, DO [address] [place], [place] [phone] Social History Tobacco UseTypesPacks/DayYears UsedDateSmoking Tobacco: NeverSmokeless Tobacco: NeverAlcohol UseStandard Drinks/WeekCommentsNever0 (1 standard drink = 0.6 oz pure alcohol)Estimated Date of AqqefsmoOnvfmaogVul47/17/2026Based on UltrasoundSex and Gender InformationValueDate RecordedSex Assigned at BirthNot on fileLegal JvrCesyou55/15/2023 6:50 PM EDTGender IdentityNot on fileSexual OrientationNot on filedocumented as of this encounter Plan of Treatment DateTypeDepartmentCare Team (Latest Contact Info)Debepesrttz36/13/2026 2:10 PM ESTRoutine [facility] [address] [place] [phone] Syed Meza DO [address] [place] [address] documented as of this encounter Procedures Procedure NamePriorityDate/TimeAssociated DiagnosisCommentsURINE CULTURE - [facility] Mlzlkaf5304/11/2025 1:15 PM EST [facility] UA (CLEAN/CATCH) ENVIRONMENTAL EMERGENCIES ASSISTANT/MICRO IF IND.Ommgmtc0504/11/2025 1:15 PM EST documented in this encounter Results * URINE CULTURE - [facility] (04/11/2025 1:15 PM EST)ComponentValueRef RangeTest MethodAnalysis TimePerformed [...] [facility] * (ABNORMAL) [facility] UA (CLEAN/CATCH) ENVIRONMENTAL EMERGENCIES ASSISTANT/MICRO IF IND. (04/11/2025 1:15 PM EST) ComponentValueRef RangeTest MethodAnalysis TimePerformed AtPathologist SignatureCOLOR URINELT. YELLOWYELLOWTBHCLARITY URINECLOUDY(A)CLEARTBHSPECIFIC GRAVITY URINE1.0201.005 - 1.025TBHPH URINE7.05.0 - 9.0TBHPROTEIN MEIHA951(A) NEG/TRACE mg/dLTBHGLUCOSE URINE UANEGATIVENEGATIVE mg/dLTBHBILIRUBIN URINE NEGATIVENEGATIVETBHKETONES [...] Team MemberRelationshipSpecialtyStart DateEnd Date João Pham MD [address] [place] [address], [address] [place] [address] PCP - GeneralFamily Medicine10/28/22documented as of this encounter
--- OUTSIDE RECORDS SUMMARY | 2025-04-17 13:02 | XMS_ITS | Encounter Summary ---
Author Organization [facility] Address [address] [place] [address] Care Team Providers Care Bull Ladle Tender Name Role Phone João Pham MD Primary Care Provider [phone] Encounter Details DateTypeDepartmentCare Team (Latest Contact Info)Avfhsumkpqi64/29/2025bstract [facility] [address] [place] [address] Syed Meza DO [address] [place], [facility] Social History Tobacco UseTypesPacks/DayYears UsedDateSmoking Tobacco: NeverSmokeless Tobacco: NeverAlcohol UseStandard Drinks/WeekCommentsNever0 (1 standard drink = 0.6 oz pure alcohol)Estimated Date of HliasfzpLpqhqxjwAcz22/17/2026ased on UltrasoundSex and Gender InformationValueDate RecordedSex Assigned at BirthNot on fileLegal XirLqevgi66/15/2023 6:50 PM EDTGender IdentityNot on fileSexual OrientationNot on filedocumented as of this encounter Plan of Treatment DateTypeDepartmentCare Team (Latest Contact Info)Ljizowrjyns59/13/2026 2:10 PM ESTRoutine [facility] [address] [place] [address] Syed Meza DO [address] [place], [facility] documented as of this encounter Visit Diagnoses Not on filedocumented in this encounter Care Teams Team MemberRelationshipSpecialtyStart DateEnd Date João Pham MD [address] [place] [address], [address] [place] [address] PCP - GeneralFamily Medicine10/28/22documented as of this encounter
--- OUTSIDE RECORDS SUMMARY | 2025-04-17 13:02 | XMS_ITS | Encounter Summary ---
Author Organization [facility] Address [address] [place] [address] Care Team Providers Care Cash Applications Analyst Name Role Phone João Pham MD Primary Care Provider [phone] Encounter Details DateTypeDepartmentCare Team (Latest Contact Info)Qkegvjkxmut89/24/2025External Result Encounter NOMS External Department Unsolicited Syed Meza DO [address] [place], [place] [phone] Social History Tobacco UseTypesPacks/DayYears UsedDateSmoking Tobacco: NeverSmokeless Tobacco: NeverAlcohol UseStandard Drinks/WeekCommentsNever0 (1 standard drink = 0.6 oz pure alcohol)Estimated Date of RknowscnMwatrfevLqh15/17/2026Based on UltrasoundSex and Gender InformationValueDate RecordedSex Assigned at BirthNot on fileLegal JnhZfefxo36/15/2023 6:50 PM EDTGender IdentityNot on fileSexual OrientationNot on filedocumented as of this encounter Plan of Treatment DateTypeDepartmentCare Team (Latest Contact Info)Uikrykkcdxu87/13/2026 2:10 PM ESTRoutine [facility] [address] [place] [phone] Syed Meza DO [address] [place] [address] documented as of this encounter Procedures Procedure NamePriorityDate/TimeAssociated DiagnosisCommentsCULTURE, URINE, CNEKAEBPderjtl95/24/2025 1:15 PM EST documented in this encounter Results * Urine culture (04/11/2025 1:15 PM EST)ComponentValueRef RangeTest Method Analysis TimePerformed AtPathologist SignatureFR NOTENo Growth 2 Days 04/13/2025 11:05 AM [facility]trSpec[facility] (Source) Anatomical Location / LateralityCollection Method / VolumeCollection Time Received TimeClean-Voided Midstream (Clean Void Midstream)04/11/2025 1:15 PM EST04/11/2025 8:58 PM EST [facility] 04/13/2025 11:05 AM EST Diagnosis: AND ABDOMINAL PAIN Comment: Authorizing ProviderResult TypeResult StatusCorey Susana DOLAB MICROBIOLOGY - GENERAL ORDERABLESFinal ResultPerforming OrganizationAddressCity/State/ZIP Code Phone Number [facility] [address] [place] [address], [facility] [address] [place] [address] documented in this encounter Visit Diagnoses Not on filedocumented in this encounter Care Teams Team MemberRelationshipSpecialtyStart DateEnd Date João Pham MD [facility] [facility], [address] [place] [address] PCP - GeneralFamily Medicine10/28/22documented as of this encounter
--- OUTSIDE RECORDS SUMMARY | 2025-04-17 13:02 | XMS_ITS | Clinical Summary ---
Author Organization [facility] linic Address [address] [place] [address] Care Team Providers Care Sewer Maintenance Supervisor Name Role Phone João Pham MD Primary Care Provider + Social History Tobacco UseTypesPacks/DayYears UsedDateSmoking Tobacco: Never Assessed CommentsUnknownSex and Gender InformationValueDate RecordedSex Assigned at Not on fileLegal LfyZfchgq26/23/2020 9:05 AM EDTGender IdentityNot on fileSexual OrientationNot on file Plan of Treatment Not on file Medical Devices Not on file Care Teams Team MemberRelationshipSpecialtyStart DateEnd Date João Pham MD [address] [address] PCP - GeneralInternal Njtixkrn03/24/20
--- OUTSIDE RECORDS SUMMARY | 2025-04-17 13:05 | XMS_ITS | CCD ---
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 above:Order Comment: Name Collection Type:: VoidedPerformed By: #### ADDONUAPLUS, CUU #### [facility] [address] [place], [place] [address] USABacteria,UrineNone SeenNormalNone SeenRegency Hospital Cleveland EastComment on above:Order Comment: Name Collection Type:: Voided Performed By: #### ADDONUAPLUS, CUU #### [facility] [address] [place], [place] [address] USABilirubin,UrineNegativeNormalNegativeRegency Hospital Cleveland EastComment on above:Order Comment: Name Collection Type:: Voided Performed By: #### ADDONUAPLUS, CUU #### [facility] [address] [place] [address] USAColor (U)YellowNormalYellowRegency Hospital Cleveland EastComment on above:Order Comment: Name Collection Type:: VoidedPerformed By: #### ADDONUAPLUS, CUU #### [facility] [address] [place], [place] [address] USAGlucose Ql (U)NormalNormalNormAdena Health SystemComment on above:Order Comment: Name Collection Type:: VoidedPerformed By: #### ADDONUAPLUS, CUU #### [address] [address] USAHyaline Casts,Wkqqu0-7Cakdjk8-5RtezegdtlRegency Hospital Cleveland EastComment on above:Order Comment: Name Collection Type:: VoidedResult Comment: PERFORMED BY: [place] [address] PATHOLOGIST CUSTOMER ASSISTANCE ASSOCIATE VALENTINE SARABIA M.D.Performed By: #### JOSSIE, CUU #### [place] [address] USAKetones Ql (U)TraceHighNegLakeHealth TriPoint Medical CenterComment on above:Order Comment: Name Collection Type:: VoidedPerformed By: #### JOSSIE, CUU #### [place] [address] USALeukocyte esterase Test strip Ql (U)2+HighNegative [facility] Cleveland EastComment on above:Order Comment: Name Collection Type:: VoidedPerformed By: #### JOSSIE, CUU #### [place] [address] USANitrite,UrineNegativeNormalNegLakeHealth TriPoint Medical CenterComment on above:Order Comment: Name Collection Type:: Voided Performed By: #### JOSSIE, CUU #### [place] [address] USAOccult Blood,UrineNegativeNormalNegLakeHealth TriPoint Medical CenterComment on above:Order Comment: Name Collection Type:: Voided Result Comment: PERFORMED BY: [place] [address] PATHOLOGIST CUSTOMER ASSISTANCE ASSOCIATE VALENTINE SARABIA M.D.Performed By: #### JOSSIE, CUU #### [place] [address] USApH (U)5.5 [pH]Normal5.0-9.0Reg[facility] Hospital Cleveland EastComment on above:Order Comment: Name Collection Type:: VoidedPerformed By: #### ADDCHRISTYPLUS, CUU #### [address] [place] [address] USAProtein,UrineNegativeNormalNegativeRegency Hospital Cleveland EastComment on above:Order Comment: Name Collection Type:: Voided Performed By: #### ADDONUAPLUS, CUU #### [place] [id number] USARBC,Thocv5-7Gvmitr9-5UngbyycifAultman Hospital Comment on above:Order Comment: Name Collection Type:: VoidedPerformed By: #### ADDONUAPLUS, CUU #### [place] [address] USASpecificy [place],Urine1.577Kfrpni3.001-1.030Reg[facility] Hospital Cleveland EastComment on above:Order Comment: Name Collection Type:: VoidedPerformed By: #### ADDONUAPLUS, CUU #### [place] [address] USASquamous Epithelial Cell,Pyeat6-1Noxu9-9TxbwopzxbAultman HospitalComment on above:Order Comment: Name Collection Type:: Voided Performed By: #### ADDONUAPLUS, CUU #### [place] [address] USAUrobilinogen,UrineNormalNormalNormalRegency Hospital Cleveland EastComment on above:Order Comment: Name Collection Type:: Voided Performed By: #### ADDONUAPLUS, CUU #### [place] [address] USAWBC,Ehiwq57-43Ikoc6-5Rvqgzuneh[address] [place] [address] Comment on above:Order Comment: Name Collection Type:: VoidedPerformed By: #### ADDONUAPLUS, CUU #### [facility] [address] [place] [address] USALipid Panelon 32-85-0531Jnsqkikvijp [Mass/Vol]101 mg/dLLow 140-200Reg[facility] Hospital Cleveland EastComment on above:Result Comment: Chol less than 200 mg/dl low risk Chol 201-239 mg/dl borderline risk Chol 240 mg/dl and greater high riskPerformed By: #### TSH3 wRFLX, LIPID, [id number] #### [facility] [address] [place] [address] USACholesterol in HDL [Mass/Vol]35 mg/tNAkhgsg03-01YaqtzpqxtRegency Hospital Cleveland EastComment on above:Result Comment: HDL CHOL ATP-III CLASSIFICATION Cardiovascular Risk HDL > or equal to 60 mg/dL LOW HDL < 40 mg/dL HIGHPerformed By: #### TSH3 wRFLX, LIPID, [id number] #### [facility] [address] [place] [address] USACholesterol.total/Cholesterol in HDL [Mass ratio]2.9 {ratio}Normal<5.0Reg[facility] Hospital Cleveland EastComment on above:Performed By: #### TSH3 wRFLX, LIPID, [id number] #### [facility] [address] [place] [address] USALDL Cholesterol,Wrcjojkhzg12 mg/dLNormal0-100Reg[facility] Cleveland EastComment on above:Result Comment: LDL ATP III CLASSIFICATION LDL less than 100 mg/dL Optimal LDL 100-129 mg/dL Near or above optimal LDL 130-159 mg/dL Borderline high LDL 160-189 mg/dL High LDL greater than 189 mg/dL Very highPerformed By: #### TSH3 wRFLX, LIPID, [id number] #### [facility] [address] [place] [address] USATriglyceride w/Cobgnv90 mg/dLNormal0-149Reg[facility] Hospital Cleveland EastComment on above:Result Comment: TRIG ATP III CLASSIFICATION TRIG less than 150 mg/dL Normal TRIG 150-199 mg/dL Borderline high TRIG 200-500 mg/dL High TRIG greater than 500 mg/dL Very high Standard traceable to the Center for Disease Conrtrol and Prevention (CDC) test method.Performed By: #### TSH3 wRFLX, LIPID, [id number] #### [facility] [address] [place] [address] USAVLDL JCUMDWTCLMA10 mg/dLNormAdena Health SystemComment on above:Performed By: #### TSH3 wRFLX, LIPID, [id number] #### [facility] [address] [place] [id number] USAThyroid Stim Hormone w/Rflxon 14-08-5375Fxdtkeg Stim Hormone w/Rflx1.50 u[iU]/mLNormal0.45-5.33[facility] Comment on above:Performed By: #### TSH3 wRFLX, LIPID, [id number] #### [place] [address] USAUrine Cultureon 21-90-4733Hyoicgjt identified Cx Nom (U)No Growth 2 Days PERFORMED BY: [place] [address] PATHOLOGIST CUSTOMER ASSISTANCE ASSOCIATE VALENTINE SARABIA M.D.[facility] Medical CenterComment on above: Performed By: #### ADDONUAPLUS, CUU #### [place] [address] USAVitamin D 25 Hydroxy Totalon 69-96-7125Ibjryia D 25 Hydroxy Total33.7 ng/fAFvdwkt96-273KwqnjogurRegency Hospital Cleveland EastComment on above:Result Comment: VITAMIN D STATUS 25(OH)VITAMIN D RANGE (ng/mL) Deficient <20 Insufficient 20 to <30 Sufficient 30 to 100 Reference: Chelsy MF,Lamont NC, Alton ARCHER, et al. Evaluation,treatment, and prevention of vitamin D deficiency; an Endocrine Society clinical practice guideline. JCEM. 2010; 96(7):1911-30. PERFORMED BY: [place] [address] PATHOLOGIST CUSTOMER ASSISTANCE ASSOCIATE VALENTINE SARABIA M.D.Performed By: #### TSH3 wRFLX, LIPID, [id number] #### [facility] [address] [place], [place] [address] USACovid-19 PCR (CVDTBH)on 04-19-8380MPKN-CoV-2 (COVID-19) RNA JOHN PAUL+probe Ql (Unsp spec)Not detectedNormalNOT DETECTEDThe [facility] Comment on above:Result Comment: This test is not yet approved or cleared by the [place] FDA. When there are no FDA-approved or cleared tests available, and other criteria are met, FDA can make tests available under an emergency access mechanism called an Emergency Use Authorization (EUA). The EUA for this test is supported by the Layup Worker of Health and Human Service's (HHS's) declaration [...] with SARS-CoV-2.Performed By: #### DEBORAH MOULTON #### [place] [address] Judith KarenSYMPTOMATIC COVID-19 ANTIGENon 80-74-8921UOP StatementSEE BELOW NormalThe [facility] Medical CenterComment on above:Result Comment: This test has not [...] revoked sooner.Performed By: #### PAULA MOULTONTB #### [facility] [address] [place] [address] Judith RosenthalIrhrsNYTB-SoC-7 (COVID-19) RNA JOHN PAUL+probe Ql (Unsp spec)NegativeNormal NEGATIVEThe [facility] Medical CenterComment on above:Performed By: #### PAULAAGApolinar CVDTBH #### [facility] [address] [place] [address] Judith Shaffer Vital Signs Date TimeVital SignValuePerforming ThhodnoqqCblmeoau76-41-2673 11:39-0400Body mass index (BMI) [Ratio]21.63 kg/m2Kassandra VENCES Work Phone: [facility] CenterLbuqrtmeki00-00-7386 11:39-0400Body iyxjdz10.78 kgKassandra VENCES Work Phone: [facility] CenterTzagvhtlbt35-12-2897 11:39-0400Diastolic blood sfwxbeic88 mm[Hg]Kassandra VENCES Work Phone: [facility] CenterMsjjzslehc01-39-5427 11:39-0400Systolic blood pmxcfhou898 mm[Hg]Kassandra VENCES Work Phone: [facility] CenterQvxmdsnsyi11-58-8824 09:47-0400Body sowrvu214.6 cmAbbie Lawrence MD Work Phone: [phone] [place], [place] 7601710-01-2025 09:47-0400Body mass index (BMI) [Ratio]20.99 kg/u3LweqpsAbbie Lawrence MD Work Phone: [phone] [place], [place] 7601710-01-2025 09:47-0400Body exiekm48.97 kgAbbie Lawrence MD Work Phone: [phone] [place], [place] 7601710-01-2025 09:47-0400Diastolic blood ofqefnsb34 mm[Hg]Abbie Lawrence MD Work Phone: [phone] [place], [place] [address]01710-01-2025 09:47-0400Heart rate 73 /minAbbie Lawrence MD Work Phone: [phone] [place], [place] [address]01710-01-2025 09:47-0400Systolic blood uokdqmrc769 mm[Hg]Abbie Lawrence MD Work Phone: [phone])[address] [place], [place] [address]01709-23-2025 11:50-0400Body mass index (BMI) [Ratio]20.34 kg/q5MlxvlSyed Meza DO Work Phone: [phone] [place], [place] [address]Uhpwdmzday53-42-4542 11:50-0400Body gghhor46.15 kgCorey Susana DO Work Phone: [phone] [place], [place] [address]Peeacgbqwr04-17-4636 11:50-0400Diastolic blood uiwolboi40 mm[Hg]Syed Susana DO Work Phone: 1([phone])097-[address] [place], [place] [address]Atsdzizzca44-12-6120 11:50-0400Systolic blood mm[Hg]Syed Susana DO Work Phone: [phone] [place], [place] [address]Yghtocmbsr96-93-3819 09:25-0400Body mass index (BMI) [Ratio]20.01 kg/m2Kassandra VENCES Work Phone: [phone] [place], [place] [address]Bpnishsarh84-22-1853 09:25-0400Body ugdplj20.25 kgAmy Brandan VENCES Work Phone: [phone] [place], [place] [address]Rvqdcassoi73-39-1190 09:25-0400Diastolic blood sxedgwhz89 mm[Hg]Kassandra VENCES Work Phone: [phone])[facility] [place], [place] [address]Uhkgdmwybl07-92-6862 09:25-0400Systolic blood mm[Hg]Kassandra VENCES Work Phone: [phone] [place], [place] [address]Mljfekrvol77-18-9607 11:07-0400Body mass index (BMI) [Ratio]20.3 kg/o4Wxvbm Susana DO Work Phone: [phone])288-[address] [place], [place] [address]Motranjtjm90-14-1482 11:07-0400Body fflmwi06.06 kgCorey Susana DO Work Phone: [phone] [place], [place] [address]Ngprknbstb46-33-8645 11:07-0400Diastolic blood ideilisr13 mm[Hg]Syed Susana DO Work Phone: [phone] [place] [address]-19-2025 11:07-0400Systolic blood psgvozhj627 mm[Hg]Syed Susana DO Work Phone: [phone] [place], [place] [address]Whojfeghaq05-38-0854 10:46-0400Body mass index (BMI) [Ratio]19.53 kg/a5Gvflw Susana DO Work Phone: 1(610)[facility] [place], [place] [address]Xpzhqyevxt91-18-5967 10:46-0400Body vmoxnl20.88 kgCorey Susana DO Work Phone: [facility] CenterGjenzjfxqb00-30-7320 10:46-0400Diastolic blood iydpeosf41 mm[Hg]Syed Carro DO Work Phone: [facility] CenterBmenutixjn28-62-1129 10:46-0400Systolic blood xvkyifqs633 mm[Hg]Syed Meza DO Work Phone: [facility] CenterRqabxrdaxc20-69-2405 10:35-0400Body mass index (BMI) [Ratio]19.39 kg/f8XwmcpColer-[facility]06-27-2025 10:35-0400Body weight 54.49 kgColer-[facility]02-20-2025 15:33-0500Body yuhgqt505.6 cmLisa Krotzer LOCOMOTIVE SUPERVISOR-PICKLE MAKER Work Phone: [facility]02-20-2025 15:33-0500Body mass index (BMI) [Ratio]19.59 kg/m2Lisa Krotzer LOCOMOTIVE SUPERVISOR-PICKLE MAKER Work Phone: [facility]02-20-2025 15:33-0500Body .07 kgLisa Krotzer LOCOMOTIVE SUPERVISOR-PICKLE MAKER Work Phone: [facility]02-20-2025 15:33-0500Diastolic blood mm[Hg]Bonnie Krotzer LOCOMOTIVE SUPERVISOR-PICKLE MAKER Work Phone: [facility]02-20-2025 15:33-0500Systolic blood wrbapcci434 mm[Hg]Bonnie Krotzer LOCOMOTIVE SUPERVISOR-PICKLE MAKER Work Phone: [facility]10-23-2024 11:34-0400Body mass index (BMI) [Ratio]19.21 kg/m2Aspen Drew MD Work Phone: [facility]10-23-2024 11:34-0400Body nmrmue23.98 kgAspen Drew MD Work Phone: [facility]10-23-2024 11:34-0400Diastolic blood nlnoiijc36 mm[Hg]Aspen Drew MD Work Phone: [facility]10-23-2024 11:34-0400Heart rate 81 /Latisha Drew MD Work Phone: [facility]10-23-2024 11:34-0400Systolic blood zxrranxl998 mm[Hg]Aspen Drew MD Work Phone: [phone] [place] [address] Encounters Encounter DateEncounter TypeCare ProviderFacilityStart: 02-07-2025 End: 79-16-7986Lvsmsb Kandice VENCES Work Phone: [facility] [place] [facility]YNStart: 02-07-2025 End: 24-48-9069Lcbvag Kandice VENCES Work Phone: [facility] [place] [facility]YNStart: 02-07-2025 End: 76-06-4214cwvfatwcmqUDV CHERELLEEYNot AvailableStart: 02-07-2025 End: 90-96-3686Fwhyvfnx flow Venkata VENCES Work Phone: [facility] [place] OBGYNComment on above:Second trimester ([facility]); 23 weeks gestation of ([facility]); Diabetes mellitus screeningStart: 01-17-2025 End: 42-41-4030Lnccqs consultation new/estab patient 60 Beto Lawrence MD Work Phone: [phone]-Gwdlo [facility] Comment on above: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); 19 weeks gestation of ([facility])Start: 12-13-2024 End: 18-66-8953Osmsc Brittany Lawrence MD Work Phone: [phone]-Kxihn [facility] Start: 12-12-2024 End: 05-44-0975Kxcgzx flowsheetKassandra VENCES Work Phone: [facility] [place] [facility]BGYNStart: 12-12-2024 End: 63-44-2798Iwvjqn flowsheetKassandra VENCES Work Phone: [facility]BGYNStart: 12-12-2024 End: 33-76-3093Qqnigkoqo Result EncounterKassandra VENCES Work Phone: noms External Department UnsolicitedStart: 12-12-2024 End: 80-93-2834Yicziloe Result EncounterKassandra VENCES Work Phone: noms External Department UnsolicitedStart: 12-12-2024 End: 02-49-5648yzdmwgjbsjAPC RAMEYNot AvailableStart: 12-12-2024 End: 01-53-4247Aazxsat encounter procedureKassandra VENCES Work Phone: NOYI HealthcareStart: 12-12-2024 End: 17-35-9753Zthaszpw preventive med est patient 18-39 yrsKassandra VENCES Work Phone: [facility] [place] OBGYNComment on above:Second trimester ([facility]); 15 weeks gestation of ([facility]); Well woman exam with routine gynecological exam; Vaginal discharge; STD exposure; Screening, , for anatomic survey ([facility])Start: 12-05-2024 End: 41-40-7339Uvhtwx flowsheetCorey Susana DO Work Phone: [facility] [place] [facility]BGYNStart: 12-05-2024 End: 66-72-4587Ejbxjq flowsheetCorey Susana DO Work Phone: NOXF [place] [facility]BGYNStart: 12-05-2024 End: 85-70-5469fgvfgzkxyqBWJEG FAZIONot AvailableStart: 12-05-2024 End: 12-31-9693Ohijitoc flow sheetCorey Susana DO Work Phone: [facility] [place] OBGYNComment on above:14 weeks gestation of ([facility]); First trimester ([facility])Start: 12-01-2024 End: 59-51-1281Tsjionlch department patient visitASPEN [facility]eralta [facility] HospitalStart: 11-17-2024 End: 83-43-1190Dnetneyhw Result EncounterCorey Susana DO Work Phone: noms External Department UnsolicitedStart: 11-17-2024 End: 55-19-8986Xwfhkyjpn Result EncounterCorey Susana DO Work Phone: noms External Department UnsolicitedStart: 11-14-2024 End: 20-49-5974Ookwws flowsheetCorey Susana DO Work Phone: [facility] [place] [facility]YNStart: 11-14-2024 End: 64-50-5853Wifutw flowsheetCorey Susana DO Work Phone: NOTK [facility] [facility]BGYNStart: 11-14-2024 End: 04-49-6645Ahpsffpin Result EncounterCorey Susana DO Work Phone: noms External Department UnsolicitedStart: 11-14-2024 End: 12-01-3914fydilfcqfnWYGZI FAZIONot AvailableStart: 11-14-2024 End: 69-77-1266Btnwiejw flow sheetCorey Susana DO Work Phone: NOUZ [place] OBGYNComment on above:First trimester ([facility]); 11 weeks gestation of ([facility])Start: 10-14-2024 End: 21-29-4712Rpcokalhv department patient visitJOCATE [facility] HospitalStart: 10-13-2024 End: 81-58-8774Rmyfpl outpatient visit 5 minutesFazio Nurse [facility] Bcp ObNOMS BCP OBComment on above:[place]: 8z1dFwavi: 10-13-2024 End: 44-48-6013wezbldecjrTWLKC FAZIONot AvailableStart: 09-27-2024 End: 99-87-3810Tcjvzo outpatient visit 5 minutesLisa Richard Barba LOCOMOTIVE SUPERVISOR-PICKLE MAKER Work Phone: ProOur [facility]ca Physicians Obstetrics/GynecologyComment on above:Missed menses (Primary Dx)Start: 09-27-2024 End: 11-00-9270iuldvxdfahZZSI [facility] Ambulatory PPGStart: 09-26-2024 End: 97-99-8584Swbcjunmx encounterBonnie Barba LOCOMOTIVE SUPERVISOR-PICKLE MAKER Work Phone: [facility] Obstetrics/GynecologyStart: 06-12-2024 End: 25-43-6870Tayapqiav encounterAspen Drew MD Work Phone: [facility]/Pediatric[facility] Start: 06-11-2024 End: 38-05-2702Vayzclnax department patient visitJOCATE Kathryn SWETAHOLY CROSS HOSPITALNATALYKing's Daughters [facility] HospitalStart: 06-08-2024 End: 29-65-0200Umasqz outpatient new 30 minutesLisa Richard Barba LOCOMOTIVE SUPERVISOR-PICKLE MAKER Work Phone: [facility] Obstetrics/GynecologyComment on above:Secondary amenorrhea (Primary Dx); Patient desires pregnancyStart: 06-08-2024 End: 63-61-2289xbzxoneakeGTBK [facility] Ambulatory PPGStart: 05-14-2024 End: 08-76-6483Awrystuts department patient visitASPEN Kathryn [facility] HospitalStart: 02-09-2024 End: 80-95-4825ywsbsphhhzEKJA J HICincinnati [facility] HospitalStart: 02-09-2024 End: 71-05-2254vtkofccueyTCXN J HIJohn [facility] Hospital Ambulatory PPGStart: 02-09-2024 End: 66-49-9684Srmung outpatient visit 15 minutesAspen Drew MD Work Phone: [facility] Internal Medicine/Pediatrics Comment on above:Urinary frequency (Primary Dx)Start: 08-05-2023 End: 40-07-6966Lkkuofles encounterChandrahouston Shuklasweta [facility] POCONOProMedica Physicians Internal Medicine/PediatricsComment on above:Appointment DueStart: 01-21-2023 ambulatoryHarborStart: 24-99-7946iqiyukfznyYotoeowkqjm Abdelaziz [facility]-22-2022 End: 42-44-3430Kmktmftmtu and management of inpatientAspen Drew [facility]: 10-22-2020 End: 75-36-8853bphnmoibwyIT ASPEN DREWFacility:H1 Procedures DateProcedureProcedure DetailPerforming ClinicianStart: 09-93-7442Lrmbc dip stick/tablet rgnt non-auto w/o micrscpAmy Brandan VENCES Work Phone: Start: 81-95-6953EHVYVWLJE VAGINITIS (HTRX)Kassandra VENCES Work Phone: Start: 41-40-2365Veoec dip stick/tablet rgnt non-auto w/o micrscpAmy Brandan VENCES Work Phone: Start: 70-57-8265FLH,APTIMA HPV,AGE GDLNKassandra VENCES Work Phone: Start: 40-13-1080MUQ TEST, EXTERNALAmy Brandan VENCES Work Phone: Start: 11-96-9936Ufqbw dip stick/tablet rgnt non-auto w/o micrscpCorey Susana DO Work Phone: Start: 01-99-9299CJD MISCELLANEOUS TESTCorey Susana DO Work Phone: Start: 56-53-9543XJRLX FREE CELL DNA (NON-[facility] SEND OUT)Not In System Ref ProvStart: 13-90-4153MVUFCWWE LAB TESTNot In System Ref ProvStart: 90-58-5418JLX DRUG SCREEN RAPID (URINE)Syed Susana DO Work Phone: Start: 36-25-3762Zfnyg dip stick/tablet rgnt non-auto w/o micrscpCorey Susana DO Work Phone: Start: 10-13-2024 End: 40-79-5341Khija dip stick/tablet rgnt non-auto w/o micrscpCorey Susana DO Work Phone: Start: 60-81-7806Vaktp test visual color cmprsn methsLisa M Krotzer LOCOMOTIVE SUPERVISOR-PICKLE MAKER Work Phone: Start: 17-12-4623Vxyza test visual color cmprsn methsLisa M Krotzer LOCOMOTIVE SUPERVISOR-PICKLE MAKER Work Phone: Start: 19-66-4838Nonbc dip stick/tablet rgnt non-auto w/o micrscpSusiehn Kathryn Drew MD Work Phone: start: 09-13-2018H/O: surgeryS/P tonsillectomy and adenoidectomySamira Orlando CMA Plan of Treatment DateCare ActivityDetailAuthorStart: 28-65-8110MRnS,Tdap and Td Vaccines (8 - Td or Tdap)DTaP,Tdap and Td Vaccines (8 - Td or Tdap)[facility] SystemStart: 59-59-2832Xutbd BMI ScreeningAdult BMI ScreeningUniversity Hospitals St. [facility] Center SystemStart: 97-03-2391Hymkhnw ScreeningTobacco ScreeningUniversity Hospitals St. John Medical Center SystemStart: 22-33-9494Tmxtw BMI ScreeningAdult BMI ScreeningUniversity Hospitals St. John Medical Center SystemStart: 08-32-8369Kohfd BMI ScreeningAdult BMI ScreeningUniversity Hospitals St. [facility] SystemStart: 19-07-8576Weyrvhq ScreeningTobacco ScreeningProGalion Hospital SystemStart: 61-69-2932Zftqx BMI ScreeningAdult BMI ScreeningUniversity Hospitals St. [facility] SystemStart: 75-93-0464Kktdocp ScreeningTobacco ScreeningProGalion Hospital SystemStart: 03-12-2025 End: 28-72-8328Ruclddv encounter lanexcroh19/24/2025 10:50 AM EST Routine [facility] [address] [id number] Syed Meza DO [address] [place] [address] [facility]BGYNStart: 02-12-2025 End: 09-40-4625Rwthhtjkzmtt / ancillary services hlccqiopcd91/27/2025 11:00 AM EDT Ancillary Procedure [facility] [address] [place] [address] [facility]BGYNStart: 02-07-2025 End: 21-15-6888KXX panel - Blood by Automated countCBC Lab Routine Diabetes mellitus screening Expected: 02/07/2025 (Approximate), Expires: 02/07/2026[facility] Work Phone: comment on above:Expected: 02/07/2025 (Approximate), Expires: 02/07/2026Start: 02-07-2025 End: 64-89-9187Wwmahgbhiwz of glucose 1 hour after glucose challenge for glucose tolerance testGlucose tolerance, 1 hour Lab Routine Diabetes mellitus screening Expected: 02/07/2025 (Approximate), Expires: 02/07/2026NOMT HealthcareComment on above:Expected: 02/07/2025 (Approximate), Expires: 02/07/2026Start: 02-07-2025 End: 25-53-6962Ytsbgev encounter kqpsnpmah11/22/2025 11:20 AM EDT Routine [facility] [address] [phone] Kassandra Turpin PA [address] [place], [place] [id number] [facility] OBGYNStart: 01-17-2025 End: 39-08-4262Gskcqga encounter procedureOhioHealth Dublin Methodist Hospital US ImagingStart: 01-16-2025 End: 73-41-1629Lqvltkdoailb / ancillary services xjosscfnww51/30/2025 9:30 AM EDT Ancillary Procedure [facility] OBOLGAN [address] [place] [phone] [facility] OBGYNStart: 01-09-2025 End: 80-20-2560Iakuqqq encounter pjlycgfnr31/23/2025 11:20 AM EDT Routine [facility] GONSALES [address] [place] [phone] Syed Meza, [address] [place] [address] [facility] OBGYNStart: 12-18-2024 Influenza vaccinationInfluenza VaccineUniversity Hospitals St. John Medical Center SystemStart: 12-12-2024 End: 39-35-1453Yhdqb fetoprotein, maternalAlpha fetoprotein, maternal Lab Routine Second trimester ([facility]) 15 weeks gestation of ([facility]) Expected: 12/12/2024 (Approximate), Expires: 06/14/2025[facility] Comment on above:Expected: 12/12/2024 (Approximate), Expires: 06/14/2025Start: 12-12-2024 End: 34-73-9156HE for pregnancyUS OB 14+ weeks anatomy scan Imaging Routine Screening, , for anatomic survey ([facility]) Expected: 12/12/2024, Expires: 03/14/2025[facility] CenterComment on above:Expected: 12/12/2024, Expires: 03/14/2025Start: 12-12-2024 End: 25-24-0632Auwdykp encounter rrarhodxg32/26/2025 8:50 AM EDT Routine [facility] GONSALES [address] [place], [id number] Kassandra Turpin PA [address] [place] [address] [place] [address] [facility] OBGYNStart: 13-03-0469Raszd BMI ScreeningAdult BMI ScreeningUniversity Hospitals St. John Medical Center SystemStart: 10-13-2024 End: 61-05-5035BRA/RhABO/Rh Lab Routine Missed menses , unspecified gestational age ([facility]) Expected: 10/13/2024 (Approximate), Expires: 10/13/2025[facility] HealthcareComment on above:Expected: 10/13/2024 (Approximate), Expires: 10/13/2025Start: 10-13-2024 End: 64-60-5676Haxcj type and Indirect antibody screen panel - BloodType and screen Lab Routine Missed menses , unspecified gestational age ([facility]) Expected: 10/13/2024 (Approximate), Expires: 10/13/2025[facility] Healthcare Comment on above:Expected: 10/13/2024 (Approximate), Expires: 10/13/2025Start: 10-13-2024 End: 30-87-6649Vtbbf of abuse panel - Urine by Screen methodRapid drug screen, urine Lab Routine , unspecified gestational age ([facility]) Encounter for supervision of normal first in first trimester ([facility]) Expected: 10/13/2024 (Approximate), Expires: 10/13/2025[facility] HealthcareComment on above: Expected: 10/13/2024 (Approximate), Expires: 10/13/2025Start: 10-10-2024 End: 23-46-9693Wwntoudichwz consultation with pbjnifc9610/10/2024 1:00 PM EDT Telemedicine [facility] Ob[facility]ne[facility] [address] [place] [address] Bonnie Barba, LOCOMOTIVE SUPERVISOR-PICKLE MAKER [address] [place] [address] [facility] Obstetrics/GynecologyStart: 10-05-2024 End: 77-64-0239JZ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 08/05/2023 10:59 AM EDT Care Coordination Outreach performed to coordinate overdue appointments, testing, and/or follow-up care: Yes Audit/Outreach Date: August 05, 2023 Reason: Well Person Method: Telephone and Letter Outreach Attempt: First Outcome: Invalid Number Next PCP Appointment: N/A Tests/Referrals Pended: N/A Resources/Education Provided: Additional Comments: documented [place] encounterPaul [place]ille [id number] Telephone encounter Note* Telephone Encounter - Samira Orlando CMA - 08/05/2023 10:59 AM EDT Care Coordination Outreach performed to coordinate overdue appointments, testing, and/or follow-up care: Yes Audit/Outreach Date: August 05, 2023 Reason: Well Person Method: Telephone and Letter Outreach Attempt: First Outcome: Invalid Number Next PCP Appointment: N/A Tests/Referrals Pended: N/A Resources/Education Provided: Additional Comments: [facility] SystemEvaluation note* Diagnosis Urinary frequency- Primary documented in this encounter [facility]Evaluation note* Diagnosis Secondary amenorrhea- Primary Absence of menstruation Patient desires documented in this encounter [facility] SystemEvaluation note* Diagnosis Missed menses- Primary documented in this encounter [facility] SystemEvaluation note* Diagnosis Missed menses , unspecified gestational age ([facility]) Encounter for supervision of normal first in first trimester ([facility]) documented in this encounter [facility] [...] STD exposure Screening, , for anatomic survey (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 [facility] SystemInstructions* Attachments The following attachments cannot be sent through Care Everywhere. * How to plan and prepare for a healthy (Lao) * Absent or irregular periods (Lao) documented in this encounterProDecatur Morgan Hospital Health SystemInstructionsNot on file documented in this encounterProDecatur [facility] Hospital Health SystemInstructionsNot on file documented in this encounterProGalion Hospital SystemInstructionsNot on file documented in this encounterProGalion Hospital SystemInstructionsNot on file documented in this encounterUniversity Hospitals St[facility] System Summary Purpose Family History No Family History Records FoundNo Family History Records FoundNo Family History Records FoundNo Family History Records FoundNo Family History Records FoundNo Family History Records FoundNo Family History Records Found Advance Directives No Advanced Directives Records Found Date ActivatedDate InactivatedComments01/12/2018 1:32 PM01/13/2018 8:22 PM Additional Source Comments INFORMATION SOURCE (unrecogn ized section and content) DATE CREATED AUTHOR 10/31/2020 [facility] DATE CREATED AUTHOR AUTHOR'S ORGANIZ ATION 01/25/2023 [place] DATE CREATED AUTHOR AUTHOR'S ORGANIZ ATION 04/18/2023 [facility] DATE CREATED AUTHOR AUTHOR'S ORGANIZ ATION 09/29/2024 [facility] DATE CREATED AUTHOR AUTHOR'S ORGANIZ ATION 12/03/2024 [place] DATE CREATED AUTHOR AUTHOR'S ORGANIZ ATION 01/22/2025 [facility] DATE CREATED AUTHOR AUTHOR'S ORGANIZ ATION 02/13/2025 [facility] EPIC Reason for Visit (unrecogniz ed section and content) ReasonOnset DateCommentsAppointment Due08/05/2023easonCommentsUrinary Tract InfectionFrequency and odor, previous kidney stoneReasonCommentsLate Period ReasonCommentsPregnancy TestReasonCommentsAmenorrheaReasonCommentsRoutine VisitReasonCommentsRoutine VisitWell Women VisitSTI Screening ReasonCommentsAnti M Care Teams (unrecognized sec tion and content) Team MemberRelationshipSpecialtyStart DateEnd Date Aspen Drew MD [address] [place] [address], [address] [place] [address] PCP - GeneralPediatrics01/05/18Team MemberRelationshipSpecialtyStart DateEnd [facility] Aspen Drew MD [address] [place] [address], [address] [place] [address] PCP - GeneralPediatrics01/05/18Team MemberRelationshipSpecialtyStart DateEnd Date Aspen Drew MD [address] [place] [address], [address] [place] [address] PCP - GeneralPediatrics01/05/18Team MemberRelationshipSpecialtyStart DateEnd Date Aspen Drew MD [address] [place] [address], [address] [place] [address] PCP - GeneralPediatrics01/05/18Team MemberRelationshipSpecialtyStart DateEnd Date Aspen Drew MD [address] [place] [address], [address] [place] [address] PCP - GeneralFamily Medicine10/28/22Team MemberRelationshipSpecialtyStart DateEnd [facility] Aspen Drew MD [address] [place] [address], [address] [place] [address] PCP - GeneralFamily Medicine10/28/22Team MemberRelationshipSpecialtyStart DateEnd Date Aspen Drew MD [address] [place] [address], [address] [place] [address] PCP - GeneralFamily Medicine10/28/22Team MemberRelationshipSpecialtyStart DateEnd Date Aspen Drew MD [address] [place] [address], [address] [place] [address] PCP - GeneralFamily Medicine10/28/22Team MemberRelationshipSpecialtyStart DateEnd Date Aspen Drew MD [address] [place] [address], [address] [place] [address] PCP - GeneralFamily Medicine10/28/22Team MemberRelationshipSpecialtyStart DateEnd Date Aspen Drew MD [address] [place] [address], [address] [place] [address] PCP - GeneralFamily Medicine10/28/22Team MemberRelationshipSpecialtyStart DateEnd Date Aspen Drew MD [address] [place] [address], [address] [place] [address] PCP - GeneralFamily Medicine10/28/22Team MemberRelationshipSpecialtyStart DateEnd Date Aspen Drew MD [address] [place] [address], [address] [place] [address] PCP - GeneralPediatrics01/05/18Team MemberRelationshipSpecialtyStart DateEnd Date Aspen Drew MD [address] [place] [address], [address] [place] [address] PCP - GeneralPediatrics01/05/18Team MemberRelationshipSpecialtyStart DateEnd Date Aspen Drew MD [address] [place] [address], [address] [place] [address] PCP - GeneralFamily Medicine10/28/22 FOR RECORDS PERTAINING [...] BE BASED ON THE PRIMARY CLINICAL RECORDS. [facility] [employer] [facility]. provides no warranty or guarantee of the accuracy or completeness of information in this document.
[2025-04-17 13:22] VITALS: BP 119/68; PULSE 88
== END 2025-04-17 13:45 | disposition home or self-care (01) ==
LOC: US 12:59 → FBC 13:04
PROVIDERS: PCP Internal Medicine; Visit Provider Physician Assistant
DX: O36.1930 Maternal care for other isoimmunization, third trimester, not applicable or unspecified (principal); Z3A.32 32 weeks gestation of pregnancy
CPT/HCPCS: 76818